=== PATIENT | female | born 1955 | race Caucasian/White ===

== ENCOUNTER → 2016-05-07 | Outpatient (REF) | payer OTHER ==
[~2016-05-07] MED LIST: AMBI5TAB PO; AMBI6.25 PO; ASPI32ECTA PO; CIPR500T89 PO; DYAZ37.5 PO; EFFE37.527 PO; ELIQ5TAB PO; FLAG500T PO; KLOR1TAB73 PO; LEVO75TA4 PO; MAGN400C2 PO; METO-209 PO; METO25TAB PO; PERCOCET PO; SPIR25TA2 PO; SUCR1TA PO; TOPR25TA PO; UROCTAB2 PO; ZOFR20TA PO
== END ==
LOC: M LAB REF 16:57
PROVIDERS: ATTEND Nurse Practitioner Family
DX: L20.9 Atopic dermatitis, unspecified (principal)

== ENCOUNTER → 2016-05-28 | Outpatient (CLI) | payer OTHER ==
[2016-05-28 17:27] LABS: BASO % 0.2 % (0.0-1.0); EOS # 0.3 K/mm3 (0.0-0.50); LARGE UNSTAINED CELL # 0.3 K/mm3 (0.0-0.4); LARGE UNSTAINED CELL % 2.9 % (0.0-4.0); LYMPH # 0.9 K/mm3 (1.5-4.5); LYMPH % 8.4 % (24.0-44.0); MEAN CORPUSCULAR HEMOGLOBIN 30.7 pg (27.0-33.0); MEAN CORPUSCULAR HGB CONC 33.7 g/dl (32.0-36.5); MEAN CORPUSCULAR VOLUME 90.9 fl (80.0-96.0); MONO # 0.7 K/mm3 (0.0-0.8); MONO % 6.3 % (0.0-5.0); NEUTROPHILS # 8.4 K/mm3 (1.8-7.7); NEUTROPHILS % 79.3 % (36.0-66.0); PLATELET COUNT, AUTOMATED 164 k/mm3 (150-450); RED CELL DISTRIBUTION WIDTH 13.8 % (11.5-14.5); WHITE BLOOD COUNT 10.6 K/mm3 (4.0-10.0)
[2016-05-28 18:04] LABS: ERYTHROCYTE SEDIMENTATION RATE 57 mm/hr (0-30)
[2016-05-28 18:05] LABS: ALBUMIN 3.4 GM/DL (3.2-5.2); ALBUMIN/GLOBULIN RATIO 0.89 (1.00-1.93); BILIRUBIN,TOTAL 1.3 MG/DL (0.2-1.0); CALCIUM LEVEL 8.8 MG/DL (8.8-10.2); CREATININE FOR GFR 1.04 MG/DL (0.55-1.02); GLOMERULAR FILTRATION RATE 57.2 (>45); POTASSIUM SERUM 4.1 MEQ/L (3.5-5.1); TOTAL PROTEIN 7.2 GM/DL (6.4-8.2)
== END ==
LOC: M LAB 17:04
PROVIDERS: ATTEND Nurse Practitioner Family
DX: R51 Headache (principal); M31.6 Other giant cell arteritis

== ENCOUNTER → 2016-06-28 | Outpatient (REF) | payer OTHER | LOC: M LAB REF 10:53 | PROVIDERS: ATTEND Surgery | DX: M31.6 Other giant cell arteritis (principal) ==

== ENCOUNTER → 2016-07-05 | Outpatient (REF) | payer OTHER ==
[2016-07-09 00:08] LABS: SJOGREN'S ANTI SS-A 2.5 AI (0.0-0.9); SJOGREN'S ANTI SS-B <0.2 AI (0.0-0.9)
== END ==
LOC: M LAB REF 16:25
PROVIDERS: ATTEND Internal Medicine
DX: L95.9 Vasculitis limited to the skin, unspecified (principal); M05.29 Rheumatoid vasculitis with rheumatoid arthritis of multiple sites

== ENCOUNTER → 2016-07-13 | Outpatient (REF) | payer OTHER | LOC: M LAB REF 10:30 | PROVIDERS: ATTEND Internal Medicine Gastroenterology | DX: A04.7 Enterocolitis due to Clostridium difficile (principal); K59.1 Functional diarrhea; K52.9 Noninfective gastroenteritis and colitis, unspecified ==

== ENCOUNTER → 2016-07-23 | Outpatient (REF) | payer OTHER | LOC: M LAB REF 16:34 | PROVIDERS: ATTEND Internal Medicine | DX: M31.6 Other giant cell arteritis (principal) ==

== ENCOUNTER → 2016-08-17 | Outpatient (REF) | payer OTHER | LOC: M LAB REF 16:59 | PROVIDERS: ATTEND Internal Medicine | DX: M31.6 Other giant cell arteritis (principal) ==

== ENCOUNTER → 2016-09-30 | Outpatient (REF) | payer OTHER ==
[~2016-09-30] MED LIST changes: +ASPI325T24 PO; -ASPI32ECTA PO; +CIPR-249 PO; -CIPR500T89 PO; +FURO80TA2 PO; +LIAL1.2T PO; -METO-209 PO; +METO1TAB33 PO
[2016-10-03 00:06] LABS: Lyme Disease IgG/IgM Antibodie <0.91 ISR (0.00-0.90); Lyme Disease IgM Ab Quantitati <0.80 index (0.00-0.79)
== END ==
LOC: M LAB REF 16:29
PROVIDERS: ATTEND Internal Medicine
DX: R70.0 Elevated erythrocyte sedimentation rate (principal)

== ENCOUNTER → 2016-10-22 | Outpatient (CLI) | payer OTHER ==
--- NOTE | 2016-10-22 16:55 | REP ---
PA and lateral chest: Comparisons 03/05/2011. The lung cerda are clear. Cardiac size is normal. The vinayak, mediastinum, and bony thorax are unremarkable. There is a dual-chamber pacemaker with the pacing tips in satisfactory locations. There are surgical clips in the abdominal right upper quadrant. Impression: Essentially negative PA and lateral chest. There is a pacemaker. This was not present previously. Signed by Cecil Smith MD 10/22/2016 04:47 P
== END ==
LOC: M RAD 16:23
PROVIDERS: ATTEND Nurse Practitioner Family
DX: R06.02 Shortness of breath (principal); Z95.0 Presence of cardiac pacemaker

== ENCOUNTER → 2016-10-22 | Outpatient (REF) | payer OTHER ==
[2016-10-22 22:02] LABS: EOSINOPHILS 1 % (0-5)
== END ==
LOC: M LAB REF 16:20
PROVIDERS: ATTEND Internal Medicine
DX: D72.9 Disorder of white blood cells, unspecified (principal)

== ENCOUNTER 2016-10-27 02:04 | Emergency (ER) | payer OTHER ==
[~2016-10-27] VITALS: Ht 172.7 cm; Wt 103.0 kg
[~2016-10-27 02:04] MED LIST changes: -FURO80TA2 PO; -LIAL1.2T PO
[2016-10-27] MEDS ORDERED: FURO80TA2 PO (02:24)
[2016-10-27] MEDS ORDERED: LIAL1.2T PO (02:24)
[2016-10-27] MEDS ORDERED: NS 1,000 ML IV ONE ×2 (03:00→03:15)
[2016-10-27] MEDS ORDERED: GASTROGRAFIN SOLUTION 30ML (Q9963) PO ONE ×2 (03:35→04:05)
[2016-10-27 03:40] LABS: BASO % 0.3 % (0.0-1.0); EOS # 0.2 K/mm3 (0.0-0.50); EOS % 2.3 % (0.0-3.0); LARGE UNSTAINED CELL # 0.3 K/mm3 (0.0-0.4); LARGE UNSTAINED CELL % 2.4 % (0.0-4.0); LYMPH # 1.3 K/mm3 (1.5-4.5); LYMPH % 9.6 % (24.0-44.0); MEAN CORPUSCULAR HEMOGLOBIN 32.1 pg (27.0-33.0); MEAN CORPUSCULAR HGB CONC 33.4 g/dl (32.0-36.5); MEAN CORPUSCULAR VOLUME 96.3 fl (80.0-96.0); NEUTROPHILS # 8.2 K/mm3 (1.8-7.7); NEUTROPHILS % 76.3 % (36.0-66.0); PLATELET COUNT, AUTOMATED 196 k/mm3 (150-450); RED CELL DISTRIBUTION WIDTH 15.7 % (11.5-14.5); WHITE BLOOD COUNT 10.7 K/mm3 (4.0-10.0)
[2016-10-27 04:02] LABS: ALBUMIN 2.9 GM/DL (3.2-5.2); ALBUMIN/GLOBULIN RATIO 0.67 (1.00-1.93); ALKALINE PHOSPHATASE 82 U/L (45-117); ALT/SGPT 17 U/L (12-78); AMYLASE 18 U/L (25-115); ANION GAP 9 MEQ/L (8-16); AST/SGOT 23 U/L (15-37); BILIRUBIN,DIRECT 0.2 MG/DL (0.0-0.2); BLOOD UREA NITROGEN 11 MG/DL (7-18); CALCIUM LEVEL 9.1 MG/DL (8.8-10.2); CARBON DIOXIDE LEVEL 26 MEQ/L (21-32); CHLORIDE LEVEL 103 MEQ/L (98-107); CREATININE FOR GFR 0.88 MG/DL (0.55-1.02); GLOMERULAR FILTRATION RATE > 60.0 (>45); GLUCOSE, FASTING 93 MG/DL (80-110); POTASSIUM SERUM 3.3 MEQ/L (3.5-5.1); SODIUM LEVEL 138 MEQ/L (136-145); TOTAL PROTEIN 7.2 GM/DL (6.4-8.2)
--- NOTE | 2016-10-27 05:30 | REPUSA ---
CLINICAL HISTORY: Abdominal pain. TECHNIQUE: Multiple axial, sagittal and coronal CT images were obtained through the abdomen and pelvi s without administration of IV contrast material. The patient ingested oral contrast. COMMENTS: Comparison is made to the prior exam on 11/15/2015. The liver is of uniform attenuation without mass or defect. There is no intra or extrahepatic biliary ductal dilatation. The spleen is normal. The gallbladder is surgically absent. The pancreas is of no rmal contour and attenuation characteristics. There is no evidence of adrenal mass. The kidneys are normal in size, shape and configuration. No renal or ureteral calculi are identified. There is no hydroureter or hydronephrosis. There is no evidence for appendicitis. There is sigmoid diverticulosis. Diffuse thickening of the wal l of the sigmoid colon and surrounding fat stranding. No evidence for small or large bowel obstructio n. There is no evidence of abdominal ascites or lymphadenopathy. There is no evidence of intrinsic or extrinsic bladder mass. Mild diffuse thickening of the bladder. There is no pelvic ascites or lymphadenopathy. Images of the lung bases show no evidence of pleural or parenchymal mass. There are no pleural effusi ons. The bony structures are free of lytic or blastic lesions. Multilevel degenerative changes are seen in volving the thoracolumbar spine. Scattered calcifications are seen involving the aorta and major branches compatible with atherosclero sis. IMPRESSION: Acute sigmoid diverticulitis. No perforation or abscess formation. Clinical evaluation and followup are suggested. Mild thickening of the bladder. Thank you for your kind referral of this patient.
[2016-10-27] MEDS ORDERED: CIPR-249 PO (05:40)
[2016-10-27] MEDS ORDERED: FLAG500T PO (05:40)
[2016-10-27] MEDS ORDERED: metroNIDAZOLE 750 MG in APPROPRIATE DILUENT 1 EA IV ONE (05:45)
[2016-10-27] MEDS ORDERED: CIPROFLOXACIN 400 MG in APPROPRIATE DILUENT 1 EA IV ONE (05:45)
[2016-10-27 08:07] VITALS: BP 129/65
== END 2016-10-27 08:09 | disposition home or self-care (01) ==
LOC: M ED 02:04
DX: K57.32 Diverticulitis of large intestine without perforation or abscess without bleeding (principal); I48.91 Unspecified atrial fibrillation; I10 Essential (primary) hypertension; K52.9 Noninfective gastroenteritis and colitis, unspecified; M31.6 Other giant cell arteritis; F32.9 Major depressive disorder, single episode, unspecified; Z90.49 Acquired absence of other specified parts of digestive tract; Z88.5 Allergy status to narcotic agent; Z79.899 Other long term (current) drug therapy
CPT/HCPCS: 74176; 80048; 80076; 82150; 83690; 85025; 96361; 96365; 96367; 99283; J0744; Q9963

== ENCOUNTER → 2016-10-29 | Outpatient (REF) | payer OTHER ==
[~2016-10-29] MED LIST changes: +FURO80TA2 PO; +LIAL1.2T PO
[2016-10-29 20:13] LABS: EOSINOPHILS 2 % (0-5)
== END ==
LOC: M LAB REF 16:39
PROVIDERS: ATTEND Nurse Practitioner Family
DX: D72.9 Disorder of white blood cells, unspecified (principal)

== ENCOUNTER → 2016-11-11 | Outpatient (CLI) | payer OTHER ==
--- NOTE | 2016-11-11 12:28 | REP ---
Left lower extremity deep vein duplex ultrasound: The deep veins demonstrate normal compression, normal Doppler color flow and normal Doppler waveforms with respiration augmentation at multiple levels from the popliteal vein to the common femoral vein. Impression: There is no deep vein thrombus. Signed by Cecil Smith MD 11/11/2016 12:19 P
== END ==
LOC: M RAD 11:44
PROVIDERS: ATTEND Physician Assistant
DX: M79.662 Pain in left lower leg (principal); R60.0 Localized edema

== ENCOUNTER → 2016-12-01 | Outpatient (REF) | payer OTHER | LOC: M LAB REF 15:41 | PROVIDERS: ATTEND Internal Medicine Gastroenterology | DX: K52.9 Noninfective gastroenteritis and colitis, unspecified (principal) ==

== ENCOUNTER → 2016-12-22 | Outpatient (REF) | payer OTHER ==
[2016-12-22 21:54] LABS: EOSINOPHILS 5 % (0-5); SPHEROCYTES 1+
== END ==
LOC: M LAB REF 16:53
PROVIDERS: ATTEND Internal Medicine
DX: D72.9 Disorder of white blood cells, unspecified (principal)

== ENCOUNTER → 2017-03-15 | Outpatient (REF) | payer OTHER ==
[2017-03-15 17:57] LABS: COMPLEMENT C4 36.6 MG/DL (10-40)
== END ==
LOC: M LAB REF 16:57
PROVIDERS: ATTEND Nurse Practitioner Adult Health
DX: M19.90 Unspecified osteoarthritis, unspecified site (principal)

== ENCOUNTER → 2017-04-26 | Outpatient (REF) | payer OTHER ==
[2017-04-26 13:56] LABS: C REACTIVE PROTEIN QUANTITATIV 1.22 MG/DL (0.00-0.30)
== END ==
LOC: M LAB REF 13:23
DX: M19.90 Unspecified osteoarthritis, unspecified site (principal)

== ENCOUNTER → 2017-06-03 | Outpatient (REF) | payer OTHER ==
[2017-06-03 18:52] LABS: C REACTIVE PROTEIN QUANTITATIV 1.33 MG/DL (0.00-0.30)
== END ==
LOC: M LAB REF 16:38
DX: R70.0 Elevated erythrocyte sedimentation rate (principal)

== ENCOUNTER → 2017-07-28 | Outpatient (REF) | payer OTHER ==
[2017-07-28 12:56] LABS: C REACTIVE PROTEIN QUANTITATIV 1.49 MG/DL (0.00-0.30)
== END ==
LOC: M LAB REF 12:04
DX: I48.0 Paroxysmal atrial fibrillation (principal)

== ENCOUNTER → 2018-01-16 | Outpatient (REF) | payer OTHER ==
[2018-01-16 19:08] LABS: BASO % 0.4 % (0.0-1.0); EOS # 0.2 10^3/uL (0.0-0.50); EOS % 2.5 % (0.0-3.0); HEMATOCRIT 45.3 % (36.0-47.0); HEMOGLOBIN 14.9 g/dl (12.0-15.5); IMMATURE GRANULOCYTE % 1.3 % (0-3.0); LYMPH # 1.4 10^3/uL (1.5-4.5); LYMPH % 16.6 % (24.0-44.0); MEAN CORPUSCULAR HEMOGLOBIN 30.9 pg (27.0-33.0); MEAN CORPUSCULAR HGB CONC 32.9 g/dl (32.0-36.5); MONO % 12.2 % (0.0-5.0); NEUTROPHILS # 5.7 10^3/uL (1.8-7.7); PLATELET COUNT, AUTOMATED 200 10^3/uL (150-450); RED BLOOD COUNT 4.82 10^6/uL (4.00-5.40); RED CELL DISTRIBUTION WIDTH 13.2 % (11.5-14.5); WHITE BLOOD COUNT 8.5 10^3/uL (4.0-10.0)
[2018-01-16 19:30] LABS: ALBUMIN 3.5 GM/DL (3.2-5.2); ALBUMIN/GLOBULIN RATIO 0.83 (1.00-1.93); ALKALINE PHOSPHATASE 106 U/L (45-117); ALT/SGPT 21 U/L (12-78); ANION GAP 9 MEQ/L (8-16); AST/SGOT 21 U/L (7-37); BILIRUBIN,TOTAL 0.5 MG/DL (0.2-1.0); BLOOD UREA NITROGEN 21 MG/DL (7-18); C REACTIVE PROTEIN QUANTITATIV 1.23 MG/DL (0.00-0.30); CALCIUM LEVEL 8.8 MG/DL (8.8-10.2); CARBON DIOXIDE LEVEL 23 MEQ/L (21-32); CHLORIDE LEVEL 108 MEQ/L (98-107); CPK CREATINE PHOSPHOKINASE 92 U/L (26-192); CREATININE FOR GFR 1.18 MG/DL (0.55-1.30); GLOMERULAR FILTRATION RATE 49.1 (>45); GLUCOSE, FASTING 90 MG/DL (70-100); POTASSIUM SERUM 4.4 MEQ/L (3.5-5.1); SODIUM LEVEL 140 MEQ/L (136-145); TOTAL PROTEIN 7.7 GM/DL (6.4-8.2)
[2018-01-16 19:49] LABS: ERYTHROCYTE SEDIMENTATION RATE 31 mm/hr (0-30)
[2018-01-19 00:08] LABS: ANA (HEP2) Negative (.); ANTI JO-1 ANTIBODIES <0.2 AI (0.0-0.9); SSA SJOGRENS A 4.4 AI (0.0-0.9); SSB SJOGRENS B <0.2 AI (0.0-0.9)
== END ==
LOC: M SFHCLERA 12:19
DX: R76.8 Other specified abnormal immunological findings in serum (principal)

== ENCOUNTER 2018-08-25 20:04 | Emergency (ER) | payer OTHER ==
[~2018-08-25] VITALS: Ht 172.7 cm; Wt 94.5 kg
[~2018-08-25 20:04] MED LIST changes: +ASPI-255 PO; -ASPI325T24 PO; +EFFE37.5 PO; -EFFE37.527 PO; +METO1TAB63 PO; -METO25TAB PO; +SPIR-10 PO; -SPIR25TA2 PO; -ZOFR20TA PO; +ZOFR4TAB16 PO
[2018-08-25] MEDS ORDERED: CYCL5TAB PO (21:44)
[2018-08-25 21:51] VITALS: BP 115/68
--- NOTE | 2018-08-26 09:41 | REP ---
Clinical: Trauma. Technique: Frontal view of the chest with multiple views of the left hemithorax. Findings: Frontal view of the chest demonstrates no acute cardiopulmonary process. Multiple views of the left hemithorax demonstrates no obvious acute rib fracture or pathology. Impression: Normal left rib series. No acute fracture identified. Electronically Signed by Saúl Patel MD 08/26/2018 09:33 A
--- NOTE | 2018-08-26 19:21 | ECGEPIP ---
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
== END 2018-08-25 21:55 | disposition home or self-care (01) ==
LOC: M ED 20:04
DX: R07.81 Pleurodynia (principal); I10 Essential (primary) hypertension; E03.9 Hypothyroidism, unspecified; F33.9 Major depressive disorder, recurrent, unspecified; F41.9 Anxiety disorder, unspecified; Z95.0 Presence of cardiac pacemaker; Z87.19 Personal history of other diseases of the digestive system; Z88.5 Allergy status to narcotic agent; Z79.899 Other long term (current) drug therapy; Z79.01 Long term (current) use of anticoagulants

== ENCOUNTER → 2018-10-05 | Outpatient (CLI) | payer MEDICARE, OTHER ==
[~2018-10-05] MED LIST changes: +CYCL5TAB PO
[2018-10-05 15:48] LABS: COLLAGEN EPINEPHRINE 96 SECONDS (74-162)
== END ==
LOC: M LAB 14:05
PROVIDERS: ATTEND Ophthalmology
DX: H02.831 Dermatochalasis of right upper eyelid (principal)

== ENCOUNTER → 2018-12-24 | Outpatient (CLI) | payer MEDICARE, OTHER ==
--- NOTE | 2018-12-25 07:42 | REP ---
RIGHT ANKLE, FOUR VIEWS: There is no evidence of an acute fracture, dislocation or intrinsic bone disease. There is mild inferior calcaneal spurring. IMPRESSION: No fracture or dislocation. Electronically Signed by Cecil Alvarez MD 12/26/2018 09:48 A
== END ==
LOC: M LRY 16:18
PROVIDERS: ATTEND Physician Assistant
DX: M77.31 Calcaneal spur, right foot (principal); M25.571 Pain in right ankle and joints of right foot
CPT/HCPCS: 73610; G0463

== ENCOUNTER → 2019-04-09 | Outpatient (REF) | payer MEDICARE, OTHER | LOC: M LAB REF 17:21 | PROVIDERS: ATTEND Internal Medicine | DX: E78.5 Hyperlipidemia, unspecified (principal) ==

== ENCOUNTER → 2019-05-17 | Outpatient (REF) | payer MEDICARE, OTHER ==
[2019-05-17 22:20] LABS: INFLUENZA A AMPLIFICATION POSITIVE (NEGATIVE); INFLUENZA B AMPLIFICATION NEGATIVE (NEGATIVE)
== END ==
LOC: M LAB REF 08:39
PROVIDERS: ATTEND Physician Assistant
DX: J10.1 Influenza due to other identified influenza virus with other respiratory manifestations (principal)

== ENCOUNTER 2019-05-29 22:24 | Inpatient (IN) | payer OTHER, MEDICARE ==
[~2019-05-29] VITALS: Ht 172.7 cm; Wt 91.9 kg
[2019-05-29] MEDS: DOCUSATE SODIUM 100 MG CAP PO SCH (21:00)
[~2019-05-29 22:24] MED LIST changes: +FENOFIBRATE 145 MG TAB (TRICOR) PO SCH; +ROSUVASTATIN 10 MG TAB (CRESTOR) PO SCH; +zolPIDEM TARTRATE 5 MG TAB PO SCH
[2019-05-30] MEDS ORDERED: AZITHROMYCIN INJ 500 MG, VIAL MATE ADAPTER 1 EACH in D5W 250 ML IV ONE (00:30)
[2019-05-30] MEDS ORDERED: cefTRIAXone SOD 1 GM in D5W MINI-BAG PLUS 50 ML IV ONE (00:30)
[2019-05-30 00:41] LABS: BASO % 0.4 % (0.0-1.0); EOS # 0.2 10^3/uL (0.0-0.5); HEMATOCRIT 42.2 % (36.0-47.0); HEMOGLOBIN 13.7 g/dl (12.0-15.5); LYMPH % 24.7 % (24.0-44.0); MEAN CORPUSCULAR HEMOGLOBIN 30.4 pg (27.0-33.0); MEAN CORPUSCULAR HGB CONC 32.5 g/dl (32.0-36.5); MEAN CORPUSCULAR VOLUME 93.8 fl (80.0-96.0); MONO # 1.3 10^3/uL (0.0-0.8); MONO % 16.5 % (0.0-5.0); NEUTROPHILS # 4.4 10^3/uL (1.5-8.5); NEUTROPHILS % 54.7 % (36.0-66.0); PLATELET COUNT, AUTOMATED 168 10^3/uL (150-450); WHITE BLOOD COUNT 8.1 10^3/uL (4.0-10.0)
[2019-05-30 01:03] LABS: CREATININE FOR GFR 1.09 MG/DL (0.55-1.30); GLOMERULAR FILTRATION RATE 53.6 (>45); POTASSIUM SERUM 3.8 MEQ/L (3.5-5.1)
[2019-05-30] MEDS ORDERED: MOM 30ML SUSPENSION UDC PO PRN (01:45)
[2019-05-30] MEDS ORDERED: ACETAMINOPHEN TAB 650MG DOSE (2X325MG) PO PRN (01:45)
[2019-05-30] MEDS ORDERED: MAALOX 30 ML SUSP *UDC PO PRN (01:45)
--- NOTE | 2019-05-30 01:47 | HPEPDOC ---
[facility] Medical History & Physical Date of Admission May 30, 2019 Date of Service: May 30, 2019 Primary Care Physician: Jr Escalante Collins Attending Physician: CORRINE DORANTES MD History and Physical TIME OF SERVICE: 215AM CHIEF COMPLAINT: dyspnea HISTORY OF PRESENT ILLNESS: This is a 63-year-old female who was diagnosed with influenza A 2 weeks ago; she and finished a course of Tamiflu; her cough had resolved but on Tuesday she began to have muscle aches and shortness of breath, so she decided to come to the hospital for evaluation. Per discussion with the ER provider. Her oxygen was 88% on room air but improved to 94% on 4 L. . She was started on ceftriaxone and azithromycin for left sided pneumonia. REVIEW OF SYSTEMS: 12 point review of systems negative except as listed in HPI PAST MEDICAL/ SURGICAL HISTORY: Mixed connective tissue disease. 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 She doesn't smoke ALLERGIES: Please see below. HOME MEDICATIONS: Please see below. PHYSICAL EXAMINATION: VITAL SIGNS: Please see below. GEN: well-nourished / well developed/ NAD INTEGUMENT: not flushed HEENT: NCAT / lips acyanotic /mucus membranes moist and pink / nasal cannula in place CVS: RRR/NMRG LUNGS: lungs are clear to auscultation bilaterally on room air ABDOMEN: Contour (flat) / the abdomen is tympanic on percussion, soft & not tender with palpation MSK/EXTREMITIES: range of motion intact in all 4 extremities / no scoliosis / no kyphosis NEURO: CN 2-12 are grossly intact / speech is not dysarthric PSYCH: alert and oriented to person place and time/ able to understand and follow all commands LABORATORY DATA: See below. IMAGING: There appears to be a left sided retrocardiac obesity MICROBIOLOGY: Please see below. ASSESSMENT: Ms. Chris is a 63-year-old female with a hx of mixed connective tissue disease, temporal arteritis, atrial fibrillation, sick sinus syndrome, gastritis, Chronic HTN, dyslipidemia, and hypothyroidism was admitted for management of hypoxia, possibly due to left-sided pneumonia. PLAN: 1.Dyspnea Possibly 2/2 post viral Pneumonia She completed her course of Tamiflu. Chest x-ray as above CURB 65 score to determine if pt should be admitted = 1 point = low risk = out patient treatment appropriate Plan: bc she is O2 dependent we will admit her to the medical floor overnight / switch to PO levofloxacin tommorow / continuous pulse ox & supplemental O2/ f/u blood cx / f/u final chest xray report / Acetaminophen PRN for fever 2. A fib - Plan: Metoprolol and eliquis 3. Hypothyroidism - Plan: Levoroxine 4. Chronic HTN - Plan: spironolactone, metoprolol 5. Dyslipidemia - Plan: rosuvastatin and fenofibrate 6. Obesity w BMI of 30 complicates care - Plan: f/u A1C DVT PROPHYLAXIS n/a bc she is on eliquis Dispo: possibly home tomorrow if weaned off of O2 LATE ENTRY #Bigemeny / Frequent PVCs Per d/w RN pacemaker not pacing on telemetry & pt is having frequent PVCs and bigeminy. We will do an EKG and consult to interrogate the pacemaker in the AM. Vital Signs Vital Signs Date Time Temp Pulse Resp B/P (MAP) Pulse Ox O2 Delivery O2 Flow Rate FiO2 05/29/19 23:45 80 148/67 (94) 95 05/29/19 22:45 98.1 20 05/29/19 22:25 Room Air Laboratory Data Labs 24H Laboratory Tests 2 05/30/19 00:26: Immature Granulocyte % (Auto) 0.7, Neutrophils (%) (Auto) 54.7, Lymphocytes (%) (Auto) 24.7, Monocytes (%) (Auto) 16.5H, Eosinophils (%) (Auto) 3.0, Basophils (%) (Auto) 0.4, Neutrophils # (Auto) 4.4, Lymphocytes # (Auto) 2.0, Monocytes # (Auto) 1.3H, Eosinophils # (Auto) 0.2, Basophils # (Auto) 0.0, Nucleated Red Blood Cells % (auto) 0.0, Anion Gap 5L, Glomerular Filtration Rate 53.6, Lactic Acid Level 0.9, Calcium Level 9.0 CBC/BMP Laboratory Tests 05/30/19 00:26 Microbiology Microbiology 05/30/19 Blood Culture, Received Pending Home Medications Scheduled Apixaban (Eliquis) 5 Mg Tab, 5 MG PO BID Cyanocobalamin (Vitamin B-12) (Vitamin B-12) 1,000 Mcg Tablet, 2,000 MCG PO DAILY Fenofibrate (Fenofibrate) 160 Mg Tablet, 160 MG PO QHS Levothyroxine Sodium (Synthroid) 88 Mcg Tablet, 88 MCG PO DAILY Metoprolol Succinate (Metoprolol Succinate) 100 Mg Tab, 100 MG PO BID Potassium Citrate (Urocit-K) 1,080 Mg Tab, 1,080 MG PO BID 1080MG = 10MEQ Rosuvastatin Calcium (Crestor) 5 Mg Tablet, 5 MG PO QHS Spironolactone (Spironolactone) 25 Mg Tab, 25 MG PO DAILY Sucralfate (Carafate) 1 Gm Tablet, 1 GM PO ACHS Venlafaxine HCl (Effexor Xr) 37.5 Mg Cap, 112.5 MG PO DAILY Zolpidem Tartrate (Zolpidem Tartrate) 5 Mg Tablet, 5 MG PO QHS Scheduled PRN Acetaminophen (Tylenol Extra Strength) 500 Mg Tablet, 500 MG PO Q4H PRN for PAIN / FEVER Allergies Coded Allergies: codeine (Verified Allergy, Intermediate, hives, 05/29/19) A-FIB/CHADSVASC A-FIB History Current/History of A-Fib/PAF?: No Current PO Anticoag Therapy: No CORRINE DORANTES MD May 30, 2019 01:47
[2019-05-30] MEDS ORDERED: ZOLP5TAB PO (01:54)
[2019-05-30] MEDS ORDERED: CRES5TAB PO (01:54)
[2019-05-30] MEDS ORDERED: FENO160T10 PO (01:54)
[2019-05-30] MEDS ORDERED: CYAN100050 PO (01:54)
[2019-05-30] MEDS ORDERED: SYNT88TA2 PO (01:54)
[2019-05-30] MEDS ORDERED: ACET-897 PO (01:54)
[2019-05-30] MEDS ORDERED: CARA1TAB6 PO (01:54)
[2019-05-30] MEDS ORDERED: PILL CUTTER 1 EACH XX PRN (03:00)
[2019-05-30 03:05] VITALS: BP 141/90
[2019-05-30 03:28] LABS: HEMOGLOBIN A1c 6.2 %
[2019-05-30 03:54] VITALS: O2SAT 97
[2019-05-30 06:00] VITALS: BP 138/86
[2019-05-30] MEDS ORDERED: LEVOTHYROXINE 88MCG TABLET (0.088 MG) PO SCH (06:00)
[2019-05-30] MEDS ORDERED: LevoFLOXacin 750 MG TABLET PO SCH (06:00)
--- NOTE | 2019-05-30 07:46 | ECGEPIP ---
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 Nonspecific ST/T wave abnormalities No significant change from 08/25/18 Electronically Signed on 05-30-2019 7:46:14 EST by Renny Ghotra
--- NOTE | 2019-05-30 07:47 | REP ---
PA and lateral chest: Comparison is 10/22/2016. Lung cerda are clear. Cardiac size is normal. There is a dual-chamber pacemaker, unchanged. The vinayak, mediastinum, skeletal structures are unremarkable. There is a small sliver of air beneath the left hemidiaphragm, likely within the gastric fundus. There are surgical clips in the abdominal right upper quadrant. Impression: No acute cardiopulmonary findings. The small sliver of air beneath the left hemidiaphragm as likely in the gastric fundus. Electronically Signed by Cecil Smith MD 05/30/2019 07:39 A
--- NOTE | 2019-05-30 08:42 | IPN ---
DATE: 05/30/2019 I was asked by Dr. Bean to interrogate the patient's pacemaker because of concern about the dropped beats indicating pacemaker malfunction. Unfortunately, I could not find any evidence of so in her chart or telemetry records. Consequently, I spent considerable amount of time in reviewing her telemetry tracings overnight and I could not find anything to suggest pacemaker malfunction. Because she had recent office evaluation of her device that was shown to be working perfectly normally, I do not see a reason to interrogate her device again. I talked to the transportation refrigeration technician and asked them to call me if they see any evidence of pacemaker malfunction, especially if there are some pauses.
[2019-05-30] MEDS ORDERED: VENLAFAXINE **XR** 37.5 MG CAPSULE PO SCH (09:00)
[2019-05-30] MEDS ORDERED: SPIRONOLACTONE 25 MG TAB PO SCH (09:00)
[2019-05-30] MEDS ORDERED: ENOXAPARIN 40 MG/0.4 ML SYRINGE (J1650) SC SCH (09:00)
[2019-05-30] MEDS ORDERED: POTASSIUM CITRATE 1080 MG (10MEQ) TAB PO SCH (09:00)
[2019-05-30] MEDS ORDERED: APIXABAN 5 MG TAB (ELIQUIS) PO SCH (09:00)
[2019-05-30] MEDS ORDERED: METOPROLOL SUCC (TopROL XL) 100MG *XL* TAB PO SCH (09:00)
[2019-05-30] MEDS: SUCRALFATE 1 GM TAB PO SCH ×2 (09:17→12:00)
[2019-05-30] MEDS: DOCUSATE SODIUM 100 MG CAP PO SCH (09:17)
[2019-05-30 09:30] VITALS: O2SAT 92
[2019-05-30 14:00] VITALS: BP 151/66
[2019-05-30] MEDS ORDERED: DOXY100C PO (15:15)
[2019-05-30] MEDS ORDERED: CEFD1CAP8 PO (15:15)
--- NOTE | 2019-05-30 15:50 | DS.PDOC ---
Discharge Summary General Date of Admission May 30, 2019 at 01:40 Date of Discharge 05/30/19 Attending Physician: CHANTELLE CAMARA MD Discharge Summary PROCEDURES PERFORMED DURING STAY: None. ADMITTING DIAGNOSES: 1. Pneumonia. DISCHARGE DIAGNOSES: 1. Pneumonia. COMPLICATIONS/CHIEF COMPLAINT: Influenza W/Pneumonia. HISTORY OF PRESENT ILLNESS: 63-year-old female with past medical history of mixed connective tissue disease, temporal arteritis, atrial fibrillation on anticoagulation, hypertension, was admitted for likely pneumonia with hypoxemia. Patient was recently diagnosed with influenza, 3 weeks ago, treated with supportive care, reports initial improvement in symptoms with subsequent development of productive cough, fever and chills along with shortness of breath. Patient was hypoxemic in the emergency department and was admitted for presumed bacterial pneumonia superimposed on recent forms infection. Chest x-ray without acute pathology, no focal trace noted, respiratory viral panel was negative, patient was titrated off of supplemental oxygen, no drop in O2 sa turation was noted with ambulation. Patient will be discharged on doxycycline and Cefdinir to complete her antibiotic regimen. HOSPITAL COURSE: As above. DISCHARGE MEDICATIONS: Please see below. ALLERGIES: Please see below. PHYSICAL EXAMINATION: VITAL SIGNS: Please see below. GENERAL: No distress HEENT: Normocephalic, atraumatic, moist mucous membranes NECK: Supple CARDIOVASCULAR EXAMINATION: S1, S2, no murmurs RESPIRATORY EXAMINATION: Scattered rhonchi, no wheezing ABDOMINAL EXAMINATION: Soft, nontender, nondistended, positive bowel sounds EXTREMITIES: Range of motion intact SKIN: No rash NEUROLOGICAL EXAMINATION: Alert and oriented 3, no focal deficits PSYCHIATRIC EXAMINATION: Calm and cooperative LABORATORY DATA: Please see below. IMAGING: Chest x-ray without acute pathology PROGNOSIS: Fair ACTIVITY: As tolerated. DIET: Cardiac DISCHARGE PLAN: Follow with PCP in 1-2 weeks DISPOSITION: Home. DISCHARGE INSTRUCTIONS: 1. As above. DISCHARGE CONDITION: Stable. TIME SPENT ON DISCHARGE: Greater than 26 minutes. Vital Signs/I&Os Vital Signs Date Time Temp Pulse Resp B/P (MAP) Pulse Ox O2 Delivery O2 Flow Rate FiO2 05/30/19 14:00 98.7 76 19 151/66 (94) 100 Nasal Cannula 2.0 I&O- Last 24 Hours up to 6 AM 05/30/19 05:59 Intake Total 905 ml Balance 905 ml Laboratory Data Labs 24H Laboratory Tests 2 05/30/19 00:26: Immature Granulocyte % (Auto) 0.7, Neutrophils (%) (Auto) 54.7, Lymphocytes (%) (Auto) 24.7, Monocytes (%) (Auto) 16.5H, Eosinophils (%) (Auto) 3.0, Basophils (%) (Auto) 0.4, Neutrophils # (Auto) 4.4, Lymphocytes # (Auto) 2.0, Monocytes # (Auto) 1.3H, Eosinophils # (Auto) 0.2, Basophils # (Auto) 0.0, Nucleated Red Blood Cells % (auto) 0.0, Anion Gap 5L, Glomerular Filtration Rate 53.6, Estimated Mean Plasma Glucose 131H, Hemoglobin A1c 6.2, Lactic Acid Level 0.9, Calcium Level 9.0 CBC/BMP Laboratory Tests 05/30/19 00:26 Microbiology Microbiology 05/30/19 Respiratory Virus Panel (PCR) (GABRIELA) - Final, Complete 05/30/19 Blood Culture, Received Pending Discharge Medications Scheduled Apixaban (Eliquis) 5 Mg Tab, 5 MG PO BID, (Reported) Cefdinir (Cefdinir) 300 Mg Capsule, 1 CAP PO BID Cyanocobalamin (Vitamin B-12) (Vitamin B-12) 1,000 Mcg Tablet, 2,000 MCG PO DAILY, (Reported) Doxycycline Hyclate (Doxycycline Hyclate) 100 Mg Capsule, 1 CAP PO BID Fenofibrate (Fenofibrate) 160 Mg Tablet, 160 MG PO QHS, (Reported) Levothyroxine Sodium (Synthroid) 88 Mcg Tablet, 88 MCG PO DAILY, (Reported) Metoprolol Succinate (Metoprolol Succinate) 100 Mg Tab, 100 MG PO BID, (Reported) Potassium Citrate (Urocit-K) 1,080 Mg Tab, 1,080 MG PO BID, (Reported) 1080MG = 10MEQ Rosuvastatin Calcium (Crestor) 5 Mg Tablet, 5 MG PO QHS, (Reported) Spironolactone (Spironolactone) 25 Mg Tab, 25 MG PO DAILY, (Reported) Sucralfate (Carafate) 1 Gm Tablet, 1 GM PO ACHS, (Reported) Venlafaxine HCl (Effexor Xr) 37.5 Mg Cap, 112.5 MG PO DAILY, (Reported) Zolpidem Tartrate (Zolpidem Tartrate) 5 Mg Tablet, 5 MG PO QHS, (Reported) Scheduled PRN Acetaminophen (Tylenol Extra Strength) 500 Mg Tablet, 500 MG PO Q4H PRN for PAIN / FEVER, (Reported) Allergies Coded Allergies: codeine (Verified Allergy, Intermediate, hives, 05/29/19) CHANTELLE CAMARA MD May 30, 2019 15:50
[2019-05-31] MEDS ORDERED: cefTRIAXone SOD 1 GM in D5W MINI-BAG PLUS 50 ML IV SCH (01:00)
[2019-05-31] MEDS ORDERED: AZITHROMYCIN INJ 500 MG, VIAL MATE ADAPTER 1 EACH in D5W 250 ML IV SCH (02:00)
== END 2019-05-30 17:36 | disposition home or self-care (01) | DRG 545 ==
LOC: M ED 22:24 → M ED INP 05-30 01:40 → ENRESERVTM 05-30 02:05 → ENRESERVDT 05-30 02:05 → M MSPAV 05-30 03:05
PROVIDERS: ADMIT Internal Medicine; ATTEND Internal Medicine
DX: M35.1 Other overlap syndromes (principal); J18.9 Pneumonia, unspecified organism; R09.02 Hypoxemia; M31.6 Other giant cell arteritis; I48.91 Unspecified atrial fibrillation; Z95.0 Presence of cardiac pacemaker; I49.5 Sick sinus syndrome; K29.70 Gastritis, unspecified, without bleeding; I10 Essential (primary) hypertension; E78.5 Hyperlipidemia, unspecified; E03.9 Hypothyroidism, unspecified; Z98.42 Cataract extraction status, left eye; Z79.899 Other long term (current) drug therapy; Z88.5 Allergy status to narcotic agent

== ENCOUNTER → 2019-07-25 | Outpatient (CLI) | payer MEDICARE, OTHER ==
[~2019-07-25] MED LIST changes: +ACET-897 PO; +CARA1TAB6 PO; +CEFD1CAP8 PO; +CRES5TAB PO; +CYAN100050 PO; +DOXY100C PO; +FENO160T10 PO; -FENOFIBRATE 145 MG TAB (TRICOR) PO SCH; -ROSUVASTATIN 10 MG TAB (CRESTOR) PO SCH; +SYNT88TA2 PO; +ZOLP5TAB PO; -zolPIDEM TARTRATE 5 MG TAB PO SCH
== END ==
LOC: M LABSMTC 11:54
PROVIDERS: ATTEND Family Medicine
DX: Z11.59 Encounter for screening for other viral diseases (principal); Z20.828 Contact with and (suspected) exposure to other viral communicable diseases

== ENCOUNTER 2019-11-22 17:13 | Emergency (ER) | payer MEDICARE, OTHER ==
[~2019-11-22] VITALS: Ht 172.7 cm; Wt 89.3 kg
[2019-11-22] MEDS ORDERED: AMOX875T (17:27)
[2019-11-22] MEDS ORDERED: POTA10808 (17:27)
[2019-11-22] MEDS ORDERED: MORPHINE 4 MG/ML 1ML VIAL/SYRINGE (J2270) IV ONE (20:15)
[2019-11-22] MEDS ORDERED: dexameTHASONE 20MG/5ML VIAL (J1100 PER 1MG) IV ONE (20:15)
[2019-11-22] MEDS ORDERED: AMPICILLIN SOD/SULBACTAM SOD 3 GM in D5W MINI-BAG PLUS 100 ML IV ONE (20:15)
[2019-11-22 22:02] LABS: BASO % 0.2 % (0.0-1.0); EOS # 0.2 10^3/uL (0.0-0.5); EOS % 1.2 % (0.0-3.0); HEMATOCRIT 44.3 % (36.0-47.0); HEMOGLOBIN 14.7 g/dl (12.0-15.5); LYMPH # 1.3 10^3/uL (1.5-5.0); LYMPH % 10.9 % (24.0-44.0); MEAN CORPUSCULAR HEMOGLOBIN 31.9 pg (27.0-33.0); MEAN CORPUSCULAR HGB CONC 33.2 g/dl (32.0-36.5); MEAN CORPUSCULAR VOLUME 96.1 fl (80.0-96.0); MONO # 1.2 10^3/uL (0.0-0.8); NEUTROPHILS # 9.5 10^3/uL (1.5-8.5); NEUTROPHILS % 77.3 % (36.0-66.0); PLATELET COUNT, AUTOMATED 149 10^3/uL (150-450); RED BLOOD COUNT 4.61 10^6/uL (4.00-5.40); WHITE BLOOD COUNT 12.3 10^3/uL (4.0-10.0)
[2019-11-22 22:07] LABS: ALBUMIN 3.6 GM/DL (3.2-5.2); ALT/SGPT 42 U/L (12-78); BILIRUBIN,DIRECT 0.2 MG/DL (0.0-0.2); BILIRUBIN,TOTAL 0.9 MG/DL (0.2-1.0); BLOOD UREA NITROGEN 18 MG/DL (7-18); C REACTIVE PROTEIN QUANTITATIV 3.96 MG/DL (0.00-0.30); CALCIUM LEVEL 8.9 MG/DL (8.8-10.2); CARBON DIOXIDE LEVEL 25 MEQ/L (21-32); CHLORIDE LEVEL 110 MEQ/L (98-107); CREATININE FOR GFR 0.96 MG/DL (0.55-1.30); GLOMERULAR FILTRATION RATE > 60.0 (>45); GLUCOSE, FASTING 92 MG/DL (70-100); SODIUM LEVEL 138 MEQ/L (136-145); TOTAL PROTEIN 7.7 GM/DL (6.4-8.2)
[2019-11-22 22:54] LABS: ERYTHROCYTE SEDIMENTATION RATE 44 mm/hr (0-30)
[2019-11-22] MEDS ORDERED: AUGM875T28 PO (23:41)
[2019-11-22] MEDS ORDERED: PRED20TA PO (23:41)
[2019-11-22] MEDS ORDERED: TRAM50TA2 PO ×2 (23:41→23:44)
[2019-11-22 23:49] VITALS: BP 130/70
== END 2019-11-23 | disposition home or self-care (01) ==
LOC: M ED 17:13
DX: K12.2 Cellulitis and abscess of mouth (principal); K21.9 Gastro-esophageal reflux disease without esophagitis; Z78.0 Asymptomatic menopausal state; Z79.01 Long term (current) use of anticoagulants; Z79.899 Other long term (current) drug therapy; Z88.6 Allergy status to analgesic agent
CPT/HCPCS: 80048; 80076; 83605; 85025; 85652; 86140; 96365; 96366; 96375; 99284; J1100; J2270

== ENCOUNTER → 2020-09-30 | Outpatient (CLI) | payer MEDICARE, OTHER ==
[~2020-09-30] MED LIST changes: +AMOX875T; +AUGM875T28 PO; +ISOVUE-370 76% 100ML VIAL As Ordered ONE; +POTA10808; +PRED20TA PO; +TRAM50TA2 PO
--- NOTE | 2020-09-30 13:47 | REP ---
INDICATION: HEMATURIA. COMPARISON: None TECHNIQUE: Axial contrast-enhanced and delayed images from the lung bases to the pubic symphysis using 100 cc Isovue 370 intravenous contrast material. Coronal and sagittal reformations obtained. This CT examination was performed using the following dose reduction techniques: Automated exposure control, adjustment of mA and/or kv according to the patient's size, and the use of iterative reconstruction technique. FINDINGS: Kidneys demonstrate age-related cortical atrophy along with 1 cm simple left renal cyst. No obvious nephroureterolithiasis. No hydroureteronephrosis. Liver, spleen, pancreas, bilateral adrenal glands are relatively normal. Prior cholecystectomy noted. The enteric system is without obstruction or acute inflammatory process. Normal terminal ileum and appendix identified in the right lower quadrant. Sigmoid diverticulosis noted without acute diverticulitis. Pelvis demonstrates normal bladder and mildly prominent heterogeneous uterus possibly reflecting myomatous changes. No ascites. No free air. No adenopathy. Abdominal aorta without aneurysm or dissection. Musculoskeletal structures demonstrate age-related changes. IMPRESSION: 1. Kidneys demonstrate symmetric age-related cortical thinning and 1 cm simple left renal cyst. 2. Diverticulosis. 3. Possible myomatous changes to the uterus. <Electronically signed by Saúl Patel > 09/30/20 [id number]
== END ==
LOC: M RAD 12:47
PROVIDERS: ATTEND Internal Medicine Nephrology
DX: R31.9 Hematuria, unspecified (principal); K57.30 Diverticulosis of large intestine without perforation or abscess without bleeding; N28.1 Cyst of kidney, acquired
CPT/HCPCS: 74177; Q9967

== ENCOUNTER → 2020-12-05 | Outpatient (CLI) | payer MEDICARE, OTHER ==
[~2020-12-05] MED LIST changes: -DOXY100C PO; +DOXY100C3 PO; -ISOVUE-370 76% 100ML VIAL As Ordered ONE
[2020-12-05 17:48] LABS: HEMATOCRIT 49.1 % (36.0-47.0); MEAN CORPUSCULAR HEMOGLOBIN 31.4 pg (27.0-33.0); MEAN CORPUSCULAR HGB CONC 32.6 g/dl (32.0-36.5); MEAN CORPUSCULAR VOLUME 96.3 fl (80.0-96.0); PLATELET COUNT, AUTOMATED 181 10^3/uL (150-450); WHITE BLOOD COUNT 7.7 10^3/uL (4.0-10.0)
== END ==
LOC: M PLALAB 15:09
PROVIDERS: ATTEND Obstetrics & Gynecology
DX: N95.0 Postmenopausal bleeding (principal)
CPT/HCPCS: 36415; 58100; 85027; 88305; G0463

== ENCOUNTER → 2020-12-11 | Outpatient (CLI) | payer MEDICARE, OTHER ==
--- NOTE | 2020-12-11 16:36 | REP ---
INDICATION: POST MENOPAUSAL BLEEDING. COMPARISON: Comparison CT study September 30, 2020. TECHNIQUE: Transabdominal and transvaginal scanning were performed. FINDINGS: Uterine dimensions are normal at 8.1 x 3.7 x 4.5 cm. Endometrial echo is 2.4 cm thick and centrally placed. No free fluid is seen in the cul-de-sac. Visualized bladder dunlap are smooth. Abnormal endometrial thickening. No focal myometrial mass. Neither ovary could be seen transabdominally or transvaginally. There is no evidence of adnexal mass, cyst, or free fluid. IMPRESSION: Abnormal endometrial thickening. Endometrial hyperplasia versus neoplasia. Neither ovary is directly visualized sonographically. <Electronically signed by Gomez Fernandes > 12/11/20 [id number]
== END ==
LOC: M WHC 16:06
PROVIDERS: ATTEND Obstetrics & Gynecology
DX: N95.0 Postmenopausal bleeding (principal); R93.89 Abnormal findings on diagnostic imaging of other specified body structures

== ENCOUNTER → 2021-01-05 | Outpatient (CLI) | payer MEDICARE, OTHER ==
[~2021-01-05] MED LIST changes: +ALBU8.5H INH; +AMOX875T PO; +DECA6TAB PO; +DEXA6TAB PO; +MEDR10TA PO; +PROAAER10 INH; +PROV10TA PO
== END ==
LOC: M LABSMTC 11:49
PROVIDERS: ATTEND Anesthesiology
DX: Z01.812 Encounter for preprocedural laboratory examination (principal); Z20.822 Contact with and (suspected) exposure to COVID-19
CPT/HCPCS: G0463; U0003

== ENCOUNTER 2021-01-09 06:03 | Day surgery (SDC) | payer MEDICARE, OTHER ==
[~2021-01-09] VITALS: Ht 172.7 cm; Wt 90.3 kg
[~2021-01-09 06:03] MED LIST changes: -ALBU8.5H INH; -AMOX875T PO; -DECA6TAB PO; -DEXA6TAB PO; +EMLA CREAM 5GM TUBE (LIDOCAINE/PRILOCAINE) TOP PRN; +LIDOCAINE 1% MDV 20ML VIAL SQ PRN; -MEDR10TA PO; -PROAAER10 INH; -PROV10TA PO
[2021-01-09] MEDS ORDERED: LR 1,000 ML IV ONE (06:05)
[2021-01-09 07:02] LABS: HEMATOCRIT 47.5 % (36.0-47.0); MEAN CORPUSCULAR HEMOGLOBIN 32.1 pg (27.0-33.0); MEAN CORPUSCULAR HGB CONC 33.7 g/dl (32.0-36.5); MEAN CORPUSCULAR VOLUME 95.4 fl (80.0-96.0); PLATELET COUNT, AUTOMATED 166 10^3/uL (150-450); RED BLOOD COUNT 4.98 10^6/uL (4.00-5.40); WHITE BLOOD COUNT 6.1 10^3/uL (4.0-10.0)
[2021-01-09] MEDS ORDERED: SILVER NITRATE APPLICATOR As Ordered ONE (07:12)
[2021-01-09] MEDS ORDERED: propofoL 200 MG/20 ML VIAL As Ordered ONE (07:21)
[2021-01-09] MEDS ORDERED: LIDOCAINE 2% 100MG/5ML SDV (FOR ANES.) As Ordered ONE (07:21)
[2021-01-09] MEDS ORDERED: fentaNYL 100 MCG/2 ML INJECTION (J3010) As Ordered ONE ×2 (07:21→07:58)
[2021-01-09] MEDS ORDERED: MIDAZOLAM INJ 2MG/2ML VIAL (J2250 PER 1MG) As Ordered ONE (07:21)
[2021-01-09] MEDS ORDERED: ACETAMINOPHEN 1000MG 100ML IV BTL (OFIRMEV) (J0131 PER 10MG) As Ordered ONE (07:55)
[2021-01-09] MEDS ORDERED: dexameTHASONE 4 MG/ML 1ML VIAL (J1100 PER 1MG) As Ordered ONE (07:55)
[2021-01-09] MEDS ORDERED: ONDANSETRON 4MG/2ML VIAL As Ordered ONE (07:55)
[2021-01-09] MEDS ORDERED: KETOROLAC 60MG 2ML VIAL As Ordered ONE (07:55)
[2021-01-09] MEDS ORDERED: METOCLOPRAMIDE INJ 10MG/2ML VIAL (J2765 PER 1) As Ordered ONE (08:05)
[2021-01-09] MEDS ORDERED: oxyCODONE 5MG TAB PO PRN (08:35)
[2021-01-09] MEDS ORDERED: HYDROMORPHONE HCL 0.5 MG/ 0.5 ML SYRINGE (J1170 PER 1) IV PRN (08:35)
[2021-01-09] MEDS ORDERED: ONDANSETRON 4MG/2ML VIAL IV PRN (08:35)
[2021-01-09] MEDS ORDERED: LR 1,000 ML IV SCH ×2 (08:35→08:45)
--- NOTE | 2021-01-09 08:35 | ROOPDOC ---
[facility] Report Of Operation Report of Operation DATE OF PROCEDURE: 01/09/2021 PREOPERATIVE DIAGNOSES: Postmenopausal bleeding Thickened endometrium POSTOPERATIVE DIAGNOSES: Same PROCEDURE PERFORMED: Hysteroscopy dilatation and curettage. MyoSure morcellation of endometrial tissue. SURGEON: Saba Villarreal DO SAFETY SUPERVISOR: None. ANESTHESIA TYPE: General via LMA. SPECIMENS SENT TO PATHOLOGY: Endometrium (morcellated). Endometrial curettings. ESTIMATED BLOOD LOSS: 15 mL. FLUIDS REPLACED: 800 mL lactated Ringer's. DRAINS: In and out urinary catheter. URINE OUTPUT: 50 mL. COMPLICATIONS: None. FLUID DEFICIT: Normal saline 125 mL. PREOPERATIVE ANTIBIOTICS: None indicated. INTRAOPERATIVE FINDINGS: Irregularly distributed endometrium. No distinct intrauterine/endometrial mass. Hot Saw Helper images were taken INDICATIONS: The patient is a 65-year-old who has been complaining of postmenopausal bleeding. An endometrial biopsy revealed proliferative endometrium but no evidence of hyperplasia or carcinoma. A pelvic ultrasound revealed evidence of a thickened endometrium. The decision was made to proceed to the operating room for a hysteroscopy D&C and MyoSure morcellation for further investigation. PROCEDURE: The patient was counseled and consented on the risks, benefits, indications, and alternatives of the procedure. Informed consent was obtained. She was taken to the operating room with an IV running and placed on the operating room table in the dorsal supine position. General anesthesia was administered and the airway secured without any difficulty. She was then placed in the high lithotomy position. She was prepped and draped in normal sterile fashion. A timeout was performed per protocol. The bladder was drained with a sterile in and out catheter. A sterile speculum was placed with good visualization of the cervix. The cervix was grasped with a single-toothed tenaculum and downward traction was applied. The cervix was then sequentially dilated with Omkar dilators up to a #18. The hysteroscope was placed transcervically into the intrauterine cavity with the findings noted above. The MyoSure device was used to morcellate the endometrial tissue that was visualized. Once this was removed, the cavity was noted to be clear and free of any obstruction or mass. The MyoSure device was removed and the hysteroscope was removed. The curette was placed transcervically into the intrauterine cavity and any residual endometrial tissue was curetted until there was gritty texture noted throughout the cavity. A minimal amount of tissue was obtained. The bleeding from the os after removal of the curette was minimal. The tenaculum was removed. The tenaculum sites were cauterized with silver nitrate. All instruments were removed from the vagina. Sponge, needle, and instrument counts were correct per protocol. The patient tolerated the entire procedure well. She was transferred to the PACU in good and stable condition. SABA VILLARREAL DO Jan 09, 2021 08:35
[2021-01-09 10:07] VITALS: BP 144/78
[2021-01-18] MEDS ORDERED: PROV10TA PO (12:11)
== END 2021-01-09 10:28 | disposition home or self-care (01) ==
LOC: M SDC 06:03
PROVIDERS: ATTEND Obstetrics & Gynecology
DX: N84.0 Polyp of corpus uteri (principal); N95.0 Postmenopausal bleeding; I48.91 Unspecified atrial fibrillation; I10 Essential (primary) hypertension; E78.5 Hyperlipidemia, unspecified; E03.9 Hypothyroidism, unspecified; Z95.0 Presence of cardiac pacemaker; K57.90 Diverticulosis of intestine, part unspecified, without perforation or abscess without bleeding; M79.7 Fibromyalgia; Z79.01 Long term (current) use of anticoagulants; Z79.899 Other long term (current) drug therapy
CPT/HCPCS: 36415; 58558; 85027; 86850; 86900; 86901; 88305; J0131; J1100; J1885; J2250; J2405; J2765; J3010

== ENCOUNTER 2021-01-12 19:10 | Inpatient (IN) | payer MEDICARE, OTHER ==
[~2021-01-12] VITALS: Ht 172.7 cm; Wt 93.0 kg
[~2021-01-12 19:10] MED LIST changes: -EMLA CREAM 5GM TUBE (LIDOCAINE/PRILOCAINE) TOP PRN; -LIDOCAINE 1% MDV 20ML VIAL SQ PRN
[2021-01-12] MEDS ORDERED: ACETAMINOPHEN TAB 650MG DOSE (2X325MG) PO ONE (22:05)
[2021-01-12 22:40] LABS: BASO % 0.1 % (0.0-1.0); EOS % 0.3 % (0.0-3.0); HEMATOCRIT 41.9 % (36.0-47.0); HEMOGLOBIN 13.8 g/dl (12.0-15.5); LYMPH # 0.7 10^3/uL (1.5-5.0); LYMPH % 10.1 % (24.0-44.0); MEAN CORPUSCULAR HEMOGLOBIN 31.6 pg (27.0-33.0); MEAN CORPUSCULAR HGB CONC 32.9 g/dl (32.0-36.5); MEAN CORPUSCULAR VOLUME 95.9 fl (80.0-96.0); MONO # 0.6 10^3/uL (0.0-0.8); MONO % 8.1 % (2.0-8.0); NEUTROPHILS # 5.5 10^3/uL (1.5-8.5); NEUTROPHILS % 80.2 % (36.0-66.0); RED BLOOD COUNT 4.37 10^6/uL (4.00-5.40); WHITE BLOOD COUNT 6.8 10^3/uL (4.0-10.0)
[2021-01-12 23:18] LABS: ALT/SGPT 55 U/L (12-78); BILIRUBIN,DIRECT 0.3 MG/DL (0.0-0.2); BLOOD UREA NITROGEN 16 MG/DL (7-18); CALCIUM LEVEL 8.5 MG/DL (8.8-10.2); CARBON DIOXIDE LEVEL 24 MEQ/L (21-32); CHLORIDE LEVEL 108 MEQ/L (98-107); CK-MB VALUE MASS < 1.0 NG/ML (<3.6); CPK CREATINE PHOSPHOKINASE 90 U/L (26-192); CREATININE FOR GFR 0.72 MG/DL (0.55-1.30); GLOMERULAR FILTRATION RATE > 60.0 (>45); GLUCOSE, FASTING 92 MG/DL (70-100); LIPASE 70 U/L (73-393); MB/CK RELATIVE INDEX 1.11 (< OR =4); NT-PRO BNP 632 PG/ML (<125); POTASSIUM SERUM 3.9 MEQ/L (3.5-5.1); SODIUM LEVEL 139 MEQ/L (136-145); TOTAL PROTEIN 7.1 GM/DL (6.4-8.2); TROPONIN I < 0.02 NG/ML (< 0.10)
[2021-01-12] MEDS ORDERED: ISOVUE-370 76% 100ML VIAL As Ordered ONE (23:20)
[2021-01-12 23:22] LABS: PLATELET COUNT, AUTOMATED 92 10^3/uL (150-450)
--- NOTE | 2021-01-13 01:36 | REPVR ---
PROCEDURE INFORMATION: Exam: CTA Chest With Contrast Exam date and time: 01/12/2021 10:03 PM Age: 65 years old Clinical indication: Shortness of breath; Patient HX: Covid +; Additional info: R/O pe TECHNIQUE: Imaging protocol: Computed tomographic angiography of the chest with contrast. 3D rendering (Not supervised by radiologist): MIP and/or 3D reconstructed images were created by the technologist. Radiation optimization: All CT scans at this facility use at least one of these dose optimization techniques: automated exposure control; mA and/or kV adjustment per patient size (includes targeted exams where dose is matched to clinical indication); or iterative reconstruction. Contrast material: ISO; Contrast volume: 75 ml; Contrast route: INTRAVENOUS (IV); COMPARISON: RI Chest, 2 view PA, Lat 05/30/2019 12:11 AM FINDINGS: Tubes, catheters and devices: Left chest pacemaker. Pulmonary arteries: Normal. No pulmonary emboli. Aorta: Unremarkable. No aortic aneurysm. No aortic dissection. Lungs: Extensive patchy bilateral ground-glass opacities. Interstitial pulmonary edema. Pleural spaces: Trace bilateral pleural effusions with adjacent compressive atelectasis. Heart: Unremarkable. Lymph nodes: Scattered borderline enlarged paratracheal, subcarinal, bilateral hilar, and AP window lymph nodes. Scattered nonspecific subcentimeter retroperitoneal lymph nodes Gallbladder and bile ducts: Status post cholecystectomy. Bones/joints: multilevel degenerative disease of the thoracic spine. Soft tissues: Unremarkable. IMPRESSION: No acute pulmonary embolic disease. Extensive patchy bilateral ground-glass opacities. Interstitial pulmonary edema. Trace bilateral pleural effusions with adjacent compressive atelectasis. Electronically signed by: Nico Umaña On 01/13/2021 01:36:02 AM
[2021-01-13] MEDS ORDERED: guaiFENesin ER 600 MG TAB PO PRN (03:35)
[2021-01-13] MEDS ORDERED: ACETAMINOPHEN TAB 650MG DOSE (2X325MG) PO PRN (03:35)
[2021-01-13] MEDS ORDERED: ALBUTEROL 90 MCG/ACT 8GM HFA INHALER INH PRN (03:35)
[2021-01-13] MEDS ORDERED: COMBIVENT RESPIMAT 100-20MCG INHALER 4GM INH SCH (03:35)
--- NOTE | 2021-01-13 03:35 | HPEPDOC ---
General Date of Admission 01/13/21 Date of Service: Jan 13, 2021 Chief Complaint The patient is a 65-year-old female admitted with a reason for visit of Short Of Breath And Productive Cough. Source: Patient History of Present Illness Malka Chris is a 65 yo F with medical history of sick sinus syndrome, pacemaker, A. fib, GERD, fibromyalgia, and htn who presents with shortness of breath. Patient recently had D&C d/t vaginal bleeding completed outpt on Tuesday- results pending. She reports beyond the vaginal bleeding she had been at baseline until Tuesday. She reports Tuesday she noted some subtle changes of symptoms starting and finally worsening till at worst today. Over the weekend, she reported headache, malaise, fatigue, "been unable to catch my breath", productive cough, chest tightness and palpitations. She also endorses episode of nausea vomiting and diarrhea. 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 fib and did disclose some bloody sputum; she was encouraged to go to the ER. Today she arrives with exertional hypoxemia 87% and began to require 3 L nasal cannula 92% for comfort at rest. Patient without leukocytosis. CT chest completed negative PE but with some interstitial edema. PCR came back Covid positive. 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 She is not vaccinated. Patient will be admitted for further evaluation management of presenting conc erns Home Medications Scheduled Apixaban (Eliquis) 5 Mg Tab, 5 MG PO BID, (Reported) Cyanocobalamin (Vitamin B-12) (Vitamin B-12) 1,000 Mcg Tablet, 2,000 MCG PO DAILY, (Reported) Levothyroxine Sodium (Synthroid) 88 Mcg Tablet, 88 MCG PO DAILY, (Reported) Metoprolol Succinate (Metoprolol Succinate) 100 Mg Tab, 100 MG PO BID, (Reported) Potassium Citrate (Urocit-K) 1,080 Mg Tab, 1,080 MG PO BID, (Reported) 1080MG = 10MEQ Spironolactone (Spironolactone) 25 Mg Tab, 25 MG PO DAILY, (Reported) Venlafaxine HCl (Effexor Xr) 37.5 Mg Cap, 112.5 MG PO DAILY, (Reported) Zolpidem Tartrate (Zolpidem Tartrate) 5 Mg Tablet, 5 MG PO QHS, (Reported) Scheduled PRN Acetaminophen (Tylenol Extra Strength) 500 Mg Tablet, 500 MG PO Q4H PRN for PAIN / FEVER, (Reported) Allergies Coded Allergies: codeine (Verified Allergy, Intermediate, hives, 01/02/21) fentanyl (Verified Adverse Reaction, Intermediate, vomiting, 01/02/21) Past Medical History Medical History sick sinus syndrome, pacemaker, A. fib, MERVIN (not on CPAP), GERD, fibromyalgia, hypertension, previously treated on long-term steroids for temporal arteritis but not confirmed with biopsy Surgical History Pacemaker, cholecystectomy, , D&C Family History Significant Family History: Cancer, Heart disease Motherheart attack, father-cancer Social History * Smoker: Denies Alcohol: Denies Drugs: denies Recent Travel/Sick Contacts: Reports: Recent sick contacts (Patient recently in hospital) Psychosocial History: No pertinent psych hx Patient reports working at a [employer] History Current/History of A-Fib/PAF?: Yes Current PO Anticoag Therapy: Yes Review of Systems Constitutional: Reports: Fever, Malaise, Fatigue; Denies: Chills, Night Sweats Eyes: Denies: Pain, Vision change ENT: Reports: Head Aches; Denies: Ear Pain, Dysphagia Skin: Denies: Rash, Lesions, Breakdown Pulmonary: Reports: Dyspnea, Cough Cardiovascular: Denies: Chest Pain, Palpitations, Orthopnea, Paroxysmal Noc. Dyspnea, Lt Headedness Gastrointestinal: Denies: Nausea, Vomiting, Abdominal Pain, Diarrhea Genitourinary: Denies: Dysuria, Frequency, Incontinence, Retention Hematologic: Denies: Bruising, Bleeding Excessively Musculoskeletal: Denies: Neck Pain, Back Pain, Joint Pain, Muscle Pain, Spasms Neurological: Denies: Weakness, Numbness, Change in speech, Confusion Psych: Reports: Mood Normal; Denies: Depression, Memory Issues Physical Examination General Exam: Positive: Alert, Cooperative, No Acute Distress Eye Exam: Positive: PERRLA, Conjunctiva & lids normal, EOMI; Negative: Sclera icteric ENT Exam: Positive: Atraumatic, Mucous membr. moist/pink, Pharynx Normal Neck Exam: Positive: Supple; Negative: JVD, thyromegaly Chest Exam: Positive: Rales (Bilateral lower lobe) Heart Exam: Positive: Rate Normal, Regular Rhythm, Normal S1, Normal S2; Negative: Murmurs, Rubs Telemetry: Positive: No significant arrhythmia Abdomen Exam: Positive: Normal bowel sounds, Soft; Negative: Tenderness, Hepatospenomegaly Extremity Exam: Positive: Normal pulses; Negative: Clubbing, Cyanosis, Edema Skin Exam: Positive: Nl turgor and temperature; Negative: Breakdown, Lesion Neuro Exam: Positive: Normal Gait, Normal Speech, Cranial Nerves 3-12 NL, Reflexes 2+ Psych Exam: Positive: Mental status NL, Mood NL, Oriented x 3 Vital Signs Vital Signs Date Time Temp Pulse Resp B/P (MAP) Pulse Ox O2 Delivery O2 Flow Rate FiO2 01/13/21 03:15 74 20 140/67 (91) 92 Nasal Cannula 3.0 01/12/21 19:11 101.3 Laboratory Data Labs 24H Laboratory Tests 2 01/12/21 22:26: Immature Granulocyte % (Auto) 1.2, Neutrophils (%) (Auto) 80.2H, Lymphocytes (%) (Auto) 10.1L, Monocytes (%) (Auto) 8.1H, Eosinophils (%) (Auto) 0.3, Basophils (%) (Auto) 0.1, Neutrophils # (Auto) 5.5, Lymphocytes # (Auto) 0.7L, Monocytes # (Auto) 0.6, Eosinophils # (Auto) 0.0, Basophils # (Auto) 0.0, Nucleated Red Blood Cells % (auto) 0.0, Immature Platelet Fraction 12.0H, Anion Gap 7L, Glomerular Filtration Rate > 60.0, Calcium Level 8.5L, Total Bilirubin 1.0, Direct Bilirubin 0.3H, Aspartate Amino Transf (AST/SGOT) 65H, Alanine Aminotransferase (ALT/SGPT) 55, Alkaline Phosphatase 144H, Total Creatine Kinase 90, Creatine Kinase MB < 1.0, Creatine Kinase MB Relative Index 1.11, Troponin I < 0.02, GJ-Rng-B-Type Natriuretic Peptide 632H, Total Protein 7.1, Albumin 3.0L, Albumin/Globulin Ratio 0.7L, Lipase 70L, Thyroid Stimulating Hormone (TSH) 1.540, Free Thyroxine 1.40 CBC/BMP Laboratory Tests 01/12/21 22:26 Microbiology Microbiology 01/12/21 Respiratory Virus Panel (PCR) ([facility]) - Final, Complete SARS-CoV-2 (COVID 19) 01/12/21 Blood Culture, Received Pending 01/12/21 Blood Culture, Received Pending Assessment/Plan 1. Acute respiratory failure 2/2 covid: -Monitor pt, respiratory status -Oxygen to keep SPO2 greater than 92% -Antitussives, mucolytics, tylenol prn -Scheduled and as needed breathing treatments -Decadron 6mg IV Daily x10 days -Remdesivir bolus then daily x5 days -A.m. labs -Patient with elevated procalcitonin consider empiric coverage 2. HTN: Monitor BP in setting of above. Continue metoprolol and Aldactone once reconciled with parameters. 3. P A. fib with pacemaker: Patient with sinus rhythm. Continue home medications. 4. GERD: Protonix daily 5. Fibromyalgia: Continue Venlafaxine once reconciled. 6. Hypothyroidism: Continue Synthroid DVT prophylaxis: SCDs and Eliquis CODE STATUS: Full code Disposition planning: Home once clinically improved Plan / VTE VTE Prophylaxis Ordered?: Yes DAVID PARK NP Jan 13, 2021 03:34
[2021-01-13] MEDS ORDERED: RAMELTEON 8 MG TAB (ROZEREM) PO PRN (03:45)
[2021-01-13] MEDS: COMBIVENT RESPIMAT 100-20MCG INHALER 4GM INH SCH ×3 (08:10→20:45)
[2021-01-13] MEDS: SPIRONOLACTONE 25 MG TAB PO SCH (09:00)
[2021-01-13] MEDS: PANTOPRAZOLE 40MG TAB (PROTONIX) PO SCH (09:00)
[2021-01-13] MEDS: VENLAFAXINE **XR** 37.5 MG CAPSULE PO SCH (09:00)
[2021-01-13] MEDS ORDERED: AMOX875T PO (09:56)
[2021-01-13] MEDS ORDERED: HOME MED LIST COMPLETE! XX SCH (10:00)
[2021-01-13 11:57] LABS: BASO % 0.2 % (0.0-1.0); EOS % 0.2 % (0.0-3.0); HEMATOCRIT 42.8 % (36.0-47.0); HEMOGLOBIN 13.8 g/dl (12.0-15.5); LYMPH # 0.6 10^3/uL (1.5-5.0); LYMPH % 9.8 % (24.0-44.0); MEAN CORPUSCULAR HEMOGLOBIN 31.7 pg (27.0-33.0); MEAN CORPUSCULAR HGB CONC 32.2 g/dl (32.0-36.5); MEAN CORPUSCULAR VOLUME 98.2 fl (80.0-96.0); MONO # 0.4 10^3/uL (0.0-0.8); MONO % 5.8 % (2.0-8.0); NEUTROPHILS # 5.3 10^3/uL (1.5-8.5); NEUTROPHILS % 82.9 % (36.0-66.0); PLATELET COUNT, AUTOMATED 100 10^3/uL (150-450); RED BLOOD COUNT 4.36 10^6/uL (4.00-5.40); WHITE BLOOD COUNT 6.4 10^3/uL (4.0-10.0)
[2021-01-13] MEDS ORDERED: REMDESIVIR 200 MG in NS 250 ML IV ONE (12:00)
[2021-01-13 12:09] LABS: INR 1.09; PROTHROMBIN TIME 14.5 SECONDS (12.7-14.5)
[2021-01-13 12:10] LABS: PARTIAL THROMBOPLASTIN TIME 46.9 SECONDS (25.9-37.0)
[2021-01-13 12:12] LABS: D-DIMER QUANT 1933.38 ng/ml (<500)
--- NOTE | 2021-01-13 12:37 | IPNPDOC ---
Subjective Date Seen The patient was seen on 01/13/21. Subjective Chief Complaint/HPI Patient was seen and examined at bedside this morning. She reports feeling better after she was placed on oxygen supplementation. She denied chest pain, shortness of breath at this junction, abdominal pain, nausea, vomiting, problem with urination. She does endorse having loose stools, approximately 2/day Objective Physical Examination Other physical findings General: Lying in bed, no acute distress Head/Neck/Throat: Trachea midline, mucous membranes moist Eyes: Sclera anicteric, no erythema or discharge appreciated bilaterally Thorax: On 3 L nasal cannula with no evidence of accessory muscle use, lungs clear to auscultation bilaterally, no wheezes/rales/rhonchi Cardiovascular: Normal rate, regular rhythm, normal S1, S2; no S3, S4, rubs/gallops/murmurs Abdomen: Bowel sounds present, soft/nontender/nondistended Genitourinary: No CVA tenderness, no Medina in place Musculoskeletal: Moving all extremities, no edema Skin: Warm, dry Neurologic: AAOx3, speech fluent and goal-directed, no focal deficits, grossly intact Assessment /Plan Assessment #Acute respiratory failure -Secondary to Covid. Continue with remdesivir, dexamethasone. -Symptomatic management with antitussives and nebulizers. -Follow-up on procalcitonin level #Hypertension -Continue with metoprolol and spironolactone with holding parameters #Paroxysmal atrial fibrillation -Pacemaker in place. Presently in sinus rhythm and rate is controlled. Continue with metoprolol and apixaban. #GERD -Protonix daily #Anxiety -Continue venlafaxine #Hypothyroidism -Continue Synthroid #DVT prophylaxis -SCDs and Eliquis Plan/VTE VTE Prophylaxis Ordered?: Yes VS, I&O, 24H, [facility] Vital Signs/I&O Vital Signs Date Time Temp Pulse Resp B/P (MAP) Pulse Ox O2 Delivery O2 Flow Rate FiO2 01/13/21 10:00 87 20 135/67 (89) 96 Nasal Cannula 3.0 01/13/21 05:45 98.2 Laboratory Data 24H LABS Laboratory Tests 2 01/12/21 22:26: Immature Granulocyte % (Auto) 1.2, Neutrophils (%) (Auto) 80.2H, Lymphocytes (%) (Auto) 10.1L, Monocytes (%) (Auto) 8.1H, Eosinophils (%) (Auto) 0.3, Basophils (%) (Auto) 0.1, Neutrophils # (Auto) 5.5, Lymphocytes # (Auto) 0.7L, Monocytes # (Auto) 0.6, Eosinophils # (Auto) 0.0, Basophils # (Auto) 0.0, Nucleated Red Blood Cells % (auto) 0.0, Immature Platelet Fraction 12.0H, Anion Gap 7L, Glomerular Filtration Rate > 60.0, Calcium Level 8.5L, Total Bilirubin 1.0, Direct Bilirubin 0.3H, Aspartate Amino Transf (AST/SGOT) 65H, Alanine Aminotransferase (ALT/SGPT) 55, Alkaline Phosphatase 144H, Total Creatine Kinase 90, Creatine Kinase MB < 1.0, Creatine Kinase MB Relative Index 1.11, Troponin I < 0.02, WY-Wia-E-Type Natriuretic Peptide 632H, Total Protein 7.1, Albumin 3.0L, Albumin/Globulin Ratio 0.7L, Lipase 70L, Thyroid Stimulating Hormone (TSH) 1.540, Free Thyroxine 1.40 01/13/21 11:21: Immature Granulocyte % (Auto) 1.1, Neutrophils (%) (Auto) 82.9H, Lymphocytes (%) (Auto) 9.8L, Monocytes (%) (Auto) 5.8, Eosinophils (%) (Auto) 0.2, Basophils (%) (Auto) 0.2, Neutrophils # (Auto) 5.3, Lymphocytes # (Auto) 0.6L, Monocytes # (Auto) 0.4, Eosinophils # (Auto) 0.0, Basophils # (Auto) 0.0, Nucleated Red Blood Cells % (auto) 0.0, Prothrombin Time 14.5H, Prothromb Time International Ratio 1.09, Activated Partial Thromboplast Time 46.9H, Fibrinogen 538H, D-Dimer, Quantitative 1933.38H CBC/BMP Laboratory Tests 01/12/21 22:26 01/13/21 11:21 Microbiology Microbiology 01/12/21 Respiratory Virus Panel (PCR) ([facility]RIELA) - Final, Complete SARS-CoV-2 (COVID 19) 01/12/21 Blood Culture, Received Pending 01/12/21 Blood Culture, Received Pending KAYE JIMENEZ M.D. Jan 13, 2021 12:37
[2021-01-13 13:00] LABS: BLOOD UREA NITROGEN 17 MG/DL (7-18); CALCIUM LEVEL 8.7 MG/DL (8.8-10.2); CARBON DIOXIDE LEVEL 25 MEQ/L (21-32); CHLORIDE LEVEL 106 MEQ/L (98-107); CREATININE FOR GFR 0.79 MG/DL (0.55-1.30); FERRITIN 360 NG/ML (8-252); GLOMERULAR FILTRATION RATE > 60.0 (>45); GLUCOSE, FASTING 165 MG/DL (70-100); LDH LACTATE DEHYDROGENASE 322 U/L (84-246); MAGNESIUM LEVEL 1.6 MG/DL (1.8-2.4); POTASSIUM SERUM 3.8 MEQ/L (3.5-5.1); SODIUM LEVEL 138 MEQ/L (136-145)
[2021-01-13] MEDS ORDERED: SODIUM CHLORIDE 0.9% INJ 10 ML SYR IV ONE (14:00)
[2021-01-13] MEDS: dexameTHASONE 4 MG/ML 1ML VIAL (J1100 PER 1MG) IV SCH (14:21)
[2021-01-13 14:30] VITALS: O2SAT 95
[2021-01-13 20:00] VITALS: BP 122/59; O2SAT 93
[2021-01-13] MEDS: METOPROLOL SUCC (TopROL XL) 100MG *XL* TAB PO SCH (20:13)
[2021-01-13] MEDS: APIXABAN 5 MG TAB (ELIQUIS) PO SCH (20:15)
--- NOTE | 2021-01-13 21:39 | ECGEPIP ---
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
[2021-01-13] MEDS: MAG SULF 1GM/100ML (MAG RUN) 1 GM in IV 1 EA IV SCH (23:55)
[2021-01-14] VITALS (7 sets, daily range): BP systolic 125–167; BP diastolic 63–79; O2SAT 92–95
[2021-01-14] MEDS: MAG SULF 1GM/100ML (MAG RUN) 1 GM in IV 1 EA IV SCH (01:00)
[2021-01-14] MEDS: COMBIVENT RESPIMAT 100-20MCG INHALER 4GM INH SCH ×4 (02:15→20:49)
[2021-01-14 06:34] LABS: HEMATOCRIT 43.1 % (36.0-47.0); HEMOGLOBIN 14.3 g/dl (12.0-15.5); LYMPH # 0.6 10^3/uL (1.5-5.0); LYMPH % 15.5 % (24.0-44.0); MEAN CORPUSCULAR HEMOGLOBIN 31.8 pg (27.0-33.0); MEAN CORPUSCULAR HGB CONC 33.2 g/dl (32.0-36.5); MEAN CORPUSCULAR VOLUME 95.8 fl (80.0-96.0); MONO # 0.3 10^3/uL (0.0-0.8); MONO % 6.5 % (2.0-8.0); NEUTROPHILS # 3.1 10^3/uL (1.5-8.5); NEUTROPHILS % 76.7 % (36.0-66.0)
[2021-01-14 06:53] LABS: ALBUMIN 2.5 GM/DL (3.2-5.2); ALT/SGPT 41 U/L (12-78); BILIRUBIN,DIRECT 0.2 MG/DL (0.0-0.2); BILIRUBIN,TOTAL 0.6 MG/DL (0.2-1.0); BLOOD UREA NITROGEN 17 MG/DL (7-18); CALCIUM LEVEL 8.1 MG/DL (8.8-10.2); CARBON DIOXIDE LEVEL 26 MEQ/L (21-32); CHLORIDE LEVEL 106 MEQ/L (98-107); CREATININE FOR GFR 0.82 MG/DL (0.55-1.30); GLOMERULAR FILTRATION RATE > 60.0 (>45); GLUCOSE, FASTING 171 MG/DL (70-100); MAGNESIUM LEVEL 2.1 MG/DL (1.8-2.4); PHOSPHORUS LEVEL 2.7 MG/DL (2.5-4.9); POTASSIUM SERUM 4.1 MEQ/L (3.5-5.1); SODIUM LEVEL 137 MEQ/L (136-145); TOTAL PROTEIN 7.1 GM/DL (6.4-8.2)
[2021-01-14 07:43] LABS: PLATELET COUNT, AUTOMATED 85 10^3/uL (150-450)
[2021-01-14] MEDS: dexameTHASONE 4 MG/ML 1ML VIAL (J1100 PER 1MG) IV SCH (08:56)
[2021-01-14] MEDS: VENLAFAXINE **XR** 37.5 MG CAPSULE PO SCH (08:57)
[2021-01-14] MEDS: SPIRONOLACTONE 25 MG TAB PO SCH (08:57)
[2021-01-14] MEDS: PANTOPRAZOLE 40MG TAB (PROTONIX) PO SCH (08:57)
[2021-01-14] MEDS: METOPROLOL SUCC (TopROL XL) 100MG *XL* TAB PO SCH ×2 (08:59→21:19)
[2021-01-14] MEDS: APIXABAN 5 MG TAB (ELIQUIS) PO SCH ×2 (09:00→21:18)
[2021-01-14] MEDS: LEVOTHYROXINE 88MCG TABLET (0.088 MG) PO SCH (09:05)
--- NOTE | 2021-01-14 12:05 | IPNPDOC ---
Subjective Date Seen The patient was seen on 01/14/21. Subjective Chief Complaint/HPI Pt was seen and examined at bedside this morning. She reported improvement in her breathing although she is requiring o2 supplementation. She reports resolution in her diarrhea. Other systems 10 point review of system was negative except for what is noted in the HPI Objective Physical Examination Other physical findings General: Lying in bed, no acute distress Head/Neck/Throat: Trachea midline, mucous membranes moist Eyes: Sclera anicteric, no erythema or discharge appreciated bilaterally Thorax: On 3 L nasal cannula with no evidence of accessory muscle use, lungs eliseo ar to auscultation bilaterally, no wheezes/rales/rhonchi Cardiovascular: Normal rate, regular rhythm, normal S1, S2; no S3, S4, rubs/gallops/murmurs Abdomen: Bowel sounds present, soft/nontender/nondistended Genitourinary: No CVA tenderness, no Med[place] in place Musculoskeletal: Moving all extremities, no edema Skin: Warm, dry Neurologic: AAOx3, speech fluent and goal-directed, no focal deficits, grossly intact Assessment /Plan Assessment #Acute respiratory failure -Secondary to Covid. Continue with remdesivir, dexamethasone. -Symptomatic management with antitussives and nebulizers. -Procalcitonin wnl #Hypertension -Continue with metoprolol and spironolactone with holding parameters #Paroxysmal atrial fibrillation -Pacemaker in place. Presently in sinus rhythm and rate is controlled. Continue with metoprolol and apixaban. #GERD -Protonix daily #Anxiety -Continue venlafaxine #Hypothyroidism -Continue Synthroid #DVT prophylaxis -SCDs and Eliquis Plan/VTE VTE Prophylaxis Ordered?: Yes VS, I&O, 24H, [facility] Vital Signs/I&O Vital Signs Date Time Temp Pulse Resp B/P (MAP) Pulse Ox O2 Delivery O2 Flow Rate FiO2 01/14/21 08:59 70 132/65 01/14/21 08:30 97.6 18 95 Nasal Cannula 3.0 I&O- Last 24 Hours up to 6 AM 01/14/21 05:59 Intake Total 930 ml Output Total 0 ml Balance 930 ml Laboratory Data 24H LABS Laboratory Tests 2 01/14/21 05:42: Immature Granulocyte % (Auto) 1.3, Neutrophils (%) (Auto) 76.7H, Lymphocytes (%) (Auto) 15.5L, Monocytes (%) (Auto) 6.5, Eosinophils (%) (Auto) 0.0, Basophils (%) (Auto) 0.0, Neutrophils # (Auto) 3.1, Lymphocytes # (Auto) 0.6L, Monocytes # (Auto) 0.3, Eosinophils # (Auto) 0.0, Basophils # (Auto) 0.0, Nucleated Red Blood Cells % (auto) 0.0, Immature Platelet Fraction 11.9H, Anion Gap 5L, Glomerular Filtration Rate > 60.0, Calcium Level 8.1L, Phosphorus Level 2.7, Magnesium Level 2.1, Total Bilirubin 0.6, Direct Bilirubin 0.2, Aspartate Amino Transf (AST/SGOT) 51H, Alanine Aminotransferase (ALT/SGPT) 41, Alkaline Phosphatase 126H, Total Protein 7.1, Albumin 2.5L, Albumin/Globulin Ratio 0.5L CBC/BMP Laboratory Tests 01/14/21 05:42 Microbiology Microbiology 01/12/21 Respiratory Virus Panel (PCR) (GABRIELA) - Final, Complete SARS-CoV-2 (COVID 19) 01/12/21 Blood Culture - Preliminary, Resulted No growth after 24 hours . All specim... 01/12/21 Blood Culture - Preliminary, Resulted No growth after 24 hours . All specim... KAEY JIMENEZ M.D. Jan 14, 2021 12:05
[2021-01-14] MEDS: REMDESIVIR 100 MG in NS 250 ML IV SCH (15:17)
[2021-01-14] MEDS: SODIUM CHLORIDE 0.9% INJ 10 ML SYR IV SCH (15:18)
[2021-01-15] MEDS: COMBIVENT RESPIMAT 100-20MCG INHALER 4GM INH SCH ×3 (01:37→13:06)
[2021-01-15] MEDS: LEVOTHYROXINE 88MCG TABLET (0.088 MG) PO SCH (05:47)
[2021-01-15 05:58] VITALS: BP 139/67
[2021-01-15 06:03] LABS: BASO % 0.1 % (0.0-1.0); HEMOGLOBIN 14.3 g/dl (12.0-15.5); LYMPH # 0.9 10^3/uL (1.5-5.0); LYMPH % 11.2 % (24.0-44.0); MEAN CORPUSCULAR HEMOGLOBIN 31.8 pg (27.0-33.0); MEAN CORPUSCULAR HGB CONC 33.3 g/dl (32.0-36.5); MEAN CORPUSCULAR VOLUME 95.6 fl (80.0-96.0); MONO # 0.6 10^3/uL (0.0-0.8); MONO % 7.6 % (2.0-8.0); NEUTROPHILS # 6.2 10^3/uL (1.5-8.5); NEUTROPHILS % 79.8 % (36.0-66.0); PLATELET COUNT, AUTOMATED 108 10^3/uL (150-450); WHITE BLOOD COUNT 7.8 10^3/uL (4.0-10.0)
[2021-01-15 06:13] LABS: INR 1.1; PROTHROMBIN TIME 14.7 SECONDS (12.7-14.5)
[2021-01-15 06:14] LABS: PARTIAL THROMBOPLASTIN TIME 40.8 SECONDS (25.9-37.0)
[2021-01-15 06:31] LABS: ALBUMIN 2.5 GM/DL (3.2-5.2); ALT/SGPT 36 U/L (12-78); BILIRUBIN,DIRECT 0.2 MG/DL (0.0-0.2); BILIRUBIN,TOTAL 0.6 MG/DL (0.2-1.0); BLOOD UREA NITROGEN 19 MG/DL (7-18); CALCIUM LEVEL 8.2 MG/DL (8.8-10.2); CARBON DIOXIDE LEVEL 24 MEQ/L (21-32); CHLORIDE LEVEL 105 MEQ/L (98-107); CPK CREATINE PHOSPHOKINASE 65 U/L (26-192); CREATININE FOR GFR 0.92 MG/DL (0.55-1.30); FERRITIN 510 NG/ML (8-252); GLOMERULAR FILTRATION RATE > 60.0 (>45); GLUCOSE, FASTING 197 MG/DL (70-100); LDH LACTATE DEHYDROGENASE 326 U/L (84-246); MAGNESIUM LEVEL 1.6 MG/DL (1.8-2.4); NT-PRO BNP 296 PG/ML (<125); PHOSPHORUS LEVEL 2.9 MG/DL (2.5-4.9); POTASSIUM SERUM 4.1 MEQ/L (3.5-5.1); SODIUM LEVEL 136 MEQ/L (136-145); TOTAL PROTEIN 7.1 GM/DL (6.4-8.2); TROPONIN I < 0.02 NG/ML (< 0.10)
[2021-01-15 08:00] VITALS: O2SAT 96
[2021-01-15] MEDS: PANTOPRAZOLE 40MG TAB (PROTONIX) PO SCH (11:13)
[2021-01-15] MEDS: SPIRONOLACTONE 25 MG TAB PO SCH (11:14)
[2021-01-15] MEDS: APIXABAN 5 MG TAB (ELIQUIS) PO SCH (11:14)
[2021-01-15] MEDS: VENLAFAXINE **XR** 37.5 MG CAPSULE PO SCH (11:14)
[2021-01-15 11:15] VITALS: BP 138/85
[2021-01-15] MEDS: METOPROLOL SUCC (TopROL XL) 100MG *XL* TAB PO SCH (11:15)
[2021-01-15] MEDS: dexameTHASONE 4 MG/ML 1ML VIAL (J1100 PER 1MG) IV SCH (11:16)
[2021-01-15] MEDS: REMDESIVIR 100 MG in NS 250 ML IV SCH (11:16)
[2021-01-15] MEDS: SODIUM CHLORIDE 0.9% INJ 10 ML SYR IV SCH (11:16)
[2021-01-15] MEDS ORDERED: PROAAER10 INH (11:58)
[2021-01-15] MEDS ORDERED: DECA6TAB PO (11:58)
--- NOTE | 2021-01-15 15:17 | DS.PDOC ---
Discharge Summary General Date of Admission Jan 13, 2021 at 03:34 Date of Discharge 01/15/21 Discharge Summary DISCHARGE DIAGNOSES: 1. Covid 2. Hypoxia COMPLICATIONS/CHIEF COMPLAINT: Acute Respiratory Failure Due To Covid-19. HOSPITAL COURSE: Ms. Chris, is a 65-year-old female who presented to [facility] on 01/13/2021 with complaints of shortness of breath. She was noted to be Covid positive. CTA was negative for pulmonary embolism. She required oxygen supplementation at 3 L, and was placed on dexamethasone as well as remdesivir. Her oxygen requirement stayed stable at 3 L during hospitalization. Thus, she was discharged home with home O2 and was asked to complete dexamethasone course at home. She was instructed if she is to come off the oxygen prior to this she can discontinue taking dexamethasone, otherwise she would take it for her total of 10 days while on oxygen. Patient understood that she did not complete remdesivir, and was in agreement to be discharged home. She had abnormal inflammatory markers as well as transaminitis, for which she was asked to have repeat blood work done with her primary care physician in her next follow-up. At the time of discharge, patient was not in any respiratory distress and was back to her baseline respiratory status with the use of 3 L O2. Of note, she has a past medical history of sick sinus syndrome with pacemaker, atrial fibrillation, hypertension, GERD, and fibromyalgia DISCHARGE MEDICATIONS: Please see below. ALLERGIES: Please see below. PHYSICAL EXAMINATION ON DISCHARGE: VITAL SIGNS: Please see below. General: Lying in bed, no acute distress Head/Neck/Throat: Trachea midline, mucous membranes moist Eyes: Sclera anicteric, PERRLA Thorax: Normal respiratory effort on room air, lungs clear to auscultation bilaterally, no wheezes/rales/rhonchi Cardiovascular: Normal rate, regular rhythm, normal S1, S2; no S3, S4, rubs/gallops/murmurs Abdomen: Bowel sounds present, soft/nontender/nondistended Genitourinary: No CVA tenderness, no Med[place] in place Musculoskeletal: Moving all extremities, no edema Skin: Warm, dry Neurologic: AAOx3, speech fluent and goal-directed, no focal deficits, grossly intact LABORATORY DATA: Please see below. IMAGING: CT-Angio of chest FINDINGS: Tubes, catheters and devices: Left chest pacemaker. Pulmonary arteries: Normal. No pulmonary emboli. Aorta: Unremarkable. No aortic aneurysm. No aortic dissection. Lungs: Extensive patchy bilateral ground-glass opacities. Interstitial pulmonary edema. Pleural spaces: Trace bilateral pleural effusions with adjacent compressive atelectasis. Heart: Unremarkable. Lymph nodes: Scattered borderline enlarged paratracheal, subcarinal, bilateral hilar, and AP window lymph nodes. Scattered nonspecific subcentimeter retroperitoneal lymph nodes Gallbladder and bile ducts: Status post cholecystectomy. Bones/joints: multilevel degenerative disease of the thoracic spine. Soft tissues: Unremarkable. IMPRESSION: No acute pulmonary embolic disease. Extensive patchy bilateral ground-glass opacities. Interstitial pulmonary edema. Trace bilateral pleural effusions with adjacent compressive atelectasis. PROGNOSIS: Good ACTIVITY: As tolerated DIET: Regular DISCHARGE PLAN: DISPOSITION: . DISCHARGE INSTRUCTIONS: 1. Follow with primary care physician and have repeat blood work done within 5 days DISCHARGE CONDITION: Stable TIME SPENT ON DISCHARGE: 30 minutes. Vital Signs/I&Os Vital Signs Date Time Temp Pulse Resp B/P (MAP) Pulse Ox O2 Delivery O2 Flow Rate FiO2 01/15/21 11:15 60 138/85 01/15/21 05:58 97.5 20 94 Nasal Cannula 3.0 I&O- Last 24 Hours up to 6 AM 01/15/21 06:00 Intake Total 120 ml Output Total 0 ml Balance 120 ml Laboratory Data Labs 24H Laboratory Tests 2 01/15/21 05:25: Immature Granulocyte % (Auto) 1.3, Neutrophils (%) (Auto) 79.8H, Lymphocytes (%) (Auto) 11.2L, Monocytes (%) (Auto) 7.6, Eosinophils (%) (Auto) 0.0, Basophils (%) (Auto) 0.1, Neutrophils # (Auto) 6.2, Lymphocytes # (Auto) 0.9L, Monocytes # (Auto) 0.6, Eosinophils # (Auto) 0.0, Basophils # (Auto) 0.0, Nucleated Red Blood Cells % (auto) 0.0, Prothrombin Time 14.7H, Prothromb Time International Ratio 1.10, Activated Partial Thromboplast Time 40.8H, Fibrinogen 507H, Anion Gap 7L, Glomerular Filtration Rate > 60.0, Calcium Level 8.2L, Phosphorus Level 2.9, Magnesium Level 1.6L, Ferritin 510H, Total Bilirubin 0.6, Direct Bilirubin 0.2, Aspartate Amino Transf (AST/SGOT) 42H, Alanine Aminotransferase (ALT/SGPT) 36, Alkaline Phosphatase 120H, Lactate Dehydrogenase 326H, Total Creatine Kinase 65, Troponin I < 0.02, OL-Rtf-A-Type Natriuretic Peptide 296H, Total Protein 7.1, Albumin 2.5L, Albumin/Globulin Ratio 0.5L, Procalcitonin 0.05 CBC/BMP Laboratory Tests 01/15/21 05:25 Microbiology Microbiology 01/12/21 Respiratory Virus Panel (PCR) (G[facility]RIELA) - Final, Complete SARS-CoV-2 (COVID 19) 01/12/21 Blood Culture - Preliminary, Resulted No Growth after 48 hours. All Specime... 01/12/21 Blood Culture - Preliminary, Resulted No Growth after 48 hours. All Specime... Discharge Medications Scheduled Apixaban (Eliquis) 5 Mg Tab, 5 MG PO BID, (Reported) Cyanocobalamin (Vitamin B-12) (Vitamin B-12) 1,000 Mcg Tablet, 1,000 MCG PO DAILY, (Reported) Dexamethasone (Decadron) 6 Mg Tablet, 6 MG PO DAILY Levothyroxine Sodium (Synthroid) 88 Mcg Tablet, 88 MCG PO DAILY, (Reported) Metoprolol Succinate (Metoprolol Succinate) 100 Mg Tab, 100 MG PO BID, (Reported) Spironolactone (Spironolactone) 25 Mg Tab, 25 MG PO DAILY, (Reported) Venlafaxine HCl (Effexor Xr) 37.5 Mg Cap, 112.5 MG PO DAILY, (Reported) Zolpidem Tartrate (Zolpidem Tartrate) 5 Mg Tablet, 5 MG PO QHS, (Reported) Scheduled PRN Acetaminophen (Tylenol Extra Strength) 500 Mg Tablet, 500 MG PO Q4H PRN for PAIN / FEVER, (Reported) Albuterol Sulfate (Proair Hfa) 8.5 Gm Hfa.aer.ad, 2 PUFF INH Q4-6HP PRN for wheezing Allergies Coded Allergies: codeine (Verified Allergy, Intermediate, hives, 01/02/21) fentanyl (Verified Adverse Reaction, Intermediate, vomiting, 01/02/21) KAYE JIMENEZ M.D. Jan 15, 2021 15:17
[2021-01-15 16:00] VITALS: O2SAT 96
[2021-01-18] MEDS ORDERED: PROV10TA PO (12:11)
== END 2021-01-15 16:55 | disposition home or self-care (01) | DRG 177 ==
LOC: M ED 19:10 → M ED INP 01-13 03:34 → ENRESERV 01-13 12:00 → M 4MAIN 01-13 14:15
PROVIDERS: ADMIT Internal Medicine; ATTEND Internal Medicine
PROC: XW033E5 Introduction of Remdesivir Anti-infective into Peripheral Vein, Percutaneous Approach, New Technology Group 5 (ICD-10-PCS; principal; 2021-01-13)
PROC: 3E0333Z Introduction of Anti-inflammatory into Peripheral Vein, Percutaneous Approach (ICD-10-PCS; 2021-01-13)
DX: U07.1 COVID-19 (principal); J96.01 Acute respiratory failure with hypoxia; I48.91 Unspecified atrial fibrillation; Z95.0 Presence of cardiac pacemaker; K21.9 Gastro-esophageal reflux disease without esophagitis; M79.7 Fibromyalgia; I10 Essential (primary) hypertension; Z79.01 Long term (current) use of anticoagulants; Z79.899 Other long term (current) drug therapy; Z88.5 Allergy status to narcotic agent; Z88.8 Allergy status to other drugs, medicaments and biological substances; G47.33 Obstructive sleep apnea (adult) (pediatric); Z90.49 Acquired absence of other specified parts of digestive tract; E03.9 Hypothyroidism, unspecified; F41.9 Anxiety disorder, unspecified; I49.5 Sick sinus syndrome

== ENCOUNTER 2021-01-19 12:00 | Inpatient (IN) | payer OTHER, MEDICARE ==
[~2021-01-19] VITALS: Ht 172.7 cm; Wt 84.1 kg
[~2021-01-19 12:00] MED LIST changes: +AMOX875T PO; +DECA6TAB PO; +PROAAER10 INH; +PROV10TA PO
--- OUTSIDE RECORDS SUMMARY | 2021-01-19 12:08 | CCD ---
Author Author [facility] Syst ems Organization [facility] Syst ems Address Unknown Phone Unavailable Care Team Providers Care Cold Strip Feeder Name Role Phone Villarreal, Alfonso Unavailable PROBLEMS Type Condition ICD9-CM Code [id number] Code Onset Dates Condition S tatus W/U Status Risk SNOMED Code Notes Problem Primary osteoarthritis involving multiple joints M 15.0 Active confirmed 778899188 Problem Postmenopausal bleeding N95.0 Active confirmed 90068487 Problem Polyarthralgia M25.50 Active confirmed 54301 005 Problem Fibromyalgia M79.7 Active confirmed 2185316 05 ALLERGIES Allergen (clinical drug ingredient) Drug/Non Drug Allergy do cumented on EMR Reaction Allergy Type Onset Date Status codeine Codeine Sulfate([facility] Code:[address]-18) Hives Drug Al lergy Active fentanyl Fentanyl(ND Code:[address]-88) Nausea/Vomiting Drug Panchito rgy Active ENCOUNTERS from 1955 to 2021-01-08 Encounter Location Date Provider Diagnosis [facility] [address] [place] [address] [place] [address] Jan, Alfonso Villarreal Postmenopausal bleed ing N95.0 IMMUNIZATIONS No Information SOCIAL HISTORY Tobacco Use: Social History Observation Description Date Details (start date - stop date) Never Smoker Sex Assigned At : Social History Observation Description Sex Assigned At Unknown Language: Question Answer Notes Languages spoken: Romanian Tobacco Use: Question Answer Notes Are you a: never smoker REASON FOR REFERRAL No Information VITAL SIGNS Weight 202 lbs Jan, Height 68 in Jan, BMI 30.71 kg/m2 Jan, Blood pressure systolic 130 mm Hg 04 Oct, 2021 Blood pressure diastolic 72 mm Hg Jan, MEDICATIONS Medication SIG (Take, Route, Frequency, Duration) Notes Start Da te End Date Status Metoprolol Succinate ER 100 MG 1 tablet Oral bid Active Omeprazole 20 MG 1 cap Oral bid Not- Taking Eliquis 5 MG 1 tab Orally twice daily Active Vitamin D3 1000 UNIT 1 capsule Orally twice daily Active Venlafaxine HCl ER 37.5 MG 3 tablets Oral Daily Active Zolpidem Tartrate ER 6.25 MG 1 tablet at bedtime as needed O ral before bedtime Active Fenofibrate 160 MG 1 tab Oral Daily Not-Taking Spironolactone 25 mg 1 tab Oral Once a day Active Levothyroxine Sodium 88 MCG 1 tab Oral Daily Active Potassium Citrate ER 10 MEQ (1080 MG) 1 tab Oral Twice a day Active Econazole Nitrate 1 % apply thin layer to right fo ot Externally Once a day for 30 days Dec, Not-Taking PROCEDURES No Information RESULTS No Results REASON FOR VISIT PRE OP SURG 01/09/21 JANAK'Samir GARCIAHENNIKER MEDICAL (GENERAL) HISTORY Type Description Date Medical History A-Fib Medical History SSS Medical History Gastritis Medical History Cholitis Medical History HTN Medical History High Cholesterol Surgical History Left 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 We specifically reviewed the risks of uterine perforation, postoperative infection, potential for ongoing bleeding despite undergoing this procedure, possible need for blood transfusion, possible unintended injury to surrounding organs, and the small risk of an endometrial cancer diagnosis. PLAN OF TREATMENT Treatment Notes Assessment Notes Clinical Notes Postmenopausal bleeding Patient was coun seled/consented on the Myosure, Operative Hysteroscopy, D&C procedure. We specifically reviewed the risks of uterine perforation, postoperative infection, potential for ongoing bleeding despite undergoing this procedure, possible need for blood transfusion, possible unintended injury to surrounding organs, and the small risk of an endometrial cancer diagnosis. Next Appt Details 01/09/21 Reason: Provider Name:Alfonso Villarreal, 07:30:00 AM, [address] [facility], , [place], [address], Provider Name:Alfonso Villarreal, 08:20:00 AM, [address] [facility], , [place], [address], Insurance Providers Payer Name Payer Address Payer Phone Insured Name Patient Relati onship to Insured Coverage Start Date Coverage End Date MEDICARE Part A and B [address] [facility] [address] ALEJANDRO BARRY self [address] [facility] [address] [id number] [facility] [phone] ALEJANDRO BARRY self
--- OUTSIDE RECORDS SUMMARY | 2021-01-19 12:08 | CCD ---
Author Author [employer] [facility] Syst ems Organization [employer] Sy[employer] em[facility] Address Unknown Phone Unavailable Care Team Providers Care Photostat Operator Helper Name Role Phone Villarreal, Alfonso Unavailable PROBLEMS Type Condition ICD9-CM Code [id number] Code Onset Dates Condition S tatus W/U Status Risk SNOMED Code Notes Problem Primary osteoarthritis involving multiple joints M 15.0 Active confirmed 450820305 Problem Postmenopausal bleeding N95.0 Active confirmed 82132451 Problem Polyarthralgia M25.50 Active confirmed 81062 005 Problem Fibromyalgia M79.7 Active confirmed 7015427 05 ALLERGIES Allergen (clinical drug ingredient) Drug/Non Drug Allergy do cumented on EMR Reaction Allergy Type Onset Date Status codeine Codeine Sulfate([facility] Code:[address]-84) Hives Drug Al lergy Active fentanyl Fentanyl([facility] Code:[address]-93) Nausea/Vomiting Drug Panchito rgy Active ENCOUNTERS from 1955 to 2021-01-02 Encounter Location Date Provider Diagnosis [facility] [address] [place] [address] [place] [address] Jan, Alfonso Villarreal IMMUNIZATIONS No Information SOCIAL HISTORY Tobacco Use: Social History Observation Description Date Details (start date - stop date) Never Smoker Sex Assigned At : Social History Observation Description Sex Assigned At Unknown Language: Question Answer Notes Languages spoken: Canadian Tobacco Use: Question Answer Notes Are you a: never smoker REASON FOR REFERRAL No Information VITAL SIGNS No information MEDICATIONS Medication SIG (Take, Route, Frequency, Duration) Notes Start Da te End Date Status Vitamin D3 1000 UNIT 1 capsule Orally twice daily Active Spironolactone 25 mg 1 tab Oral Once a day Active Levothyroxine Sodium 88 MCG 1 tab Oral Daily Active Eliquis 5 MG 1 tab Orally twice daily Active Potassium Citrate ER 10 MEQ (1080 MG) 1 tab Oral Twice a day Active Omeprazole 20 MG 1 cap Oral bid Not- Taking Metoprolol Succinate ER 100 MG 1 tablet Oral bid Active Zolpidem Tartrate ER 6.25 MG 1 tablet at bedtime as needed O ral before bedtime Active Econazole Nitrate 1 % apply thin layer to right fo ot Externally Once a day for 30 days Dec, Not-Taking Venlafaxine HCl ER 37.5 MG 3 tablets Oral Daily Active Fenofibrate 160 MG 1 tab Oral Daily Not-Taking PROCEDURES No Information RESULTS No Results REASON FOR VISIT 01/09/21 [facility] MED[facility] (GENERAL) HISTORY Type Description Date Medical [...] No Information FUNCTIONAL STATUS No Information ASSESSMENTS No Information PLAN OF TREATMENT Next Appt Details Provider Name:Alfonso Villarreal, 02:10:00 PM, [address] [place], [place] [address], [place], [address], Provider Name:Alfonso Villarreal, 12:45:00 AM, [address] [place], [place] [address], [place], [address], Provider Name:Alfonso Villarreal, 08:20:00 AM, [address] [place] [address], [place], [address], Insurance Providers Payer Name Payer Address Payer Phone Insured Name Patient Relati onship to Insured Coverage Start Date Coverage End Date R IRA [facility] [address] [id number] [facility] [phone] ALEJANDRO BARRY self MEDICARE Part A and B [address] [facility] [address] [phone] ALEJANDRO BARRY self 2018
--- OUTSIDE RECORDS SUMMARY | 2021-01-19 12:08 | CCD | Continuity of Care Document ---
Author Author [facility] Organization Unknown Address [address] [address] Phone Unavailable Care Team Providers Care Heat Plant Specialist Name Role Phone Patrick Escalante JR, MD AUTM Unavailable Erika Morris MD AUTM [phone] Problems Active Problems Provider Date Gastroesophageal reflux disease RADHA Thayer Onset : 09/27/2012 Insomnia with sleep apnea RADHA Thayer Onset: 09/03 Pure hypercholesterolemia Patrick Escalante MD Onset: 09/27 Paroxysmal atrial fibrillation Patrick Escalante MD Onset: 09/22/2018 Social History Type Date Description Comments Sex Unknown ETOH Use Rarely consumes liquor Tobacco Use Start: Unknown Patient has never smoked Allergies, Adverse Reactions, Alerts Active Allergies Reaction Severity Comments Date Codeine NAUSEA 12/09/2010 Seroquel antsie9/11 12/09/2010 Pravastatin muscle discomfort 11/23/2012 Livalo muscle aches per patient 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 Zetia 12/07/2017 Medications Active Medications SIG Qnty Indications Ordering Provide r Date Doxycycline Monohydrate 100mg Tabl ets 1 by mouth twice a day for 10 days 20tabs Patrick Escalante MD 04/15/2020 Crestor 5mg Tablets 1 by mouth every day 30tabs Patrick Escalante MD 04/10/2019 Zolpidem Tartrate 5mg Tablets take one tablet by mouth at bedtime 30tabs Patrick Escalante MD 07/28/2018 Fenofibrate 160mg Tablets 1 by mouth every day 90tabs Patrick Escalante MD 12/07/2017 Furosemide 20mg Tablets 1 by mouth every tuesday, tue, tuesday only prn Patrick Escalante MD 04/26/2017 Levothyroxine Sodium 88mcg Tablets 1 by mouth every day 90tabs Patrick Escalante MD 01/07/2017 Vitamin D3 1000Unit Chewtabs Twice A Day By Mouth Patrick Escalante MD 08/25/2016 Fluocinolone Acetonide 0.025% Crea m apply daily to areas of rash, twice daily 60gm L20.9 Phyl SYMONE Moreno 05/07/2016 Potassium Citrate ER 10Meq (1080 mg) Tablets ER take one tablet by mouth twice a day 60tabs Shauna mansoor Escalante MD 04/09/2015 Spironolactone 25mg Tablets Take One Tablet By Mouth Every Day 30tabs Patrick Escalante MD 04/09/2015 Venlafaxine HCL ER 37.5mg Caps ER 24HR take three capsules by mouth every day 90caps Patrick Escalante MD 11/29/2014 Eliquis 5mg Tablets 1 by mouth twice a day Unknown Immunizations CPT Code Status Date Vaccine Lot # [id number] Given 01/14/2014 Fluvirin Virus Vaccine 10503 Given 09/27/2012 Pneumovax 23 32414 Given 12/27/2008 Influenza Virus Vaccine Vital Signs Date Vital Result Comment 04/15/2020 3:22pm BP Systolic 124 mmHg BP Diastolic 70 mmHg Heart Rate 68 /min Height 68 inches 5'8" Weight 201.00 lb BMI (Body Mass Index) 30.6 kg/m2 10/09/2019 2:16pm BP Systolic 122 mmHg BP Diastolic 78 mmHg Heart Rate 78 /min Height 68 inches 5'8" Weight 196.00 lb BMI (Body Mass Index) 29.8 kg/m2 Results Test Acquired Date Facility Test Result H/L Range Note Complete Blood Count 10/16/2020 [facility] Oxygen Plant Operator: Dr Patrick [place] [address] [phone] WBC 8.8 x10*3/UL 4.1 - 10.9 RBC 5.18 x10*6/UL 4.20 - 6.30 Hemoglobin 16.6 g/dL 12.0 - 18.0 Hematocrit 48.0 % 37.0 - 51.0 MCV 92.5 fL 80.0 - 97.0 MCH 32.0 pg 26.0 - 32.0 MCHC 34.6 g/dL 31.0 - 38.0 RDW 13.0 % 11.6 - 13.7 PLT 133 x10*3/UL Low 140 - 440 1 MPV 10.4 FL 7.8 - 11.0 Lymph % 31.5 % 10.0 - 58.5 Mid % 7.1 % 1.7 - 9.3 Neut % 61.4 % 37.0 - 92.0 Lymph # 2.8 x10*3/UL 0.6 - 4.1 Mid # 0.6 x10*3/UL 0.1 - 0.6 Neut # 5.4 x10*3/UL 2.0 - 7.8 A1c 10/16/2020 [facility] , Oxygen Plant Operator: Dr Patrick Escalante [place], [place] [id number] [phone] Hba1c 6.8 % High <5.7 2 Est Avg Glucose 148 mg/dL High 60 - 110 Comprehensive Chem Profile 10/16/2020 [facility], Oxygen Plant Operator: Dr Patrick Escalante [place], [place] [address] [phone] Glucose 129 mg/dL High 74 - 99 3 BUN 15 mg/dL 7 - 18 Creatinine 0.9 mg/dL 0.6 - 1.3 Sodium 140 mEq/L 136 - 145 Potassium 3.8 mEq/L 3.5 - 5.1 Chloride 104 mEq/L 98 - 107 Carbon Dioxide 26 mEq/L 21 - 32 Calcium 9.3 mg/dL 8.5 - 10.1 Alk. Phosphatase 137 mg/dL High 46 - 116 Total Bilirubin 0.8 mg/dL 0.2 - 1.0 Ast (Sgot) 31 U/L 15 - 37 Alt (SGPT) 26 U/L 12 - 78 Albumin 3.4 g/dL 3.4 - 5.0 Total Protein 7.6 g/dL 6.4 - 8.2 A/G Ratio 0.81 CALC Low 1.00 - 1.90 GFR >= 60 mL/min >60 GFR >= 60 mL/min >60 4 Lipid Profile 10/16/2020 [facility] Oxygen Plant Operator: [place] [address] [phone] Cholesterol 330 mg/dL High 131 - 200 Triglycerides 289 mg/dL High 30 - 150 HDL Cholesterol 46 mg/dL 35 - 60 LDL (Calculated) 226 CALC High 50 - 159 Laboratory test finding 10/16/2020 [facility] Oxygen Plant Operator: [place] [address] [phone] Thyroid Stimulating Hormone 5.96 uIU/mL High 0.3 6 - 3.74 1 NOTE: RESULT VERIFIED. 2 Lab Result Notes: Pre-Diabetes 5.7 - 6.4 % Diabetes = or > 6.5% 3 100-125 mg/dL PRE-DIABET ES/FASTING >126 mg/dL DIABETES/FASTING 4 CHRONIC KIDNEY DISEASE STAGI NG PER NKF STAGE I & II GFR >= 60 NORMAL TO MILDLY DECREASED STAGE III GFR 30-59 MODERATELY DECREASED STAGE IV GFR 15-29 SEVERELY DECREASED STAGE V GFR <15 VERY LITTLE GFR LEFT ESRD GFR <15 ON WARE CARRIER Procedures Date Code Description Status 05/03/2019 [id number] Colonoscopy Completed 11/07/2017 [id number] Colonoscopy Completed 07/22/2016 [id number] Colonoscopy Completed 07/16/2016 [id number] Bone Mineral Density Test [facility]ple [facility] 06/03/2016 [id number] Diabetic Retinal Eye Exam Comple [facility] 01/26/2016 [id number] Diabetic Retinal Eye Exam Comple [facility] 11/21/2014 [id number] Colonoscopy Completed 03/05/2011 [id number] Mammogram Completed Medical Devices Description No Information Available Encounters Description No Information Available Assessments Date Code Description Provider 10/16/2020 I48.0 Paroxysmal atrial fibrillation C darnell Escalante MD 10/16/2020 I48.0 Paroxysmal atrial fibrillation L ab Schedule 10/16/2020 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 Patrick Escalante MD 10/16/2020 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 oagulants Lab Schedule 10/16/2020 E11.9 Type 2 diabetes mellitus without complications Patrick Escalante MD 10/16/2020 E11.9 Type 2 diabetes mellitus without complications Lab Schedule 10/16/2020 E78.00 Pure hypercholesterolemia, unspe cified Patrick Escalante MD 10/16/2020 E78.00 Pure hypercholesterolemia, unspe cified Lab Schedule 10/16/2020 E03.9 Hypothyroidism, unspecified Shauna Escalante MD 10/16/2020 E03.9 Hypothyroidism, unspecified Lab Schedule Plan of Treatment Future Appointment(s):* 01/23/2021 2:00 pm - [facility] [facility] * 01/23/2021 2:30 pm - Patrick Escalante MD at [facility] 04/15/2020 - Patrick Escalante MD* I48.0 Paroxysmal atrial fibrillation * Z79.01 prison (current) use of anticoagulants * E78.00 Pure hypercholesterolemia, unspecified * E11.9 Type 2 diabetes mellitus without complications * E03.9 Hypothyroidism, unspecified * G47.33 Obstructive sleep apnea (adult) (pediatric) * All * New Medication:* Doxycycline Monohydrate 100 mg - 1 by mouth twice a day for 10 days Functional Status Description No Information Available Mental Status Description No Information Available Referrals Description No Information Available
--- OUTSIDE RECORDS SUMMARY | 2021-01-19 12:08 | CCD | Continuity of Care Document ---
Author Author [facility] Organization Unknown Address [address] [address] Phone Unavailable Care Team Providers Care Director Of Hotel Operations Name Role Phone Patrick Escalante JR, MD AUTM Unavailable Erika Morris MD AUTM [phone] Problems Active Problems Provider Date Gastroesophageal reflux [...] # [id number] Given 01/14/2014 Fluvirin Virus Vaccine 11805 Given 09/27/2012 Pneumovax 23 40549 Given 12/27/2008 Influenza Virus Vaccine Vital Signs [...] Range Note Complete Blood Count 10/16/2020 [facility] Of Customer Acquisition s pc Group President: Dr Patrick [place] [address] [phone] WBC 8.8 x10*3/UL 4.1 - 10.9 RBC [...] 5.4 x10*3/UL 2.0 - 7.8 A1c 10/16/2020 [facility] , Group President: Dr Patrick Escalante [place], [place] [address] [phone] Hba1c 6.8 % High <5.7 2 Est Avg Glucose 148 mg/dL High 60 - 110 Comprehensive Chem Profile 10/16/2020 [facility], Group President: Dr Patrick Escalante [place], [place] [address] [phone] Glucose 129 mg/dL High 74 - 99 [...] 60 mL/min >60 4 Lipid Profile 10/16/2020 [facility] Group President: [place] [address] [phone] Cholesterol 330 mg/dL High 131 - 200 Triglycerides 289 mg/dL High 30 - 150 HDL Cholesterol 46 mg/dL 35 - 60 LDL (Calculated) 226 CALC High 50 - 159 Laboratory test finding 10/16/2020 [facility] Group President: [place] [address] [phone] Thyroid Stimulating Hormone 5.96 uIU/mL High 0.3 [...] LITTLE GFR LEFT ESRD GFR <15 ON CIVIL PREPAREDNESS TRAINING OFFICER Procedures Date Code Description Status 05/03/2019 [id number] Colonoscopy Completed 11/07/2017 [id number] Colonoscopy Completed 07/22/2016 [id number] Colonoscopy Completed 07/16/2016 [id number] Bone Mineral Density Test [facility] 06/03/2016 [id number] Diabetic Retinal Eye Exam [facility] 01/26/2016 [id number] Diabetic Retinal Eye Exam [facility] 11/21/2014 [id number] Colonoscopy Completed 03/05/2011 [id number] Mammogram Completed Medical Devices Description No Information Available Encounters Description No Information Available Assessments Date Code Description Provider 10/16/2020 I48.0 Paroxysmal atrial fibrillation C darnell Escalante MD 10/16/2020 I48.0 Paroxysmal atrial fibrillation L ab Schedule 10/16/2020 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 * 01/23/2021 2:30 pm - Patrick Escalante MD at [facility] 04/15/2020 - Patrick Escalante MD* I48.0 Paroxysmal atrial fibrillation * Z79.01 penitentiary (current) use of anticoagulants * E78.00 Pure [...]
--- OUTSIDE RECORDS SUMMARY | 2021-01-19 12:08 | CCD ---
Author Author [facility] [employer] [facility] Syst ems Organization [facility] [employer] Syst ems Address Unknown Phone Unavailable Care Team Providers Care Box Car Bracer Name Role Phone Villarreal, Alfonso Unavailable PROBLEMS Type Condition ICD9-CM Code UDT81-QC Code Onset Dates Condition S tatus W/U Status Risk SNOMED Code Notes Problem Primary osteoarthritis involving multiple joints M 15.0 Active confirmed 084815794 Problem Postmenopausal bleeding N95.0 Active confirmed 70532359 Problem Polyarthralgia M25.50 Active confirmed 46008 005 Problem Fibromyalgia M79.7 Active confirmed 9967176 05 ALLERGIES Allergen (clinical drug ingredient) Drug/Non Drug Allergy do cumented on EMR Reaction Allergy Type Onset Date Status codeine Codeine Sulfate([facility] Code:[address]-83) Hives Drug Al lergy Active fentanyl Fentanyl(ND Code:[address]-75) Nausea/Vomiting Drug Panchito rgy Active ENCOUNTERS from 1955 to 2020-12-10 Encounter Location Date Provider Diagnosis [facility] [address] [place] [address] [place] [address] Dec, Alfonso Villarreal Postmenopausal bleed ing N95.0 IMMUNIZATIONS No Information SOCIAL HISTORY Tobacco Use: Social History Observation Description Date Details (start date - stop date) Never Smoker Sex Assigned At : Social History Observation Description Sex Assigned At Unknown Language: Question Answer Notes Languages spoken: Japanese Tobacco Use: Question Answer Notes Are you a: never smoker REASON FOR REFERRAL No Information VITAL SIGNS Weight 198.8 lbs Dec, Height 68 in Dec, BMI 30.22 kg/m2 Dec, Blood pressure systolic 126 mm Hg Dec, Blood pressure diastolic 78 mm Hg Dec, MEDICATIONS Medication SIG (Take, Route, Frequency, Duration) [...] MG 1 tab Oral Daily Not-Taking PROCEDURES from 1955 to 2020-12-10 Procedure Date Ordered Result Body Site Medication: Silver Nitrate Stick topically 2020-12-05 N/A RESULTS Component Value Reference Range CBC - Complete Blood Count Reviewed date:12/07/2020 23:38:08 Interpretation: Performing Lab:[facility] LABORATORY [address] [facility] [address] , ,[place] [address] WHITE BLOOD COUNT 7.7 4.0-10.0 RED BLOOD COUNT 5.10 4.00-5.40 HEMOGLOBIN 16.0 12.0-15.5 HEMATOCRIT 49.1 36.0-47.0 MEAN CORPUSCULAR VOLUME 96.3 80.0-96.0 MEAN CORPUSCULAR HEMOGLOBIN 31.4 27.0-33.0 MEAN CORPUSCULAR HGB CONC 32.6 32.0-36.5 RED CELL DISTRIBUTION WIDTH 12.8 11.5-14.5 PLATELET COUNT, AUTOMATED 181 150-450 Pathology Request For Service Reviewed date:12/10/2020 13:16:22 Interpretation:benign Performing Lab:[facility] LABORATORY [address] [facility] [address] , ,[facility] GENITOURINARY REASON FOR VISIT PMB- EMBX MEDICAL (GENERAL) HISTORY Type Description Date Medical [...] Notes Treatment Notes Treatm ent Clinical Notes Dec, Postmenopausal bleeding (ICD-10 - N95.0) Patient counseled on possibility of Endometrial CA given her symptoms. EMBx easily done today. Post-embx precautions reviewed. Labs ordered, and pelvic US also ordered to complete initial assessment. PLAN OF TREATMENT Treatment Notes Assessment Notes Clinical Notes Postmenopausal bleeding Patient counsele d on possibility of Endometrial CA given her symptoms. EMBx easily done today. Post-embx precautions reviewed. Labs ordered, and pelvic US also ordered to complete initial assessment. Treatment Notes Test Name Order Date WWBC Pelvis non-OB COMPLETE US 2020-12-05 Next Appt Details TBD Reason: Insurance Providers Payer Name Payer Address Payer Phone Insured Name Patient Relati onship to Insured Coverage Start Date Coverage End Date MEDICARE Part A and B [address] [facility] [address] ALEJANDRO BARRY [address] [facility] [address] [id number] [facility] [id number] ALEJANDRO BARRY
--- OUTSIDE RECORDS SUMMARY | 2021-01-19 12:08 | CCD | Continuity of Care Document ---
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 Potassium Citrate ER 10Meq (1080 mg) [...] # [id number] Given 01/14/2014 Fluvirin Virus Vaccine 43856 Given 09/27/2012 Pneumovax 23 60134 Given 12/27/2008 Influenza Virus Vaccine Vital Signs [...] H/L Range Note Complete Blood Count 10/16/2020 [facility] Fuel Cell Repairer: Dr Patrick Escalante [place], [place] [id number] [phone] WBC 8.8 x10*3/UL 4.1 - 10.9 RBC [...] 5.4 x10*3/UL 2.0 - 7.8 A1c 10/16/2020 [facility] , Fuel Cell Repairer: [place] [address] [phone] Hba1c 6.8 % High <5.7 2 Est Avg Glucose 148 mg/dL High 60 - 110 Comprehensive Chem Profile 10/16/2020 [facility], Fuel Cell Repairer: [place] [address] [phone] Glucose 129 mg/dL High 74 - 99 [...] 60 mL/min >60 4 Lipid Profile 10/16/2020 [facility] Fuel Cell Repairer: [place] [address] [phone] Cholesterol 330 mg/dL High 131 - 200 Triglycerides 289 mg/dL High 30 - 150 HDL Cholesterol 46 mg/dL 35 - 60 LDL (Calculated) 226 CALC High 50 - 159 Laboratory test finding 10/16/2020 [facility] Fuel Cell Repairer: [place] [address] [phone] Thyroid Stimulating Hormone 5.96 uIU/mL High 0.3 [...] LITTLE GFR LEFT ESRD GFR <15 ON [employer]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 Procedures Date Code Description Status 05/03/2019 [id number] Colonoscopy Completed 11/07/2017 [id number] Colonoscopy Completed 07/22/2016 [id number] Colonoscopy Completed 07/16/2016 [id number] Bone Mineral Density Test Comple [facility] 06/03/2016 [id number] Diabetic Retinal Eye Exam Comple [facility] 01/26/2016 [id number] Diabetic Retinal Eye Exam Comple [facility] 11/21/2014 [id number] Colonoscopy Completed 03/05/2011 [id number] Mammogram Completed Medical Devices Description No Information Available Encounters Description No Information Available Assessments Date Code Description Provider 10/16/2020 I48.0 Paroxysmal atrial fibrillation C darnell Escalante MD 10/16/2020 I48.0 Paroxysmal atrial fibrillation L ab Schedule 10/16/2020 Z79.01 [facility]PC (current) use of antic oagulants Patrick Escalante MD 10/16/2020 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 * 01/23/2021 2:30 pm - Patrick Escalante MD at [facility] 04/15/2020 - Patrick Escalante MD* I48.0 Paroxysmal atrial fibrillation * Z79.01 [facility] (current) use of anticoagulants * E78.00 Pure [...]
--- OUTSIDE RECORDS SUMMARY | 2021-01-19 12:09 | CCD ---
Author Author [facility] Address Unknown Phone Unavailable Care Team Providers Care Crew Team Member Name Role Phone Phyllis Escalante MD Unavailable Unavailable Phyllis Escalante MD Unavailable Unavailable Phyllis Escalante MD Unavailable Unavailable Phyllis Escalante MD Unavailable Unavailable Phyllis Escalante MD Unavailable Unavailable OmahaPhyllis MD Unavailable Unavailable BorisPhyllis MD Unavailable Unavailable OmahaPhyllis MD Unavailable Unavailable OmahaPhyllis MD Unavailable Unavailable OmahaPhyllis MD Unavailable Unavailable OmahaPhyllis MD Unavailable Unavailable OmahaPhyllis MD Unavailable Unavailable BorisPhyllis MD Unavailable Unavailable OmahaPhyllis MD Unavailable Unavailable OmahaPhyllis MD Unavailable Unavailable BorisPhyllis MD Unavailable Unavailable BorisPhyllis MD Unavailable Unavailable BorisPhyllis MD Unavailable Unavailable OmahaPhyllis MD Unavailable Unavailable BorisPhyllis MD Unavailable Unavailable OmahaPhyllis MD Unavailable Unavailable OmahaPhyllis MD Unavailable Unavailable OmahaPhyllis MD Unavailable Unavailable OmahaPhyllis MD Unavailable Unavailable BorisPhyllis MD Unavailable Unavailable OmahaPhyllis MD Unavailable Unavailable BorisPhyllis MD Unavailable Unavailable OmahaPhyllis MD Unavailable Unavailable BorisPhyllis MD Unavailable Unavailable BorisPhyllis MD Unavailable Unavailable BorisPhyllis MD Unavailable Unavailable OmahaPhyllis MD Unavailable Unavailable OmahaPhyllis MD Unavailable Unavailable OmahaPhyllis MD Unavailable Unavailable BorisPhyllis MD Unavailable Unavailable OmahaPhyllis MD Unavailable Unavailable OmahaPhyllis MD Unavailable Unavailable OmahaPhyllis MD Unavailable Unavailable OmahaPhyllis MD Unavailable Unavailable OmahaPhyllis garvin MD Unavailable Unavailable OmahaPhyllis garvin MD Unavailable Unavailable BorisPhyllis MD Unavailable Unavailable BorisPhyllis MD Unavailable Unavailable OmahaPhyllis garvin MD Unavailable Unavailable BorisPhyllis MD Unavailable Unavailable OmahaPhyllis garvin MD Unavailable Unavailable OmahaPhyllis garvin MD Unavailable Unavailable BorisPhyllis garvin MD Unavailable Unavailable OmahaPhyllis MD Unavailable Unavailable OmahaPhyllis MD Unavailable Unavailable BorisPhyllis MD Unavailable Unavailable OmahaPhyllis MD Unavailable Unavailable BorisPhyllis MD Unavailable Unavailable OmahaPhyllis MD Unavailable Unavailable BorisPhylils MD Unavailable Unavailable BorisPhyllis MD Unavailable Unavailable OmahaPhyllis MD Unavailable Unavailable BorisPhyllis MD Unavailable Unavailable BorisPhyllis MD Unavailable Unavailable BorisPhyllis MD Unavailable Unavailable [place], F Patrick FONG Unavailable Unavailable Boris, F Patrick FONG Unavailable Unavailable [place], F Patrick FONG Unavailable Unavailable [place], F Patrick MD Unavailable Unavailable [place], F Patrick MD Unavailable Unavailable Boris, F Patrick MD Unavailable Unavailable Boris, F Patrick MD Unavailable Unavailable Boris, F Patrick MD Unavailable Unavailable Boris, F Patrick MD Unavailable Unavailable [place], F Patrick MD Unavailable Unavailable Boris, F Patrick MD Unavailable Unavailable [place], F Patrick MD Unavailable Unavailable Boris, F Patrick MD Unavailable Unavailable Boris, F Patrick MD Unavailable Unavailable Boris, F Patrick MD Unavailable Unavailable [place], F Patrick MD Unavailable Unavailable [place], F Patrick MD Unavailable Unavailable Boris, F Patrick MD Unavailable Unavailable Boris, F Patrick MD Unavailable Unavailable Boris, F Patrick MD Unavailable Unavailable [place], F Patrick MD Unavailable Unavailable Boris, F Patrick MD Unavailable Unavailable [place], F Patrick MD Unavailable Unavailable Boris, F Patrick MD Unavailable Unavailable Boris, F Patrick MD Unavailable Unavailable [place], F Patrick MD Unavailable Unavailable PALLAVI (SHEA), Evans HORN MD Unavailable Unavailab le PALLAVI (SHEA), Evans HORN MD Unavailable Unavailab le PALLAVI (SHEA), Evans HORN MD Unavailable Unavailab le PALLAVI (SHEA), Evans HORN MD Unavailable Unavailab le PALLAVI (SHEA), Evans HORN MD Unavailable Unavailab le PALLAVI (SHEA), Evans HORN MD Unavailable Unavailab le PALLAVI (SHEA), Evans HORN MD Unavailable Unavailab le PALLAVI (SHEA), Evans HORN MD Unavailable Unavailab le PALLAVI (SHEA), Evans HORN MD Unavailable Unavailab le PALLAVI (SHEA), Evans HORN MD Unavailable Unavailab le PALLAVI (SHEA), Evans HORN MD Unavailable Unavailab le PALLAVI (SHEA), Evans HORN MD Unavailable Unavailab le PALLAVI (SHEA), Evans HORN MD Unavailable Unavailab le PALLAVI (SHEA), Evans HORN MD Unavailable Unavailab le PALLAVI (SHEA), Evans HORN MD Unavailable Unavailab le PALLAVI (SHEA), Evans HORN MD Unavailable Unavailab le PALLAVI (SHEA), Evans HORN MD Unavailable Unavailab le PALLAVI (SHEA), Evans HORN MD Unavailable Unavailab le PALLAVI (SHEA), Evans HORN MD Unavailable Unavailab le PALLAVI (SHEA), Evans HORN MD Unavailable Unavailab le PALLAVI (SHEA), Evans HORN MD Unavailable Unavailab le PALLAVI (SHEA), Evans HORN MD Unavailable Unavailab le PALLAVI (SHEA), Evans HORN MD Unavailable Unavailab le PALLAVI (SHEA), Evans HORN MD Unavailable Unavailab le PALLAVI (SHEA), Evans HORN MD Unavailable Unavailab le PALLAVI (SHEA), Evans HORN MD Unavailable Unavailab le PALLAVI (SHEA), Evans HORN MD Unavailable Unavailab le PALLAVI (SHEA), Evans HORN MD Unavailable Unavailab le PALLAVI (SHEA), Evans HORN MD Unavailable Unavailab le PALLAVI (SHEA), Evans HORN MD Unavailable Unavailab le PALLAVI (SHEA), Evans HORN MD Unavailable Unavailab le PALLAVI (SHEA), Evans HORN MD Unavailable Unavailab le PALLAVI (SHEA), Evans HORN MD Unavailable Unavailab le PALLAVI (SHEA), Evans HORN MD Unavailable Unavailab le PALLAVI (SHEA), Evans HORN MD Unavailable Unavailab le PALLAVI (SHEA), Evans HORN MD Unavailable Unavailab le PALLAVI (SHEA), Evans HORN MD Unavailable Unavailab le PALLAVI (SHEA), Evans HORN MD Unavailable Unavailab le PALLAVI (SHEA), Evans HORN MD Unavailable Unavailab le PALLAVI (SHEA), Evans HORN MD Unavailable Unavailab le PALLAVI (SHEA), Evans HORN MD Unavailable Unavailab le PALLAVI (SHEA), Evans HORN MD Unavailable Unavailab le PALLAVI (SHEA), Evans HORN MD Unavailable Unavailab le PALLAVI (SHEA), Evans HORN MD Unavailable Unavailab le PALLAVI (SHEA), Evans HORN MD Unavailable Unavailab le PALLAVI (SHEA), Evans HORN MD Unavailable Unavailab le PALLAVI (SHEA), Evans HORN MD Unavailable Unavailab le PALLAVI (SHEA), Evans HORN MD Unavailable Unavailab le PALLAVI (SHEA), Evans HORN MD Unavailable Unavailab le PALLAVI (SHEA), Evans HORN MD Unavailable Unavailab le PALLAVI (SHEA), Evans HORN MD Unavailable Unavailab le PALLAVI (SHEA), Evans HORN MD Unavailable Unavailab le PALLAVI (SHEA), Evans HORN MD Unavailable Unavailab le PALLAVI (SHEA), Evans HORN MD Unavailable Unavailab le PALLAVI (SHEA), Evans HORN MD Unavailable Unavailab le PALLAVI (SHEA), Evans HORN MD Unavailable Unavailab le PALLAVI (SHEA), Evans HORN MD Unavailable Unavailab le PALLAVI (SHEA), Evans HORN MD Unavailable Unavailab le PALLAVI (SHEA), Evans HORN MD Unavailable Unavailab le PALLAVI (SHEA), Evans HORN MD Unavailable Unavailab le PALLAVI (SHEA), Evans HORN MD Unavailable Unavailab le PALLAVI (SHEA), Evans HORN MD Unavailable Unavailab le PALLAVI (SHEA), Evans HORN MD Unavailable Unavailab le PALLAVI (SHEA), Evans HORN MD Unavailable Unavailab le PALLAVI (SHEA), Evans HORN MD Unavailable Unavailab le PALLAVI (SHEA), Evans HORN MD Unavailable Unavailab le PALLAVI (SHEA), Evans HORN MD Unavailable Unavailab le PALLAVI (SHEA), Evans HORN MD Unavailable Unavailab le PALLAVI (SHEA), Evans HORN MD Unavailable Unavailab le PALLAVI (SHEA), Evans HORN MD Unavailable Unavailab le PALLAVI (SHEA), Evans HORN MD Unavailable Unavailab le PALLAVI (SHEA), Evans HORN MD Unavailable Unavailab le PALLAVI (SHEA), Evans HORN MD Unavailable Unavailab le PALLAVI (SHEA), Evans HORN MD Unavailable Unavailab le PALLAVI (SHEA), Evans HORN MD Unavailable Unavailab le PALLAVI (SHEA), Evans HORN MD Unavailable Unavailab le PALLAVI (SHEA), Evans HORN MD Unavailable Unavailab le PALLAVI (SHEA), Evans HORN MD Unavailable Unavailab le PALLAVI (SHEA), Evans HORN MD Unavailable Unavailab le PALLAVI (SHEA), Evans HORN MD Unavailable Unavailab le PALLAVI (SHEA), Evans HORN MD Unavailable Unavailab le PALLAVI (SHEA), Evans HORN MD Unavailable Unavailab le PALLAVI (SHEA), Evans HORN MD Unavailable Unavailab le PALLAVI (SHEA), Evans HORN MD Unavailable Unavailab le PALLAVI (SHEA), Evans HORN MD Unavailable Unavailab le PALLAVI (SHEA), Evans HORN MD Unavailable Unavailab le PALLAVI (SHEA), Evans HORN MD Unavailable Unavailab Scott Randle PA Unavailable Unavailable Scott KAY PA Unavailable Unavailable JAZMYNE L LYUBOV PA Unavailable Unavailable JAZMYNE L LYUBOV PA Unavailable Unavailable JAZMYNE L LYUBOV PA Unavailable Unavailable JAZMYNE L LYUBOV PA Unavailable Unavailable KAY, L LYUBOV PA Unavailable Unavailable KAY, L LYUBOV PA Unavailable Unavailable KAY, L LYUBOV PA Unavailable Unavailable KAY, L LYUBOV PA Unavailable Unavailable KAY, L LYUBOV PA Unavailable Unavailable KAY, L LYUBOV PA Unavailable Unavailable KAY, L LYUBOV PA Unavailable Unavailable KAY, L LYUBOV PA Unavailable Unavailable KAY, L LYUBOV PA Unavailable Unavailable KAY, L LYUBOV PA Unavailable Unavailable KAY, L LYUBOV PA Unavailable Unavailable KAY, L LYUBOV PA Unavailable Unavailable KAY, L LYUBOV PA Unavailable Unavailable KAY, L LYUBOV PA Unavailable Unavailable KAY, L LYUBOV PA Unavailable Unavailable KAY, L LYUBOV PA Unavailable Unavailable KAY, L LYUBOV PA Unavailable Unavailable KAY, L LYUBOV PA Unavailable Unavailable KAY, L LYUBOV PA Unavailable Unavailable KAY, L LYUBOV PA Unavailable Unavailable KAY, L LYUBOV PA Unavailable Unavailable KAY, L LYUBOV PA Unavailable Unavailable KAY, L LYUBOV PA Unavailable Unavailable KAY, L LYUBOV PA Unavailable Unavailable KAY, L LYUBOV PA Unavailable Unavailable KAY, L LYUBOV PA Unavailable Unavailable KAY, L LYUBOV PA Unavailable Unavailable KAY, L LYUBOV PA Unavailable Unavailable KAY, L LYUBOV PA Unavailable Unavailable KAY, L LYUBOV PA Unavailable Unavailable KAY, L LYUBOV PA Unavailable Unavailable KAY, L LYUBOV PA Unavailable Unavailable KAY, L LYUBOV PA Unavailable Unavailable Phyllis Escalante MD Unavailable Unavailable Phyllis Escalante MD Unavailable Unavailable Phyllis Escalante MD Unavailable Unavailable Phyllis Escalante MD Unavailable Unavailable Phyllis Escalante MD Unavailable Unavailable Phyllis Escalante MD Unavailable Unavailable Phyllis Escalante MD Unavailable Unavailable Phyllis Escalante MD Unavailable Unavailable Phyllis Escalante MD Unavailable Unavailable Phyllis Escalante MD Unavailable Unavailable Phyllis Escalante MD Unavailable Unavailable Phyllis Escalante MD Unavailable Unavailable Phyllis Escalante MD Unavailable Unavailable Phyllis Escalante MD Unavailable Unavailable Phyllis Escalante MD Unavailable Unavailable Phyllis Escalante MD Unavailable Unavailable Phyllis Escalante MD Unavailable Unavailable Phyllis Escalante MD Unavailable Unavailable OmahaPhyllis garvin MD Unavailable Unavailable Phyllis Escalante MD Unavailable Unavailable OmahaPhyllis garvin MD Unavailable Unavailable Phyllis Escalante MD Unavailable Unavailable Phyllis Escalante MD Unavailable Unavailable OmahaPhyllis garvin MD Unavailable Unavailable Phyllis Escalante MD Unavailable Unavailable OmahaPhyllis garvin MD Unavailable Unavailable BorisPhyllis garvin MD Unavailable Unavailable BorisPhyllis MD Unavailable Unavailable BorisPhyllis MD Unavailable Unavailable BorisPhyllis MD Unavailable Unavailable OmahaPhyllis MD Unavailable Unavailable BorisPhyllis MD Unavailable Unavailable OmahaPhyllis MD Unavailable Unavailable BorisPhyllis MD Unavailable Unavailable BorisPhyllis MD Unavailable Unavailable BorisPhyllis MD Unavailable Unavailable OmahaPhyllis MD Unavailable Unavailable OmahaPhyllis MD Unavailable Unavailable OmahaPhyllis MD Unavailable Unavailable OmahaPhyllis MD Unavailable Unavailable BorisPhyllis MD Unavailable Unavailable OmahaPhyllis MD Unavailable Unavailable BorisPhyllis MD Unavailable Unavailable BorisPhyllis MD Unavailable Unavailable OmahaPhyllis MD Unavailable Unavailable OmahaPhyllis MD Unavailable Unavailable OmahaPhyllis MD Unavailable Unavailable BorisPhyllis MD Unavailable Unavailable BorisPhyllis MD Unavailable Unavailable OmahaPhyllis MD Unavailable Unavailable BorisPhyllis MD Unavailable Unavailable OmahaPhyllis MD Unavailable Unavailable BorisPhyllis MD Unavailable Unavailable OmahaPhyllis MD Unavailable Unavailable BorisPhyllis MD Unavailable Unavailable OmahaPhyllis MD Unavailable Unavailable BorisPhyllis MD Unavailable Unavailable OmahaPhyllis MD Unavailable Unavailable BorisPhyllis MD Unavailable Unavailable OmahaPhyllis MD Unavailable Unavailable BorisPhyllis MD Unavailable Unavailable OmahaPhyllis MD Unavailable Unavailable BorisPhyllis garvin MD Unavailable Unavailable OmahaPhyllis MD Unavailable Unavailable OmahaPhyllis MD Unavailable Unavailable OmahaPhyllis MD Unavailable Unavailable BorisPhyllis MD Unavailable Unavailable OmahaPhyllis MD Unavailable Unavailable OmahaPhyllis MD Unavailable Unavailable OmahaPhyllis garvin MD Unavailable Unavailable OmahaPhyllis MD Unavailable Unavailable OmahaPhyllis MD Unavailable Unavailable BorisPhyllis MD Unavailable Unavailable OmahaPhyllis MD Unavailable Unavailable BorisPhyllis MD Unavailable Unavailable OmahaPhyllis MD Unavailable Unavailable BorisPhyllis MD Unavailable Unavailable OmahaPhyllis MD Unavailable Unavailable OmahaPhyllis MD Unavailable Unavailable OmahaPhyllis MD Unavailable Unavailable BorisPhyllis MD Unavailable Unavailable OmahaPhyllis MD Unavailable Unavailable OmahaPhyllis MD Unavailable Unavailable OmahaPhyllis MD Unavailable Unavailable OmahaPhyllis MD Unavailable Unavailable BorisPhyllis MD Unavailable Unavailable NESTOR, Abraham NUR MD Unavailable Unavailable NESTOR, Abraham NUR MD Unavailable Unavailable NESTOR, Abraham NUR MD Unavailable Unavailable NESTOR, Abraham NUR MD Unavailable Unavailable NESTOR, Abraham NUR MD Unavailable Unavailable NESTOR, Abraham NUR MD Unavailable Unavailable NESTOR, Abraham NUR MD Unavailable Unavailable NESTOR, Abraham NUR MD Unavailable Unavailable NESTOR, Abraham NUR MD Unavailable Unavailable NESTOR, Abraham NUR MD Unavailable Unavailable NESTOR, Abraham NUR MD Unavailable Unavailable NESTOR, Abraham NUR MD Unavailable Unavailable NESTOR, Abraham NUR MD Unavailable Unavailable NESTOR, Abraham NUR MD Unavailable Unavailable NESTOR, Abraham NUR MD Unavailable Unavailable NESTOR, Abraham NUR MD Unavailable Unavailable NESTOR, Abraham NUR MD Unavailable Unavailable NESTOR, Abraham NUR MD Unavailable Unavailable NESTOR, Abraham NUR MD Unavailable Unavailable NESTOR, Abraham NUR MD Unavailable Unavailable NESTOR, Abraham NUR MD Unavailable Unavailable NESTOR, Abraham NUR MD Unavailable Unavailable NESTOR, Abraham NUR MD Unavailable Unavailable NESTOR, Abraham NUR MD Unavailable Unavailable NESTOR, Abraham NUR MD Unavailable Unavailable NESTOR, Abraham NUR MD Unavailable Unavailable NESTOR, Abraham NUR MD Unavailable Unavailable NESTOR, Abraham NUR MD Unavailable Unavailable NESTOR, Abraham NUR MD Unavailable Unavailable NESTOR, Abraham NUR MD Unavailable Unavailable NESTOR, Abraham NUR MD Unavailable Unavailable NESTOR, Abraham NUR MD Unavailable Unavailable NESTOR, Abraham NUR MD Unavailable Unavailable NESTOR, Abraham NUR MD Unavailable Unavailable NESTOR, Abraham NUR MD Unavailable Unavailable NESTOR, Abraham NUR MD Unavailable Unavailable NESTOR, Abraham NUR MD Unavailable Unavailable NESTOR, Abraham NUR MD Unavailable Unavailable NESTOR, Abraham NUR MD Unavailable Unavailable NESTOR, Abraham NUR MD Unavailable Unavailable NESTOR, Abraham NUR MD Unavailable Unavailable NESTORAbraham MD Unavailable Unavailable NESTOR, Abraham NUR MD Unavailable Unavailable NESTOR, Abraham NUR MD Unavailable Unavailable NESTOR, Abraham NUR MD Unavailable Unavailable NESTOR, Abraham NUR MD Unavailable Unavailable NESTOR, Abraham NUR MD Unavailable Unavailable NESTOR, Abraham NUR MD Unavailable Unavailable NESTOR, Abraham NUR MD Unavailable Unavailable NESTOR, Abraham NUR MD Unavailable Unavailable NESTOR, Abraham NUR MD Unavailable Unavailable NESTOR, Abraham NUR MD Unavailable Unavailable NESTOR, Abraham NUR MD Unavailable Unavailable NESTOR, Abraham NUR MD Unavailable Unavailable NESTOR, Abraham NUR MD Unavailable Unavailable NESTOR, Abraham NUR MD Unavailable Unavailable NESTOR, Abraham NUR MD Unavailable Unavailable NESTOR, Abraham NUR MD Unavailable Unavailable NESTOR, Abraham NUR MD Unavailable Unavailable NESTOR, Abraham NUR MD Unavailable Unavailable NESTOR, Abraham NUR MD Unavailable Unavailable NESTOR, Abraham NUR MD Unavailable Unavailable NESTOR, Abraham NUR MD Unavailable Unavailable NESTOR, Abraham NUR MD Unavailable Unavailable NESTOR, Abraham NUR MD Unavailable Unavailable NESTOR, Abraham NUR MD Unavailable Unavailable NESTOR, Abraham NUR MD Unavailable Unavailable NESTOR, Abraham NUR MD Unavailable Unavailable NESTOR, Abraham NUR MD Unavailable Unavailable NESTOR, Abraham NUR MD Unavailable Unavailable NESTOR, Abraham NUR MD Unavailable Unavailable NESTOR, Abraham NUR MD Unavailable Unavailable NESTOR, Abraham NUR MD Unavailable Unavailable NESTOR, Abraham NUR MD Unavailable Unavailable NESTOR, Abraham NUR MD Unavailable Unavailable NESTOR, Abraham NUR MD Unavailable Unavailable NESTOR, Abraham NUR MD Unavailable Unavailable NESTOR, Abraham NUR MD Unavailable Unavailable NESTOR, Abraham NUR MD Unavailable Unavailable NESTOR, Abraham NUR MD Unavailable Unavailable NESTOR, Abraham NUR MD Unavailable Unavailable NESTOR, Abraham NUR MD Unavailable Unavailable NESTOR, Abraham NUR MD Unavailable Unavailable NESTOR, Abraham NUR MD Unavailable Unavailable NSETOR, Abraham NUR MD Unavailable Unavailable NESTOR, Abraham NUR MD Unavailable Unavailable NESTOR, Abraham NUR MD Unavailable Unavailable NESTOR, Abraham NUR MD Unavailable Unavailable NESTOR, Abraham NUR MD Unavailable Unavailable NESTOR, Abraham NUR MD Unavailable Unavailable NESTOR, Abraham NUR MD Unavailable Unavailable Ciaran Pleitez, Miguel Thompson MD, FACS Unavailable Unavailable Miguel Griffin MD, FACS Unavailable Unavailable Miguel Griffin MD, FACS Unavailable Unavailable Miguel Griffin MD, FACS Unavailable Unavailable Miguel Griffin MD, FACS Unavailable Unavailable Miguel Griffin MD, FACS Unavailable Unavailable Wagoner Pleitez, Miguel Thompson MD, FACS Unavailable Unavailable Wagoner Pleitez, Miguel Thompson MD, FACS Unavailable Unavailable Wagoner Pleitez, Miguel Thompson MD, FACS Unavailable Unavailable Wagoner Pleitez, Miguel Thompson MD, FACS Unavailable Unavailable Wagoner Pleitez, Miguel Thompson MD, FACS Unavailable Unavailable Wagoner Pleitez, Miguel Thompson MD, FACS Unavailable Unavailable Wagoner Pleitez, Miguel Thompson MD, FACS Unavailable Unavailable Wagoner Pleitez, Miguel Thompson MD, FACS Unavailable Unavailable Wagoner Pleitez, Miguel Thompson MD, FACS Unavailable Unavailable Wagoner Pleitez, Miguel Thompson MD, FACS Unavailable Unavailable Wagoner Pleitez, Miguel Thompson MD, FACS Unavailable Unavailable Wagoner Pleitez, Miguel Thompson MD, FACS Unavailable Unavailable Wagoner Pleitez, Miguel Thompson MD, FACS Unavailable Unavailable Wagoner Pleitez, Miguel Thompson MD, FACS Unavailable Unavailable Wagoner Pleitez, Miguel Thompson MD, FACS Unavailable Unavailable Wagoner Pleitez, Miguel Thompson MD, FACS Unavailable Unavailable Wagoner Pleitez, Miguel Thompson MD, FACS Unavailable Unavailable Wagoner Pleitez, Miguel Thompson MD, FACS Unavailable Unavailable Wagoner Pleitez, Miguel Thompson MD, FACS Unavailable Unavailable Wagoner Pleitez, Miguel Thompson MD, FACS Unavailable Unavailable Wagoner Pleitez, Miguel Thompson MD, FACS Unavailable Unavailable Awgoner Pleitez, Miguel Thompson MD, FACS Unavailable Unavailable Wagoner Pleitez, Miguel Thompson MD, FACS Unavailable Unavailable Wagoner Pleitez, Miguel Thompson MD, FACS Unavailable Unavailable Wagoner Pleitez, Miguel Thompson MD, FACS Unavailable Unavailable Wagoner Pleitez, iMguel Thompson MD, FACS Unavailable Unavailable Wagoner Pleitez, Miguel Thompson MD, FACS Unavailable Unavailable Wagoner Pleitez, Miguel Thompson MD, FACS Unavailable Unavailable Wagoner Pleitez, Miguel Thompson MD, FACS Unavailable Unavailable Wagoner Pleitez, Miguel Thompson MD, FACS Unavailable Unavailable Wagoner Pleitez, Miguel Thompson MD, FACS Unavailable Unavailable Wagoner Pleitez, Miguel Thompson MD, FACS Unavailable Unavailable Wagoner Pleitez, Miguel Thompson MD, FACS Unavailable Unavailable Ludin, Lien Unavailable Unavailable Boris, Phyllis Nguyen MD Unavailable Unavailable [place], Phyllis Nguyen MD Unavailable Unavailable Boris, Phyllis Nguyen MD Unavailable Unavailable Boris, Phyllis Nguyen MD Unavailable Unavailable Boris, Phyllis Nguyen MD Unavailable Unavailable Boris, Phyllis Nguyen MD Unavailable Unavailable [place], Phyllis Nguyen MD Unavailable Unavailable [place], Phyllis Nguyen MD Unavailable Unavailable [place], Phyllis Nguyen MD Unavailable Unavailable Boris, Phyllis Nguyen MD Unavailable Unavailable [place], Phyllis Nguyen MD Unavailable Unavailable Boris, Phyllis Nguyen MD Unavailable Unavailable Boris, Phyllis Nguyen MD Unavailable Unavailable Boris, Phyllis Nguyen MD Unavailable Unavailable [place], Phyllis Nguyen MD Unavailable Unavailable Boris, Phyllis Nguyen MD Unavailable Unavailable Boris, Phyllis Nguyen MD Unavailable Unavailable [place], Phyllis Nguyen MD Unavailable Unavailable OmahaPhyllis MD Unavailable Unavailable BorisPhyllis MD Unavailable Unavailable OmahaPhyllis MD Unavailable Unavailable BorisPhyllis MD Unavailable Unavailable BorisPhyllis MD Unavailable Unavailable BorisPhyllis MD Unavailable Unavailable BorisPhyllis MD Unavailable Unavailable BorisPhyllis MD Unavailable Unavailable OmahaPhyllis MD Unavailable Unavailable OmahaPhyllis MD Unavailable Unavailable BorisPhyllis MD Unavailable Unavailable OmahaPhyllis MD Unavailable Unavailable BorisPhyllis MD Unavailable Unavailable BorisPhyllis MD Unavailable Unavailable OmahaPhyllis MD Unavailable Unavailable OmahaPhyllis MD Unavailable Unavailable OmahaPhyllis MD Unavailable Unavailable OmahaPhyllis MD Unavailable Unavailable OmahaPhyllis MD Unavailable Unavailable OmahaPhyllis MD Unavailable Unavailable OmahaPhyllis MD Unavailable Unavailable BorisPhyllis MD Unavailable Unavailable OmahaPhyllis MD Unavailable Unavailable OmahaPhyllis MD Unavailable Unavailable OmahaPhyllis MD Unavailable Unavailable BorisPhyllis MD Unavailable Unavailable BorisPhyllis MD Unavailable Unavailable BorisPhyllis MD Unavailable Unavailable BorisPhyllis MD Unavailable Unavailable OmahaPhyllis MD Unavailable Unavailable BorisPhyllis MD Unavailable Unavailable OmahaPhyllis MD Unavailable Unavailable BorisPhyllis MD Unavailable Unavailable OmahaPhyllis MD Unavailable Unavailable BorisPhyllis MD Unavailable Unavailable BorisPhyllis garvin MD Unavailable Unavailable BorisPhyllis MD Unavailable Unavailable OmahaPhyllis MD Unavailable Unavailable OmahaPhyllis MD Unavailable Unavailable BorisPhyllis MD Unavailable Unavailable OmahaPhyllis MD Unavailable Unavailable BorisPhyllis MD Unavailable Unavailable BorisPhyllis MD Unavailable Unavailable BorisPhyllis MD Unavailable Unavailable OmahaPhyllis MD Unavailable Unavailable BorisPhyllis MD Unavailable Unavailable BorisPhyllis MD Unavailable Unavailable OmahaPhyllis MD Unavailable Unavailable BorisPhyllis MD Unavailable Unavailable OmahaPhyllis MD Unavailable Unavailable OmahaPhyllis MD Unavailable Unavailable OmahaPhyllis MD Unavailable Unavailable BorisPhyllis MD Unavailable Unavailable BorisPhyllis MD Unavailable Unavailable BorisPhyllis MD Unavailable Unavailable BorisPhyllis MD Unavailable Unavailable Phyllis Escalante MD Unavailable Unavailable Phyllis Escalante MD Unavailable Unavailable Phyllis Escalante MD Unavailable Unavailable Phyllis Escalante MD Unavailable Unavailable Phyllis Escalante MD Unavailable Unavailable Phyllis Escalante MD Unavailable Unavailable Phyllis Escalante MD Unavailable Unavailable Phyllis Escalante MD Unavailable Unavailable Phyllis Escalante MD Unavailable Unavailable Phyllis Escalante MD Unavailable Unavailable Phyllis Escalante MD Unavailable Unavailable Phyllis Escalante MD Unavailable Unavailable Kari Velázquez MD Unavailable Unavailable Sergio Velázquezjtech Unavailable Unavailable SleSergio fortejtech Unavailable Unavailable SlekishakaSergiojtech Unavailable Unavailable Sergio Velázquezjtech Unavailable Unavailable Duane Velázqueztech Unavailable Unavailable Duane Velázqueztech Unavailable Unavailable Sergio Velázquezjtech Unavailable Unavailable Sergio Velázquezjtech Unavailable Unavailable Sergio Velázquezjtech Unavailable Unavailable Duane Velázqueztech Unavailable Unavailable Duane Velázqueztech Unavailable Unavailable Duane Velázqueztech Unavailable Unavailable Duane Velázqueztech Unavailable Unavailable Sergio Velázquezjtech Unavailable Unavailable Sergio Velázquezjtech Unavailable Unavailable Duane Velázqueztech Unavailable Unavailable Duane Velázqueztech Unavailable Unavailable Kari Velázquez MD Unavailable Unavailable Duane Velázqueztech Unavailable Unavailable Sergio Velázquezjtech Unavailable Unavailable Sergio Velázquezjtech Unavailable Unavailable Dunae Velázqueztech Unavailable Unavailable Duane Velázqueztech Unavailable Unavailable Duane Velázqueztech Unavailable Unavailable Sergio Velázquezjtech Unavailable Unavailable Sergio Velázquezjtech Unavailable Unavailable Sergio Velázquezjtech Unavailable Unavailable SleSergio fortejtech Unavailable Unavailable Duane Velázqueztech Unavailable Unavailable Sergio Velázquezjtech Unavailable Unavailable SleDuane fortetech Unavailable Unavailable Sergio Velázquezjtech Unavailable Unavailable SleSergio fortejtech Unavailable Unavailable SleSergio fortejtech Unavailable Unavailable SleSergio fortejtech Unavailable Unavailable Sergio Velázquezjtech Unavailable Unavailable Sergio Velázquezjtech Unavailable Unavailable Slezka, Vojtech MD Unavailable Unavailable Slezka, Vojtech MD Unavailable Unavailable Slezka, Vojtech MD Unavailable Unavailable Slezka, Vojtech MD Unavailable Unavailable Slezka, Vojtech MD Unavailable Unavailable Slezka, Vojtech MD Unavailable Unavailable Slezka, Vojtech MD Unavailable Unavailable Slezka, Vojtech MD Unavailable Unavailable Slezka, Vojtech MD Unavailable Unavailable Slezka, Vojtech MD Unavailable Unavailable Slezka, Vojtech MD Unavailable Unavailable Slezka, Vojtech MD Unavailable Unavailable Slezka, Vojtech MD Unavailable Unavailable Slezka, Vojtech MD Unavailable Unavailable Slezka, Vojtech MD Unavailable Unavailable Slezka, Vojtech MD Unavailable Unavailable Slezka, Vojtech MD Unavailable Unavailable Slezka, Vojtech MD Unavailable Unavailable Slezka, Vojtech MD Unavailable Unavailable Slezka, Vojtech MD Unavailable Unavailable Re-disclosure Warning The records that you are about to access may contain information from federally-assisted alcohol or drug abuse programs. If such information is present, then the following federally mandated warning applies: This information has been disclosed to you from records protected by federal confidentiality rules (42 CFR part 2). The federal rules prohibit you from making any further disclosure of this information unless further disclosure is expressly permitted by the written consent of the person to whom it pertains or as otherwise permitted by 42 CFR part 2. A general authorization for the release of medical or other information is NOT sufficient for this purpose. The Federal rules restrict any use of the information to criminally investigate or prosecute any alcohol or drug abuse patient.The records that you are about to access may contain highly sensitive health information, the redisclosure of which is protected by Article 27-F of the [facility] Public Health law. If you continue you may have access to information: Regarding HIV / AIDS; Provided by facilities licensed or operated by the [facility] Office of Mental Health; or Provided by the [facility] Office for People With Developmental Disabilities. If such information is present, then the following [facility] mandated warning applies: This information has been disclosed to you from confidential records which are protected by state law. State law prohibits you from making any further disclosure of this information without the specific written consent of the person to whom it pertains, or as otherwise permitted by law. Any unauthorized further disclosure in violation of state law may result in a fine or residential sentence or both. A general authorization for the release of medical or other information is NOT sufficient authorization for further disc losure. Family History Family Member Name Family Member Gender Family Member Status Date o f Status Description Data Source(s) Unknown Unknown Problem [facility] ([facility], ) Encounters Encounter Providers Location Date Indications Data Source(s ) Outpatient [email or web address] 01/12/2021 12:08:05 PM EDT [facility] [email or web address] 01/12/2021 12:00:00 AM EDT [facility] [address] [address] 01/05/2021 12:00:00 AM EDT eCW1 ([facility]) Unknown [address], [facility] [address] 01/02/2021 12:00:00 AM EDT eCW1 ([facility]) Outpatient Attender: Kari FREEMANNOE-[email or web address].NOE 12/04 12:00:00 AM EDT - 12/23/2020 04:08:57 PM EDT [facility] [address] [address] 12/05/2020 12:00:00 AM EDT eCW1 ([facility]) Attender: KORY PITTMAN) MDReferrer: Annamarie Escalante MD 11/13/2020 08:21:08 PM EDT [facility] Attender: KORY OLIVO ([facility]) MDAttender: Lien NolandReferrtank: Patrick Escalante MD 09/26/2020 08:21:06 PM EDT [facility] Attender: KORY OLIVO ([facility]) MDAttender: Lien Martierrtank: Patrick Escalante MD 09/23/2020 08:21:06 PM EDT [facility] Attender: KORY PITTMAN) MDReferrer: Annamarie Escalante MD 09/23/2020 08:21:06 PM EDT [facility] Outpatient [email or web address] 08/29/2020 01:10:41 PM EDT [facility] Attender: Kari [email or web address] 06/02 12:00:00 AM EDT - 06/17/2020 04:12:16 PM EDT [facility]<td ID="encounterTypeDescripti onID0">7 Month Follow-Up and Testing</td><td>Jay An MD, FACS</td><td>Jay An MD [facility]</td><td>06/12/2020</td><td>1:59PM</td><td>10/29/2019 11:59PM</td><td><content ID="encounterDiagnosisID0-0">Vitreous Disorders Degeneration</content>, <content ID="encounterDiagnosisID0-1">Borderline Glaucoma Open Angle with Borderline Findings Both Eyes</content>, <content ID="encounterDiagnosisID0-2">Dry Eye Syndrome Both Eyes</content>, <content ID="encounterDiagnosisID0-3">Essential Hypertension</content>, <content ID="encounterDiagnosisID0-4">Macular Puckering Left Eye</content></td> Attender: Jay Pleitez MD, FACS Jay An MD [facility] 06/12/2020 01:59:00 PM EST - 10/29/2019 11:59:00 PM EDT Vitreous Disorders DegenerationMacular P uckering Left EyeEssential HypertensionDry Eye Syndrome Both EyesBorderline Glaucoma Open Angle with Borderline Findings Both Eyes OZ (Jay Pleitez MD [facility]) Vitreous Disorders Degeneration Macular Puckering Left Eye Essential Hypertension Dry Eye Syndrome Both Eyes Borderline Glaucoma Open Angle with Bord stewart Findings Both Eyes Outpatient [email or web address] 05/21/2020 08:35:51 AM EST [facility] Attender: Patrick Escalante Vandewall 0 04/15/2020 02:00:00 PM EST [facility] ([facility] ) Outpatient SJP.NOE-SJP 02/10/2020 07:31:03 PM EST [facility] [email or web address] 02/07/2020 12:00:00 AM EST [facility] Attender: YFN NESTOR MDReferrer: Patrick lucas MD 01/09/2020 10:12:48 AM EDT [facility] Recurring Patient Attender: YFN BAEZ MDReferrer: Patrick rhodes MD 01/07/2020 03:22:37 PM EDT [facility] Out[facility] Attender: LYUBOV KAY PAReferrer: Patrick lucas MD 12/10/2019 07:51:40 AM EDT [facility] Recurring Patient Attender: YFN BAEZ MDReferrer: Patrick rhodes MD 12/07/2019 04:59:21 PM EDT [facility] Rec[facility] Patient Attender: YFN BAEZ MDReferrer: Patrick rhodes MD 12/07/2019 04:59:16 PM EDT [facility] Medications Medication Brand Name Start Date Product Form Dose Route Admi nistrative Instructions Pharmacy Instructions Status Indications Reaction Description Data Source(s) 90 mcg/actuation 01/15/2021 12:00:00 AM EDT HFA aerosol inha ler 8 INHALE 2 PUFFS BY MOUTH EVERY 4 TO 6 HOURS NEEDED FOR WHEEZING INHALE 2 PUFFS BY MOUTH EVERY 4 TO 6 HOURS NEEDED FOR WHEEZING SOLD: 01/15/2021 [facility] 6 mg 01/15/2021 12:00:00 AM EDT tablet 7 TAKE ONE TABLET BY MOUTH DAILY TAKE ONE TABLET BY MOUTH DAILY SOLD: 01/15/2021 [facility] 875 mg 01/06/2021 12:00:00 AM EDT tablet 20 TAKE ONE TABLET BY MOUTH EVERY 12 HOURS FOR 10 DAYS TAKE ONE TABLET BY MOUTH EVERY 12 HOURS FOR 10 DAYS SO LD: 01/06/2021 [facility] 37.5 mg 01/02/2021 12:00:00 AM EDT capsule,extended releas e 24hr 90 TAKE 3 CAPSULES BY MOUTH EVERY DAY TAKE 3 CAPSULES BY MOUTH EVERY DAY SOLD: 01/02/2021 [facility] 5 mg 01/01/2021 12:00:00 AM EDT tablet 30 TAKE ONE TABLET BY MOUTH AT BEDTIME , MAXIMUM DAILY DOSE = 1 TABLET TAKE ONE TABLET BY MOUTH AT BEDTIME , MAXIMUM DAILY DOSE = 1 TABLET SOLD: 01/02/2021 [facility] 100 mg 12/31/2020 12:00:00 AM EDT tablet extended release 24 hr 180 TAKE ONE TABLET BY MOUTH TWICE A DAY TAKE ONE TABLET BY MOUTH TWICE A DAY SOLD: 12/31/2020 [facility] 1 ML evolocumab 140 MG/ML Auto-Injector [Repatha] Evolocumab (Repatha SureClick) 140 MG/ML SOAJ Evolocumab (Repatha SureClick) 140 MG/ML SOAJ 12/24/19 12:00:00 AM EDT 1 {ampule} Subcutaneous active Inject 1 ampule under the skin every 14 (fourteen) days for 6 doses [facility] 5 mg 11/27/2020 12:00:00 AM EDT tablet 30 TAKE ONE TABLET BY MOUTH AT BEDTIME , MAXIMUM DAILY DOSE = 1 TABLET TAKE ONE TABLET BY MOUTH AT BEDTIME , MAXIMUM DAILY DOSE = 1 TABLET SOLD: 11/29/2020 [facility] 10 mEq (1,080 mg) 11/19/2020 12:00:00 AM EDT tablet extended release 60 TAKE ONE TABLET BY MOUTH TWICE A DAY TAKE ONE TABLET BY MOUTH TWICE A DAY SOLD: 11/21/2020 [facility] 5 mg 10/23/2020 12:00:00 AM EDT tablet 30 TAKE ONE TABLET BY MOUTH ONCE DAILY BEFORE BED MAXIMUM DAILY DOSE = 1 TABLET TAKE ONE TABLET BY MOUTH ONCE DAILY BEFORE BED MAXIMUM DAILY DOSE = 1 TABLET SOLD: 10/23/2020 [facility] 5 mg 09/17/2020 12:00:00 AM EDT tablet 30 TAKE ONE TABLET BY MOUTH AT BEDTIME MAXIMUM DAILY DOSE = 1 TABLET TAKE ONE TABLET BY MOUTH AT BEDTIME MAXIMUM DAILY DOSE = 1 TABLET SOLD: 09/17/2020 [facility] 5 mg 08/19/2020 12:00:00 AM EDT tablet 30 TAKE ONE TABLET BY MOUTH EVERY DAY AT BEDTIME, MAXIMUM DAILY DOSE = ONE TABLET TAKE ONE TABLET BY MOUTH EVERY DAY AT BEDTIME, MAXIMUM DAILY DOSE = ONE TABLET SOLD: 08/19/2020 [facility] 88 mcg 08/04/2020 12:00:00 AM EDT tablet 90 TAKE ONE TABLET BY MOUTH EVERY DAY TAKE ONE TABLET BY MOUTH EVERY DAY SOLD: 08/04/2020 [facility] 37.5 mg 08/04/2020 12:00:00 AM EDT capsule,extended releas e 24hr 90 TAKE 3 CAPSULES BY MOUTH EVERY DAY TAKE 3 CAPSULES BY MOUTH EVERY DAY SOLD: 11/19/2020 [facility] 37.5 mg 08/04/2020 12:00:00 AM EDT capsule,extended releas e 24hr 90 TAKE 3 CAPSULES BY MOUTH EVERY DAY TAKE 3 CAPSULES BY MOUTH EVERY DAY SOLD: 09/27/2020 [facility] 37.5 mg 08/04/2020 12:00:00 AM EDT capsule,extended releas e 24hr 90 TAKE 3 CAPSULES BY MOUTH EVERY DAY TAKE 3 CAPSULES BY MOUTH EVERY DAY SOLD: 08/04/2020 [facility] 5 mg 07/17/2020 12:00:00 AM EDT tablet 30 TAKE ONE TABLET BY MOUTH AT BEDTIME MAXIMUM DAILY DOSE = 1 TABLET TAKE ONE TABLET BY MOUTH AT BEDTIME MAXIMUM DAILY DOSE = 1 TABLET SOLD: 07/17/2020 [facility] Metformin hydrochloride 500 MG Oral Tablet METFORMIN HCL 06/18/2020 12:00:00 AM EDT tablet 90 TAKE ONE TABLET BY MOUTH TAKE ONE TABLET BY MOUTH EVERY DAY SOLD: 06/18/2020 [facility] Rosuvastatin calcium 20 MG Oral Tablet ROSUVASTATIN CALCIUM 06/18/2020 12:00:00 AM EDT tablet 90 TAKE ONE TABLET BY MOUTH CARLOS EDUARDO DAY TAKE ONE TABLET BY MOUTH EVERY DAY SOLD: 06/18/2020 [facility] 5 mg 06/17/2020 12:00:00 AM EDT tablet 30 TAKE ONE TABLET BY MOUTH AT BEDTIME MAXIMUM DAILY DOSE = 1 TABLET TAKE ONE TABLET BY MOUTH AT BEDTIME MAXIMUM DAILY DOSE = 1 TABLET SOLD: 06/17/2020 [facility] Rosuvastatin calcium 20 MG Oral Tablet rosuvastatin (C RESTOR) 20 MG tablet rosuvastatin (CRESTOR) 20 MG tablet 06/17/2020 12:00:00 AM EDT 20 mg Oral aborted Take 1 tablet (20 mg total) by m outh daily [facility] Metformin hydrochloride 500 MG Oral Tablet metFORMIN ( GLUCOPHAGE) 500 MG tablet metFORMIN (GLUCOPHAGE) 500 MG tablet 06/17/2020 12:00:00 AM EDT 500 m g Oral active Take 1 tablet (500 mg total) by mouth daily [facility] 5 mg 05/16/2020 12:00:00 AM EST tablet 30 TAKE ONE TABLET BY MOUTH EVERY DAY AT BEDTIME, MAXIMUM DAILY DOSE = ONE TABLET TAKE ONE TABLET BY MOUTH EVERY DAY AT BEDTIME, MAXIMUM DAILY DOSE = ONE TABLET SOLD: 05/16/2020 [facility] 5 mg 05/03/2020 12:00:00 AM EST tablet 180 TAKE ONE TABLET BY MOUTH TWICE A DAY TAKE ONE TABLET BY MOUTH TWICE A DAY SOLD: 05/08/2020 [facility] 5 mg 05/03/2020 12:00:00 AM EST tablet 180 TAKE ONE TABLET BY MOUTH TWICE A DAY TAKE ONE TABLET BY MOUTH TWICE A DAY SOLD: 12/30/2020 [facility] apixaban 5 MG Oral Tablet Apixaban (ELIQUIS) 5 MG TABS tablet Apixaban (ELIQUIS) 5 MG TABS tablet 05/02/2020 12:00:00 AM EST 5 mg Oral active Take 1 tablet (5 mg total) by mouth 2 (two) times a day [facility] Doxycycline Monohydrate 100 MG Oral Tablet Doxycycline Monoh ydrate 04/15/2020 12:00:00 AM EST ORAL active M ODELL ([facility]) 100 mg 04/15/2020 12:00:00 AM EST tablet 20 TAKE ONE TABLET BY MOUTH TWICE A DAY FOR 10 DAYS TAKE ONE TABLET BY MOUTH TWICE A DAY FOR 10 DAYS SOLD: 04/15/2020 [facility] 5 mg 04/12/2020 12:00:00 AM EST tablet 30 TAKE ONE TABLET BY MOUTH EVERY DAY AT BEDTIME, MAXIMUM DAILY DOSE = ONE TABLET TAKE ONE TABLET BY MOUTH EVERY DAY AT BEDTIME, MAXIMUM DAILY DOSE = ONE TABLET SOLD: 04/14/2020 [facility] 37.5 mg 03/17/2020 12:00:00 AM EST capsule,extended releas e 24hr 90 TAKE THREE CAPSULES BY MOUTH EVERY DAY TAKE THREE CAPSULES BY MOUTH EVERY DAY SOLD: 03/17/2020 [facility] 37.5 mg 03/17/2020 12:00:00 AM EST capsule,extended releas e 24hr 90 TAKE THREE CAPSULES BY MOUTH EVERY DAY TAKE THREE CAPSULES BY MOUTH EVERY DAY SOLD: 04/30/2020 [facility] 37.5 mg 03/17/2020 12:00:00 AM EST capsule,extended releas e 24hr 90 TAKE THREE CAPSULES BY MOUTH EVERY DAY TAKE THREE CAPSULES BY MOUTH EVERY DAY SOLD: 06/17/2020 [facility] 5 mg 03/05/2020 12:00:00 AM EST tablet 30 TAKE ONE TABLET BY MOUTH AT BEDTIME MAXIMUM DAILY DOSE = ONE TABLET TAKE ONE TABLET BY MOUTH AT BEDTIME MAXIMUM DAILY DOSE = ONE TABLET SOLD: 03/07/2020 [facility] 5 mg 01/26/2020 12:00:00 AM EDT tablet 30 TAKE ONE TABLET BY MOUTH EVERY DAY AT BEDTIME, MAXIMUM DAILY DOSE = ONE TABLET TAKE ONE TABLET BY MOUTH EVERY DAY AT BEDTIME, MAXIMUM DAILY DOSE = ONE TABLET SOLD: 01/28/2020 [facility] 25 mg 01/16/2020 12:00:00 AM EDT tablet 30 TAKE ONE TABLET BY MOUTH EVERY DAY TAKE ONE TABLET BY MOUTH EVERY DAY SOLD: 08/03/2020 [facility] 25 mg 01/16/2020 12:00:00 AM EDT tablet 30 TAKE ONE TABLET BY MOUTH EVERY DAY TAKE ONE TABLET BY MOUTH EVERY DAY SOLD: 01/28/2020 [facility] 25 mg 01/16/2020 12:00:00 AM EDT tablet 30 TAKE ONE TABLET BY MOUTH EVERY DAY TAKE ONE TABLET BY MOUTH EVERY DAY SOLD: 10/31/2020 [facility] 25 mg 01/16/2020 12:00:00 AM EDT tablet 30 TAKE ONE TABLET BY MOUTH EVERY DAY TAKE ONE TABLET BY MOUTH EVERY DAY SOLD: 05/08/2020 [facility] 25 mg 01/16/2020 12:00:00 AM EDT tablet 30 TAKE ONE TABLET BY MOUTH EVERY DAY TAKE ONE TABLET BY MOUTH EVERY DAY SOLD: 12/30/2020 [facility] 5 mg 12/26/2019 12:00:00 AM EDT tablet 30 TAKE ONE TABLET BY MOUTH EVERY DAY AT BEDTIME, MAXIMUM DAILY DOSE = ONE TABLET TAKE ONE TABLET BY MOUTH EVERY DAY AT BEDTIME, MAXIMUM DAILY DOSE = ONE TABLET SOLD: 12/28/2019 [facility] 500 mg 12/18/2019 12:00:00 AM EDT tablet 20 TAKE ONE TABLET BY MOUTH EVERY 12 HOURS FOR 10 DAYS TAKE ONE TABLET BY MOUTH EVERY 12 HOURS FOR 10 DAYS SO LD: 12/18/2019 [facility] 100 mg 12/10/2019 12:00:00 AM EDT tablet extended release 24 hr 60 TAKE ONE TABLET BY MOUTH TWO TIMES A DAY TAKE ONE TABLET BY MOUTH TWO TIMES A DAY SOLD: 08/03/2020 [facility] 100 mg 12/10/2019 12:00:00 AM EDT tablet extended release 24 hr 60 TAKE ONE TABLET BY MOUTH TWO TIMES A DAY TAKE ONE TABLET BY MOUTH TWO TIMES A DAY SOLD: 04/14/2020 [facility] 100 mg 12/10/2019 12:00:00 AM EDT tablet extended release 24 hr 60 TAKE ONE TABLET BY MOUTH TWO TIMES A DAY TAKE ONE TABLET BY MOUTH TWO TIMES A DAY SOLD: 10/31/2020 [facility] 100 mg 12/10/2019 12:00:00 AM EDT tablet extended release 24 hr 60 TAKE ONE TABLET BY MOUTH TWO TIMES A DAY TAKE ONE TABLET BY MOUTH TWO TIMES A DAY SOLD: 12/10/2019 [facility] 100 mg 12/10/2019 12:00:00 AM EDT tablet extended release 24 hr 60 TAKE ONE TABLET BY MOUTH TWO TIMES A DAY TAKE ONE TABLET BY MOUTH TWO TIMES A DAY SOLD: 06/17/2020 [facility] 100 mg 12/10/2019 12:00:00 AM EDT tablet extended release 24 hr 60 TAKE ONE TABLET BY MOUTH TWO TIMES A DAY TAKE ONE TABLET BY MOUTH TWO TIMES A DAY SOLD: 02/02/2020 [facility] 24 HR metoprolol succinate 100 MG Extend ed Release Oral Tablet metoprolol succinate (TOPROL-XL) 100 MG 24 hr tablet metoprolol succinate (TOPROL-XL) 100 MG 24 hr tablet 11/28/2019 12:00:00 AM EDT 100 mg Oral ac tive Take 1 tablet (100 mg total) by mouth 2 (two) times a day [facility] 875-125 mg 11/23/2019 12:00:00 AM EDT tablet 20 TAKE ONE TABLET BY MOUTH TWO TIMES A DAY TAKE ONE TABLET BY MOUTH TWO TIMES A DAY SOLD: 11/23/2019 [facility] 5 mg 11/22/2019 12:00:00 AM EDT tablet 30 TAKE ONE TABLET BY MOUTH AT BEDTIME , MAXIMUM DAILY DOSE = 1 TABLET TAKE ONE TABLET BY MOUTH AT BEDTIME , MAXIMUM DAILY DOSE = 1 TABLET SOLD: 11/23/2019 [facility] 875 mg 11/21/2019 12:00:00 AM EDT tablet 20 TAKE ONE TABLET BY MOUTH EVERY 12 HOURS FOR 10 DAYS TAKE ONE TABLET BY MOUTH EVERY 12 HOURS FOR 10 DAYS SO LD: 11/21/2019 [facility] 2 % 11/21/2019 12:00:00 AM EDT solution 100 TAKE 5ML BY MOUTH FOUR TIMES A DAY FOR 5 DAYS TAKE 5ML BY MOUTH FOUR TIMES A DAY FOR 5 DAYS SOLD: 11/21/2019 [facility] 5 mg 11/20/2019 12:00:00 AM EDT tablet 30 TAKE ONE TABLET BY MOUTH EVERY DAY TAKE ONE TABLET BY MOUTH EVERY DAY SOLD: 04/14/2020 [facility] 5 mg 11/20/2019 12:00:00 AM EDT tablet 30 TAKE ONE TABLET BY MOUTH EVERY DAY TAKE ONE TABLET BY MOUTH EVERY DAY SOLD: 01/28/2020 [facility] 5 mg 11/20/2019 12:00:00 AM EDT tablet 30 TAKE ONE TABLET BY MOUTH EVERY DAY TAKE ONE TABLET BY MOUTH EVERY DAY SOLD: 11/21/2019 [facility] 37.5 mg 10/24/2019 12:00:00 AM EDT capsule,extended releas e 24hr 90 TAKE THREE CAPSULES BY MOUTH EVERY DAY TAKE THREE CAPSULES BY MOUTH EVERY DAY SOLD: 12/15/2019 [facility] 37.5 mg 10/24/2019 12:00:00 AM EDT capsule,extended releas e 24hr 90 TAKE THREE CAPSULES BY MOUTH EVERY DAY TAKE THREE CAPSULES BY MOUTH EVERY DAY SOLD: 02/02/2020 [facility] 10 mEq (1,080 mg) 10/04/2019 12:00:00 AM EDT tablet extended release 60 TAKE ONE TABLET BY MOUTH TWICE A DAY TAKE ONE TABLET BY MOUTH TWICE A DAY SOLD: 04/30/2020 [facility] 10 mEq (1,080 mg) 10/04/2019 12:00:00 AM EDT tablet extended release 60 TAKE ONE TABLET BY MOUTH TWICE A DAY TAKE ONE TABLET BY MOUTH TWICE A DAY SOLD: 11/21/2019 [facility] 10 mEq (1,080 mg) 10/04/2019 12:00:00 AM EDT tablet extended release 60 TAKE ONE TABLET BY MOUTH TWICE A DAY TAKE ONE TABLET BY MOUTH TWICE A DAY SOLD: 08/03/2020 [facility] 160 mg 05/22/2019 12:00:00 AM EST tablet 90 TAKE ONE TABLET BY MOUTH ONCE DAILY TAKE ONE TABLET BY MOUTH ONCE DAILY SOLD: 11/21/2019 [facility] Fenofibrate 160 MG Oral Tablet fenofibrate (LOFIBRA) 1 60 MG tablet fenofibrate (LOFIBRA) 160 MG tablet 05/21/2019 12:00:00 AM EST 160 mg Oral aborted Take 1 tablet (160 mg total) by mouth daily [facility] Sucralfate 1000 MG Oral Tablet sucralfate (CARAFATE) 1 g tablet sucralfate (CARAFATE) 1 g tablet 05/03/2019 12:00:00 AM EST a borted [facility] Rosuvastatin calcium 5 MG Oral Tablet rosuvastatin (CR ESTOR) 5 MG tablet rosuvastatin (CRESTOR) 5 MG tablet 04/10/2019 12:00:00 AM EST aborted [facility] 5 mg 03/12/2019 12:00:00 AM EST tablet 60 TAKE ONE TABLET BY MOUTH TWICE A DAY TAKE ONE TABLET BY MOUTH TWICE A DAY SOLD: 01/28/2020 [facility] 88 mcg 03/10/2019 12:00:00 AM EST tablet 90 TAKE ONE TABLET BY MOUTH EVERY DAY TAKE ONE TABLET BY MOUTH EVERY DAY SOLD: 01/28/2020 [facility] Insurance Providers Payer name Policy type / Coverage type Policy ID Covered green party ID Covered green party's relationship to melton Policy [place] Plan Information [employer] (pr) Commercial [id number] Self [id number] [employer] U [id number] Self [id number] [employer] [id number] Linda [id number] [facility] (HMO) [id number] Self [id number] [employer] [id number] S [id number] [employer] / UMR F [id number] SELF [id number] [employer] / UMR F [id number] SELF [id number] [employer] [id number] 0 [id number] UMR [id number] [id number] UMR [id number] Linda [id number] UMR U [id number] Self [id number] Umr Care Management [id number] 0 [id number] Umr Care Management [id number] UMR F [id number] SELF [id number] [employer] (New [employer]) Commercial [id number] Self [id number] UMR F [id number] SELF [id number] [place] B [place] [id number] 0 [id number] MEDICARE [id number] Linda [id number] Medicare C [id number] SELF [id number] MEDICARE [id number] xxxxxxxxxxx [id number] [employer] [place] Other 0 [id number] Self 0 [employer] [place] Other 0 [id number] Self 0 [employer] [place] Other 0 [id number] Self 0 [employer] [place] Other 0 [id number] Self 0 [employer] [place] Other 0 [id number] Self 0 [employer] [place] Other 0 [id number] Self 0 [employer] [place] Other 0 [id number] Self 0 [employer] [place] Other 0 [id number] Self 0 [employer] [place] Other 0 [id number] Self 0 [employer] [place] Other 0 [id number] Self 0 [employer] [place] Other 0 [id number] Self 0 [employer] [place] Other 0 [id number] Self 0 [employer] [place] Other 0 [id number] Self 0 [employer] [place] Other 0 [id number] Self 0 ANSI-Not a Secondary Insurance [id number] ANSI-Not a Secondary Insurance [id number] UMR [facility] [id number] SP [id number] [employer] [id number] S [id number] [employer] (Old[employer] Commercial [id number] Self [id number] [employer] Commercial [id number] Self [id number] [employer] / UMR F [id number] SELF [id number] [employer] [id number] SP [id number] Umr [employer] Ppo Commercial [id number] Self [id number] Umr [employer] P[employer] Commercial [id number] Self [id number] Umr [employer] P[employer] Commercial [id number] Self [id number] [employer] PPO O [id number] O [id number] [employer] Ppo Commercial [id number] Self [id number] [employer] P[employer] Commercial [id number] Self [id number] MEDICARE [id number] SP [id number] [employer] Commercial [id number] Self [id number] [employer] Ppo Commercial [id number] Self [id number] [employer] [id number] Self [id number] [employer] [id number] Self [id number] [employer] [id number] Self [id number] [employer] [id number] Self [id number] [employer] [id number] Self [id number] [employer] [id number] Self [employer] [id number] Self [employer] [id number] Self [id number] UMR [facility] [id number] SP [id number] [employer] [place] Other 0 [id number] Self 0 Medicare Part B [facility] Other 0 [id number] Self 0 [employer] [place] Other 0 [id number] Self 0 Medicare Part B [facility] Other 0 [id number] Self 0 MEDICARE C [id number] S [id number] UMR O [id number] S [id number] UMR -O/P [id number] 18 [id number] MEDICARE PART A -O/P [id number] 18 [id number] [facility] [employer] [facility] [id number] S [id number] [place]ICARE [place] [id number] S [id number] UMR [id number] S [id number] MEDICARE [id number] SP [id number] A [employer] (Old) Medigap Part B 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 struck her under her chin, forcing her head into extension. Since then she has had headache and increasing pain. She denies any arm pain or numbness. Results/DataXRays were ordered, obtained and interpreted today in the office. Indication: pain/dysfunction. Site: cervical spine Views: 2 Views, AP/Lateral Standing Findings:. No fractures, dislocations, or other significant abnormalities. Degenerative changes C4-7. AssessmentAcute neck pain. Degenerative disc disease C4-7. Plan X-Ray I Cervical Spine - 2 views (XRays were ordered, obtained and interpreted today inthe office. Indication: pain/dysfunction.); Status:Complete; Done: [id number] Perform:SOS14 (General); Due:[id number]; Last Updated By:Montez Whittaker; 12/07/2019 5:12:33 PM;Ordered; For:Neck pain; Ordered By:Lyubov Kay; Physical Therapy (SOS) - Spinal Physical Therapy Evaluation and Treatment Status:Complete Done: [id number] Ordered;For: Neck pain; Ordered By: Lyubov Kay Performed: Due: [id number]; Last Updated By: Juana Bowden; 12/07/2019 5:22:34 PMDuration: : Four WeeksPT Frequency : Two or three times a weekSOS ROM and Strength : Range of motion and strengthening exercises.Heat Ultra and Modalities : Heat Ultrasound and modalities as indicatedEvaluate and Treat: : Please evaluate and treat as indicated. She cannot use anti-inflammatories due to a blood thinner. With that in mind I have offered her physical therapy to see if this will help with mobility. She will follow-up with the spine team and ernesto Aguilar because they have seen her in the past. This document was dictated and electronically signed using [employer] software. A reasonable attempt at proof reading has been made to minimize errors. Please candelaria l with any questions. Signatures Electronically signed by : Lyubov Kay PA-C; Dec 07 2019 5:51PM EST (Author) Electronically signed by : John Joshi M.D.; Dec 10 2019 7:51AM EST Name Value Range Interpretation Code Description Data Mikayla rce(s) Supporting Document(s) ID Date Data Source [id number] 11/22/2019 09:22:00 PM EDT [facility] ([facility]) Name Value Range Interpretation Code Description Data Mikayla rce(s) Supporting Document(s) Alt/SGPT 42 U/L 12-78 [facility] ([facility]) Ast/Sgot 48 U/L 7-37 [facility] ([facility]) Alkaline Phosphatase 127 U/L 45-117 [facility] ([facility]) Bilirubin,Direct 0.2 mg/dL 0.0-0.2 [facility] ([facility]) Bilirubin,Total 0.9 mg/dL 0.2-1.0 [facility] ([facility]) Albumin 3.6 GM/DL 3.2-5.2 [facility] ([facility]) Albumin/Globulin Ratio 0.9 1.2-2.2 [facility] ([facility]) Total Protein 7.7 GM/DL 6.4-8.2 [facility] ([facility]) ID Date Data Source [id number] 11/22/2019 09:22:00 PM EDT [facility] ([facility]) Name Value Range Interpretation Code Description Data Mikayla rce(s) Supporting Document(s) Erythrocyte sedimentation rate by Westergren method 44 mm/hr 0-30 [facility] ([facility]) ID Date Data Source [id number] 11/22/2019 09:22:00 PM EDT [facility] ([facility]) Name Value Range Interpretation Code Description Data Mikayla rce(s) Supporting Document(s) Red Blood Count 4.61 10 4.00-5.40 [facility] ([facility]) White Blood Count 12.3 10 4.0-10.0 [facility] ([facility]) Mean Corpuscular Volume 96.1 fl 80.0-96.0 [facility] ([facility]) Hematocrit 44.3 % 36.0-47.0 [facility] Hemoglobin 14.7 g/dL 12.0-15.5 [facility] ([facility]) Mean Corpuscular Hemoglobin 31.9 pg 27.0-33.0 AR DENT ([facility]) Red Cell Distribution Width 12.8 % 11.5-14.5 AR DENT ([facility]) Mean Corpuscular HGB Conc 33.2 g/dL 32.0-36.5 MEDE NT ([facility]) Neutrophils % 77.3 % 36.0-66.0 [facility] ([facility]) Lymph % 10.9 % 24.0-44.0 [facility] Platelet Count, Automated 149 10 150-450 [facility] NT ([facility]) Eos % 1.2 % 0.0-3.0 [facility]) Baso % 0.2 % 0.0-1.0 [facility] Yates % 10.0 % 0.0-5.0 [facility] Nucleated Red Blood Cell % 0.0 % 0-0 MED ENT ([facility]) Lymph # 1.3 10 1.5-5.0 [facility]) Immature Granulocyte % 0.4 % 0-3.0 [facility] ([facility]) Neutrophils # 9.5 10 1.5-8.5 [facility] ([facility]) Yates # 1.2 10 0.0-0.8 [facility] Eos # 0.2 10 0.0-0.5 [facility] Baso # 0.0 10 0.0-0.2 [facility]) ID Date Data Source [id number] 11/22/2019 09:22:00 PM EDT [facility] ([facility]) Name Value Range Interpretation Code Description Data Mikayla rce(s) Supporting Document(s) Lactate [Mass/volume] in Serum or Plasma 1.4 mmol/L 0.4-2.0 [facility] ([facility]) Y/N query for Sepsis Lactate Rule: Y ID Date Data Source [id number] 11/22/2019 09:22:00 PM EDT [facility] ([facility]) Name Value Range Interpretation Code Description Data Mikayla rce(s) Supporting Document(s) C reactive protein [Mass/volume] in Serum or Plasma by High sensitivity method 3.96 mg/dL 0.00-0.30 [facility] ([facility] ) ID Date Data Source [id number] 11/22/2019 09:22:00 PM EDT [facility] ([facility]) Name Value Range Interpretation Code Description Data Mikayla rce(s) Supporting Document(s) Glucose, Fasting 92 mg/dL 70-100 [facility] ([facility]) Blood Urea Nitrogen 18 mg/dL 7-18 [facility] ([facility]) Glomerular Filtration Rate Laboratory test result [facility]) <content>Units are mL/min/1.73 m2</content>
<content></content>
<content>Chronic Kidney Disease Staging per NKF:</content>
<content></content>
<content>Stage I & II GFR >=60 Normal to Mildly Decreased</content>
<content>Stage III GFR 30- 59 Moderately Decreased</content>
<content>Stage IV GFR 15-29 Severely Decreased</content>
<content>Stage V GFR <15 Very Little GFR Left</content>
<content>ESRD GFR <15 on [employer]</content>
<content></content> Creatinine For GFR 0.96 mg/dL 0.55-1.30 [facility] ([facility]) Sodium Level 138 meq/L 136-145 [facility] ([facility]) Potassium Serum 4.0 meq/L 3.5-5.1 [facility] ([facility]) Carbon Dioxide Level 25 meq/L 21-32 [facility]) Calcium Level 8.9 mg/dL 8.8-10.2 [facility]) Anion Gap 3 meq/L 8-16 [facility] Chloride Level 110 meq/L 98-107 [facility]) Procedure Social History Code Duration Value Status Description Data Source(s ) Smoking 01/05/2021 12:00:00 AM EDT Never Smoker completed Never S moker eCW1 ([facility]) Alcohol intake 12/23/2020 12:00:00 AM EDT Current non-d osbaldo of alcohol (finding) completed Current non-drinker of alcohol (finding) [facility] Smoking 12/05/2020 12:00:00 AM EDT Never Smoker completed Never S moker eCW1 ([facility]) Smoking 12/05/2020 12:00:00 AM EDT Never Smoker completed Never S moker eCW1 ([facility]) Alcohol intake 06/17/2020 12:00:00 AM EDT No completed [facility] Smoking 06/17/2020 12:00:00 AM EDT Never smoker completed Never s moker [facility] Smoking 06/12/2020 03:23:02 PM EST Never smoked tobacco (findi ng) completed Never smoked tobacco (finding) OZ (Jay Pleitez MD [facility]) Vital Signs ID Date Data Source UNK Name Value Range Interpretation Code Description Data Source(s) Body weight 202 [lb_av] 202 [lb_av] [facility] Body height 68 [in_i] 68 [in_i] eCW1 ([facility]) Body mass index (BMI) [Ratio] 30.71 kg/m2 30.71 kg/m2 [facility] ([facility]) Systolic blood pressure 130 mm[Hg] 130 mm[Hg] e CW1 ([facility]) Diastolic blood pressure 72 mm[Hg] 72 mm[Hg] W1 ([facility]) Systolic blood pressure 136 mm[Hg] 136 mm[Hg] [facility] Diastolic blood pressure 82 mm[Hg] 82 mm[Hg] [facility] Heart rate 83 /min 83 /min [facility] Respiratory rate 18 /min 18 /min [facility] Body height 172.7 cm 172.7 cm [facility] Body weight 92.08 kg 92.08 kg [facility] Body mass index (BMI) [Ratio] 30.87 kg/m2 30.87 kg/m2 [facility] Oxygen saturation in Arterial blood by Pulse oximetry 96 % 96 % [facility] Body weight 198.8 [lb_av] 198.8 [lb_av] W1 ([facility]) Body height 68 [in_i] 68 [in_i] eCW1 ([facility]) Body mass index (BMI) [Ratio] 30.22 kg/m2 30.22 kg/m2 W1 ([facility]) Systolic blood pressure 126 mm[Hg] 126 mm[Hg] e CW1 ([facility]) Diastolic blood pressure 78 mm[Hg] 78 mm[Hg] W1 ([facility]) Systolic blood pressure 138 mm[Hg] 138 mm[Hg] [facility] Diastolic blood pressure 100 mm[Hg] 100 mm[Hg] [facility] Heart rate 80 /min 80 /min [facility] Body height 172.7 cm 172.7 cm [facility] Body weight 91.173 kg 91.173 kg [facility] Body mass index (BMI) [Ratio] 30.56 kg/m2 30.56 kg/m2 [facility] Oxygen saturation in Arterial blood by Pulse oximetry 96 % 96 % [facility] Diastolic blood pressure 70 mm[Hg] 70 mm[Hg] [facility] ([facility]) Heart rate 68 /min 68 /min [facility]) Body height 68 [in_i] 68 [in_i] [facility] 5'8" Body weight 201.00 [lb_av] 201.00 [lb_av] MEDEN T ([facility]) Body mass index (BMI) [Ratio] 30.6 kg/m2 30.6 k g/m2 [facility] ([facility]) Systolic blood pressure 124 mm[Hg] 124 mm[Hg] M EDENT ([facility]) Patient Treatment Plan of Care Planned Activity Planned Date Details Description Data Source (s) 1 ML evolocumab 140 MG/ML Auto-Injector [Repatha] 12/23/2020 12: 00:00 AM EDT [facility] Rosuvastatin calcium 20 MG Oral Tablet 06/17/2020 12:00:00 AM EDT [facility] Metformin hydrochloride 500 MG Oral Tablet 06/17/2020 12:00:00 AM E DT [facility] apixaban 5 MG Oral Tablet 05/02/2020 12:00:00 AM EST [facility] 24 HR metoprolol succinate 100 MG Extended Release Ora l Tablet 11/28/2019 12:00:00 AM EDT [facility] Fenofibrate 160 MG Oral Tablet 05/21/2019 12:00:00 AM EST [facility] Sucralfate 1000 MG Oral Tablet 05/03/2019 12:00:00 AM EST [facility] Rosuvastatin calcium 5 MG Oral Tablet 04/10/2019 12:00:00 AM EST [facility]
[2021-01-19] MEDS ORDERED: MEDR10TA PO (13:02)
[2021-01-19 13:08] LABS: BASO # 0.1 10^3/uL (0.0-0.2); BASO % 0.5 % (0.0-1.0); EOS # 0.1 10^3/uL (0.0-0.5); EOS % 0.3 % (0.0-3.0); HEMATOCRIT 51.1 % (36.0-47.0); HEMOGLOBIN 17.3 g/dl (12.0-15.5); LYMPH # 0.4 10^3/uL (1.5-5.0); MEAN CORPUSCULAR HEMOGLOBIN 31.1 pg (27.0-33.0); MEAN CORPUSCULAR HGB CONC 33.9 g/dl (32.0-36.5); MEAN CORPUSCULAR VOLUME 91.7 fl (80.0-96.0); MONO # 1.1 10^3/uL (0.0-0.8); MONO % 6.1 % (2.0-8.0); NEUTROPHILS # 15.8 10^3/uL (1.5-8.5); NEUTROPHILS % 86.5 % (36.0-66.0); PLATELET COUNT, AUTOMATED 166 10^3/uL (150-450); RED BLOOD COUNT 5.57 10^6/uL (4.00-5.40); WHITE BLOOD COUNT 18.3 10^3/uL (4.0-10.0)
[2021-01-19 13:11] LABS: VENOUS BASE EXCESS -0.7 (-2.0-2.0); VENOUS HCO3 20.8 MEQ/L (23.0-27.0); VENOUS PARTIAL PRESSURE CO2 27.8 mmHg (38.0-50.0); VENOUS PARTIAL PRESSURE O2 89.3 mmHg (30.0-50.0); VENOUS PH 7.491 UNITS (7.330-7.430); VENOUS STANDARD HCO3 23.9 MEQ/L; VENOUS TOTAL CO2 21.6 MEQ/L (24.0-28.0)
[2021-01-19] MEDS ORDERED: dexameTHASONE 4 MG/ML 1ML VIAL (J1100 PER 1MG) IV ONE (13:15)
[2021-01-19 13:24] LABS: INR 1.05; PROTHROMBIN TIME 14.2 SECONDS (12.7-14.5)
[2021-01-19 13:25] LABS: PARTIAL THROMBOPLASTIN TIME 34.5 SECONDS (25.9-37.0)
[2021-01-19 13:27] LABS: D-DIMER QUANT 1404.56 ng/ml (<500)
[2021-01-19 13:40] LABS: ALBUMIN 2.6 GM/DL (3.2-5.2); ALT/SGPT 82 U/L (12-78); BILIRUBIN,TOTAL 2.1 MG/DL (0.2-1.0); BLOOD UREA NITROGEN 25 MG/DL (7-18); CALCIUM LEVEL 8.4 MG/DL (8.8-10.2); CARBON DIOXIDE LEVEL 23 MEQ/L (21-32); CHLORIDE LEVEL 103 MEQ/L (98-107); CK-MB VALUE MASS < 1.0 NG/ML (<3.6); CPK CREATINE PHOSPHOKINASE 37 U/L (26-192); CREATININE FOR GFR 0.89 MG/DL (0.55-1.30); FERRITIN 498 NG/ML (8-252); GLOMERULAR FILTRATION RATE > 60.0 (>45); GLUCOSE, FASTING 140 MG/DL (70-100); LDH LACTATE DEHYDROGENASE 465 U/L (84-246); MAGNESIUM LEVEL 1.8 MG/DL (1.8-2.4); POTASSIUM SERUM 3.7 MEQ/L (3.5-5.1); SODIUM LEVEL 137 MEQ/L (136-145); TOTAL PROTEIN 6.8 GM/DL (6.4-8.2); TROPONIN I < 0.02 NG/ML (< 0.10)
[2021-01-19] MEDS: COMBIVENT RESPIMAT 100-20MCG INHALER 4GM INH SCH ×3 (13:55→15:34)
--- NOTE | 2021-01-19 13:55 | REP ---
INDICATION: Coronavirus workup. COMPARISON: Multiple the latest 05/30/2019 a two view exam TECHNIQUE: Portable FINDINGS: The technique utilized in obtaining the radiograph has magnified the cardiac silhouette and accentuated the interstitial markings. Cardiomediastinal silhouette is unchanged. The heart is not enlarged. Patchy interstitial and possible early airspace opacities have developed in the mid and lower lung zones. The pleural angles remain sharp. There is no change in the osseous structures. There is no change in the dual chamber bipolar pacemaker device. IMPRESSION: Abnormal lung field opacities as described above suspicious for developing pneumonia. <Electronically signed by Bo Kelly > 01/19/21 [id number]
--- OUTSIDE RECORDS SUMMARY | 2021-01-19 14:23 | CCD ---
Author Author [facility] Address Unknown Phone Unavailable Care Team Providers [employer] Employee Name Role Phone Phyllis Escalante MD Unavailable Unavailable Phyllis Escalante MD Unavailable Unavailable Phyllis Escalante MD Unavailable Unavailable Phyllis Escalante MD Unavailable Unavailable Phyllis Escalante MD Unavailable Unavailable Camp NelsonPhyllis MD Unavailable Unavailable BorisPhyllis MD Unavailable Unavailable Camp NelsonPhyllis MD Unavailable Unavailable Camp NelsonPhyllis MD Unavailable Unavailable Camp NelsonPhyllis MD Unavailable Unavailable Camp NelsonPhyllis MD Unavailable Unavailable Camp NelsonPhyllis MD Unavailable Unavailable BorisPhyllis MD Unavailable Unavailable Camp NelsonPhyllis MD Unavailable Unavailable Camp NelsonPhyllis MD Unavailable Unavailable BorisPhyllis MD Unavailable Unavailable BorisPhyllis MD Unavailable Unavailable BorisPhyllis MD Unavailable Unavailable Camp NelsonPhyllis MD Unavailable Unavailable BorisPhyllis MD Unavailable Unavailable Camp NelsonPhyllis MD Unavailable Unavailable Camp NelsonPhyllis MD Unavailable Unavailable Camp NelsonPhyllis MD Unavailable Unavailable Camp NelsonPhyllis MD Unavailable Unavailable BorisPhyllis MD Unavailable Unavailable Camp NelsonPhyllis MD Unavailable Unavailable BorisPhyllis MD Unavailable Unavailable Camp NelsonPhyllis MD Unavailable Unavailable BorisPhyllis MD Unavailable Unavailable BorisPhyllis MD Unavailable Unavailable BorisPhyllis MD Unavailable Unavailable Camp NelsonPhyllis MD Unavailable Unavailable Camp NelsonPhyllis MD Unavailable Unavailable Camp NelsonPhyllis MD Unavailable Unavailable BorisPhyllis MD Unavailable Unavailable Camp NelsonPhyllis MD Unavailable Unavailable Camp NelsonPhyllis MD Unavailable Unavailable Camp NelsonPhyllis MD Unavailable Unavailable Camp NelsonPhyllis MD Unavailable Unavailable Camp NelsonPhyllis garvin MD Unavailable Unavailable Camp NelsonPhyllis garvin MD Unavailable Unavailable BorisPhyllis MD Unavailable Unavailable BorisPhyllis MD Unavailable Unavailable Camp NelsonPhyllis garvin MD Unavailable Unavailable BorisPhyllis MD Unavailable Unavailable Camp NelsonPhyllis garvin MD Unavailable Unavailable Camp NelsonPhyllis garvin MD Unavailable Unavailable BorisPhyllis garvin MD Unavailable Unavailable Camp NelsonPhyllis MD Unavailable Unavailable Camp NelsonPhyllis MD Unavailable Unavailable BorisPhyllis MD Unavailable Unavailable Camp NelsonPhyllis MD Unavailable Unavailable BorisPhyllis MD Unavailable Unavailable Camp NelsonPhyllis MD Unavailable Unavailable BorisPhyllis MD Unavailable Unavailable BorisPhyllis MD Unavailable Unavailable Camp NelsonPhyllis MD Unavailable Unavailable BorisPhyllis MD Unavailable Unavailable BorisPhyllis MD Unavailable Unavailable BorisPhyllis MD Unavailable Unavailable Camp Nelson, F Patrick FONG Unavailable Unavailable Boris, F Patrick FONG Unavailable Unavailable [place], F Patrick FONG Unavailable Unavailable [place], F Patrick MD Unavailable Unavailable [place], F Patrick MD Unavailable Unavailable Boris, F Patrick MD Unavailable Unavailable Boris, F Patrick MD Unavailable Unavailable Boris, F Patrick MD Unavailable Unavailable Boris, F Patrick MD Unavailable Unavailable [place], F Patrick MD Unavailable Unavailable Boris, F Patrick MD Unavailable Unavailable [place], F Patrick MD Unavailable Unavailable Boris, F Patrick MD Unavailable Unavailable Boris, F Patrick MD Unavailable Unavailable Boris, F Patrick MD Unavailable Unavailable [place], F Patrick MD Unavailable Unavailable [place], F Patrick MD Unavailable Unavailable Boris, F Patrick MD Unavailable Unavailable Boris, F Patrick MD Unavailable Unavailable Boris, F Patrick MD Unavailable Unavailable [place], F Patrick MD Unavailable Unavailable Boris, F Patrick MD Unavailable Unavailable [place], F Patrick MD Unavailable Unavailable Boris, F Patrick MD Unavailable Unavailable Boris, F Patrick MD Unavailable Unavailable [place], F Patrick MD Unavailable Unavailable PALLAVI (SHEA), [...] (SHEA), Evans HORN MD Unavailable Unavailab le PALLAIV (SHEA), Evans HORN MD Unavailable Unavailab le [...] Unavailable Unavailable Phyllis Escalante MD Unavailable Unavailable Camp NelsonPhyllis garvin MD Unavailable Unavailable Phyllis Escalante MD Unavailable Unavailable Camp NelsonPhyllis garvin MD Unavailable Unavailable Phyllis Escalante MD Unavailable Unavailable Phyllis Escalante MD Unavailable Unavailable Camp NelsonPhyllis garvin MD Unavailable Unavailable Phyllis Escalante MD Unavailable Unavailable Camp NelsonPhyllis garvin MD Unavailable Unavailable BorisPhyllis garvin MD Unavailable Unavailable BorisPhyllis MD Unavailable Unavailable BorisPhyllis MD Unavailable Unavailable BorisPhyllis MD Unavailable Unavailable Camp NelsonPhyllis MD Unavailable Unavailable BorisPhyllis MD Unavailable Unavailable Camp NelsonPhyllis MD Unavailable Unavailable BorisPhyllis MD Unavailable Unavailable BorisPhyllis MD Unavailable Unavailable BorisPhyllis MD Unavailable Unavailable Camp NelsonPhyllis MD Unavailable Unavailable Camp NelsonPhyllis MD Unavailable Unavailable Camp NelsonPhyllis MD Unavailable Unavailable Camp NelsonPhyllis MD Unavailable Unavailable BorisPhyllis MD Unavailable Unavailable Camp NelsonPhyllis MD Unavailable Unavailable BorisPhyllis MD Unavailable Unavailable BorisPhyllis MD Unavailable Unavailable Camp NelsonPhyllis MD Unavailable Unavailable Camp NelsonPhyllis MD Unavailable Unavailable Camp NelsonPhyllis MD Unavailable Unavailable BorisPhyllis MD Unavailable Unavailable BorisPhyllis MD Unavailable Unavailable Camp NelsonPhyllis MD Unavailable Unavailable BorisPhyllis MD Unavailable Unavailable Camp NelsonPhyllis MD Unavailable Unavailable BorisPhyllis MD Unavailable Unavailable Camp NelsonPhyllis MD Unavailable Unavailable BorisPhyllis MD Unavailable Unavailable Camp NelsonPhyllis MD Unavailable Unavailable BorisPhyllis MD Unavailable Unavailable Camp NelsonPhyllis MD Unavailable Unavailable BorisPhyllis MD Unavailable Unavailable Camp NelsonPhyllis MD Unavailable Unavailable BorisPhyllis MD Unavailable Unavailable Camp NelsonPhyllis MD Unavailable Unavailable BorisPhyllis garvin MD Unavailable Unavailable Camp NelsonPhyllis MD Unavailable Unavailable Camp NelsonPhyllis MD Unavailable Unavailable Camp NelsonPhyllis MD Unavailable Unavailable BorisPhyllis MD Unavailable Unavailable Camp NelsonPhyllis MD Unavailable Unavailable Camp NelsonPhyllis MD Unavailable Unavailable Camp NelsonPhyllis garvin MD Unavailable Unavailable Camp NelsonPhyllis MD Unavailable Unavailable Camp NelsonPhyllis MD Unavailable Unavailable BorisPhyllis MD Unavailable Unavailable Camp NelsonPhyllis MD Unavailable Unavailable BorisPhyllis MD Unavailable Unavailable Camp NelsonPhyllis MD Unavailable Unavailable BorisPhyllis MD Unavailable Unavailable Camp NelsonPhyllis MD Unavailable Unavailable Camp NelsonPhyllis MD Unavailable Unavailable Camp NelsonPhyllis MD Unavailable Unavailable BorisPhyllis MD Unavailable Unavailable Camp NelsonPhyllis MD Unavailable Unavailable Camp NelsonPhyllis MD Unavailable Unavailable Camp NelsonPhyllis MD Unavailable Unavailable Camp NelsonPhyllis MD Unavailable Unavailable BorisPhyllis MD Unavailable Unavailable [...] NESTOR, Abraham NUR MD Unavailable Unavailable NESTOR, Abrahma NUR MD Unavailable Unavailable NESTOR, Abraham NUR [...] Abraham NUR MD Unavailable Unavailable NESTOR, Abraham UNR MD Unavailable Unavailable NESTOR, Abraham NUR MD [...] Unavailable NESTOR, Abraham NUR MD Unavailable Unavailable NESOTR, Abraham NUR MD Unavailable Unavailable NESTOR, Abrahma NUR MD Unavailable Unavailable NESTOR, Abraham NUR [...] Unavailable Boris, Phyllis Nguyen MD Unavailable Unavailable Camp Nelson, Phyllis Nguyen MD Unavailable Unavailable Boris, Phyllis Nguyen MD Unavailable Unavailable Boris, Phyllis Nguyen MD Unavailable Unavailable Boris, Phyllis Nguyen MD Unavailable Unavailable Boris, Phyllis Nguyen MD Unavailable Unavailable Camp [place], Phyllis Nguyen MD Unavailable Unavailable [place], Phyllis Nguyen MD Unavailable Unavailable [place], Phyllis Nguyen MD Unavailable Unavailable Boris, Phyllis Nguyen MD Unavailable Unavailable [place], Phyllis Nguyen MD Unavailable Unavailable Boris, Phyllis Nguyen MD Unavailable Unavailable Boris, Phyllis Nguyen MD Unavailable Unavailable Boris, Phyllis Nguyen MD Unavailable Unavailable Camp Nelson, Phyllis Nguyen MD Unavailable Unavailable Boris, Phyllis Nguyen MD Unavailable Unavailable Boris, Phyllis Nguyen MD Unavailable Unavailable [place], Phyllis Nguyen MD Unavailable Unavailable Camp NelsonPhyllis MD Unavailable Unavailable BorisPhyllis MD Unavailable Unavailable Camp NelsonPhyllis MD Unavailable Unavailable BorisPhyllis MD Unavailable Unavailable BorisPhyllis MD Unavailable Unavailable BorisPhyllis MD Unavailable Unavailable BorisPhyllis MD Unavailable Unavailable BorisPhyllis MD Unavailable Unavailable Camp NelsonPhyllis MD Unavailable Unavailable Camp NelsonPhyllis MD Unavailable Unavailable BorisPhyllis MD Unavailable Unavailable Camp NelsonPhyllis MD Unavailable Unavailable BorisPhyllis MD Unavailable Unavailable BorisPhyllis MD Unavailable Unavailable Camp NelsonPhyllis MD Unavailable Unavailable Camp NelsonPhyllis MD Unavailable Unavailable Camp NelsonPhyllis MD Unavailable Unavailable Camp NelsonPhyllis MD Unavailable Unavailable Camp NelsonPhyllis MD Unavailable Unavailable Camp NelsonPhyllis MD Unavailable Unavailable Camp NelsonPhyllis MD Unavailable Unavailable BorisPhyllis MD Unavailable Unavailable Camp NelsonPhyllis MD Unavailable Unavailable Camp NelsonPhyllis MD Unavailable Unavailable Camp NelsonPhyllis MD Unavailable Unavailable BorisPhyllis MD Unavailable Unavailable BorisPhyllis MD Unavailable Unavailable BorisPhyllis MD Unavailable Unavailable BorisPhyllis MD Unavailable Unavailable Camp NelsonPhyllis MD Unavailable Unavailable BorisPhyllis MD Unavailable Unavailable Camp NelsonPhyllis MD Unavailable Unavailable BorisPhyllis MD Unavailable Unavailable Camp NelsonPhyllis MD Unavailable Unavailable BorisPhyllis MD Unavailable Unavailable BorisPhyllis garvin MD Unavailable Unavailable BorisPhyllis MD Unavailable Unavailable Camp NelsonPhyllis MD Unavailable Unavailable Camp NelsonPhyllis MD Unavailable Unavailable BorisPhyllis MD Unavailable Unavailable Camp NelsonPhyllis MD Unavailable Unavailable BorisPhyllis MD Unavailable Unavailable BorisPhyllis MD Unavailable Unavailable BorisPhyllis MD Unavailable Unavailable Camp NelsonPhyllis MD Unavailable Unavailable BorisPhyllis MD Unavailable Unavailable BorisPhyllis MD Unavailable Unavailable Camp NelsonPhyllis MD Unavailable Unavailable BorisPhyllis MD Unavailable Unavailable Camp NelsonPhyllis MD Unavailable Unavailable Camp NelsonPhyllis MD Unavailable Unavailable Camp NelsonPhyllis MD Unavailable Unavailable BoirsPhyllis MD Unavailable Unavailable BorisPhyllis MD Unavailable Unavailable [...] is protected by Article 27-F of the [employer] Public Health law. If you continue you may have access to information: Regarding HIV / AIDS; Provided by facilities licensed or operated by the [employer] Office of Mental Health; or Provided by the [facility] [employer] [facility] Office for People With Developmental Disabilities. If such information is present, then the following [employer] mandated warning applies: This information has been [...] law may result in a fine or long-term sentence or both. A general authorization for the release of medical or other information is NOT sufficient authorization for further disc losure. Family History Family Member Name Family Member Gender Family Member Status Date o f Status Description Data Source(s) Unknown Unknown Problem [facility] ([facility], ) Encounters Encounter Providers Location Date Indications Data Source(s ) Outpatient [email or web address] 01/12/2021 12:08:05 PM EDT [facility] Outpatient [email or web address] 01/12/2021 12:00:00 AM EDT [facility] [place] [address] [address] 01/05/2021 12:00:00 AM EDT eCW1 ([facility]) Unknown [address], [facility] [address] 01/02/2021 12:00:00 AM EDT eCW1 ([facility]) Outpatient Attender: Kari FREEMANNOE-SJP.NOE 12/04 12:00:00 AM EDT - 12/23/2020 04:08:57 PM EDT [facility] [address] [address] 12/05/2020 12:00:00 AM EDT eCW1 ([facility]) Attender: KORY PITTMAN) MDReferrer: Annamarie Escalante MD 11/13/2020 08:21:08 PM EDT [facility] Attender: KORY OLIVO ([email or web address] SON) MDAttender: Lien NolandReferrtank: Patrick Escalante MD 09/26/2020 08:21:06 PM EDT [facility] Attender: KORY OLIVO ([facility] [[email or web address] SON) MDAttender: Lien Martierrtank: Patrick Escalante MD 09/23/2020 08:21:06 PM EDT [facility] Attender: KORY PITTMAN) MDReferrer: Annamarie Escalante MD 09/23/2020 08:21:06 PM EDT [facility] Outpatient [email or web address] 08/29/2020 01:10:41 PM EDT [facility] Outpatient Attender: Kari PEACE.NOE-[email or web address] 06/02 12:00:00 AM EDT - 06/17/2020 04:12:16 PM EDT [facility] Outpatient<td ID="encounterTypeDescripti onID0">7 Month Follow-Up and Testing</td><td>Jay An MD, FACS</td><td>Jay An MD [facility]</td><td>06/12/2020</td><td>1:59PM</td><td>10/29/2019 11:59PM</td><td><content ID="encounterDiagnosisID0-0">Vitreous Disorders Degeneration</content>, <content ID="encounterDiagnosisID0-1">Borderline Glaucoma Open Angle with Borderline Findings Both Eyes</content>, <content ID="encounterDiagnosisID0-2">Dry Eye Syndrome Both Eyes</content>, <content ID="encounterDiagnosisID0-3">Essential Hypertension</content>, <content ID="encounterDiagnosisID0-4">Macular Puckering Left Eye</content></td> Attender: Jay Pleitez MD, FACS Jay An MD [facility] 06/12/2020 01:59:00 PM EST - 10/29/2019 11:59:00 PM EDT Vitreous Disorders DegenerationMacular P uckering Left EyeEssential HypertensionDry Eye Syndrome Both EyesBorderline Glaucoma Open Angle with Borderline Findings Both Eyes OZ (Jay Pleitez MD [facility]) Vitreous Disorders Degeneration Macular Puckering Left Eye Essential Hypertension Dry Eye Syndrome Both Eyes Borderline Glaucoma Open Angle with Bord stewart Findings Both Eyes Outpatient [email or web address] 05/21/2020 08:35:51 AM EST [facility] Outpatient Attender: Patrick Escalante Vandewall 0 04/15/2020 02:00:00 PM EST [facility] ([facility] ) Outpatient SJP.NOE-SJP 02/10/2020 07:31:03 PM EST [facility] Outpatient [email or web address] 02/07/2020 12:00:00 AM EST [facility] Outpatient Attender: YFN NESTOR MDReferrer: Patrick lucas MD 01/09/2020 10:12:48 AM EDT [facility] Recurring Patient Attender: YFN BAEZ MDReferrer: Patrick rhodes MD 01/07/2020 03:22:37 PM EDT [facility] Outpatient Attender: LYUBOV KAY PAReferrer: Patrick lucas MD 12/10/2019 07:51:40 AM EDT [facility] Recurring Patient Attender: YFN BAEZ MDReferrer: Patrick rhodes MD 12/07/2019 04:59:21 PM EDT [facility] Recurring Patient Attender: YFN BAEZ MDReferrer: Patrick rhodes MD 12/07/2019 04:59:16 PM EDT [facility] Medications Medication Brand Name [...] every 14 (fourteen) days for 6 doses [facility] 5 mg 11/27/2020 12:00:00 AM EDT [...] (20 mg total) by m outh daily [facility] Metformin hydrochloride 500 MG Oral Tablet metFORMIN ( GLUCOPHAGE) 500 MG tablet metFORMIN (GLUCOPHAGE) 500 MG tablet 06/17/2020 12:00:00 AM EDT 500 m g Oral active Take 1 tablet (500 mg total) by mouth daily [facility] 5 mg 05/16/2020 12:00:00 AM EST [...] by mouth 2 (two) times a day [facility] Doxycycline Monohydrate 100 MG Oral Tablet Doxycycline Monoh ydrate 04/15/2020 12:00:00 AM EST ORAL active M ODELL ([facility]) 100 mg 04/15/2020 12:00:00 AM EST [...] by mouth 2 (two) times a day [facility] 875-125 mg 11/23/2019 12:00:00 AM EDT [...] BY MOUTH EVERY DAY SOLD: 04/14/2020 [facility] 5 mg 11/20/2019 12:00:00 [...] tablet (160 mg total) by mouth daily [facility] Sucralfate 1000 MG Oral Tablet sucralfate (CARAFATE) 1 g tablet sucralfate (CARAFATE) 1 g tablet 05/03/2019 12:00:00 AM EST a borted [facility] Rosuvastatin calcium 5 MG Oral Tablet rosuvastatin (CR ESTOR) 5 MG tablet rosuvastatin (CRESTOR) 5 MG tablet 04/10/2019 12:00:00 AM EST aborted [facility] 5 mg 03/12/2019 12:00:00 AM EST [...] type / Coverage type Policy ID Covered republican ID Covered republican's relationship to melton Policy Melton Plan Information [employer] (pr) Commercial [id number] Self [id number] [employer] U [id number] Self [id number] [employer] [id number] Linda [id number] [facility] (HMO) [id number] Self [id number] [employer] [id number] S [id number] [employer] / UMR F [id number] SELF [id number] [employer] / UMR F [id number] SELF [id number] [employer] [id number] 0 [id number] UMR [id number] [id number] UMR [id number] Linda [id number] UMR U [id number] Self [id number] Umr Care Management [id number] 0 [id number] Umr Care Management [id number] 0 [id number] UMR F [id number] SELF [id number] Umr (New [employer]) Commercial [id number] Self [id number] UMR F [id number] SELF [id number] Medicare Part B [place] [employer] [id number] 0 [id number] MEDICARE [id number] Linda [id number] [id number] Medicare C [id number] SELF [id number] MEDICARE [id number] xxxxxxxxxxx [id number] [employer] [place] Other 0 [id number] Self 0 [employer] [place] Other 0 [id number] Self 0 [employer] [place] Other 0 [id number] Self 0 [employer] [place] Other 0 [id number] Self 0 [employer] [place] Other 0 [id number] Self 0 [employer] [place] Other 0 [id number] Self 0 [employer] [place] Other 0 [id number] Self 0 [employer] [place] Other 0 [id number] Self 0 [employer] [place] Other 0 [id number] Self 0 [employer] [place] Other 0 [id number] Self 0 [employer] [place] Other 0 [id number] Self 0 [employer] [place] Other 0 [id number] Self 0 [employer] [place] Other 0 [id number] Self 0 [employer] [place] Other 0 [id number] Self 0 ANSI-Not a Secondary Insurance [id number] ANSI-Not a Secondary Insurance [id number] UMR [facility] [id number] SP [id number] [employer] [id number] S [id number] [employer]Um[employer] (Old) Commercial [id number] Self [id number] [employer] (Old) Commercial [id number] Self [id number] [employer] / UMR F [id number] SELF [id number] [employer] [id number] SP [id number] Umr [employer] Ppo Commercial [id number] Self [id number] Umr [employer] Ppo Commercial [id number] Self [id number] Umr [employer] Ppo Commercial [id number] Self [id number] [employer] PPO O [id number] O [id number] [employer] Ppo Commercial [id number] Self [id number] [employer] Ppo Commercial [id number] Self [id number] MEDICARE [id number] SP [id number] [employer] Ppo Commercial [id number] Self [id number] [employer] Ppo Commercial [id number] Self [id number] [employer] Ppo Commercial [id number] Self [id number] [employer] Ppo Commercial [id number] Self [id number] [employer] Ppo Commercial [id number] Self [id number] [employer] Ppo Commercial [id number] Self [id number] [employer] Ppo Commercial [id number] Self [id number] [employer] (pr) Commercial [id number] Self [employer] Commercial [id number] Self [employer] Ppo Commercial [id number] Self [id number] UMR [facility] [id number] SP [id number] [employer] [place] Other 0 [id number] Self 0 Medicare Part B [facility] Other 0 [id number] Self 0 [employer] [place] Other 0 [id number] Self 0 Medicare Part B [facility] Other 0 [id number] Self 0 MEDICARE C [id number] S [id number] UMR O [id number] S [id number] UMR -O/P [id number] 18 [id number] MEDICARE PART A -O/P [id number] 18 [id number] [employer] [id number] S [id number] MEDICARE - [place] [id number] S [id number] UMR [id number] S [id number] MEDICARE [id number] SP [id number] A [employer]/Um[employer] (Old) Medigap Part B [id number] Self [id number] UMR [facility] [id number] SP [id number] UMR [facility] [id number] SP [id number] ANSI-Not a Secondary Insurance [id number] [employer] [place] Other 0 [id number] Self 0 [employer] [place] Other 0 [id number] Self 0 [employer] [place] Other 0 [id number] Self 0 Problems, Conditions, and Diagnoses Code Display Name Description Problem Type Effective Dates Data Source(s) Z01.810 Encounter for preprocedural cardiovascul ar examination Encounter for preprocedural cardiovascul Diagnosis 12/23/2020 03:28:22 PM EDT [facility] E11.59 Type 2 diabetes mellitus with other circ ulatory complications Type 2 diabetes mellitus with other circ Diagnosis 12/23/2020 03:28:22 PM EDT [facility] I10 Essential (primary) hypertension Essential (primary) h ypertension Diagnosis 12/23/2020 03:28:22 PM EDT [facility] Z95.0 Presence of cardiac pacemaker Presence of cardiac pace maker Diagnosis 12/23/2020 03:28:22 PM EDT [facility] E78.2 Mixed hyperlipidemia Mixed hyperlipidemia Diagnosis 12/23/2020 03:28:22 PM EDT [facility] I48.0 Paroxysmal atrial fibrillation Paroxysmal atrial fibri llation Diagnosis 12/23/2020 03:28:22 PM EDT [facility] G47.33 Obstructive sleep apnea (adult) (pediatr ic) Obstructive sleep apnea (adult) (pediatr Diagnosis 06/17/2020 03:27:28 PM EDT [facility] Z01.810 Encounter for pre-operative cardiovascul ar clearance Encounter for pre- operative cardiovascular clearance [id number] 12/23/2020 12:00:00 AM ED T [facility] N95.0 [id number] Postmenopausal bleeding Problem 12/05/2020 1 2:00:00 AM EDT eCW1 ([facility]) E11.59 Type 2 diabetes mellitus wit h circulatory disorder, without long-term current use of insulin Type [address] y disorder, without long-term current use of insulin [id number] 06/17/2020 12:00:00 AM EDT [facility] Surgeries/Procedures Procedure Description Date Indications Data Source(s) ECG ROUTINE ECG W/LEAST 12 LDS W/I&R <td>POCT AMB EKG</td><td>Routine</td><td>12/23/2020 3:44 PM EDT</td><td> Paroxysmal atrial fibrillation Hypertension, essential</td><td> </td> 12/23/2020 03:44:00 PM EDT Hypertension, essentialParoxysmal atrial fibrillation [facility] Hypertension, essential Paroxysmal atrial fibrillation BLOOD COUNT COMPLETE AUTO&AUTO DIFRNTL WBC COUNT <td>C BC AND DIFFERENTIAL</td><td>Routine</td><td>12/05/2020</td><td></td><td> </td> 12/05/2020 12:00:00 AM EDT [facility] Medication: Silver Nitrate Stick topically 12/05/2020 12:00:00 AM EDT eCW1 ([facility]) BLOOD COUNT COMPLETE AUTO&AUTO DIFRNTL WBC COUNT <td>C BC AND DIFFERENTIAL</td><td>Routine</td><td>10/16/2020</td><td></td><td> </td> 10/16/2020 12:00:00 AM EDT [facility] THYROID STIMULATING HORMONE TSH <td>TSH</td><td>Routine</td><td>10/16/2020</td><td></td><td> </td> 10/16/2020 12:00:00 AM EDT [facility] HEMOGLOBIN GLYCOSYLATED A1C <td>HEMOGLOBIN A1C</td><td>Routine</td><td>10/16/2020</td><td></td><td> </td> 10/16/2020 12:00:00 AM EDT [facility] HEPATIC FUNCTION PANEL <td>HEPATIC FUNCTION PANEL</td><td>Routine</td><td>10/16/2020</td><td></td><td> </td> 10/16/2020 12:00:00 AM EDT [facility] LIPID PANEL <td>LIPID PANEL</td><td>Rout ine</td><td>10/16/2020</td><td></td><td> </td> 10/16/2020 12:00:00 AM EDT [facility] BASIC METABOLIC PANEL CALCIUM TOTAL <td>BASIC METABOLI C PANEL</td><td>Routine</td><td>10/16/2020</td><td></td><td> </td> 10/16/2020 12:00:00 AM EDT [facility] COMPUTERIZED OPHTHALMIC IMAGING OPTIC NERVE Scodi, opt ic nerve with interpretation and report ([place]) 06/12/2020 12:00:00 AM ZHANE SINGH (Jay Pleitez MD [facility]) Comprehensive eye exam established patient (25) Compre hensive eye exam established patient (25) 06/12/2020 12:00:00 AM ZHANE CLINTON (Jay Pleitez MD [facility]) Results ID Date Data Source [id number] 01/12/2021 10:26:00 PM EDT [facility] Name Value Range Interpretation Code Description Data Mikayla rce(s) Supporting Document(s) Respiratory pathogens identified [Type] in Nasopharynx by Probe and target amplification method SARS-CoV-2 (COVID 19) [facility] [place] This lab was ordered by [facility] a nd reported by [facility]. ID Date Data Source Pathology Request For Service 12/05/2020 12:00:00 AM EDT eCW 1 ([facility]) Name Value Range Interpretation Code Description Data Mikayla rce(s) Supporting Document(s) GENITOURINARY eCW1 ([facility]) ID Date Data Source CBC - Complete Blood Count 12/05/2020 12:00:00 AM EDT eCW1 ( [facility]) Name Value Range Interpretation Code Description Data Mikayla rce(s) Supporting Document(s) 5.10 4.00-5.40 RED BLOOD COUNT eCW1 ([facility]) 7.7 4.0-10.0 WHITE BLOOD COUNT eCW1 ([facility]) 16.0 12.0-15.5 HEMOGLOBIN eCW1 ([facility]) 49.1 36.0-47.0 HEMATOCRIT eCW1 ([facility]) 96.3 80.0-96.0 MEAN CORPUSCULAR VOLUME e CW1 ([facility]) 31.4 27.0-33.0 MEAN CORPUSCULAR HEMOGLOB IN eCW1 ([facility]) 32.6 32.0-36.5 MEAN CORPUSCULAR HGB CONC eCW1 ([facility]) 12.8 11.5-14.5 RED CELL DISTRIBUTION WID TH eCW1 ([facility]) 181 150-450 PLATELET COUNT, AUTOMATED eCW1 ([facility]) ID Date Data Source [id number] 10/16/2020 08:08:00 AM EDT [facility]) Name Value Range Interpretation Code Description Data Mikayla rce(s) Supporting Document(s) Glucose mean value [Mass/volume] in Blood Estimated fr om glycated hemoglobin 148 mg/dL 60-110 [facility] ([facility] ) Hemoglobin A1c/Hemoglobin.total in Blood 6.8 % [facility] ([facility]) Lab Result Notes: Pre-Diabetes 5.7 - 6.4 % Diabetes = or > 6.5% ID Date Data Source [id number] 10/16/2020 08:08:00 AM EDT [facility] ([facility]) Name Value Range Interpretation Code Description Data Mikayla rce(s) Supporting Document(s) Leukocytes [#/volume] in Blood by Automated count 8.8 x10*3/UL 4.1-10 .9 [facility] ([facility]) Erythrocytes [#/volume] in Blood by Automated count 5.18 x10*6/UL 4.2 0-6.30 [facility] Hemoglobin [Mass/volume] in Blood 16.6 g/dL 12.0-18.0 [facility] ([facility] Hematocrit [Volume Fraction] of Blood by Automated count 48.0 % 3 7.0-51.0 [facility] ([facility]) MCV 92.5 fL 80.0-97.0 [facility]) MCHC 34.6 g/dL 31.0-38.0 [facility] ([facility]) MCH 32.0 pg 26.0-32.0 [facility] ([facility]) Platelets [#/volume] in Blood by Automated count 133 x10*3/UL 140-440 [facility] ([facility] NOTE: RESULT VERIFIED. Erythrocyte distribution width [Ratio] by Automated count 13.0 % 11.6-13.7 [facility] ([facility]) MPV 10.4 FL 7.8-11.0 [facility] ([facility]) Lymph % 31.5 % 10.0-58.5 [facility] ([facility]) Neut % 61.4 % 37.0-92.0 [facility] ([facility]) Mid % 7.1 % 1.7-9.3 [facility] ([facility]) Lymph # 2.8 x10*3/UL 0.6-4.1 [facility] ([facility]) Neut # 5.4 x10*3/UL 2.0-7.8 [facility] ([facility]) Mid # 0.6 x10*3/UL 0.1-0.6 [facility] ([facility]) ID Date Data Source [id number] 10/16/2020 08:08:00 AM EDT [facility] ([facility]) Name Value Range Interpretation Code Description Data Mikayla rce(s) Supporting Document(s) Hemoglobin A1c/Hemoglobin.total in Blood Laboratory test result [facility] ([facility]) ID Date Data Source [id number] 10/16/2020 08:08:00 AM EDT [facility]) Name Value Range Interpretation Code Description Data Mikayla rce(s) Supporting Document(s) Thyrotropin [Units/volume] in Serum or Plasma by Detec tion limit <= 0.05 mIU/L 5.96 uIU/mL 0.36-3.74 [facility] ([facility] ) ID Date Data Source [id number] 10/16/2020 08:08:00 AM EDT [facility]) Name Value Range Interpretation Code Description Data Mikayla rce(s) Supporting Document(s) Cholesterol [Mass/volume] in Serum or Plasma 330 mg/dL 131-200 [facility] ([facility]) Triglyceride [Mass/volume] in Serum or Plasma 289 mg/dL 30-150 [facility] ([facility]) Cholesterol in LDL [Mass/volume] in Serum or Plasma by calcu lation 226 CALC 50-159 [facility] ([facility]) Cholesterol in HDL [Mass/volume] in Serum or Plasma 46 mg/dL 35-60 [facility] ([facility]) ID Date Data Source [id number] 10/16/2020 08:08:00 AM EDT [facility]) Name Value Range Interpretation Code Description Data Mikayla rce(s) Supporting Document(s) Glucose [Mass/volume] in Serum or Plasma 129 mg/dL 74-99 [facility] ([facility]) 100-125 mg/dL PRE-DIABETES/FASTING >126 mg/dL DIABETES/FASTING Urea nitrogen [Mass/volume] in Serum or Plasma 15 mg/dL 7-18 [facility] ([facility]) Creatinine 0.9 mg/dL 0.6-1.3 [facility] Sodium [Moles/volume] in Serum or Plasma 140 meq/L 136-145 [facility] ([facility]) Chloride [Moles/volume] in Serum or Plasma 104 meq/L 98-107 [facility] ([facility]) Potassium [Moles/volume] in Serum or Plasma 3.8 meq/L 3.5-5.1 [facility] ([facility]) Calcium [Mass/volume] in Serum or Plasma 9.3 mg/dL 8.5-10.1 [facility] ([facility]) Carbon dioxide, total [Moles/volume] in Serum or Plasma 26 meq/L 21 -32 [facility] ([facility]) Total Bilirubin 0.8 mg/dL 0.2-1.0 [facility] ([facility]) Alkaline phosphatase isoenzyme [Units/volume] in Serum or Pl asma 137 mg/dL 46-116 [facility] ([facility]) Aspartate aminotransferase [Enzymatic activity/volume] in Serum or Plasma 31 U/L 15-37 [facility] ([facility] ) Alanine aminotransferase [Enzymatic activity/volume] in Seru m or Plasma 26 U/L 12-78 [facility] ([facility]) Proteinase 3 Ab [Units/volume] in Serum 7.6 g/dL 6.4-8.2 [facility] ([facility]) Albumin [Mass/volume] in Serum or Plasma 3.4 g/dL 3.4-5.0 [facility] ([facility]) A/G Ratio 0.81 CALC 1.00-1.90 [facility]) Glomerular filtration rate/1.73 sq M pre dicted among non-blacks [Volume Rate/Area] in Serum or Plasma by Creatinine-based formula (MDRD) Laboratory test result [facility] Glomerular filtration rate/1.73 sq M pre dicted among blacks [Volume Rate/Area] in Serum or Plasma by Creatinine-based formula (MDRD) Laboratory test result [facility] ([facility] <content>CHRONIC KIDNEY DISEASE STAGING PER NKF</content>
<content></content>
<content>STAGE I & II GFR >= 60 NORMAL TO MILDLY DECREASED</content>
<content>STAGE III GFR 30-59 MODERATELY DECREASED</content>
<content>STAGE IV GFR 15-29 SEVERELY DECREASED</content>
<content>STAGE V GFR <15 VERY LITTLE GFR LEFT</content>
<content>ESRD GFR <15 ON LIVESTOCK RANCH HAND</content>
<content></content> ID Date Data Source [id number] 09/23/2020 01:30:00 PM EDT [facility] Name Value Range Interpretation Code Description Data Mikayla rce(s) Supporting Document(s) Follow Up [facility] ZUXMQv5eYfFDNyTaKZAuTsyPZUqaDIbjSYWyF4L9NRrmCq8TNUqixbJtUTGzMx3+LYAcDX3jbu7hNYTm gMy [file] gRz8d/eGhn34YgcS40sqTZVBIUqupTJZSk/SECURITY SYSTEM INSTALLER+daJocQ7OnvSwceOY9TUaC8kMX8h7arW7Pu4IDMng7R [file] ZxqdmWC4V3DMdL/J Luis+kz6ihoWIczOSGBq55z7O+aq [file] ana rosa/jWeBTj+DWZ6MKf6mRdAViynhjPsT8M/Kv6sYlHLI2weB+nuW4uxgfy58xbjbaFa0KwlFSYQRlcU0 [file] Xpila5zRqeLcCb4mFoWxqqFj8+sqKQBKCfmNzJ73GvH9DpsLPRfg8//Manager Property/W+L3orPGUGKk+Z0nY8RGul [file] hvac maintenance technician++yv6BzhwPwKKFr9QQpsQCofTJC2zPq04gHYVId3q5NNqG3WFKfpRKaZ1dVpHYFSSz6cwHYewvMLB [file] zarate/FVUZmSL0/P5R/TuQbuGEtSfbV3zITn20TwdMDGrpV2Z9rLi1kHcjLlUKoahfwNc0TwPdAYslX6s25 eIpX69krI0DIZrG+KzE/hXh3XnQs4OptNtDdEM8VlK M79FuAPWFLKhSfpd5dmGqskhqjSJbBcbVruZf/Xt0PrUvuav/SWQNoigp9gYErysy0LKX71MfCibnJqf nGXXKU/10g9xdxtUblY7funifVrH6mw6I2mJYMQYL+zkXnaaUJ5KiB1KBc1lw/J5f4SwfxrbU6i9hBP4 GMzydrPGOhIRUUfUJ1HwZ12eCgvY0LozIcATWfCrWU wY2DK3R2i5BvfNmx/AWXACmC/KeeZgSDOWYz50YiNEfPaX8n9vWilZJicwONYH1We5p1vMZ8Pnb8AYZo 5QolhVqQW8SgAMWTsKnd0xNNqDXX3BrXKpB+vJM8je/zuo3sZm7OC91d935czjq+MqgjgqNLkin1ZCul VZGv41zwzFP9S57/K/YoXR4Z+O6fgX7XGf/gbVxlew +yf5LqC6sOyT5LA9v+xlNoaCME2zh/7rSpidj+tD5n7EioDgkqdwgsqzVRCczytuKljHfxWXmaIXfWkR EYWrU9DX1YLzhZJCWnPa+Ik4Slxi0midxvK5Dr1Gh7ZFlhOM54Rfvtpnai+jdaGGmc92G/m8uuKgiZTS rsZvceeSzp3I+GQgfaYD+rGeCE7p1zgjTHnR8sGhp0 BYgey/Av0Uy6VoJQO4DwZp8e5L+FQXlZ3bH7igeaoH19m4C0uWKGeoStqpvVpi8tfuf994Zr/2Jc3ZEU z6Bl/7cGPaIyPOcykSGKRnOCYHKQ/6GtW1leDm+kPmR+85tttEk+wcAqqj9Z87q8f4rstEt8ycMKO+Manager Property [file] jose r/uAb8LsnXn4wq1KjJo3+ajEmXN4MqxWLIPbaSkQx28YbdurEwyLp1oSYR1iZm9e9wOGaKw7kIXmZJ [file] TaTzmXS0DR/9sg8bK8shxl9aNeWQBgU5w1jw7olZQjpHHbsjS+A/Tz34dUgEN+battery tester/Tssh4ZWJClp9Qb [file] fkvI0iHUTzCOCCQ76JeOfUvXnC8/block greaser/UFAj5osIhccXYjLpExm49lFxvMcQL35YS2YFQvwkcIruSXgo [file] dx61ZdmrsO6FNo2r7ML9bfXuhwfF1Rt/sSeXATw+SHRIMP PEELER [file] N1H4FlmGMFc9hUWb33G9mmPydfHPzQUJwgUnVbaIVv7jTucm8b8i33Sot2uJiB2TIttsnMtbuFh7+[place] [file] department head [file] onGc1/l91j/9cRJhlsDQupw20LLl+Vj2q0c8/instructional design specialist/WvWET0rRBgCIri6jF2W1z5kLO9XblGxoLeSzMBI+ [file] dx2y1l9G+sheet metal worker maintenance+ELYFVi01Sxqp0hfbidptcHdOuRV95M/HrpsZeLWHZ73UE1u+5jFEvgRJESmByUt55cC ZgdHLbHLriTdBJzUST7uOxQc34AH37MBksSxqCwlS/ KI1KSYCDDMiQKNizjTOBkUvkTJ1J4Qe96hzrZoFhcivndBEA5sIMLMb+NQ6bv/RMllGTGCZHk++RhH1s uNcURommU60bE/x0rGly9gE4FAFKli6yix+l1Om5vACedjwFlPgfomt5w/kXjWQnUEyUi3sO2eB6JUJQ zlrlmoRrVC32B+v6cyKWRL7206KGBnmayR64uduiZZ P7OChh5B9dYYn2OB2UMzBkVemegxSaWLQBN0QhWK56y/tYw85K6/SHEwWrZkuT69bsbWKWsyQdmxllB0 xgD8sa2XI0tHXDg60ROLsB6MFP3e6kdpdVOjd2/[place]+vF1h18iPO0pirCjHdZae3tEWhyPH/er4ESheb6 [file] WxG7WsLCIrACAcg4TeX4hjvdv8fXK7KH8XOLZuERYAMMY2TKYHNNuRDqMSHORFKDBHVURYYfoQYKO2IZ ToArA2StM6KKLtBYHsQRK6UzAMTCRxBmEQWZMWOVN0IwvCRkA+WZ3Da381DJSjNZUHN6syTp2hXuInOX IyP5h0HHElOr2BkIBnKL2VFaAoZ7zjWgOnONEhLY3+ m8MzSCFyZVo50uLeATGENHAWjbws8wTMriWExS1a1s+DUC1yYPi8ipzydMDW43ORPNw9IFubD9A53rAc bnwVGFFSbfZK5yCX4giON8MTTw0KCE0pq3EtZOOlXOncwhGsVeoKYKgqhKXfiQkfQWYJBcAmTxT0PPaB LdKpSO2G ID Date Data Source [id number] 04/15/2020 03:36:00 PM EST [facility] ([facility]) Name Value Range Interpretation Code Description Data Mikayla rce(s) Supporting Document(s) Thyrotropin [Units/volume] in Serum or Plasma by Detec tion limit <= 0.05 mIU/L 3.88 uIU/mL 0.36-3.74 [facility] ([facility] ) ID Date Data Source [id number] 04/15/2020 03:36:00 PM EST [facility] ([facility]) Name Value Range Interpretation Code Description Data Mikayla rce(s) Supporting Document(s) Cholesterol [Mass/volume] in Serum or Plasma 241 mg/dL 131-200 [facility] ([facility]) Triglyceride [Mass/volume] in Serum or Plasma 239 mg/dL 30-150 [facility] ([facility]) Cholesterol in LDL [Mass/volume] in Serum or Plasma by calcu lation 137 CALC 50-159 [facility] ([facility]) Cholesterol in HDL [Mass/volume] in Serum or Plasma 56 mg/dL 35-60 [facility] ([facility]) ID Date Data Source [id number] 04/15/2020 03:36:00 PM EST [facility] ([facility]) Name Value Range Interpretation Code Description Data Mikayla rce(s) Supporting Document(s) Glucose [Mass/volume] in Serum or Plasma 112 mg/dL 74-99 [facility] ([facility]) 100-125 mg/dL PRE-DIABETES/FASTING >126 mg/dL DIABETES/FASTING Sodium [Moles/volume] in Serum or Plasma 139 meq/L 136-145 [facility] ([facility]) Urea nitrogen [Mass/volume] in Serum or Plasma 14 mg/dL 7-18 [facility] ([facility]) Creatinine 0.8 mg/dL 0.6-1.3 [facility] Carbon dioxide, total [Moles/volume] in Serum or Plasma 26 meq/L 21 -32 [facility] ([facility]) Potassium [Moles/volume] in Serum or Plasma 3.9 meq/L 3.5-5.1 [facility] ([facility]) Chloride [Moles/volume] in Serum or Plasma 106 meq/L 98-107 [facility] ([facility]) Calcium [Mass/volume] in Serum or Plasma 9.2 mg/dL 8.5-10.1 [facility] ([facility]) Alkaline phosphatase isoenzyme [Units/volume] in Serum or Pl asma 108 mg/dL 46-116 [facility] Total Bilirubin 0.4 mg/dL 0.2-1.0 [facility] ([facility]) Aspartate aminotransferase [Enzymatic activity/volume] in Serum or Plasma 22 U/L 15-37 [facility] ([facility] ) Albumin [Mass/volume] in Serum or Plasma 3.6 g/dL 3.4-5.0 [facility] ([facility]) Alanine aminotransferase [Enzymatic activity/volume] in Seru m or Plasma 18 U/L 12-78 [facility] ([facility]) Proteinase 3 Ab [Units/volume] in Serum 8.3 g/dL 6.4-8.2 [facility] ([facility]) A/G Ratio 0.77 CALC 1.00-1.90 [facility] Glomerular filtration rate/1.73 sq M pre dicted among non-blacks [Volume Rate/Area] in Serum or Plasma by Creatinine-based formula (MDRD) Laboratory test result [facility] Glomerular filtration rate/1.73 sq M pre dicted among blacks [Volume Rate/Area] in Serum or Plasma by Creatinine-based formula (MDRD) Laboratory test result [facility] ([facility] <content>CHRONIC KIDNEY DISEASE STAGING PER NKF</content>
<content></content>
<content>STAGE I & II GFR >= 60 NORMAL TO MILDLY DECREASED</content>
<content>STAGE III GFR 30-59 MODERATELY DECREASED</content>
<content>STAGE IV GFR 15-29 SEVERELY DECREASED</content>
<content>STAGE V GFR <15 VERY LITTLE GFR LEFT</content>
<content>ESRD GFR <15 ON LIVESTOCK RANCH HAND</content>
<content></content> ID Date Data Source [id number] 04/15/2020 03:36:00 PM EST [facility] ([facility]) Name Value Range Interpretation Code Description Data Mikayla rce(s) Supporting Document(s) Hemoglobin A1c/Hemoglobin.total in Blood 6.4 % [facility] Lab Result Notes: Pre-Diabetes 5.7 - 6.4 % Diabetes = or > 6.5% Glucose mean value [Mass/volume] in Blood Estimated fr om glycated hemoglobin 137 mg/dL 60-110 [facility] ([facility] ID Date Data Source [id number] 04/15/2020 03:36:00 PM EST [facility] Name Value Range Interpretation Code Description Data Mikayla rce(s) Supporting Document(s) Hemoglobin [Mass/volume] in Blood 15.2 g/dL 12.0-18.0 [facility] Erythrocytes [#/volume] in Blood by Automated count 4.72 x10*6/UL 4.2 0-6.30 [facility] ([facility]) Leukocytes [#/volume] in Blood by Automated count 7.5 x10*3/UL 4.1-10 .9 [facility] ([facility]) Hematocrit [Volume Fraction] of Blood by Automated count 44.0 % 3 7.0-51.0 [facility] ([facility]) MCV 93.1 fL 80.0-97.0 [facility]) MCH 32.1 pg 26.0-32.0 [facility]) MCHC 34.5 g/dL 31.0-38.0 [facility] Platelets [#/volume] in Blood by Automated count 162 x10*3/UL 140-440 [facility] ([facility]) Erythrocyte distribution width [Ratio] by Automated count 13.6 % 11.6-13.7 [facility] ([facility]) Mid % 7.4 % 1.7-9.3 [facility]) Lymph % 24.9 % 10.0-58.5 [facility] MPV 10.0 FL 7.8-11.0 [facility] Neut % 67.7 % 37.0-92.0 [facility] Lymph # 1.8 x10*3/UL 0.6-4.1 [facility] ([facility]) Mid # 0.7 x10*3/UL 0.1-0.6 [facility] ([facility]) Neut # 5.0 x10*3/UL 2.0-7.8 [facility] ([facility]) ID Date Data Source [id number] 02/23/2020 12:00:00 AM EST [facility] Name Value Range Interpretation Code Description Data Mikayla rce(s) Supporting Document(s) SARS-CoV2 Rapid Antigen [facility] This lab was [facility] and reported by [facility]. ID Date Data Source [id number] 02/10/2020 07:30:43 PM EST [facility] Name Value Range Interpretation Code Description Data Mikayla rce(s) Supporting Document(s) &PDF [facility] INGIAi6dUlUOYaAz77/TZPkdUFGfp1HqJDngXWz4WCkgSTThH0SuvIqbGH1UPqECXBrGGDZWV9iRZG3e oRX [file] NELL+TRkgFNjihPs7gRLqYQOiTx3DSERlLRBrGQVtSRUvMSUrHVVeXWNfNXJnQXFxFQBcQNJsWAHhOKEj ICAgICAgICAgICAgICAgICAgICAgICAgICAgICAgICAgICAgICAgICAgICAgICAgICAgICAgICAgICAg BY5NWTEdYZMfMLUgPXGkXXShPEIcZXBzCLSgTJGbDS AgICAgICAgICAgICAgICAgICAgICAgICAgICAgICAgICAgICAgICAgICAgICAgICAgICAgICAgICAgIC QeIZQpEOGrYKRlIG9OQQRqWCIpYIPmSVEnBHQdKMGrXDEqDDMtPXVpWYXhHMEiHXMcBDCaLHJiPBPlKV AgICAgICAgICAgICAgICAgICAgICAgICAgICAgICAg EBFlKXUtTURlCSLgOKAiXGCnXFXaTJ3YEILwMBPgEWRmZFVlOUUxVLZfUNBuYGJdJTWgHIHbOONsQSJi ICAgICAgICAgICAgICAgICAgICAgICAgICAgICAgICAgICAgICAgICAgICAgICAgICAgICAgICAgICAg FTClCH7PMAMrQTXcFOMpXUZcIMQjADYcQKHaQITvLM AgICAgICAgICAgICAgICAgICAgICAgICAgICAgICAgICAgICAgICAgICAgICAgICAgICAgICAgICAgIC IxODZyVFKjPBMgJQJoCO4WIYEmQRUrHJJfBTBbEWHfJRTpZXXxXLTeXLVpKBUvLWSdOVPbKHUnQDAfYX AgICAgICAgICAgICAgICAgICAgICAgICAgICAgICAg AXCzVFMzOKWqSDKcSSGqZGUrBIIeBMYjTV9VGCXsWHNtDDKaBCOmEIOmJHAyRUQaMJUaJXZlSUHjGYOq ICAgICAgICAgICAgICAgICAgICAgICAgICAgICAgICAgICAgICAgICAgICAgICAgICAgICAgICAgICAg OZFmPITlAV4NBFEjJIVzKQKpMSDxFTXcNVSfGIHjVW AgICAgICAgICAgICAgICAgICAgICAgICAgICAgICAgICAgICAgICAgICAgICAgICAgICAgICAgICAgIC YiKOPlHKXnVEHaCPUbJUCdVN1CFOGeJVXsZBRsAWOeXEKzHAKcCKAqVLUgNHBnQAAdESZlFPGsHRBuGX AgICAgICAgICAgICAgICAgICAgICAgICAgICAgICAg SHZaRLEaCWHoXCZbBXVdYDPbZCUwAABeYOBxCQ8UIPIpJEEbMWXbAJSyJQHxNHCeMDSmXEMcXCAbKKCq ICAgICAgICAgICAgICAgICAgICAgICAgICAgICAgICAgICAgICAgICAgICAgICAgICAgICAgICAgICAg KCNzYBZwQMQjBV6GWL27pMLvr3G1XNRgQW6yxeu/Pg 0HRYxevqQwcTVaKT8QZqPvHV3xkl5TQsFySY0jih1XRPzQFjJmW5F2pYCgPJRnHPXOVxJoV54rVIsjQc 68CXevHIIqNuLfUUg9Zd0TTiNgV8yrTJAaYuH6DYQkKeIvBKotXA9Oc7RzfEHaHLg+Mm1XMJ3yp4ZtIH gmVxAoDF1rds7PRReVEvMzF7P1mYVhS0J8WDdsEf4Y LPVgLZKgZETiCPXBBYrwVI6NRS8fdxL4WM5LeGFlBPIkPVAolDRfUDh9O01wdQGzCCdhGA9JPQL+Ralph+ Cl8YIUWrYKTrKLHbMnJwYLORJhCiK10dfFPcQSGaGBT8IDNdLc5RACDxZ9BnrsAsrIjdhrFoVHHiGFQR YX4QBNpbraSaaAAtzZybRS27rXtiYE9PMk5ORtXbTE 7msn7RzJIuKv3NYSKdJh8VZRGnCKKhFNNfPYV9VROqJwVsMSesHDExQBKaPAK7VBVpONCvJQ7OHuLaTF NxWKT6PQBoJLTjYUNmuw2YUNVgMVWiUcCuYmJgPCPkZQOaHFumLBJpHCNuFNxsFZHcOQFtVA1YDxEoHK FaOVY0UBKgSAHeJKFaft9PULMyWUDoIeN4IwQgANMv SMXmSXozADOaDRF8ZZI5TDDpVPJsOT3SUyZqYLArAABeKAFxBCWsOGRqfb7OQEGbPBOaUZLvRoZsXEGw FZUmQZhyICUeJXB7TvrzDKQtGRYoRR2HQwLqYWFyZWK4DUJaXDLbXZZyts4HWXCgNVPiCLu1TIXdVXFn CIKqGPbgYGBsKFSuBTSnKIDiXSKwBY9JNbYzQXVvYM R9KyhlRYWhERShtg6BUPZqOYSuKTm8UoBuCLWjDZWjIMzrTAPjIQJ7BxVvCGWeJMRiFA5TUgHbHDwqCI XYOdr4IChyS5e1FMKrVj5XM4Sdm5HdTZUmODCTQWjzPL6etyMyFDKiNi3KD4hZGsl2KQG8WNw9JsU7Is IwUWGdRtW2QbA7GKh8Q9L7JCR1MX3aHLG3WTc0OHU9 EFEwBaVkYkHeCJJ1ZLW6SEHhHGBhViR1ZgViBF3UVg2ZSyY7SKC8zWVuMb7RFLC5BEvGDaEiQF6VAZz= ID Date Data Source [id number] 01/09/2020 10:12:48 AM EDT [facility] Malka RichterB: 4Provider: Cayden [...] while riding a jet ski at her [facility], but her ribs are better now. The [...] rce(s) Supporting Document(s) ID Date Data Source [id number] 12/10/2019 07:51:40 AM EDT [facility] M[facility]a Denis: 4Provider: Jenny [...] today inthe office. Indication: pain/dysfunction.); Status:Complete; Done: [id number] Perform:SOS14 (General); Due:[id number]; Last Updated By:Montez Whittaker; 12/07/2019 5:12:33 PM;Ordered; For:Neck pain; Ordered By:Lyubov Kay; Physical Therapy (SOS) - Spinal Physical Therapy Evaluation and Treatment Status:Complete Done: [id number] Ordered;For: Neck pain; Ordered By: Lyubov Kay Performed: Due: [id number]; Last Updated By: Juana Bowden; 12/07/2019 5:22:34 [...] document was dictated and electronically signed using Table[employer] software. A reasonable attempt at proof reading has been made to minimize errors. Please candelaria l with any questions. Signatures Electronically signed by : Lyubov Kay PA-C; Dec 07 2019 5:51PM EST (Author) Electronically signed by : John Joshi M.D.; Dec 10 2019 7:51AM EST Name Value Range Interpretation Code Description Data Mikayla rce(s) Supporting Document(s) ID Date Data Source [id number] 11/22/2019 09:22:00 PM EDT [facility] ([facility]) Name Value Range Interpretation Code Description Data Mikayla rce(s) Supporting Document(s) Alt/SGPT 42 U/L 12-78 [facility] ([facility]) Ast/Sgot 48 U/L 7-37 [facility] ([facility]) Alkaline Phosphatase 127 U/L 45-117 [facility] ([facility]) Bilirubin,Direct 0.2 mg/dL 0.0-0.2 [facility] ([facility]) Bilirubin,Total 0.9 mg/dL 0.2-1.0 [facility] ([facility]) Albumin 3.6 GM/DL 3.2-5.2 [facility] ([facility]) Albumin/Globulin Ratio 0.9 1.2-2.2 [facility] ([facility]) Total Protein 7.7 GM/DL 6.4-8.2 [facility] ([facility]) ID Date Data Source [id number] 11/22/2019 09:22:00 PM EDT [facility] ([facility]) Name Value Range Interpretation Code Description Data Mikayla rce(s) Supporting Document(s) Erythrocyte sedimentation rate by Westergren method 44 mm/hr 0-30 [facility] ([facility]) ID Date Data Source [id number] 11/22/2019 09:22:00 PM EDT [facility] ([facility]) Name Value Range Interpretation Code Description Data Mikayla rce(s) Supporting Document(s) Red Blood Count 4.61 10 4.00-5.40 [facility] ([facility]) White Blood Count 12.3 10 4.0-10.0 [facility] ([facility]) Mean Corpuscular Volume 96.1 fl 80.0-96.0 [facility] ([facility]) Hematocrit 44.3 % 36.0-47.0 [facility] Hemoglobin 14.7 g/dL 12.0-15.5 [facility] ([facility]) Mean Corpuscular Hemoglobin 31.9 pg 27.0-33.0 PR DENT ([facility]) Red Cell Distribution Width 12.8 % 11.5-14.5 PR DENT ([facility]) Mean Corpuscular HGB Conc 33.2 g/dL 32.0-36.5 MEDE NT ([facility]) Neutrophils % 77.3 % 36.0-66.0 MEDENT ([facility]) Lymph % 10.9 % 24.0-44.0 [facility] Platelet Count, Automated 149 10 150-450 MEDE NT ([facility]) Eos % 1.2 % 0.0-3.0 [facility] Baso % 0.2 % 0.0-1.0 [facility] [place] % 10.0 % 0.0-5.0 [facility] Nucleated Red Blood Cell % 0.0 % 0-0 MED ENT ([facility]) Lymph # 1.3 10 1.5-5.0 [facility]) Immature Granulocyte % 0.4 % 0-3.0 MEDENT ([facility]) Neutrophils # 9.5 10 1.5-8.5 MEDENT ([facility]) [place] # 1.2 10 0.0-0.8 [facility] Eos # 0.2 10 0.0-0.5 [facility] Baso # 0.0 10 0.0-0.2 [facility]) ID Date Data Source [id number] 11/22/2019 09:22:00 PM EDT MED[facility] ([facility]) Name Value Range Interpretation Code Description Data Mikayla rce(s) Supporting Document(s) Lactate [Mass/volume] in Serum or Plasma 1.4 mmol/L 0.4-2.0 MEDENT ([facility]) Y/N query for Sepsis Lactate Rule: Y ID Date Data Source [id number] 11/22/2019 09:22:00 PM EDT MEDENT ([facility]) Name Value Range Interpretation Code Description Data Mikayla rce(s) Supporting Document(s) C reactive protein [Mass/volume] in Serum or Plasma by High sensitivity method 3.96 mg/dL 0.00-0.30 MEDENT ([facility] ) ID Date Data Source [id number] 11/22/2019 09:22:00 PM EDT MEDENT ([facility]) Name Value Range Interpretation Code Description Data Mikayla rce(s) Supporting Document(s) Glucose, Fasting 92 mg/dL 70-100 MEDENT ([facility]) Blood Urea Nitrogen 18 mg/dL 7-18 MEDENT ([facility]) Glomerular Filtration Rate Laboratory test result [facility] ([facility]) <content>Units are mL/min/1.73 m2</content>
<content></content>
<content>Chronic Kidney Disease Staging per NKF:</content>
<content></content>
<content>Stage I & II GFR >=60 Normal to Mildly Decreased</content>
<content>Stage III GFR 30- 59 Moderately Decreased</content>
<content>Stage IV GFR 15-29 Severely Decreased</content>
<content>Stage V GFR <15 Very Little GFR Left</content>
<content>ESRD GFR <15 on LIVESTOCK RANCH HAND</content>
<content></content> Creatinine For GFR 0.96 mg/dL 0.55-1.30 MEDENT ([facility]) Sodium Level 138 meq/L 136-145 MEDENT ([facility]) Potassium Serum 4.0 meq/L 3.5-5.1 MED[facility] ([facility]) Carbon Dioxide Level 25 meq/L 21-32 [facility] ([facility]) Calcium Level 8.9 mg/dL 8.8-10.2 [facility] ([facility]) Anion Gap 3 meq/L 8-16 [facility]) Chloride Level 110 meq/L 98-107 [facility] ([facility]) Procedure Social History Code Duration Value Status Description Data Source(s ) Smoking 01/05/2021 12:00:00 AM EDT Never Smoker completed Never S moker eCW1 ([facility]) Alcohol intake 12/23/2020 12:00:00 AM EDT Current non-d osbaldo of alcohol (finding) completed Current non-drinker of alcohol (finding) [facility] Smoking 12/05/2020 12:00:00 AM EDT Never Smoker completed Never S moker eCW1 ([facility]) Smoking 12/05/2020 12:00:00 AM EDT Never Smoker completed Never S moker eCW1 ([facility]) Alcohol intake 06/17/2020 12:00:00 AM EDT No completed [facility] Smoking 06/17/2020 12:00:00 AM EDT Never smoker completed Never s moker [facility] Smoking 06/12/2020 03:23:02 PM EST Never smoked tobacco (findi ng) completed Never smoked tobacco (finding) OZ (Jay Pleitez MD [facility]) Vital Signs ID Date Data Source UNK Name Value Range Interpretation Code Description Data Source(s) Body weight 202 [lb_av] 202 [lb_av] eCW1 ([facility]) Body height 68 [in_i] 68 [in_i] [facility] Body mass index (BMI) [Ratio] 30.71 kg/m2 30.71 kg/m2 [facility] ([facility]) Systolic blood pressure 130 mm[Hg] 130 mm[Hg] e CW1 ([facility]) Diastolic blood pressure 72 mm[Hg] 72 mm[Hg] W1 ([facility]) Systolic blood pressure 136 mm[Hg] 136 mm[Hg] [facility] Diastolic blood pressure 82 mm[Hg] 82 mm[Hg] [facility] Heart rate 83 /min 83 /min [facility] Respiratory rate 18 /min 18 /min [facility] Body height 172.7 cm 172.7 cm [facility] Body weight 92.08 kg 92.08 kg [facility] Body mass index (BMI) [Ratio] 30.87 kg/m2 30.87 kg/m2 [facility] Oxygen saturation in Arterial blood by Pulse oximetry 96 % 96 % [facility] Body weight 198.8 [lb_av] 198.8 [lb_av] W1 ([facility]) Body height 68 [in_i] 68 [in_i] eCW1 [facility] Body mass index (BMI) [Ratio] 30.22 kg/m2 30.22 kg/m2 W1 ([facility]) Systolic blood pressure 126 mm[Hg] 126 mm[Hg] e CW1 ([facility]) Diastolic blood pressure 78 mm[Hg] 78 mm[Hg] W1 ([facility]) Systolic blood pressure 138 mm[Hg] 138 mm[Hg] [facility] Diastolic blood pressure 100 mm[Hg] 100 mm[Hg] [facility] Heart rate 80 /min 80 /min [facility] Body height 172.7 cm 172.7 cm [facility] Body weight 91.173 kg 91.173 kg [facility] Body mass index (BMI) [Ratio] 30.56 kg/m2 30.56 kg/m2 [facility] Oxygen saturation in Arterial blood by Pulse oximetry 96 % 96 % [facility] Diastolic blood pressure 70 mm[Hg] 70 mm[Hg] MEDENT ([facility]) Heart rate 68 /min 68 /min [facility] ([facility]) Body height 68 [in_i] 68 [in_i] [facility] 5'8" Body weight 201.00 [lb_av] 201.00 [lb_av] MEDEN T ([facility]) Body mass index (BMI) [Ratio] 30.6 kg/m2 30.6 k g/m2 [facility] ([facility]) Systolic blood pressure 124 mm[Hg] 124 mm[Hg] M EDENT ([facility]) Patient Treatment Plan of Care Planned Activity Planned Date Details Description Data Source (s) 1 ML evolocumab 140 MG/ML Auto-Injector [Repatha] 12/23/2020 12: 00:00 AM EDT [facility] Rosuvastatin calcium 20 MG Oral Tablet 06/17/2020 12:00:00 AM EDT [facility] Metformin hydrochloride 500 MG Oral Tablet 06/17/2020 12:00:00 AM E DT [facility] apixaban 5 MG Oral Tablet 05/02/2020 12:00:00 AM EST [facility] 24 HR metoprolol succinate 100 MG Extended Release Ora l Tablet 11/28/2019 12:00:00 AM EDT [facility] Fenofibrate 160 MG Oral Tablet 05/21/2019 12:00:00 AM EST [facility] Sucralfate 1000 MG Oral Tablet 05/03/2019 12:00:00 AM EST [facility] Rosuvastatin calcium 5 MG Oral Tablet 04/10/2019 12:00:00 AM EST [facility]
[2021-01-19] MEDS ORDERED: ISOVUE-370 76% 100ML VIAL As Ordered ONE (15:27)
[2021-01-19] MEDS ORDERED: cefTRIAXone SOD 2 GM in D5W MINI-BAG PLUS 50 ML IV ONE (15:30)
--- NOTE | 2021-01-19 16:36 | REP ---
INDICATION: increasing hypoxia, covid, r/o pe. COMPARISON: 01/13/2021. TECHNIQUE: CT angiogram chest performed following the intravenous administration of 100 cc of Isovue 370. Sagittal and coronal reconstruction images are performed. FINDINGS: Lungs: Diffuse interstitial and alveolar infiltrates are mildly improved compared to the prior study. Mediastinum: Mild stable subcarinal adenopathy 1.3 cm in short axis.. Pulmonary arteries: No evidence of pulmonary embolism. [place]: No adenopathy. Axilla: No adenopathy. Pleura: No effusion. Heart: Not enlarged. Thoracic aorta: No aneurysm or dissection. Upper abdominal structures: Unremarkable. Visualized osseous structures: There are degenerative changes of the spine without compression deformity. IMPRESSION: No CT evidence of pulmonary embolism. Diffuse interstitial and alveolar infiltrates are mildly improved compared to the prior study. There is mild stable subcarinal adenopathy 1.3 cm in short axis. <Electronically signed by Cecil Alvarez > 01/19/21 [id number]
--- OUTSIDE RECORDS SUMMARY | 2021-01-19 17:01 | CCD ---
Author Author [facility] Address Unknown Phone Unavailable Care Team Providers Care Public Health Training Assistant Name Role Phone Phyllis Escalante MD Unavailable Unavailable Phyllis Escalante MD Unavailable Unavailable Phyllis Escalante MD Unavailable Unavailable Phyllis Escalante MD Unavailable Unavailable Phyllis Escalante MD Unavailable Unavailable WallagrassPhyllis MD Unavailable Unavailable BorisPhyllis MD Unavailable Unavailable WallagrassPhyllis MD Unavailable Unavailable WallagrassPhyllis MD Unavailable Unavailable WallagrassPhyllis MD Unavailable Unavailable WallagrassPhyllis MD Unavailable Unavailable WallagrassPhyllis MD Unavailable Unavailable BorisPhyllis MD Unavailable Unavailable WallagrassPhyllis MD Unavailable Unavailable WallagrassPhyllis MD Unavailable Unavailable BorisPhyllis MD Unavailable Unavailable BorisPhyllis MD Unavailable Unavailable BorisPhyllis MD Unavailable Unavailable WallagrassPhyllis MD Unavailable Unavailable BorisPhyllis MD Unavailable Unavailable WallagrassPhyllis MD Unavailable Unavailable WallagrassPhyllis MD Unavailable Unavailable WallagrassPhyllis MD Unavailable Unavailable WallagrassPhyllis MD Unavailable Unavailable BorisPhyllis MD Unavailable Unavailable WallagrassPhyllis MD Unavailable Unavailable BorisPhyllis MD Unavailable Unavailable WallagrassPhyllis MD Unavailable Unavailable BorisPhyllis MD Unavailable Unavailable BorisPhyllis MD Unavailable Unavailable BorisPhyllis MD Unavailable Unavailable WallagrassPhyllis MD Unavailable Unavailable WallagrassPhyllis MD Unavailable Unavailable WallagrassPhyllis MD Unavailable Unavailable BorisPhyllis MD Unavailable Unavailable WallagrassPhyllis MD Unavailable Unavailable WallagrassPhyllis MD Unavailable Unavailable WallagrassPhyllis MD Unavailable Unavailable WallagrassPhyllis MD Unavailable Unavailable WallagrassPhyllis garvin MD Unavailable Unavailable WallagrassPhyllis garvin MD Unavailable Unavailable BorisPyhllis MD Unavailable Unavailable BorisPhyllis MD Unavailable Unavailable WallagrassPhyllis garvin MD Unavailable Unavailable BorisPhyllis MD Unavailable Unavailable WallagrassPhyllis garvin MD Unavailable Unavailable WallagrassPhyllis garvin MD Unavailable Unavailable BorisPhyllis garvin MD Unavailable Unavailable WallagrassPhyllis MD Unavailable Unavailable WallagrassPhyllis MD Unavailable Unavailable BorisPhyllis MD Unavailable Unavailable WallagrassPhyllis MD Unavailable Unavailable BorisPhyllis MD Unavailable Unavailable WallagrassPhyllis MD Unavailable Unavailable BorisPhyllis MD Unavailable Unavailable BorisPhyllis MD Unavailable Unavailable WallagrassPhyllis MD Unavailable Unavailable BorisPhyllis MD Unavailable Unavailable BroisPhyllis MD Unavailable Unavailable BorisPhyllis MD Unavailable Unavailable Wallagrass, F Patrick FONG Unavailable Unavailable Boris, F Patrick FONG Unavailable Unavailable Wallagrass, F Patrick FONG Unavailable Unavailable Wallagrass, F Patrick MD Unavailable Unavailable Wallagrass, F Patrick MD Unavailable Unavailable Boris, F Patrick MD Unavailable Unavailable Boris, F Patrick MD Unavailable Unavailable Boris, F Patrick MD Unavailable Unavailable Boris, F Patrick MD Unavailable Unavailable Wallagrass, F Patrick MD Unavailable Unavailable Boris, F Patrick MD Unavailable Unavailable Wallagrass, F Patrick MD Unavailable Unavailable Boris, F Patrick MD Unavailable Unavailable Boris, F Patrick MD Unavailable Unavailable Boris, F Patrick MD Unavailable Unavailable Wallagrass, F Patrick MD Unavailable Unavailable Wallagrass, F Patrick MD Unavailable Unavailable Boris, F Patrick MD Unavailable Unavailable Boris, F Patrick MD Unavailable Unavailable Boris, F Patrick MD Unavailable Unavailable Wallagrass, F Patrick MD Unavailable Unavailable Boris, F Patrick MD Unavailable Unavailable Wallagrass, F Patrick MD Unavailable Unavailable Boris, F Patrick MD Unavailable Unavailable Boris, F Patrick MD Unavailable Unavailable Wallagrass, F Patrick MD Unavailable Unavailable PALLAVI (SHEA), [...] HORN MD Unavailable Unavailab le PALLAVI (SHEA), Eavns HORN MD Unavailable Unavailab le PALLAVI (SHEA), [...] Unavailable KAY, L LYUBOV PA Unavailable Unavailable KYA, L LYUBOV PA Unavailable Unavailable KAY, L [...] Unavailable Unavailable Phyllis Escalante MD Unavailable Unavailable WallagrassPhyllis garvin MD Unavailable Unavailable Phyllis Escalante MD Unavailable Unavailable WallagrassPhyllis garvin MD Unavailable Unavailable Phyllis Escalante MD Unavailable Unavailable Phyllis Escalante MD Unavailable Unavailable WallagrassPhyllis garvin MD Unavailable Unavailable Phyllis Escalante MD Unavailable Unavailable WallagrassPhyllis garvin MD Unavailable Unavailable BorisPhyllis garvin MD Unavailable Unavailable BorisPhyllis MD Unavailable Unavailable BorisPhyllis MD Unavailable Unavailable BorisPhyllis MD Unavailable Unavailable WallagrassPhyllis MD Unavailable Unavailable BorisPhyllis MD Unavailable Unavailable WallagrassPhyllis MD Unavailable Unavailable BorisPhyllis MD Unavailable Unavailable BorisPhyllis MD Unavailable Unavailable BorisPhyllis MD Unavailable Unavailable WallagrassPhyllis MD Unavailable Unavailable WallagrassPhyllis MD Unavailable Unavailable WallagrassPhyllis MD Unavailable Unavailable WallagrassPhyllis MD Unavailable Unavailable BorisPhyllis MD Unavailable Unavailable WallagrassPhyllis MD Unavailable Unavailable BorisPhyllis MD Unavailable Unavailable BorisPhyllis MD Unavailable Unavailable WallagrassPhyllis MD Unavailable Unavailable WallagrassPhyllis MD Unavailable Unavailable WallagrassPhyllis MD Unavailable Unavailable BorisPhyllsi MD Unavailable Unavailable BorisPhyllis MD Unavailable Unavailable WallagrassPhyllis MD Unavailable Unavailable BorisPhyllis MD Unavailable Unavailable WallagrassPhyllis MD Unavailable Unavailable BorisPhyllis MD Unavailable Unavailable WallagrassPhyllis MD Unavailable Unavailable BorisPhyllis MD Unavailable Unavailable WallagrassPhyllis MD Unavailable Unavailable BorisPhyllis MD Unavailable Unavailable WallagrassPhyllis MD Unavailable Unavailable BorisPhyllis MD Unavailable Unavailable WallagrassPhyllis MD Unavailable Unavailable BorisPhyllis MD Unavailable Unavailable WallagrassPhyllis MD Unavailable Unavailable BorisPhyllis garvin MD Unavailable Unavailable WallagrassPhyllis MD Unavailable Unavailable WallagrassPhyllis MD Unavailable Unavailable WallagrassPhyllis MD Unavailable Unavailable BorisPhyllis MD Unavailable Unavailable WallagrassPhyllis MD Unavailable Unavailable WallagrassPhyllis MD Unavailable Unavailable WallagrassPhyllis garvin MD Unavailable Unavailable WallagrassPhyllis MD Unavailable Unavailable WallagrassPhyllis MD Unavailable Unavailable BorisPhyllis MD Unavailable Unavailable WallagrassPhyllis MD Unavailable Unavailable BorisPhyllis MD Unavailable Unavailable WallagrassPhyllis MD Unavailable Unavailable BorisPhyllis MD Unavailable Unavailable WallagrassPhyllis MD Unavailable Unavailable WallagrassPhyllis MD Unavailable Unavailable WallagrassPhyllis MD Unavailable Unavailable BorisPhyllis MD Unavailable Unavailable WallagrassPhyllis MD Unavailable Unavailable WallagrassPhyllis MD Unavailable Unavailable WallagrassPhyllis MD Unavailable Unavailable WallagrassPhyllis MD Unavailable Unavailable BorisPhyllis MD Unavailable Unavailable [...] Miguel Thompson MD, FACS Unavailable Unavailable Wagoner Plietez, Miguel Thompson MD, FACS Unavailable Unavailable Wagoner [...] Unavailable Boris, Phyllis Nguyen MD Unavailable Unavailable Wallagrass, Phyllis Nguyen MD Unavailable Unavailable Boris, Phyllis Nguyen MD Unavailable Unavailable Boris, Phyllis Nguyen MD Unavailable Unavailable Boris, Phyllis Nguyen MD Unavailable Unavailable Boris, Phyllis Nguyen MD Unavailable Unavailable Wallagrass, Phyllis Nguyen MD Unavailable Unavailable Wallagrass, Phyllis Nguyen MD Unavailable Unavailable Wallagrass, Phyllis Ngyuen MD Unavailable Unavailable Boris, Phyllis Nguyen MD Unavailable Unavailable Wallagrass, Phyllis Nguyen MD Unavailable Unavailable Boris, Phyllis Nguyen MD Unavailable Unavailable Boris, Phyllis Nguyen MD Unavailable Unavailable Boris, Phyllis Nguyen MD Unavailable Unavailable Wallagrass, Phyllis Nguyen MD Unavailable Unavailable Boris, Phyllis Nguyen MD Unavailable Unavailable Boris, Phyllis Nguyen MD Unavailable Unavailable Wallagrass, Phyllis Nguyen MD Unavailable Unavailable WallagrassPhyllis MD Unavailable Unavailable BorisPhyllis MD Unavailable Unavailable WallagrassPhyllis MD Unavailable Unavailable BorisPhyllis MD Unavailable Unavailable BorisPhyllis MD Unavailable Unavailable BorisPhyllis MD Unavailable Unavailable BorisPhyllis MD Unavailable Unavailable BorisPhyllis MD Unavailable Unavailable WallagrassPhyllis MD Unavailable Unavailable WallagrassPhyllis MD Unavailable Unavailable BorisPhyllis MD Unavailable Unavailable WallagrassPhyllis MD Unavailable Unavailable BorisPhyllis MD Unavailable Unavailable BorisPhyllis MD Unavailable Unavailable WallagrassPhyllis MD Unavailable Unavailable WallagrassPhyllis MD Unavailable Unavailable WallagrassPhyllis MD Unavailable Unavailable WallagrassPhyllis MD Unavailable Unavailable WallagrassPhyllis MD Unavailable Unavailable WallagrassPhyllis MD Unavailable Unavailable WallagrassPhyllis MD Unavailable Unavailable BorisPhyllis MD Unavailable Unavailable WallagrassPhyllis MD Unavailable Unavailable WallagrassPhyllis MD Unavailable Unavailable WallagrassPhyllis MD Unavailable Unavailable BorisPhyllis MD Unavailable Unavailable BroisPhyllis MD Unavailable Unavailable BorisPhyllis MD Unavailable Unavailable BorisPhyllis MD Unavailable Unavailable WallagrassPhyllis MD Unavailable Unavailable BorisPhyllis MD Unavailable Unavailable WallagrassPhyllis MD Unavailable Unavailable BorisPhyllis MD Unavailable Unavailable WallagrassPhyllis MD Unavailable Unavailable BorisPhyllis MD Unavailable Unavailable BorisPhyllis garvin MD Unavailable Unavailable BorisPhyllis MD Unavailable Unavailable WallagrassPhyllis MD Unavailable Unavailable WallagrassPhyllis MD Unavailable Unavailable BorisPhyllis MD Unavailable Unavailable WallagrassPhyllis MD Unavailable Unavailable BorisPhyllis MD Unavailable Unavailable BorisPhyllis MD Unavailable Unavailable BorisPhyllis MD Unavailable Unavailable WallagrassPhyllis MD Unavailable Unavailable BorisPhyllis MD Unavailable Unavailable BorisPhyllis MD Unavailable Unavailable WallagrassPhyllis MD Unavailable Unavailable BorisPhyllis MD Unavailable Unavailable WallagrassPhyllis MD Unavailable Unavailable WallagrassPhyllis MD Unavailable Unavailable WallagrassPhyllis MD Unavailable Unavailable BorisPhyllis MD Unavailable Unavailable [...] Unavailable Unavailable Sergio Velázquezjtech Unavailable Unavailable Sergio Vleázquezjtech Unavailable Unavailable Sergio Velázquezjtech Unavailable Unavailable Duane [...] is protected by Article 27-F of the [facility] Public Health law. If you continue you may have access to information: Regarding HIV / AIDS; Provided by facilities licensed or operated by the [facility] Office of Mental Health; or Provided by the [facility] Office for People With Developmental Disabilities. If such information is present, then the following [facility] mandated warning applies: This information has been [...] law may result in a fine or skilled nursing sentence or both. A general authorization for the release of medical or other information is NOT sufficient authorization for further disc losure. Family History Family Member Name Family Member Gender Family Member Status Date o f Status Description Data Source(s) Unknown Unknown Problem [facility] ) Encounters Encounter Providers Location Date Indications Data Source(s ) Outpatient [email or web address] 01/12/2021 12:08:05 PM EDT [facility] Outpatient [email or web address] 01/12/2021 12:00:00 AM EDT [facility] [place]patient [address] [address] 01/05/2021 12:00:00 AM EDT eCW1 ([facility]) Unknown [address], [facility] [address] 01/02/2021 12:00:00 AM EDT eCW1 ([facility]) Outpatient Attender: Kari FREEMANNOE-[email or web address].NOE 12/04 12:00:00 AM EDT - 12/23/2020 04:08:57 PM EDT [facility] [address] [address] 12/05/2020 12:00:00 AM EDT eCW1 ([facility]) Attender: KORY PITTMAN) MDReferrer: Annamarie Escalante MD 11/13/2020 08:21:08 PM EDT [facility] Attender: KORY OLIVO ([facility]) MDAttender: Lien NolandReferrtank: Patrick Escalante MD 09/26/2020 08:21:06 PM EDT [facility] Attender: KORY OLIVO ([facility]) MDAttender: Lien Martierrtank: Patrick Escalante MD 09/23/2020 08:21:06 PM EDT [facility] Attender: KORY PITTMAN) MDReferrer: Annamarie Escalante MD 09/23/2020 08:21:06 PM EDT [facility] Outpatient [email or web address] 08/29/2020 01:10:41 PM EDT [facility] Outpatient Attender: Kari [email or web address] 06/02 12:00:00 AM EDT - 06/17/2020 04:12:16 PM EDT [facility] Outpatient<td ID="encounterTypeDescripti onID0">7 Month Follow-Up and Testing</td><td>Jay An MD, FACS</td><td>Jay An MD [facility]</td><td>06/12/2020</td><td>1:59PM</td><td>10/29/2019 11:59PM</td><td><content ID="encounterDiagnosisID0-0">Vitreous Disorders Degeneration</content>, <content ID="encounterDiagnosisID0-1">Borderline Glaucoma Open Angle with Borderline Findings Both Eyes</content>, <content ID="encounterDiagnosisID0-2">Dry Eye Syndrome Both Eyes</content>, <content ID="encounterDiagnosisID0-3">Essential Hypertension</content>, <content ID="encounterDiagnosisID0-4">Macular Puckering Left Eye</content></td> Attender: Jay Pleitez MD, FACS Jay An MD [facility] 06/12/2020 01:59:00 PM EST - 10/29/2019 11:59:00 PM EDT Vitreous Disorders DegenerationMacular P uckering Left EyeEssential HypertensionDry Eye Syndrome Both EyesBorderline Glaucoma Open Angle with Borderline Findings Both Eyes OZ (Jay Pleitez MD [facility]) Vitreous Disorders Degeneration Macular Puckering Left Eye Essential Hypertension Dry Eye Syndrome Both Eyes Borderline Glaucoma Open Angle with Bord stewart Findings Both Eyes Outpatient [email or web address] 05/21/2020 08:35:51 AM EST [facility] Outpatient Attender: Patrick Escalante Vandewall 0 04/15/2020 02:00:00 PM EST [facility] ([facility] ) Outpatient SJP.NOE-SJP 02/10/2020 07:31:03 PM EST [facility] Outpatient [email or web address] 02/07/2020 12:00:00 AM EST [facility] Outpatient Attender: YFN NESTOR MDReferrer: Patrick lucas MD 01/09/2020 10:12:48 AM EDT [facility] Recurring Patient Attender: YFN BAEZ MDReferrer: Patrick rhodes MD 01/07/2020 03:22:37 PM EDT [facility] Outpatient Attender: LYUBOV KAY PAReferrer: Patrick lucas MD 12/10/2019 07:51:40 AM EDT [facility] Recurring Patient Attender: YFN BAEZ MDReferrer: Patrick rhodes MD 12/07/2019 04:59:21 PM EDT [facility] Recurring Patient Attender: YFN BAEZ MDReferrer: Patrick rhodes MD 12/07/2019 04:59:16 PM EDT [facility] Medications Medication Brand Name [...] every 14 (fourteen) days for 6 doses [facility] 5 mg 11/27/2020 12:00:00 AM EDT tablet [...] (20 mg total) by m outh daily [facility] Metformin hydrochloride 500 MG Oral Tablet metFORMIN ( GLUCOPHAGE) 500 MG tablet metFORMIN (GLUCOPHAGE) 500 MG tablet 06/17/2020 12:00:00 AM EDT 500 m g Oral active Take 1 tablet (500 mg total) by mouth daily [facility] 5 mg 05/16/2020 12:00:00 AM EST tablet [...] by mouth 2 (two) times a day [facility] Doxycycline Monohydrate 100 MG Oral Tablet Doxycycline Monoh ydrate 04/15/2020 12:00:00 AM EST ORAL active M ODELL ([facility]) 100 mg 04/15/2020 12:00:00 AM EST [...] by mouth 2 (two) times a day [facility] 875-125 mg 11/23/2019 12:00:00 AM EDT tablet [...] tablet (160 mg total) by mouth daily [facility] Sucralfate 1000 MG Oral Tablet sucralfate (CARAFATE) 1 g tablet sucralfate (CARAFATE) 1 g tablet 05/03/2019 12:00:00 AM EST a borted [facility] Rosuvastatin calcium 5 MG Oral Tablet rosuvastatin (CR ESTOR) 5 MG tablet rosuvastatin (CRESTOR) 5 MG tablet 04/10/2019 12:00:00 AM EST aborted [facility] 5 mg 03/12/2019 12:00:00 AM EST [...] type / Coverage type Policy ID Covered democrat ID Covered democrat's relationship to melton Policy Mel[place] Plan Information [employer] (pr) Commercial [id number] Self [id number] [employer]OM[employer] U [id number] Self [id number] POM[employer] [id number] Linda [id number] [facility] (HMO) [id number] Self [id number] [employer] [id number] S [id number] [employer] / UMR F [id number] SELF [id number] [employer] / UMR F [id number] SELF [id number] [employer] [id number] 0 [id number] UMR [id number] xxxxxxxxx [id number] UMR [id number] Linda [id number] UMR U [id number] Self [id number] Umr Care Management [id number] 0 [id number] Umr Care Management [id number] 0 [id number] UMR F [id number] SELF [id number] Umr (New [employer]) Commercial [id number] Self [id number] UMR F [id number] SELF [id number] Medicare Part B [employer] [id number] 0 [id number] MEDICARE [id number] Linda [id number] [id number] Medicare C [id number] SELF [id number] [id number] MEDICARE [id number] xxxxxxxxxxx [id number] [employer] [place] Other 0 [id number] Self 0 [employer] [place] Other 0 [id number] Self 0 [employer] [place] Other 0 [id number] Self 0 [employer] [place] Other 0 [id number] Self 0 [employer] [place] Other 0 [id number] Self 0 [employer] [place] Other 0 [id number] Self 0 [employer] [place] Other 0 [id number] Self 0 [employer] [place] Other 0 [id number] Self 0 [employer] [place] Other 0 [id number] Self 0 [employer] [place] Other 0 [id number] Self 0 [employer] [place] Other 0 [id number] Self 0 [employer] [place] Other 0 [id number] Self 0 [employer] [place] Other 0 [id number] Self 0 [employer] [place] Other 0 [id number] Self 0 ANSI-Not a Secondary Insurance [id number] ANSI-Not a Secondary Insurance [id number] UMR [facility] [id number] SP [id number] [employer] [id number] S [id number] [employer]/Umr (Old) Commercial [id number] Self [id number] [employer] (Old) Commercial [id number] Self [id number] [employer] / UMR F [id number] SELF [id number] [employer] [id number] SP [id number] Umr [employer] Ppo Commercial [id number] Self [id number] Umr [employer] Ppo Commercial [id number] Self [id number] Umr [employer] Ppo Commercial [id number] Self [id number] [employer] PPO O [id number] O [id number] [employer] Ppo Commercial [id number] Self [id number] [employer] Ppo Commercial [id number] Self [id number] MEDICARE [id number] SP [id number] [employer] Ppo Commercial [id number] Self [id number] [employer] Ppo Commercial [id number] Self [id number] [employer] Ppo Commercial [id number] Self [id number] [employer] Ppo Commercial [id number] Self [id number] [employer] Ppo Commercial [id number] Self [id number] [employer] Ppo Commercial [id number] Self [id number] [employer] Ppo Commercial [id number] Self [id number] [employer] (pr) Commercial [id number] Self [employer] Commercial [id number] Self [employer] Ppo Commercial [id number] Self [id number] UMR [facility] [id number] SP [id number] [employer] [place] Other 0 [id number] Self 0 Medicare Part B [facility] Other 0 [id number] Self 0 [employer] [place] Other 0 [id number] Self 0 Medicare Part B [facility] Other 0 [id number] Self 0 MEDICARE C [id number] S [id number] UMR O [id number] S [id number] UMR -O/P [id number] 18 [id number] MEDICARE PART A -O/P [id number] 18 [id number] [employer] [id number] S [id number] MEDICARE - [place] [id number] S [id number] UMR [id number] S [id number] MEDICARE [id number] SP [id number] A [employer]/Umr (Old) Medigap Part B [id number] Self [id number] UMR [facility] [id number] SP [id number] UMR [facility] [id number] SP [id number] ANSI-Not a Secondary Insurance [id number] [employer] [place] Other 0 [id number] Self 0 [employer] [place] Other 0 [id number] Self 0 [employer] [place] Other 0 [id number] Self 0 Problems, Conditions, and Diagnoses Code Display Name Description Problem Type Effective Dates Data Source(s) Z01.810 Encounter for preprocedural cardiovascul ar examination Encounter for preprocedural cardiovascul Diagnosis 12/23/2020 03:28:[address] 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 Type 2 diabetes mellitus with other circ Diagnosis 12/23/2020 03:28:22 PM EDT [facility] I10 Essential (primary) hypertension Essential (primary) h ypertension Diagnosis 12/23/2020 03:28:22 PM EDT [facility] Z95.0 Presence of cardiac pacemaker Presence of cardiac pace maker Diagnosis 12/23/2020 03:28:22 PM EDT [facility] E78.2 Mixed hyperlipidemia Mixed hyperlipidemia Diagnosis 12/23/2020 03:28:22 PM EDT [facility] I48.0 Paroxysmal atrial fibrillation Paroxysmal atrial fibri llation Diagnosis 12/23/2020 03:28:22 PM EDT [facility] G47.33 Obstructive sleep apnea (adult) (pediatr ic) Obstructive sleep apnea (adult) (pediatr Diagnosis 06/17/2020 03:27:28 PM EDT [facility] Z01.810 Encounter for pre-operative cardiovascul ar clearance Encounter for pre- operative cardiovascular clearance [id number] 12/23/2020 12:00:00 AM ED T [facility] N95.0 [id number] Postmenopausal bleeding Problem 12/05/2020 1 2:00:00 AM EDT eCW1 ([facility]) E11.59 Type 2 diabetes mellitus wit h circulatory disorder, without long-term current use of insulin Type 2 diabetes mellitus with wood molder y disorder, without long-term current use of insulin [id number] 06/17/2020 12:00:00 AM EDT [facility] Surgeries/Procedures Procedure Description Date Indications Data Source(s) ECG ROUTINE ECG W/LEAST 12 LDS W/I&R <td>POCT AMB EKG</td><td>Routine</td><td>12/23/2020 3:44 PM EDT</td><td> Paroxysmal atrial fibrillation Hypertension, essential</td><td> </td> 12/23/2020 03:44:00 PM EDT Hypertension, essentialParoxysmal atrial fibrillation [facility] Hypertension, essential Paroxysmal atrial fibrillation BLOOD COUNT COMPLETE AUTO&AUTO DIFRNTL WBC COUNT <td>C BC AND DIFFERENTIAL</td><td>Routine</td><td>12/05/2020</td><td></td><td> </td> 12/05/2020 12:00:00 AM EDT [facility] Medication: Silver Nitrate Stick topically 12/05/2020 12:00:00 AM EDT eCW1 ([facility]) BLOOD COUNT COMPLETE AUTO&AUTO DIFRNTL WBC COUNT <td>C BC AND DIFFERENTIAL</td><td>Routine</td><td>10/16/2020</td><td></td><td> </td> 10/16/2020 12:00:00 AM EDT [facility] THYROID STIMULATING HORMONE TSH <td>TSH</td><td>Routine</td><td>10/16/2020</td><td></td><td> </td> 10/16/2020 12:00:00 AM EDT [facility] [facility] HEMOGLOBIN GLYCOSYLATED A1C <td>HEMOGLOBIN A1C</td><td>Routine</td><td>10/16/2020</td><td></td><td> </td> 10/16/2020 12:00:00 AM EDT [facility] HEPATIC FUNCTION PANEL <td>HEPATIC FUNCTION PANEL</td><td>Routine</td><td>10/16/2020</td><td></td><td> </td> 10/16/2020 12:00:00 AM EDT [facility] LIPID PANEL <td>LIPID PANEL</td><td>Rout ine</td><td>10/16/2020</td><td></td><td> </td> 10/16/2020 12:00:00 AM EDT [facility] BASIC METABOLIC PANEL CALCIUM TOTAL <td>BASIC METABOLI C PANEL</td><td>Routine</td><td>10/16/2020</td><td></td><td> </td> 10/16/2020 12:00:00 AM EDT [facility] COMPUTERIZED OPHTHALMIC IMAGING OPTIC NERVE Scodi, opt ic nerve with interpretation and report ([place]) 06/12/2020 12:00:00 AM ZHANE SINGH (Jay Pleitez MD [facility]) Comprehensive eye exam established patient (25) Compre hensive eye exam established patient (25) 06/12/2020 12:00:00 AM ZHANE CLINTON (Jay Pleitez MD [facility]) Results ID Date Data Source [id number] 01/12/2021 10:26:00 PM EDT [facility] Name Value Range Interpretation Code Description Data Mikayla rce(s) Supporting Document(s) Respiratory pathogens identified [Type] in Nasopharynx by Probe and target amplification method SARS-CoV-2 (COVID 19) [facility] [place] This lab was ordered by [facility] a nd reported by [facility]. ID Date Data Source Pathology Request For Service 12/05/2020 12:00:00 AM EDT eCW 1 ([facility]) Name Value Range Interpretation Code Description Data Mikayla rce(s) Supporting Document(s) GENITOURINARY eCW1 ([facility]) ID Date Data Source CBC - Complete Blood Count 12/05/2020 12:00:00 AM EDT eCW1 ( [facility]) Name Value Range Interpretation Code Description Data Mikayla rce(s) Supporting Document(s) 5.10 4.00-5.40 RED BLOOD COUNT eCW1 ([facility]) 7.7 4.0-10.0 WHITE BLOOD COUNT eCW1 ([facility]) 16.0 12.0-15.5 HEMOGLOBIN eCW1 ([facility]) 49.1 36.0-47.0 HEMATOCRIT eCW1 ([facility]) 96.3 80.0-96.0 MEAN CORPUSCULAR VOLUME e CW1 ([facility]) 31.4 27.0-33.0 MEAN CORPUSCULAR HEMOGLOB IN eCW1 ([facility]) 32.6 32.0-36.5 MEAN CORPUSCULAR HGB CONC eCW1 ([facility]) 12.8 11.5-14.5 RED CELL DISTRIBUTION WID TH eCW1 ([facility]) 181 150-450 PLATELET COUNT, AUTOMATED eCW1 ([facility]) ID Date Data Source [id number] 10/16/2020 08:08:00 AM [facility]T [facility] Name Value Range Interpretation Code Description Data Mikayla rce(s) Supporting Document(s) Glucose mean value [Mass/volume] in Blood Estimated fr om glycated hemoglobin 148 mg/dL 60-110 [facility] ) Hemoglobin A1c/Hemoglobin.total in Blood 6.8 % [facility] ([facility]) Lab Result Notes: Pre-Diabetes 5.7 - 6.4 % Diabetes = or > 6.5% ID Date Data Source [id number] 10/16/2020 08:08:00 AM EDT [facility]) Name Value Range Interpretation Code Description Data Mikayla rce(s) Supporting Document(s) Leukocytes [#/volume] in Blood by Automated count 8.8 x10*3/UL 4.1-10 .9 [facility] ([facility]) Erythrocytes [#/volume] in Blood by Automated count 5.18 x10*6/UL 4.2 0-6.30 [facility] Hemoglobin [Mass/volume] in Blood 16.6 g/dL 12.0-18.0 [facility] ([facility] Hematocrit [Volume Fraction] of Blood by Automated count 48.0 % 3 7.0-51.0 [facility] ([facility]) MCV 92.5 fL 80.0-97.0 [facility]) MCHC 34.6 g/dL 31.0-38.0 [facility] ([facility]) MCH 32.0 pg 26.0-32.0 [facility] ([facility]) Platelets [#/volume] in Blood by Automated count 133 x10*3/UL 140-440 [facility] ([facility] NOTE: RESULT VERIFIED. Erythrocyte distribution width [Ratio] by Automated count 13.0 % 11.6-13.7 [facility] ([facility]) MPV 10.4 FL 7.8-11.0 [facility] ([facility]) Lymph % 31.5 % 10.0-58.5 [facility] ([facility]) Neut % 61.4 % 37.0-92.0 [facility] ([facility]) Mid % 7.1 % 1.7-9.3 [facility] ([facility]) Lymph # 2.8 x10*3/UL 0.6-4.1 [facility] ([facility]) Neut # 5.4 x10*3/UL 2.0-7.8 [facility] ([facility]) Mid # 0.6 x10*3/UL 0.1-0.6 [facility] ([facility]) ID Date Data Source [id number] 10/16/2020 08:08:00 AM EDT [facility] ([facility]) Name Value Range Interpretation Code Description Data Mikayla rce(s) Supporting Document(s) Hemoglobin A1c/Hemoglobin.total in Blood Laboratory test result [facility] ([facility]) ID Date Data Source [id number] 10/16/2020 08:08:00 AM EDT [facility] ([facility]) Name Value Range Interpretation Code Description Data Mikayla rce(s) Supporting Document(s) Thyrotropin [Units/volume] in Serum or Plasma by Detec tion limit <= 0.05 mIU/L 5.96 uIU/mL 0.36-3.74 [facility] ([facility] ) ID Date Data Source [id number] 10/16/2020 08:08:00 AM EDT [facility] ([facility]) Name Value Range Interpretation Code Description Data Mikayla rce(s) Supporting Document(s) Cholesterol [Mass/volume] in Serum or Plasma 330 mg/dL 131-200 [facility] ([facility]) Triglyceride [Mass/volume] in Serum or Plasma 289 mg/dL 30-150 [facility] ([facility]) Cholesterol in LDL [Mass/volume] in Serum or Plasma by calcu lation 226 CALC 50-159 [facility] ([facility]) Cholesterol in HDL [Mass/volume] in Serum or Plasma 46 mg/dL 35-60 [facility] ([facility]) ID Date Data Source [id number] 10/16/2020 08:08:00 AM EDT [facility] ([facility]) Name Value Range Interpretation Code Description Data Mikayla rce(s) Supporting Document(s) Glucose [Mass/volume] in Serum or Plasma 129 mg/dL 74-99 [facility] ([facility]) 100-125 mg/dL PRE-DIABETES/FASTING >126 mg/dL DIABETES/FASTING Urea nitrogen [Mass/volume] in Serum or Plasma 15 mg/dL 7-18 [facility] ([facility]) Creatinine 0.9 mg/dL 0.6-1.3 [facility]) Sodium [Moles/volume] in Serum or Plasma 140 meq/L 136-145 [facility] ([facility]) Chloride [Moles/volume] in Serum or Plasma 104 meq/L 98-107 [facility] ([facility]) Potassium [Moles/volume] in Serum or Plasma 3.8 meq/L 3.5-5.1 [facility] ([facility]) Calcium [Mass/volume] in Serum or Plasma 9.3 mg/dL 8.5-10.1 [facility] ([facility]) Carbon dioxide, total [Moles/volume] in Serum or Plasma 26 meq/L 21 -32 [facility] ([facility]) Total Bilirubin 0.8 mg/dL 0.2-1.0 [facility] ([facility]) Alkaline phosphatase isoenzyme [Units/volume] in Serum or Pl asma 137 mg/dL 46-116 [facility] ([facility]) Aspartate aminotransferase [Enzymatic activity/volume] in Serum or Plasma 31 U/L 15-37 [facility] ([facility] ) Alanine aminotransferase [Enzymatic activity/volume] in Seru m or Plasma 26 U/L 12-78 [facility] ([facility]) Proteinase 3 Ab [Units/volume] in Serum 7.6 g/dL 6.4-8.2 [facility] ([facility]) Albumin [Mass/volume] in Serum or Plasma 3.4 g/dL 3.4-5.0 [facility] ([facility]) A/G Ratio 0.81 CALC 1.00-1.90 [facility]) Glomerular filtration rate/1.73 sq M pre dicted among non-blacks [Volume Rate/Area] in Serum or Plasma by Creatinine-based formula (MDRD) Laboratory test result [facility] ([facility] Glomerular filtration rate/1.73 sq M pre dicted among blacks [Volume Rate/Area] in Serum or Plasma by Creatinine-based formula (MDRD) Laboratory test result [facility] ([facility]) <content>CHRONIC KIDNEY DISEASE STAGING PER NKF</content>
<content></content>
<content>STAGE I & II GFR >= 60 NORMAL TO MILDLY DECREASED</content>
<content>STAGE III GFR 30-59 MODERATELY DECREASED</content>
<content>STAGE IV GFR 15-29 SEVERELY DECREASED</content>
<content>STAGE V GFR <15 VERY LITTLE GFR LEFT</content>
<content>ESRD GFR <15 ON OFFSET PRINTER</content>
<content></content> ID Date Data Source [id number] 09/23/2020 01:30:00 PM EDT [facility] Name Value Range Interpretation Code Description Data Mikayla rce(s) Supporting Document(s) Follow Up [facility] WXIZZr0oInLHTiFmUFMiKlkQVNndDAcnKSVuL5H4CXlnGn0YCAklrqAeYUPrSb3+OYTlZY3syw4rUTUu gMy [file] gRz8d/vIqb65KrvB70umCBMGLAqbeMDYSz/STRUCTURAL STEEL IRONWORKER+izAztQ7DizKkuzXR2SFsT1iVF7o5kgW9Xj0UICft3Z [file] LcvikWG0Q2QCmT/J Luis+zr7brcIQyrEDOPc81z4M+aq [file] ana rosa/jWeBTj+MWP4YEp0yKxPRfgxukTaI1J/Qv5tXuDZO9mxP+miB7nobvw32xyqjzPt5SgqTALGLwoW3 [file] Dufqi7tHwmElWv9iTwXejySn1+pfNPYOAneGiE74XmE5CaxJCWqh8//Glucose And Syrup Weigher/W+C0jgSFWVMn+N0zL5XWvi [file] SNlH6zWdLE4HifmVgIBKsqxhVWaw0KqQCk+senior living/iL/ [file] server support technician++il4KzgmOwFIFk7GWddAGhgPVE3oIa53pVERDc7t9STfE0OVLfeRMzF9mCaVTYUSw7hjUXcvlAOQ [file] zarate/FVUZmSL0/P5R/MfVlhBUcWjdD9xGFk26ZiwFJRkyC2Q7rDf4aUulLeUXgycsfTq7YxThRKcaX7u46 cCqB13taE7UIXaQ+KzE/zMu6IqIs4ZfeZkNaDE1TiJ U49YmSVDZAMpFlka7ciKimrylmEXtQilJyzZg/Xo4ApPtxcm/NRHKnjyl9cQYpvew3WSR14FbLtuwWvm nGXXKU/00y0jfkqUzzH1qcqmwOdO1fk6N8zPZDFIS+gmZkexPI7XvC1YEj2ap/Q1w4EpposbQ4b4zIR1 TReuotZOLdEOELrHA0LfA36sXafY3UtkErDQRrJiIJ cQ7DI3O1b2AarAea/AWXACmC/ZwcTjVACOYt33VdOXnNwU3s4fMlqVXansMVMI2Il5j3jMK0Chb2MHAg 6VqllRcTT6QwQRGLeGhl8iOVkHSY8ImTFsR+vJM8je/kjc9bGr7AN78i625dufy+ZmidurIPiid1UAls EUYy65cfuDH5G65/K/YoXR4Z+P9trR1ZGw/gbVxlew +cf4ElA1iPyO1EK7x+biPnkDGZ6ld/7rSpidj+kT5v9GelQpntxfqoliQTIplerpXykBkiPYehTLcYsZ NGQwS9CL6PVpgSDZJjHo+Vs4Qxxg1wcgfcP0Qy5Ek4NImpJK59Xgzubmha+eenVJsp00L/z6nqJdmUIF eoLfpqzJwm0E+GQgfaYD+gHnFE4b0gblQNhG8nSkz6 BYgey/In6Qp4ZmOSY9XlJo0s9A+MHYsT1pL1ffuycO51y4A0fOLJwlWrjebWwr6mpmz116By/5Ru2CKQ z6Bl/7cGPaIyPOcykSGKRnOCYHKQ/3TnX1ggCx+kPmR+85tttEk+ckEdcv9Y35d4r6fevXs0hdRHA+Glucose And Syrup Weigher [file] jose r/aOf8SfiRs9uh2SdPo0+saGuKU1FbkGJNQldVkOp65YkztlFneJl5mOJO4jJw6a3cFZvKy5mWCsVU [file] HhHqnQM6HX/4gr5pV9lgwh7qQsPYQxN5z3qp7baMUhrZKvbtU+A/Up86tDlGT+linux security administrator/Kqgy7QMLXov3Rz [file] xfpP4lYUAsVLVZN18YwKwVbIdG0/food mobile driver/TLEn1jbRuzdFRzThOuo27cZyiLpZW34TY7RZXutlqShqNAur [file] ds08NjtqpK0CKw4m3NV2wwEwkyyV4Jh/sSeXATw+REFERENCE LIBRARY ASSISTANT [file] gxXR0v2hMM+dV72slQs3GqCBXOXqvS8YL/E7SOGc0V/t+xC/OgtsJQROMInw0r3CgMshy54Pfs0/+wood carver hand [file] cj3s3u3F+industrial cleaner+DOZMQj87Ylmf3bzujzzgjKkIiWB47A/NzohHaQEZL21DS7g+2nPDrqKUWLkMwBl72tY DsoINzASkzHcNKoTFT9dXrIr58AY05GKvpUyuNfhZ/ XZ2HNPZZVRfXWWokoQMOuIhhLW3W6Ul87fkwIjZvxwdzzJWE2yJZUNq+NQ6bv/RMllGTGCZHk++RhH1s mRtFNtazD18pK/d9tHry4cJ4EQGKpq4vgw+i2Hu8zUXomwuRwUuwlkr6m/kKnUItWIlLh8gR9mO1KUGN iymobgMxPT02Y+e8edUFON8834MQKnqvvF22bspnGD T4LEtx6L8fZDk8FF5VMvTdWtufpjGzRRRRV6KfVL65x/aVh51C0/FAFdUgTwiY28qtcWGLdnVpgohaG6 peK4le2AV0fBVNt72JWSpK3BPA5b6puksYUoz1/Velazco+jX9h41qOK0bshPkMmVeb4mKSegDH/ga9FVkiw5 [file] ZzQ4ZmIVOdFWBbj4SrT8ngxex2uVV6KE1QBGOdFXHEISE0EYQIAHzWEmBIJOYWYPQTGZYGWuiCEUP5KE EhXwJ3LwK8EMEkBKCkTZZ1IsFFQFGjVpLCSBFEUQC0CswEYpH+JE8Dy207YUMyWYHWA0aaUl5kNeOfUA MtE7d6BOStMm4YoXCfIP0KPvXjO5rpXpYtPSOzFH4+ c6PoUJZsWAp15pZsYFLFBXCEevew0rIItnYXvF2y6n+XHV1gJWn4ifiaiKQN52VTACw3RGpsW3B98hJs jnnTKRROwbJE6sIH2afHI8UUYi8EXC7vs6XfPUJnBDsxhrJhVeeXKYoayLInkKxzMDQQXeRvQhH4PIsI VpWuUP3S ID Date Data Source [id number] 04/15/2020 03:36:00 PM EST [facility] ([facility]) Name Value Range Interpretation Code Description Data Mikayla rce(s) Supporting Document(s) Thyrotropin [Units/volume] in Serum or Plasma by Detec tion limit <= 0.05 mIU/L 3.88 uIU/mL 0.36-3.74 [facility] ([facility] ) ID Date Data Source [id number] 04/15/2020 03:36:00 PM EST [facility] ([facility]) Name Value Range Interpretation Code Description Data Mikayla rce(s) Supporting Document(s) Cholesterol [Mass/volume] in Serum or Plasma 241 mg/dL 131-200 [facility] ([facility]) Triglyceride [Mass/volume] in Serum or Plasma 239 mg/dL 30-150 [facility] ([facility]) Cholesterol in LDL [Mass/volume] in Serum or Plasma by calcu lation 137 CALC 50-159 [facility] ([facility]) Cholesterol in HDL [Mass/volume] in Serum or Plasma 56 mg/dL 35-60 [facility] ([facility]) ID Date Data Source [id number] 04/15/2020 03:36:00 PM EST [facility] ([facility]) Name Value Range Interpretation Code Description Data Mikayla rce(s) Supporting Document(s) Glucose [Mass/volume] in Serum or Plasma 112 mg/dL 74-99 [facility] ([facility]) 100-125 mg/dL PRE-DIABETES/FASTING >126 mg/dL DIABETES/FASTING Sodium [Moles/volume] in Serum or Plasma 139 meq/L 136-145 [facility] ([facility]) Urea nitrogen [Mass/volume] in Serum or Plasma 14 mg/dL 7-18 [facility] ([facility]) Creatinine 0.8 mg/dL 0.6-1.3 [facility] Carbon dioxide, total [Moles/volume] in Serum or Plasma 26 meq/L 21 -32 [facility] ([facility]) Potassium [Moles/volume] in Serum or Plasma 3.9 meq/L 3.5-5.1 [facility] ([facility]) Chloride [Moles/volume] in Serum or Plasma 106 meq/L 98-107 [facility] ([facility]) Calcium [Mass/volume] in Serum or Plasma 9.2 mg/dL 8.5-10.1 [facility] ([facility]) Alkaline phosphatase isoenzyme [Units/volume] in Serum or Pl asma 108 mg/dL 46-116 [facility] ([facility]) Total Bilirubin 0.4 mg/dL 0.2-1.0 [facility] ([facility]) Aspartate aminotransferase [Enzymatic activity/volume] in Serum or Plasma 22 U/L 15-37 [facility] ([facility] ) Albumin [Mass/volume] in Serum or Plasma 3.6 g/dL 3.4-5.0 [facility] ([facility]) Alanine aminotransferase [Enzymatic activity/volume] in Seru m or Plasma 18 U/L 12-78 [facility] ([facility]) Proteinase 3 Ab [Units/volume] in Serum 8.3 g/dL 6.4-8.2 [facility] ([facility]) A/G Ratio 0.77 CALC 1.00-1.90 [facility] ([facility]) Glomerular filtration rate/1.73 sq M pre dicted among non-blacks [Volume Rate/Area] in Serum or Plasma by Creatinine-based formula (MDRD) Laboratory test result [facility] ([facility] Glomerular filtration rate/1.73 sq M pre dicted among blacks [Volume Rate/Area] in Serum or Plasma by Creatinine-based formula (MDRD) Laboratory test result [facility] ([facility]) <content>CHRONIC KIDNEY DISEASE STAGING PER NKF</content>
<content></content>
<content>STAGE I & II GFR >= 60 NORMAL TO MILDLY DECREASED</content>
<content>STAGE III GFR 30-59 MODERATELY DECREASED</content>
<content>STAGE IV GFR 15-29 SEVERELY DECREASED</content>
<content>STAGE V GFR <15 VERY LITTLE GFR LEFT</content>
<content>ESRD GFR <15 ON OFFSET PRINTER</content>
<content></content> ID Date Data Source [id number] 04/15/2020 03:36:00 PM EST [facility] ([facility]) Name Value Range Interpretation Code Description Data Mikayla rce(s) Supporting Document(s) Hemoglobin A1c/Hemoglobin.total in Blood 6.4 % [facility] ([facility]) Lab Result Notes: Pre-Diabetes 5.7 - 6.4 % Diabetes = or > 6.5% Glucose mean value [Mass/volume] in Blood Estimated fr om glycated hemoglobin 137 mg/dL 60-110 [facility] ([facility] ID Date Data Source [id number] 04/15/2020 03:36:00 PM EST [facility] Name Value Range Interpretation Code Description Data Mikayla rce(s) Supporting Document(s) Hemoglobin [Mass/volume] in Blood 15.2 g/dL 12.0-18.0 [facility] ([facility]) Erythrocytes [#/volume] in Blood by Automated count 4.72 x10*6/UL 4.2 0-6.30 [facility] ([facility]) Leukocytes [#/volume] in Blood by Automated count 7.5 x10*3/UL 4.1-10 .9 [facility] ([facility]) Hematocrit [Volume Fraction] of Blood by Automated count 44.0 % 3 7.0-51.0 [facility] ([facility]) MCV 93.1 fL 80.0-97.0 [facility]) MCH 32.1 pg 26.0-32.0 [facility]) MCHC 34.5 g/dL 31.0-38.0 [facility] Platelets [#/volume] in Blood by Automated count 162 x10*3/UL 140-440 [facility] ([facility]) Erythrocyte distribution width [Ratio] by Automated count 13.6 % 11.6-13.7 [facility] ([facility]) Mid % 7.4 % 1.7-9.3 [facility]) Lymph % 24.9 % 10.0-58.5 [facility] MPV 10.0 FL 7.8-11.0 [facility] Neut % 67.7 % 37.0-92.0 [facility] Lymph # 1.8 x10*3/UL 0.6-4.1 [facility] ([facility]) Mid # 0.7 x10*3/UL 0.1-0.6 [facility] ([facility]) Neut # 5.0 x10*3/UL 2.0-7.8 [facility] ([facility]) ID Date Data Source [id number] 02/23/2020 12:00:00 AM EST [facility] Name Value Range Interpretation Code Description Data Mikayla rce(s) Supporting Document(s) SARS-CoV2 Rapid Antigen [facility] This lab was ordered by [facility] and reported by [facility]. ID Date Data Source [id number] 02/10/2020 07:30:43 PM EST [facility] Name Value Range Interpretation Code Description Data Mikayla rce(s) Supporting Document(s) &PDF [facility] WTTAHw4qUgATZsMr46/RRRwbHFWil7SuPDjgIDq5PLaoMHZxQ3UatZdxNV1GNmFULWaKMBWSF3oVIU5m oRX [file] NELL+XOktLGslkAq1hCHeOVYyFi4UNPVeHUXlSEHtXYNjDCMyLBTiQMUnDIYwOWEtUTLzMCLqTLHuOKGa ICAgICAgICAgICAgICAgICAgICAgICAgICAgICAgICAgICAgICAgICAgICAgICAgICAgICAgICAgICAg GA0RLCIaFBPrHIRyOIEkTBAwBZRyPTHfGUIdVVSzLK AgICAgICAgICAgICAgICAgICAgICAgICAgICAgICAgICAgICAgICAgICAgICAgICAgICAgICAgICAgIC QyFUOvCGTeJTJuTR8LRDJvOSDyHHAnEXXdRLTtARLrIYPtXUNlBTNfUHXcBEXiBCPdCFDrOSWyQEIaHF AgICAgICAgICAgICAgICAgICAgICAgICAgICAgICAg ZDZeFSAiGQUoUMBqKMCmLMWaIMHdCV5HOLYqLOCgOBYzDRFkNIZfGKUsTNNxDBBdCUAxFBQnERAiXXTj ICAgICAgICAgICAgICAgICAgICAgICAgICAgICAgICAgICAgICAgICAgICAgICAgICAgICAgICAgICAg JCOqJE1JVJBwBWPiQXHjVKDyAGHoPYWlQXUhMJSdTT AgICAgICAgICAgICAgICAgICAgICAgICAgICAgICAgICAgICAgICAgICAgICAgICAgICAgICAgICAgIC GzSLXyEHDpBWWmIJXzPP7GPNTgXZLqFKUtNCEeDPChUPZqNALvBAEoSUBjVTAjYCMzGACySMBkJTNmEY AgICAgICAgICAgICAgICAgICAgICAgICAgICAgICAg ISZrIFChJWZjVZRkRWEyUGZfDYNdWDAtHH8ISLFwHCDfDKYpLOZtMDBgBQVqGYAdAVXeXMNsNCOgUKWg ICAgICAgICAgICAgICAgICAgICAgICAgICAgICAgICAgICAgICAgICAgICAgICAgICAgICAgICAgICAg DNCaZDTrMO7HWHLiGNIrNQZrUHGfOKLeJYPuWCJkIU AgICAgICAgICAgICAgICAgICAgICAgICAgICAgICAgICAgICAgICAgICAgICAgICAgICAgICAgICAgIC DxXEFrIZJrVWPaHWNwTORuJG8ZMYWoHGFgRLVfOZWgXQEwWVFrNCSkIHPeCHIdBDJdHMTeFDMfRAJiXT AgICAgICAgICAgICAgICAgICAgICAgICAgICAgICAg PMVbAIHlELQcYGIvCOQeYCYhEKRaPDQqPWMdFA8RLCLzWRGbNXHcWVDqZZIaNIQiXHUjRJGtSSKsQWAf ICAgICAgICAgICAgICAgICAgICAgICAgICAgICAgICAgICAgICAgICAgICAgICAgICAgICAgICAgICAg UJPxSLLkSFMcCA8SBV61tGDrn0I9OMXbSO6ktch/Pg 6CDRklnaEwoUAgOE6DKsGzXO9fbo0EUxHlNO7vgs3OTAaBIlVaQ9N7uRPrDJJyWBYWJmZiB33oTJehZn 17GBcxXKRlZnOlHQr1Lh2CVsAxX9xpBXIbMcW6YLKsThSfJVmuXG2Jr6JuzIJkKJb+Lm2ZTQ1mp3JgTD wxYoCpOP2wip1AIKoFZfHjR7Q1rKNzV4Z6XSaiNb9N SLKlJMBePTXrMHELWQvaGG1IUC2adqH5RK2TdFLeAOAiBTBooXLaLAh8D32hmBKwBEujJU1NGCJ+Ralph+ Ul0MRKTlDOIvOXTxEjBlIOPKVdVbC87jnERnRRCpRMK3IGAbFe5IMFMkW3BxxxVmkBcnjoWtPRTuMEYI GC5LVJzultZvtXNsoWyqMM88lKoxHI6YMs1XTnZnFD 8zhf8SlOGrEu1IJYQhLv7OSFUrIEAsDOMgUKK1WUCdZoMoKYklTNFoCYPjEQF8RFFsSEWjWG5AYwWgIK QoLIW8MFGsMWSoFSCkam8UOYAmVLErIbTjWbXlIFFyRLRpYWlcLDWpSFKxRPwrYQTbWLHkHV2ZPwFqNR QkCJW0YEUhWBOrRLYmtw5TOODcBHMmFuM4PiWtBEDn KGFtFZcjIAZlKGZ6YME7JPUwUCAvHK8YQlBmSPTcJUYsNXYdOTRzULZwyd9EKBGdPGRgNASiZjYiJEFj SGHfEDwpKXDcVSF1RvafNDNrFPWlQH2CHzRrTBHuIPS9TAGbJAOiRHIjfe0IQQNtJIUqYFy9MOUzNMFb XRMnJYjnQSUjJSCzNJZfNVPvZKDaVZ2HVgQqTLXzYW G8TencKITgXMMskq6CTTNaCAPlGXx4QhWpNQGcDHVtJZztNQYhUPC7QsPxKVYtCXYwSV7OCnPaALhrQV SHBfm5JYtfY7i4YAXbPi9HC6Vhk0SbWDMoEQNKLHkhWD9fttFwXBOrVy4JT1dQIwo7IVH7DNd5YbJ9Ws EgEIPyOiO0UjH6NLv7B3I6VYE1LL0gHJF8JHw9RAA3 SQHaHpZiNwXzAQG7XZL6SBUgQPSaUoZ5VaQcZR7YJs4QShJ0UHO4lZWqMt5ZGVL8OAzJMqIiHE0ZTHq= ID Date Data Source [id number] 01/09/2020 10:12:48 AM EDT [facility] Malka RichterB: 4Provider: Cayden [...] [place] [facility] [place] are better now. The [...] rce(s) Supporting Document(s) ID Date Data Source [id number] 12/10/2019 07:51:40 AM EDT [facility] Malka Denis: 4Provider: Jenny [...] today inthe office. Indication: pain/dysfunction.); Status:Complete; Done: [id number] Perform:SOS14 (General); Due:[id number]; Last Updated By:Montez Whittaker; 12/07/2019 5:12:33 PM;Ordered; For:Neck pain; Ordered By:Lyubov Kay; Physical Therapy (SOS) - Spinal Physical Therapy Evaluation and Treatment Status:Complete Done: [id number] Ordered;For: Neck pain; Ordered By: Lyubov Kay Performed: Due: [id number]; Last Updated By: Juana Bowden; 12/07/2019 5:22:34 [...] document was dictated and electronically signed using [employer] software. A reasonable attempt at proof reading has been made to minimize errors. Please candelaria l with any questions. Signatures Electronically signed by : Lyubov Kay PA-C; Dec 07 2019 5:51PM EST (Author) Electronically signed by : John Joshi M.D.; Dec 10 2019 7:51AM EST Name Value Range Interpretation Code Description Data Mikayla rce(s) Supporting Document(s) ID Date Data Source [id number] 11/22/2019 09:22:00 PM EDT [facility] ([facility]) Name Value Range Interpretation Code Description Data Mikayla rce(s) Supporting Document(s) Alt/SGPT 42 U/L 12-78 [facility] ([facility]) Ast/Sgot 48 U/L 7-37 [facility] ([facility]) Alkaline Phosphatase 127 U/L 45-117 [facility] ([facility]) Bilirubin,Direct 0.2 mg/dL 0.0-0.2 [facility] ([facility]) Bilirubin,Total 0.9 mg/dL 0.2-1.0 [facility] ([facility]) Albumin 3.6 GM/DL 3.2-5.2 [facility] ([facility]) Albumin/Globulin Ratio 0.9 1.2-2.2 [facility] ([facility]) Total Protein 7.7 GM/DL 6.4-8.2 [facility] ([facility]) ID Date Data Source [id number] 11/22/2019 09:22:00 PM EDT [facility] ([facility]) Name Value Range Interpretation Code Description Data Mikayla rce(s) Supporting Document(s) Erythrocyte sedimentation rate by Westergren method 44 mm/hr 0-30 [facility] ([facility]) ID Date Data Source [id number] 11/22/2019 09:22:00 PM EDT [facility] ([facility]) Name Value Range Interpretation Code Description Data Mikayla rce(s) Supporting Document(s) Red Blood Count 4.61 10 4.00-5.40 [facility] ([facility]) White Blood Count 12.3 10 4.0-10.0 [facility] ([facility]) Mean Corpuscular Volume 96.1 fl 80.0-96.0 [facility] ([facility]) Hematocrit 44.3 % 36.0-47.0 [facility] Hemoglobin 14.7 g/dL 12.0-15.5 [facility] ([facility]) Mean Corpuscular Hemoglobin 31.9 pg 27.0-33.0 [place] [facility] ([facility]) Red Cell Distribution Width 12.8 % 11.5-14.5 [place] [facility] ([facility]) Mean Corpuscular HGB Conc 33.2 g/dL 32.0-36.5 [facility] NT ([facility]) Neutrophils % 77.3 % 36.0-66.0 MEDENT ([facility]) Lymph % 10.9 % 24.0-44.0 [facility] Platelet Count, Automated 149 10 150-450 MEDE NT ([facility]) Eos % 1.2 % 0.0-3.0 [facility]) Baso % 0.2 % 0.0-1.0 [facility] Sac % 10.0 % 0.0-5.0 [facility] Nucleated Red Blood Cell % 0.0 % 0-0 MED ENT ([facility]) Lymph # 1.3 10 1.5-5.0 [facility]) Immature Granulocyte % 0.4 % 0-3.0 MEDENT ([facility]) Neutrophils # 9.5 10 1.5-8.5 MEDENT ([facility]) Sac # 1.2 10 0.0-0.8 [facility]) Eos # 0.2 10 0.0-0.5 [facility] Baso # 0.0 10 0.0-0.2 MEDENT ([place] [facility]) ID Date Data Source [id number] 11/22/2019 09:22:00 PM EDT MEDENT ([facility]) Name Value Range Interpretation Code Description Data Mikayla rce(s) Supporting Document(s) Lactate [Mass/volume] in Serum or Plasma 1.4 mmol/L 0.4-2.0 MEDENT ([facility]) Y/N query for Sepsis Lactate Rule: Y ID Date Data Source [id number] 11/22/2019 09:22:00 PM EDT MEDENT ([facility]) Name Value Range Interpretation Code Description Data Mikayla rce(s) Supporting Document(s) C reactive protein [Mass/volume] in Serum or Plasma by High sensitivity method 3.96 mg/dL 0.00-0.30 MEDENT ([facility] ) ID Date Data Source [id number] 11/22/2019 09:22:00 PM EDT MEDENT ([facility]) Name Value Range Interpretation Code Description Data Mikayla rce(s) Supporting Document(s) Glucose, Fasting 92 mg/dL 70-100 MEDENT ([facility]) Blood Urea Nitrogen 18 mg/dL 7-18 MEDENT ([facility]) Glomerular Filtration Rate [facility] <content>Units are mL/min/1.73 m2</content>
<content></content>
<content>Chronic Kidney Disease Staging per NKF:</content>
<content></content>
<content>Stage I & II GFR >=60 Normal to Mildly Decreased</content>
<content>Stage III GFR 30- 59 Moderately Decreased</content>
<content>Stage IV GFR 15-29 Severely Decreased</content>
<content>Stage V GFR <15 Very Little GFR Left</content>
<content>ESRD GFR <15 on OFFSET PRINTER</content>
<content></content> Creatinine For GFR 0.96 mg/dL 0.55-1.30 MEDENT ([facility]) Sodium Level 138 meq/L 136-145 MEDENT ([facility]) Potassium Serum 4.0 meq/L 3.5-5.1 [facility] ([facility]) Carbon Dioxide Level 25 meq/L 21-32 [facility] ([facility]) Calcium Level 8.9 mg/dL 8.8-10.2 [facility]) Anion Gap 3 meq/L 8-16 [facility] ([facility]) Chloride Level 110 meq/L 98-107 [facility] ([facility]) Procedure Social History Code Duration Value Status Description Data Source(s ) Smoking 01/05/2021 12:00:00 AM EDT Never Smoker completed Never S moker eCW1 ([facility]) Alcohol intake 12/23/2020 12:00:00 AM EDT Current non-d osbaldo of alcohol (finding) completed Current non-drinker of alcohol (finding) [facility] Smoking 12/05/2020 12:00:00 AM EDT Never Smoker completed Never S moker eCW1 ([facility]) Smoking 12/05/2020 12:00:00 AM EDT Never Smoker completed Never S moker eCW1 ([facility]) Alcohol intake 06/17/2020 12:00:00 AM EDT No completed [facility] Smoking 06/17/2020 12:00:00 AM EDT Never smoker completed Never s moker [facility] Smoking 06/12/2020 03:23:02 PM EST Never smoked tobacco (findi ng) completed Never smoked tobacco (finding) OZ (Jay Pleitez MD [facility]) Vital Signs ID Date Data Source UNK Name Value Range Interpretation Code Description Data Source(s) Body weight 202 [lb_av] 202 [lb_av] eCW1 ([facility]) Body height 68 [in_i] 68 [in_i] eCW1 ([facility]) Body mass index (BMI) [Ratio] 30.71 kg/m2 30.71 kg/m2 [facility] ([facility]) Systolic blood pressure 130 mm[Hg] 130 mm[Hg] e CW1 ([facility]) Diastolic blood pressure 72 mm[Hg] 72 mm[Hg] W1 ([facility]) Systolic blood pressure 136 mm[Hg] 136 mm[Hg] [facility] Diastolic blood pressure 82 mm[Hg] 82 mm[Hg] [facility] Heart rate 83 /min 83 /min [facility] Respiratory rate 18 /min 18 /min [facility] Body height 172.7 cm 172.7 cm [facility] Body weight 92.08 kg 92.08 kg [facility] Body mass index (BMI) [Ratio] 30.87 kg/m2 30.87 kg/m2 [facility] Oxygen saturation in Arterial blood by Pulse oximetry 96 % 96 % [facility] Body weight 198.8 [lb_av] 198.8 [lb_av] W1 ([facility]) Body height 68 [in_i] 68 [in_i] eCW1 ([facility]) Body mass index (BMI) [Ratio] 30.22 kg/m2 30.22 kg/m2 W1 ([facility]) Systolic blood pressure 126 mm[Hg] 126 mm[Hg] e CW1 ([facility]) Diastolic blood pressure 78 mm[Hg] 78 mm[Hg] W1 ([facility]) Systolic blood pressure 138 mm[Hg] 138 mm[Hg] [facility] Diastolic blood pressure 100 mm[Hg] 100 mm[Hg] [facility] Heart rate 80 /min 80 /min [facility] Body height 172.7 cm 172.7 cm [facility] Body weight 91.173 kg 91.173 kg [facility] Body mass index (BMI) [Ratio] 30.56 kg/m2 30.56 kg/m2 [facility] Oxygen saturation in Arterial blood by Pulse oximetry 96 % 96 % [facility] Diastolic blood pressure 70 mm[Hg] 70 mm[Hg] MEDENT ([facility]) Heart rate 68 /min 68 /min [facility]) Body height 68 [in_i] 68 [in_i] [facility] 5'8" Body weight 201.00 [lb_av] 201.00 [lb_av] MEDEN T ([facility]) Body mass index (BMI) [Ratio] 30.6 kg/m2 30.6 k g/m2 [facility] ([facility]) Systolic blood pressure 124 mm[Hg] 124 mm[Hg] M EDENT ([facility]) Patient Treatment Plan of Care Planned Activity Planned Date Details Description Data Source (s) 1 ML evolocumab 140 MG/ML Auto-Injector [Repatha] 12/23/2020 12: 00:00 AM EDT [facility] Rosuvastatin calcium 20 MG Oral Tablet 06/17/2020 12:00:00 AM EDT [facility] Metformin hydrochloride 500 MG Oral Tablet 06/17/2020 12:00:00 AM E DT [facility] apixaban 5 MG Oral Tablet 05/02/2020 12:00:00 AM EST [facility] 24 HR metoprolol succinate 100 MG Extended Release Ora l Tablet 11/28/2019 12:00:00 AM EDT [facility] Fenofibrate 160 MG Oral Tablet 05/21/2019 12:00:00 AM EST [facility] Sucralfate 1000 MG Oral Tablet 05/03/2019 12:00:00 AM EST [facility] Rosuvastatin calcium 5 MG Oral Tablet 04/10/2019 12:00:00 AM EST [facility]
--- NOTE | 2021-01-19 17:11 | HPEPDOC ---
[facility] Medical History & Physical Date of Admission Jan 19, 2021 Date of Service: Jan 19, 2021 Primary Care Physician: Jr Escalante Collins Attending Physician: TL COATES DO History and Physical CHIEF COMPLAINT: Shortness of breath HISTORY OF PRESENT ILLNESS: Malka Chris is a 65-year-old female who presented to the emergency room today due to worsening shortness of breath at home. She was admitted recently to [facility] on January 12 for COVID-19 pneumonia. She was discharged on supplemental oxygen at 3 L/min via nasal cannula, she is typically not requiring supplemental oxygen at home. She was also discharged with oral Decadron which the patient elected not to take stating that she felt too nervous to take it. She noticed over the past few days worsening of her shortness of breath. She is also had a persistent cough which is productive of a yellow sputum with red streaking. She denies any chest pain, fevers, chills, nausea, vomiting, diarrhea, abdominal pain. She also notes that she has been off her Eliquis for a few days due to vaginal bleeding. Earlier this month she had a D&C due to abnormal uterine bleeding. In the emergency department, the patient was found to be hypoxic requiring supplemental oxygen at 6 L/min via nasal cannula. She was also noted to have a leukocytosis and tachycardia. CT angiography of the lungs was negative for pulmonary embolus but does show interstitial infiltrates with mild improvement compared to her prior admission. Due to the hypoxic respiratory failure, hospitalist team was called for a dmission. PAST MEDICAL HISTORY: Atrial fibrillation with subsequent sick sinus syndrome, now status post pacemaker placement MERVIN not on CPAP GERD Hypertension Abnormal uterine bleeding Hypothyroidism Fibromyalgia PAST SURGICAL HISTORY: 2 C-sections Pacemaker placement Cholecystectomy D&C in January 2021 SOCIAL HISTORY: Patient is a never smoker. Denies any regular alcohol use. Denies any illicit substance use. 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 REVIEW OF SYSTEMS: CONSTITUTIONAL: Denies fevers, chills, night sweats, unexpected change in weight. HEENT: Denies change in vision, change in hearing. CARDIOVASCULAR: Denies chest pain, palpitations, shortness of breath, light headedness. RESPIRATORY: Per HPI. GASTROINTESTINAL: Denies nausea, vomiting, abdominal pain, diarrhea, constipation, blood in stool. GENITOURINARY: Denies dysuria, urinary frequency, urinary urgency. SKIN: Denies rash, lesions. MUSCULOSKELETAL: Denies new joint pain or muscle aches. NEUROLOGICAL: Denies numbness, weakness. PSYCHIATRIC: Denies change in mood. HOME MEDICATIONS: Please see below. PHYSICAL EXAMINATION: VITAL SIGNS: See below GENERAL: Alert, comfortable, in no acute distress HEENT: Normocephalic, atraumatic, moist mucous membranes NECK: Supple, trachea midline, no lymphadenopathy CARDIOVASCULAR: Regular rate and rhythm, normal S1 and S2. No murmurs appreciated RESPIRATORY: Lung sounds are somewhat diminished throughout bilateral lung cerda. No adventitious lung sounds appreciated ABDOMEN: Soft, nontender, nondistended, bowel sounds present. EXTREMITIES: Trace bilateral edema. Pulses 2+/4 in bilateral upper and lower extremities SKIN: [place], warm, dry NEUROLOGIC: No focal deficits appreciated PSYCHIATRIC: Mood and affect appropriate LABORATORY DATA: See below. IMAGING: (Impressions per radiologist report) Chest x-ray Abnormal lung field opacities as described above suspicious for developing pneumonia. CTA chest No CT evidence of pulmonary embolism. Diffuse interstitial and alveolar infiltrates are mildly improved compared to the prior study. There is mild stable subcarinal adenopathy 1.3 cm in short axis. MICROBIOLOGY: Please see below. ASSESSMENT: 65-year-old female with past medical history of atrial fibrillation with subsequent sick sinus syndrome, now status post pacemaker placement, MERVIN not on CPAP, GERD, hypertension, hypothyroidism, abnormal uterine bleeding, who was recently admitted to the hospital January 12 for COVID-19 pneumonia who presented to the emergency room today due to worsening shortness of breath likely due to progression of COVID-19 pneumonia, admitted for acute hypoxic respiratory failure PLAN: #Acute hypoxic respiratory failure secondary to COVID-19 pneumonia Patient will be restarted on Decadron twice daily 6 mg We will also restart on 5-day course of remdesivir Awake proning and incentive spirometer as tolerated Albuterol inhaler as needed for worsening shortness of breath Monitor oxygen saturation, supplemental oxygen as needed If oxygenation is worsening may require treatment with baricitinib in addition to above # Possible superimposed bacterial pneumonia Procalcitonin elevated at 0.30 We will order sputum culture, blood cultures x2 are pending from the ED Started on antibiotics with ceftriaxone and doxycycline for 7-day course # Sepsis 2/2 COVID-19 pneumonia vs superimposed bacterial PNA Meets 3/4 SIRS criteria with leukocytosis, tachycardia, and hypoxia on admission Elevated lactic acid at 2.4, will recheck at 4 hours. Avoid fluid resuscitation at this time Procalcitonin elevated Blood cultures x2 pending. Sputum culture ordered Treatment as above #Atrial fibrillation with subsequent sick sinus syndrome, status post pacemaker Continue home metoprolol and Eliquis #MERVIN not on CPAP follow up outpatient for sleep study and CPAP titration #GERD Patient is not on medication at home currently, will start a once daily PPI while she is on steroids #Hypertension Continue home spironolactone and metoprolol #Abnormal uterine bleeding Continue Provera #Hypothyroidism Continue home levothyroxine #Fibromyalgia Continue home venlafaxine DVT prophylaxis: Continue home Eliquis full anticoagulation CODE STATUS: Full code Disposition: Pending clinical improvement Vital Signs Vital Signs Date Time Temp Pulse Resp B/P (MAP) Pulse Ox O2 Delivery O2 Flow Rate FiO2 01/19/21 16:00 110 20 152/79 (103) 92 Nasal Cannula 6.0 01/19/21 12:43 97.2 Laboratory Data Labs 24H Laboratory Tests 2 01/19/21 12:49: Immature Granulocyte % (Auto) 4.6H, Neutrophils (%) (Auto) 86.5H, Lymphocytes (%) (Auto) 2.0L, Monocytes (%) (Auto) 6.1, Eosinophils (%) (Auto) 0.3, Basophils (%) (Auto) 0.5, Neutrophils # (Auto) 15.8H, Lymphocytes # (Auto) 0.4L, Monocytes # (Auto) 1.1H, Eosinophils # (Auto) 0.1, Basophils # (Auto) 0.1, Nucleated Red Blood Cells % (auto) 0.0, Prothrombin Time 14.2H, Prothromb Time International Ratio 1.05, Activated Partial Thromboplast Time 34.5, D-Dimer, Quantitative 1404.56H, Blood Gas Bicarbonate Standard 23.9, Venous Blood pH 7.491H, Venous Blood Partial Pressure CO2 27.8L, Venous Blood Partial Pressure O2 89.3H, Venous Blood Total Carbon Dioxide 21.6L, Venous Blood HCO3 20.8L, Venous Blood Oxygen Saturation 97.0H, Venous Blood Base Excess -0.7, Anion Gap 11, Glomerular Filtration Rate > 60.0, Lactic Acid Level 2.8*H, Calcium Level 8.4L, Magnesium Level 1.8, Ferritin 498H, Total Bilirubin 2.1H, Aspartate Amino Transf (AST/SGOT) 61H, Alanine Aminotransferase (ALT/SGPT) 82H, Alkaline Phosphatase 131H, Lactate Dehydrogenase 465H, Total Creatine Kinase 37, Creatine Kinase MB < 1.0, Creatine Kinase MB Relative Index 2.70, Troponin I < 0.02, C-Reactive Protein, Quantitative 14.80H, Total Protein 6.8, Albumin 2.6L, Albumin/Globulin Ratio 0.6L, Procalcitonin 0.30 CBC/BMP Laboratory Tests 01/19/21 12:49 Microbiology Microbiology 01/19/21 Blood Culture, Received Pending 01/19/21 Blood Culture, Received Pending Home Medications Scheduled Apixaban (Eliquis) 5 Mg Tab, 5 MG PO BID Cyanocobalamin (Vitamin B-12) (Vitamin B-12) 1,000 Mcg Tablet, 1,000 MCG PO DAILY Dexamethasone (Dexamethasone) 6 Mg Tablet, 6 MG PO DAILY Levothyroxine Sodium (Synthroid) 88 Mcg Tablet, 88 MCG PO DAILY Medroxyprogesterone Acetate (Medroxyprogesterone Acetate) 10 Mg Tablet, 10 MG PO DAILY Metoprolol Succinate (Metoprolol Succinate) 100 Mg Tab, 100 MG PO BID Spironolactone (Spironolactone) 25 Mg Tab, 25 MG PO DAILY Venlafaxine HCl (Effexor Xr) 37.5 Mg Cap, 112.5 MG PO DAILY Zolpidem Tartrate (Zolpidem Tartrate) 5 Mg Tablet, 5 MG PO QHS Scheduled PRN Acetaminophen (Tylenol Extra Strength) 500 Mg Tablet, 500 MG PO Q4H PRN for PAIN / FEVER Albuterol Sulfate (Albuterol Sulfate Hfa) 8.5 Gm Hfa.aer.ad, 2 PUFF INH QID PRN for SOB/WHEEZING Allergies Coded Allergies: codeine (Verified Allergy, Intermediate, hives, 01/02/21) fentanyl (Verified Adverse Reaction, Intermediate, vomiting, 01/02/21) A-FIB/CHADSVASC A-FIB History Current/History of A-Fib/PAF?: Yes Current PO Anticoag Therapy: Yes GME ATTESTATION GME ATTESTATION My faculty preceptor for this patient encounter was physically present during the encounter and was fully available. All aspects of the patient interview, examination, medical decision making process, and medical care plan development were reviewed and approved by the faculty preceptor. The faculty preceptor is aware and concurs with the plan as stated in the body of this note and will attest to such by his/her cosignature. ATTENDING NOTE I, Tl Coates DO, have independently examined this patient and performed my own physical exam, as well as reviewed the documentation and edited where necess melissa. I have discussed in detail with the resident the findings and plan of treatment as documented by the resident and edited their note. I agree with their findings and treatment plan and have edited their documentation. I will continue to follow the patient during this hospital stay. ELSA BERNAL D.O. Jan 19, 2021 17:11 TL COATES DO Jan 19, 2021 18:20
[2021-01-19] MEDS ORDERED: DEXA6TAB PO (17:39)
[2021-01-19] MEDS ORDERED: ALBU8.5H INH (17:39)
[2021-01-19] MEDS ORDERED: HOME MED LIST COMPLETE! XX SCH (17:40)
[2021-01-19 18:54] VITALS: BP 152/67
[2021-01-19 19:45] VITALS: O2SAT 94
[2021-01-19] MEDS ORDERED: REMDESIVIR 200 MG in NS 250 ML IV ONE (20:00)
[2021-01-19] MEDS ORDERED: SODIUM CHLORIDE 0.9% INJ 10 ML SYR IV ONE (22:00)
[2021-01-19] MEDS: zolPIDEM TARTRATE 5 MG TAB PO SCH (22:11)
[2021-01-19] MEDS: ALBUTEROL 90 MCG/ACT 8GM HFA INHALER INH PRN (22:11)
[2021-01-19] MEDS: DOXYCYCLINE HYCLATE 100 MG in D5W MINI-BAG PLUS 100 ML IV SCH (22:12)
[2021-01-19] MEDS: APIXABAN 5 MG TAB (ELIQUIS) PO SCH (22:12)
[2021-01-19] MEDS: METOPROLOL SUCC (TopROL XL) 100MG *XL* TAB PO SCH (22:21)
[2021-01-19 22:23] VITALS: BP 145/99
[2021-01-20] VITALS (12 sets, daily range): BP systolic 113–133; BP diastolic 55–75; O2SAT 87–94
--- NOTE | 2021-01-20 01:08 | ECGEPIP ---
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
[2021-01-20] MEDS: ACETAMINOPHEN 500 MG TAB PO PRN ×2 (02:05→20:51)
[2021-01-20 06:23] LABS: BASO # 0.1 10^3/uL (0.0-0.2); BASO % 0.5 % (0.0-1.0); HEMATOCRIT 48.1 % (36.0-47.0); HEMOGLOBIN 16.1 g/dl (12.0-15.5); LYMPH # 0.3 10^3/uL (1.5-5.0); LYMPH % 3.1 % (24.0-44.0); MEAN CORPUSCULAR HGB CONC 33.5 g/dl (32.0-36.5); MEAN CORPUSCULAR VOLUME 92.7 fl (80.0-96.0); MONO # 0.8 10^3/uL (0.0-0.8); NEUTROPHILS # 9.3 10^3/uL (1.5-8.5); NEUTROPHILS % 86.2 % (36.0-66.0); PLATELET COUNT, AUTOMATED 133 10^3/uL (150-450); RED BLOOD COUNT 5.19 10^6/uL (4.00-5.40); WHITE BLOOD COUNT 10.8 10^3/uL (4.0-10.0)
[2021-01-20] MEDS: LEVOTHYROXINE 88MCG TABLET (0.088 MG) PO SCH (06:35)
[2021-01-20 06:41] LABS: BLOOD UREA NITROGEN 23 MG/DL (7-18); CALCIUM LEVEL 8.9 MG/DL (8.8-10.2); CARBON DIOXIDE LEVEL 25 MEQ/L (21-32); CHLORIDE LEVEL 106 MEQ/L (98-107); CREATININE FOR GFR 0.83 MG/DL (0.55-1.30); GLOMERULAR FILTRATION RATE > 60.0 (>45); GLUCOSE, FASTING 141 MG/DL (70-100); POTASSIUM SERUM 3.9 MEQ/L (3.5-5.1); SODIUM LEVEL 138 MEQ/L (136-145)
[2021-01-20] MEDS ORDERED: dexameTHASONE 4 MG/ML 1ML VIAL (J1100 PER 1MG) IV SCH (09:00)
[2021-01-20] MEDS: medroxyPROGESTERone 5MG TABLET PO SCH ×2 (09:00→09:24)
[2021-01-20] MEDS: VENLAFAXINE **XR** 37.5 MG CAPSULE PO SCH (09:23)
[2021-01-20] MEDS: METOPROLOL SUCC (TopROL XL) 100MG *XL* TAB PO SCH ×2 (09:24→20:33)
[2021-01-20] MEDS: DOXYCYCLINE HYCLATE 100 MG in D5W MINI-BAG PLUS 100 ML IV SCH ×2 (09:24→20:34)
[2021-01-20] MEDS: APIXABAN 5 MG TAB (ELIQUIS) PO SCH ×2 (09:24→20:29)
[2021-01-20] MEDS: SPIRONOLACTONE 25 MG TAB PO SCH (09:28)
--- NOTE | 2021-01-20 10:23 | IPNPDOC ---
Text Note Date of Service The patient was seen on 01/20/21. NOTE SUBJECTIVE: Patient was seen and examined this morning at bedside. She appears quite anxious and states she is feeling very nervous about her disease. She states her shortness of breath did feel worse overnight. She has required increasing amounts of oxygen supplementation and is now on high flow nasal cannula. OBJECTIVE: VITAL SIGNS: See below GENERAL: Alert, comfortable, in no acute distress HEENT: Normocephalic, atraumatic, moist mucous membranes NECK: Supple, trachea midline, no lymphadenopathy CARDIOVASCULAR: Regular rate and rhythm, normal S1 and S2. No murmurs appreciated RESPIRATORY: Lung sounds are somewhat diminished throughout bilateral lung cerda. No adventitious lung sounds appreciated ABDOMEN: Soft, nontender, nondistended, bowel sounds present. EXTREMITIES: Trace bilateral edema. Pulses 2+/4 in bilateral upper and lower extremities NEUROLOGIC: No focal deficits appreciated PSYCHIATRIC: Mood and affect appropriate ASSESSMENT/PLAN: 65-year-old female with past medical history of atrial fibrillation with subsequent sick sinus syndrome, now status post pacemaker placement, MERVIN not on CPAP, GERD, hypertension, hypothyroidism, abnormal uterine bleeding, who was recently admitted to the hospital January 12 for COVID-19 pneumonia who prese nted to the emergency room today due to worsening shortness of breath likely due to progression of COVID-19 pneumonia, admitted for acute hypoxic respiratory failure #Acute hypoxic respiratory failure secondary to COVID-19 pneumonia Due to worsening hypoxia overnight requiring high flow nasal cannula, will start 14-day course of baricitinib 4 mg p.o. daily Continue on Decadron 10 mg twice daily Continue on 5-day course of remdesivir Awake proning and incentive spirometer as tolerated Albuterol inhaler as needed for worsening shortness of breath Monitor oxygen saturation, supplemental oxygen as needed # Possible superimposed bacterial pneumonia Procalcitonin elevated at 0.30 We will order sputum culture, blood cultures x2 are pending from the ED Continue antibiotics with ceftriaxone and doxycycline day #2 of 7 # Sepsis 2/2 COVID-19 pneumonia vs superimposed bacterial PNA Meets 3/4 SIRS criteria with leukocytosis, tachycardia, and hypoxia on admission Elevated lactic acid at 2.4, improved at 4-hour recheck. Blood cultures x2 pending. Sputum culture ordered Treatment as above #Atrial fibrillation with subsequent sick sinus syndrome, status post pacemaker Continue home metoprolol and Eliquis #MERVIN not on CPAP follow up outpatient for sleep study and CPAP titration #GERD Patient is not on medication at home currently, will start a once daily PPI while she is on steroids #Hypertension Continue home spironolactone and metoprolol #Abnormal uterine bleeding Continue Provera #Hypothyroidism Continue home levothyroxine #Anxiety Continue home venlafaxine DVT prophylaxis: Continue home Eliquis full anticoagulation CODE STATUS: Full code Disposition: Pending clinical improvement VS,Fishbone, I+O VS, Fishbone, I+O Laboratory Tests 01/19/21 12:49 01/20/21 05:32 Vital Signs Date Time Temp Pulse Resp B/P (MAP) Pulse Ox O2 Delivery O2 Flow Rate FiO2 01/20/21 09:24 71 133/75 01/20/21 06:05 93 High Flow Cannula 14.0 01/20/21 06:00 97.7 18 I&O- Last 24 Hours up to 6 AM 01/20/21 06:00 Intake Total 170 ml Balance 170 ml GME ATTESTATION GME ATTESTATION My faculty preceptor for this patient encounter was physically present during the encounter and was fully available. All aspects of the patient interview, examination, medical decision making process, and medical care plan development were reviewed and approved by the faculty preceptor. The faculty preceptor is aware and concurs with the plan as stated in the body of this note and will attest to such by his/her cosignature. ATTENDING NOTE I, Lonny Aguilera, have independently examined this patient and performed my own physical exam, as well as reviewed the documentation and edited where necessary with the resident. For medical students we have performed the physical exam together and discussed medical decision making and I have verified the history. I have discussed in detail with the resident / student the findings and plan of treatment as documented by the resident / student and edited their note. I agree with their findings and treatment plan and have edited their documentation. I will continue to follow the patient during this hospital stay. ELSA BERNAL D.O. Jan 20, 2021 10:23 LONNY AGUILERA MD Jan 20, 2021 14:36
[2021-01-20] MEDS: hydrOXYzine 25 MG TAB PO PRN (13:27)
[2021-01-20] MEDS: BARICITINIB 2MG TABLET (OLUMIANT) FOR EUA PO SCH (13:27)
[2021-01-20] MEDS: cefTRIAXone SOD 1 GM in D5W MINI-BAG PLUS 50 ML IV SCH (17:19)
[2021-01-20] MEDS: REMDESIVIR 100 MG in NS 250 ML IV SCH (18:41)
[2021-01-20] MEDS: zolPIDEM TARTRATE 5 MG TAB PO SCH (20:28)
[2021-01-20] MEDS: dexameTHASONE 4 MG/ML 1ML VIAL (J1100 PER 1MG) IV SCH (20:28)
[2021-01-20] MEDS: guaiFENesin ER 600 MG TAB PO SCH (20:28)
[2021-01-20] MEDS: SODIUM CHLORIDE 0.9% INJ 10 ML SYR IV SCH (20:35)
[2021-01-21] VITALS (7 sets, daily range): BP systolic 117–130; BP diastolic 54–73; O2SAT 90–95
[2021-01-21 05:52] LABS: BASO % 0.3 % (0.0-1.0); HEMATOCRIT 44.3 % (36.0-47.0); HEMOGLOBIN 14.9 g/dl (12.0-15.5); LYMPH # 0.5 10^3/uL (1.5-5.0); LYMPH % 6.8 % (24.0-44.0); MEAN CORPUSCULAR HEMOGLOBIN 31.3 pg (27.0-33.0); MEAN CORPUSCULAR HGB CONC 33.6 g/dl (32.0-36.5); MEAN CORPUSCULAR VOLUME 93.1 fl (80.0-96.0); MONO # 0.4 10^3/uL (0.0-0.8); MONO % 6.4 % (2.0-8.0); NEUTROPHILS # 5.8 10^3/uL (1.5-8.5); NEUTROPHILS % 83.5 % (36.0-66.0); PLATELET COUNT, AUTOMATED 126 10^3/uL (150-450); RED BLOOD COUNT 4.76 10^6/uL (4.00-5.40); WHITE BLOOD COUNT 6.9 10^3/uL (4.0-10.0)
[2021-01-21 06:04] LABS: ABG BASE EXCESS -2.2 (-2.0-2.0); ABG HCO3 20.9 MEQ/L (22.0-26.0); ABG O2 SATURATION 96.2 % (95.0-99.0); ABG PARTIAL PRESSURE CO2 31.7 mmHg (35.0-45.0); ABG PARTIAL PRESSURE O2 85.4 mmHg (75.0-100.0); ABG STANDARD HCO3 22.6 MEQ/L (22.0-26.0); ABG TOTAL CO2 21.9 MEQ/L (23.0-31.0); ABG pH (ARTERIAL) 7.437 UNITS (7.350-7.450)
[2021-01-21 06:19] LABS: ALT/SGPT 49 U/L (12-78); BILIRUBIN,DIRECT 0.2 MG/DL (0.0-0.2); BILIRUBIN,TOTAL 0.6 MG/DL (0.2-1.0); BLOOD UREA NITROGEN 31 MG/DL (7-18); CALCIUM LEVEL 8.4 MG/DL (8.8-10.2); CARBON DIOXIDE LEVEL 27 MEQ/L (21-32); CHLORIDE LEVEL 106 MEQ/L (98-107); CREATININE FOR GFR 0.93 MG/DL (0.55-1.30); GLOMERULAR FILTRATION RATE > 60.0 (>45); GLUCOSE, FASTING 166 MG/DL (70-100); MAGNESIUM LEVEL 2.1 MG/DL (1.8-2.4); POTASSIUM SERUM 4.2 MEQ/L (3.5-5.1); SODIUM LEVEL 138 MEQ/L (136-145); TOTAL PROTEIN 6.7 GM/DL (6.4-8.2)
[2021-01-21] MEDS: LEVOTHYROXINE 88MCG TABLET (0.088 MG) PO SCH (06:31)
[2021-01-21] MEDS ORDERED: dexameTHASONE 4 MG/ML 1ML VIAL (J1100 PER 1MG) IV SCH (09:00)
[2021-01-21] MEDS: VENLAFAXINE **XR** 37.5 MG CAPSULE PO SCH (09:11)
[2021-01-21] MEDS: dexameTHASONE 4 MG/ML 1ML VIAL (J1100 PER 1MG) IV SCH ×2 (09:11→21:46)
[2021-01-21] MEDS: medroxyPROGESTERone 5MG TABLET PO SCH (09:11)
[2021-01-21] MEDS: guaiFENesin ER 600 MG TAB PO SCH ×2 (09:12→21:47)
[2021-01-21] MEDS: BARICITINIB 2MG TABLET (OLUMIANT) FOR EUA PO SCH (09:12)
[2021-01-21] MEDS: METOPROLOL SUCC (TopROL XL) 100MG *XL* TAB PO SCH ×2 (09:12→21:50)
[2021-01-21] MEDS: DOXYCYCLINE HYCLATE 100 MG in D5W MINI-BAG PLUS 100 ML IV SCH ×2 (09:12→21:46)
[2021-01-21] MEDS: APIXABAN 5 MG TAB (ELIQUIS) PO SCH ×2 (09:12→21:50)
[2021-01-21] MEDS: SPIRONOLACTONE 25 MG TAB PO SCH (09:13)
[2021-01-21] MEDS: ACETAMINOPHEN 500 MG TAB PO PRN ×2 (09:47→21:47)
--- NOTE | 2021-01-21 10:41 | IPNPDOC ---
Text Note Date of Service The patient was seen on 01/21/21. NOTE SUBJECTIVE: Patient was seen and examined this morning at bedside. She appears much more calm than yesterday. She states that she continues to feel short of breath especially with movement. She also reports some chills. She does not feel any worse than yesterday, but does not feel much improved either. OBJECTIVE: VITAL SIGNS: See below GENERAL: Alert, comfortable, in no acute distress HEENT: Normocephalic, atraumatic, moist mucous membranes NECK: Supple, trachea midline, no lymphadenopathy CARDIOVASCULAR: Regular rate and rhythm, normal S1 and S2. No murmurs apprec iated RESPIRATORY: Lung sounds are somewhat diminished throughout bilateral lung cerda. No adventitious lung sounds appreciated ABDOMEN: Soft, nontender, nondistended, bowel sounds present. EXTREMITIES: Trace bilateral edema. Pulses 2+/4 in bilateral upper and lower extremities NEUROLOGIC: No focal deficits appreciated PSYCHIATRIC: Mood and affect appropriate ASSESSMENT/PLAN: 65-year-old female with past medical history of atrial fibrillation with subsequent sick sinus syndrome, now status post pacemaker placement, MERVIN not on CPAP, GERD, hypertension, hypothyroidism, abnormal uterine bleeding, who was recently admitted to the hospital January 12 for COVID-19 pneumonia who presented to the emergency room today due to worsening shortness of breath likely due to progression of COVID-19 pneumonia, admitted for acute hypoxic respiratory failure #Acute hypoxic respiratory failure secondary to COVID-19 pneumonia Continue on 14-day course of baricitinib 4 mg p.o. daily Continue on Decadron 10 mg twice daily Continue on 5-day course of remdesivir Awake proning and incentive spirometer as tolerated Albuterol inhaler as needed for shortness of breath/wheezing Monitor oxygen saturation, supplemental oxygen as needed. Currently she is on Vapotherm at 40 L/min FiO2 100%. If worsening, may need transfer to ICU for CPAP # Possible superimposed bacterial pneumonia Procalcitonin elevated at 0.30 We will order sputum culture, blood cultures x2 are pending from the ED Continue antibiotics with ceftriaxone and doxycycline day #3 of 7 # Sepsis 2/2 COVID-19 pneumonia vs superimposed bacterial PNA Meets 3/4 SIRS criteria with leukocytosis, tachycardia, and hypoxia on admis titus Elevated lactic acid at 2.4, improved at 4-hour recheck. Blood cultures x2 pending. Sputum culture ordered Treatment as above #Atrial fibrillation with subsequent sick sinus syndrome, status post pacemaker Continue home metoprolol and Eliquis #MERVIN not on CPAP follow up outpatient for sleep study and CPAP titration #GERD Patient is not on medication at home currently, will continue once daily PPI while she is on steroids #Hypertension Continue home spironolactone and metoprolol #Abnormal uterine bleeding Continue Provera #Hypothyroidism Continue home levothyroxine #Anxiety Continue home venlafaxine DVT prophylaxis: Continue home Eliquis full anticoagulation CODE STATUS: Full code Disposition: Pending clinical improvement VS,Fishbone, I+O VS, Fishbone, I+O Laboratory Tests 01/21/21 05:17 Vital Signs Date Time Temp Pulse Resp B/P (MAP) Pulse Ox O2 Delivery O2 Flow Rate FiO2 01/21/21 05:39 92 HVNI-Vapotherm 40.0 100 01/21/21 05:25 97.5 63 18 117/54 (75) I&O- Last 24 Hours up to 6 AM 01/21/21 06:00 Intake Total 1510 ml Balance 1510 ml GME ATTESTATION GME ATTESTATION My faculty preceptor for this patient encounter was physically present during the encounter and was fully available. All aspects of the patient interview, examination, medical decision making process, and medical care plan development were reviewed and approved by the faculty preceptor. The faculty preceptor is aware and concurs with the plan as stated in the body of this note and will attest to such by his/her cosignature. ATTENDING NOTE I, Lonny Aguilera, have independently examined this patient and performed my own physical exam, as well as reviewed the documentation and edited where necessary with the resident. For medical students we have performed the physical exam together and discussed medical decision making and I have verified the history. I have discussed in detail with the resident / student the findings and plan of treatment as documented by the resident / student and edited their note. I agree with their findings and treatment plan and have edited their documentation. I will continue to follow the patient during this hospital stay. ELSA BERNAL D.O. Jan 21, 2021 10:41 LONNY AGUILERA MD Jan 21, 2021 12:14
[2021-01-21] MEDS: REMDESIVIR 100 MG in NS 250 ML IV SCH (17:29)
[2021-01-21] MEDS: cefTRIAXone SOD 1 GM in D5W MINI-BAG PLUS 50 ML IV SCH (17:29)
[2021-01-21] MEDS: SODIUM CHLORIDE 0.9% INJ 10 ML SYR IV SCH (17:30)
[2021-01-21] MEDS: zolPIDEM TARTRATE 5 MG TAB PO SCH (21:50)
[2021-01-22] VITALS (8 sets, daily range): BP systolic 126–142; BP diastolic 60–70; O2SAT 90–94
[2021-01-22] MEDS: LEVOTHYROXINE 88MCG TABLET (0.088 MG) PO SCH (06:36)
[2021-01-22 07:45] LABS: BASO % 0.1 % (0.0-1.0); HEMATOCRIT 44.7 % (36.0-47.0); HEMOGLOBIN 14.8 g/dl (12.0-15.5); LYMPH # 0.4 10^3/uL (1.5-5.0); MEAN CORPUSCULAR HGB CONC 33.1 g/dl (32.0-36.5); MEAN CORPUSCULAR VOLUME 93.7 fl (80.0-96.0); MONO # 0.7 10^3/uL (0.0-0.8); MONO % 6.6 % (2.0-8.0); NEUTROPHILS # 9.5 10^3/uL (1.5-8.5); NEUTROPHILS % 87.9 % (36.0-66.0); PLATELET COUNT, AUTOMATED 110 10^3/uL (150-450); RED BLOOD COUNT 4.77 10^6/uL (4.00-5.40); WHITE BLOOD COUNT 10.8 10^3/uL (4.0-10.0)
[2021-01-22 08:05] LABS: BLOOD UREA NITROGEN 32 MG/DL (7-18); CALCIUM LEVEL 8.1 MG/DL (8.8-10.2); CARBON DIOXIDE LEVEL 24 MEQ/L (21-32); CHLORIDE LEVEL 107 MEQ/L (98-107); CREATININE FOR GFR 0.91 MG/DL (0.55-1.30); GLOMERULAR FILTRATION RATE > 60.0 (>45); GLUCOSE, FASTING 166 MG/DL (70-100); POTASSIUM SERUM 4.2 MEQ/L (3.5-5.1); SODIUM LEVEL 140 MEQ/L (136-145)
[2021-01-22] MEDS: DOXYCYCLINE HYCLATE 100 MG in D5W MINI-BAG PLUS 100 ML IV SCH ×2 (09:00→20:36)
[2021-01-22] MEDS: APIXABAN 5 MG TAB (ELIQUIS) PO SCH ×2 (09:01→20:36)
[2021-01-22] MEDS: dexameTHASONE 4 MG/ML 1ML VIAL (J1100 PER 1MG) IV SCH ×2 (09:01→20:36)
[2021-01-22] MEDS: SPIRONOLACTONE 25 MG TAB PO SCH (09:01)
[2021-01-22] MEDS: VENLAFAXINE **XR** 37.5 MG CAPSULE PO SCH (09:01)
[2021-01-22] MEDS: medroxyPROGESTERone 5MG TABLET PO SCH (09:02)
[2021-01-22] MEDS: BARICITINIB 2MG TABLET (OLUMIANT) FOR EUA PO SCH (09:02)
[2021-01-22] MEDS: guaiFENesin ER 600 MG TAB PO SCH ×2 (09:02→20:36)
[2021-01-22] MEDS: METOPROLOL SUCC (TopROL XL) 100MG *XL* TAB PO SCH ×3 (09:06→21:00)
--- NOTE | 2021-01-22 09:41 | IPNPDOC ---
Text Note Date of Service The patient was seen on 01/22/21. NOTE SUBJECTIVE: Patient was seen and examined this morning at bedside. She states that she was able to get up to a chair yesterday for a couple of hours and plans to the same today. She is eating breakfast and states that she does have some decreased taste but is able to tolerate food without vomiting. She denies any diarrhea or abdominal pain. She states overall she is feeling better than when she came in. OBJECTIVE: VITAL SIGNS: See below GENERAL: Alert, comfortable, in no acute distress HEENT: Normocephalic, atraumatic, moist mucous membranes NECK: Supple, trachea midline, no lymphadenopathy CARDIOVASCULAR: Regular rate and rhythm, normal S1 and S2. No murmurs appreci ated RESPIRATORY: Lung sounds are somewhat diminished throughout bilateral lung cerda. No adventitious lung sounds appreciated ABDOMEN: Soft, nontender, nondistended, bowel sounds present. EXTREMITIES: Trace bilateral edema. Pulses 2+/4 in bilateral upper and lower extremities NEUROLOGIC: No focal deficits appreciated PSYCHIATRIC: Mood and affect appropriate ASSESSMENT/PLAN: 65-year-old female with past medical history of atrial fibrillation with subsequent sick sinus syndrome, now status post pacemaker placement, MERVIN not on CPAP, GERD, hypertension, hypothyroidism, abnormal uterine bleeding, who was recently admitted to the hospital January 12- for COVID-19 pneumonia who presented to the emergency room today due to worsening shortness of breath likely due to progression of COVID-19 pneumonia, admitted for acute hypoxic respiratory failure #Acute hypoxic respiratory failure secondary to COVID-19 pneumonia Continue on 14-day course of baricitinib 4 mg p.o. daily Continue on Decadron 10 mg twice daily Continue on 5-day course of remdesivir Awake proning and incentive spirometer as tolerated Albuterol inhaler as needed for shortness of breath/wheezing Monitor oxygen saturation, supplemental oxygen as needed. Currently she is on Vapotherm at 40 L/min FiO2 100%. If worsening, may need transfer to ICU for CPAP # Possible superimposed bacterial pneumonia Procalcitonin elevated at 0.30 Sputum culture pending, blood cultures x2 are negative at 48 hours Continue antibiotics with ceftriaxone and doxycycline day #4 of 7 # Sepsis 2/2 COVID-19 pneumonia vs superimposed bacterial PNA Meets 3/4 SIRS criteria with leukocytosis, tachycardia, and hypoxia on admission Elevated lactic acid at 2.4, improved at 4-hour recheck. Blood cultures x2. Sputum culture ordered Treatment as above #Atrial fibrillation with subsequent sick sinus syndrome, status post pacemaker Continue home metoprolol and Eliquis #MERVIN not on CPAP follow up outpatient for sleep study and CPAP titration #GERD Patient is not on medication at home currently, will continue once daily PPI while she is on steroids #Hypertension Continue home spironolactone and metoprolol #Abnormal uterine bleeding Continue Provera #Hypothyroidism Continue home levothyroxine #Anxiety Continue home venlafaxine DVT prophylaxis: Continue home Eliquis full anticoagulation CODE STATUS: Full code Disposition: Pending clinical improvement VS,Fishbone, I+O VS, Fishbone, I+O Laboratory Tests 01/22/21 07:32 Vital Signs Date Time Temp Pulse Resp B/P (MAP) Pulse Ox O2 Delivery O2 Flow Rate FiO2 01/22/21 09:06 69 125/60 01/22/21 06:38 98.2 20 92 HVNI-Vapotherm 40.0 100 I&O- Last 24 Hours up to 6 AM 01/22/21 06:00 Intake Total 1540 ml Balance 1540 ml GME ATTESTATION GME ATTESTATION My faculty preceptor for this patient encounter was physically present during the encounter and was fully available. All aspects of the patient interview, examination, medical decision making process, and medical care plan development were reviewed and approved by the faculty preceptor. The faculty preceptor is aware and concurs with the plan as stated in the body of this note and will attest to such by his/her cosignature. ATTENDING NOTE I, Lonny Aguilera, have independently examined this patient and performed my own physical exam, as well as reviewed the documentation and edited where necessary with the resident. For medical students we have performed the physical exam together and discussed medical decision making and I have verified the history. I have discussed in detail with the resident / student the findings and plan of treatment as documented by the resident / student and edited their note. I agree with their findings and treatment plan and have edited their documentation. I will continue to follow the patient during this hospital stay. ELSA BERNAL D.O. Jan 22, 2021 09:41 LONNY AGUILERA MD Jan 22, 2021 14:44
[2021-01-22] MEDS ORDERED: cefTRIAXone SOD 1 GM in D5W MINI-BAG PLUS 50 ML IV SCH (13:10)
[2021-01-22] MEDS: REMDESIVIR 100 MG in NS 250 ML IV SCH (17:51)
[2021-01-22] MEDS: SODIUM CHLORIDE 0.9% INJ 10 ML SYR IV SCH (17:51)
[2021-01-22] MEDS: cefTRIAXone SOD 1 GM in D5W MINI-BAG PLUS 50 ML IV SCH (19:09)
[2021-01-22] MEDS: zolPIDEM TARTRATE 5 MG TAB PO SCH (20:36)
[2021-01-22 23:57] LABS: ABG BASE EXCESS -1.7 (-2.0-2.0); ABG HCO3 21.3 MEQ/L (22.0-26.0); ABG O2 SATURATION 99.1 % (95.0-99.0); ABG PARTIAL PRESSURE CO2 31.8 mmHg (35.0-45.0); ABG PARTIAL PRESSURE O2 155.6 mmHg (75.0-100.0); ABG STANDARD HCO3 23.1 MEQ/L (22.0-26.0); ABG TOTAL CO2 22.2 MEQ/L (23.0-31.0); ABG pH (ARTERIAL) 7.443 UNITS (7.350-7.450)
[2021-01-23] VITALS (9 sets, daily range): BP systolic 112–150; BP diastolic 59–80; O2SAT 85–94
[2021-01-23] MEDS: ALBUTEROL 90 MCG/ACT 8GM HFA INHALER INH PRN (01:16)
[2021-01-23] MEDS ORDERED: ALBUTEROL SULFATE 2.5 MG/0.5 ML INH NEB SOLN NEB PRN (02:00)
[2021-01-23] MEDS: COMBIVENT RESPIMAT 100-20MCG INHALER 4GM INH SCH ×4 (02:00→20:34)
--- NOTE | 2021-01-23 02:07 | IPNPDOC ---
Text Note Date of Service The patient was seen on 01/23/21. NOTE RatePatient seen after dyspnea on exertion desat episode SPO2 86 to 87%. RN reports that patient has been running 88 to 91%. Stat ABG ordered and Combivent inhaler. Patient seen at bedside on max Vapotherm with overlying nonrebreather and satting 95% status post Combivent inhaler. She appears comfortable and not distressed. She does not appear hypervolemic. She is not tachycardic. RRR. She does have notable fine rales bilaterally to auscultation. She reports that she was able to cough up mucus prior to room entry. She denies feeling more short of breath. She is alert oriented x3 and otherwise appears comfortable laying on her right side. Discussed how getting up to bedside commode has been dropping her saturation and patient encourage to bedpan or pure wic use tonight while we monitor her response and adjust medications; she has agreed. Given patient with desat episodes with exertion so frequently and she has maxed on oxygenation will adjust to PCU status at this point. Added Combivent as mentioned. She remarks regarding some nasal congestion and will add Flonase. Since she has a negative pressure room opted for nebulizer albuterol per new policy adjustments. May change Combivent to DuoNeb's pending patient response. Goal for SPO2 greater than 88% as long as patient not distressed and mentating well. ABG recheck in a.m. to see how she is compensating. Should patient have any acute changes or ABG shows worsening oxygenation would opt for ICU transfer. [place]. VS,Fishbone, I+O VS, Fishbone, I+O Laboratory Tests 01/22/21 07:32 Vital Signs Date Time Temp Pulse Resp B/P (MAP) Pulse Ox O2 Delivery O2 Flow Rate FiO2 01/23/21 00:00 92 HVNI-Vapotherm 40.0 100 01/22/21 22:28 20 01/22/21 22:00 97.4 60 126/60 (82) I&O- Last 24 Hours up to 6 AM 01/23/21 06:00 Intake Total 1910 ml Balance 1910 ml DAVID PARK NP Jan 23, 2021 02:07
[2021-01-23] MEDS: LEVOTHYROXINE 88MCG TABLET (0.088 MG) PO SCH (06:00)
[2021-01-23 07:32] LABS: BASO % 0.1 % (0.0-1.0); HEMATOCRIT 46.6 % (36.0-47.0); HEMOGLOBIN 15.5 g/dl (12.0-15.5); LYMPH # 0.4 10^3/uL (1.5-5.0); LYMPH % 2.9 % (24.0-44.0); MEAN CORPUSCULAR HEMOGLOBIN 31.2 pg (27.0-33.0); MEAN CORPUSCULAR HGB CONC 33.3 g/dl (32.0-36.5); MEAN CORPUSCULAR VOLUME 93.8 fl (80.0-96.0); MONO % 6.6 % (2.0-8.0); NEUTROPHILS # 13.6 10^3/uL (1.5-8.5); PLATELET COUNT, AUTOMATED 110 10^3/uL (150-450); RED BLOOD COUNT 4.97 10^6/uL (4.00-5.40); WHITE BLOOD COUNT 15.2 10^3/uL (4.0-10.0)
[2021-01-23 07:52] LABS: ALBUMIN 2.1 GM/DL (3.2-5.2); ALT/SGPT 43 U/L (12-78); BILIRUBIN,DIRECT 0.3 MG/DL (0.0-0.2); BILIRUBIN,TOTAL 0.8 MG/DL (0.2-1.0); BLOOD UREA NITROGEN 30 MG/DL (7-18); CALCIUM LEVEL 8.4 MG/DL (8.8-10.2); CARBON DIOXIDE LEVEL 23 MEQ/L (21-32); CHLORIDE LEVEL 109 MEQ/L (98-107); CREATININE FOR GFR 0.82 MG/DL (0.55-1.30); GLOMERULAR FILTRATION RATE > 60.0 (>45); GLUCOSE, FASTING 168 MG/DL (70-100); MAGNESIUM LEVEL 1.9 MG/DL (1.8-2.4); POTASSIUM SERUM 4.5 MEQ/L (3.5-5.1); SODIUM LEVEL 139 MEQ/L (136-145); TOTAL PROTEIN 5.9 GM/DL (6.4-8.2)
--- NOTE | 2021-01-23 09:41 | IPNPDOC ---
Text Note Date of Service The patient was seen on 01/23/21. NOTE SUBJECTIVE: Patient was seen and examined this morning at bedside. She states she had some trouble last night due to her oxygen level dropping. Currently she states she is feeling about the same as yesterday. No new concerns. OBJECTIVE: VITAL SIGNS: See below GENERAL: Alert, comfortable, in no acute distress HEENT: Normocephalic, atraumatic, moist mucous membranes NECK: Supple, trachea midline, no lymphadenopathy CARDIOVASCULAR: Regular rate and rhythm, normal S1 and S2. No murmurs appreciated RESPIRATORY: Lung sounds are somewhat diminished throughout bilateral lung cerda. No adventitious lung sounds appreciated ABDOMEN: Soft, nontender, nondistended, bowel sounds present. EXTREMITIES: Trace bilateral edema. Pulses 2+/4 in bilateral upper and lower extremities NEUROLOGIC: No focal deficits appreciated PSYCHIATRIC: Mood and affect appropriate ASSESSMENT/PLAN: 65-year-old female with past medical history of atrial fibrillation with subsequent sick sinus syndrome, now status post pacemaker placement, MERVIN not on CPAP, GERD, hypertension, hypothyroidism, abnormal uterine bleeding, who was recently admitted to the hospital January 12 for COVID-19 pneumonia who presented to the emergency room today due to worsening shortness of breath likely due to progression of COVID-19 pneumonia, admitted for acute hypoxic respiratory failure #Acute hypoxic respiratory failure secondary to COVID-19 pneumonia Continue on 14-day course of baricitinib 4 mg p.o. daily Continue on Decadron 10 mg twice daily Continue on 5-day course of remdesivir Awake proning and incentive spirometer as tolerated Albuterol inhaler as needed for shortness of breath/wheezing Monitor oxygen saturation, supplemental oxygen as needed. Currently she is on Vapotherm at 40 L/min FiO2 100%. If worsening, may need transfer to ICU for CPAP # Possible superimposed bacterial pneumonia Procalcitonin elevated at 0.30 Sputum culture pending, blood cultures x2 are negative at 48 hours Continue antibiotics with ceftriaxone and doxycycline day #5 of 7 # Sepsis 2/2 COVID-19 pneumonia vs superimposed bacterial PNA Meets 3/4 SIRS criteria with leukocytosis, tachycardia, and hypoxia on admission Elevated lactic acid at 2.4, improved at 4-hour recheck. Blood cultures x2. Sputum culture ordered Treatment as above #Atrial fibrillation with subsequent sick sinus syndrome, status post pacemaker Continue home metoprolol and Eliquis #MERVIN not on CPAP follow up outpatient for sleep study and CPAP titration #GERD Patient is not on medication at home currently, will continue once daily PPI while she is on steroids #Hypertension Continue home spironolactone and metoprolol #Abnormal uterine bleeding Continue Provera #Hypothyroidism Continue home levothyroxine #Anxiety Continue home venlafaxine DVT prophylaxis: Continue home Eliquis full anticoagulation CODE STATUS: Full code Disposition: Pending clinical improvement VS,Fishbone, I+O VS, Fishbone, I+O Laboratory Tests 01/23/21 06:47 Vital Signs Date Time Temp Pulse Resp B/P (MAP) Pulse Ox O2 Delivery O2 Flow Rate FiO2 01/23/21 08:23 91 HVNI-Vapotherm 40.0 100 01/23/21 08:00 98.5 69 17 126/62 (83) I&O- Last 24 Hours up to 6 AM 01/23/21 06:00 Intake Total 2030 ml Output Total 250 ml Balance 1780 ml GME ATTESTATION GME ATTESTATION My faculty preceptor for this patient encounter was physically present during the encounter and was fully available. All aspects of the patient interview, examination, medical decision making process, and medical care plan development were reviewed and approved by the faculty preceptor. The faculty preceptor is aware and concurs with the plan as stated in the body of this note and will attest to such by his/her cosignature. ATTENDING NOTE I, Lonny Aguilera, have independently examined this patient and performed my own physical exam, as well as reviewed the documentation and edited where necessary with the resident. For medical students we have performed the physical exam together and discussed medical decision making and I have verified the history. I have discussed in detail with the resident / student the findings and plan of treatment as documented by the resident / student and edited their note. I agree with their findings and treatment plan and have edited their documentation. I will continue to follow the patient during this hospital stay. ELSA BERNAL D.O. Jan 23, 2021 09:41 LONNY AGUILERA MD Jan 23, 2021 14:37
[2021-01-23] MEDS: FLUTICASONE PROP 0.05% NASAL SPRAY 16 GM (FLONASE) NARES SCH ×2 (09:47→21:10)
[2021-01-23] MEDS: DOXYCYCLINE HYCLATE 100 MG in D5W MINI-BAG PLUS 100 ML IV SCH ×2 (09:47→21:17)
[2021-01-23] MEDS: dexameTHASONE 4 MG/ML 1ML VIAL (J1100 PER 1MG) IV SCH ×2 (09:48→20:30)
[2021-01-23] MEDS: BARICITINIB 2MG TABLET (OLUMIANT) FOR EUA PO SCH (09:49)
[2021-01-23] MEDS: guaiFENesin ER 600 MG TAB PO SCH ×2 (09:49→20:31)
[2021-01-23] MEDS: medroxyPROGESTERone 5MG TABLET PO SCH (09:50)
[2021-01-23] MEDS: VENLAFAXINE **XR** 37.5 MG CAPSULE PO SCH (09:50)
[2021-01-23] MEDS: METOPROLOL SUCC (TopROL XL) 100MG *XL* TAB PO SCH ×2 (09:50→20:31)
[2021-01-23] MEDS: APIXABAN 5 MG TAB (ELIQUIS) PO SCH ×2 (09:50→20:30)
[2021-01-23] MEDS: SPIRONOLACTONE 25 MG TAB PO SCH (09:50)
--- NOTE | 2021-01-23 11:23 | REP ---
INDICATION: interval check. COMPARISON: 01/19/2021. TECHNIQUE: Single portable AP view of the chest was performed. FINDINGS: There are increased infiltrates involving both lower lungs when compared to prior study. The heart and mediastinum are unchanged. Left pacemaker is unchanged. IMPRESSION: Increased bilateral infiltrates. <Electronically signed by Cecil Alvarez > 01/23/21 1126
[2021-01-23 15:23] LABS: C REACTIVE PROTEIN QUANTITATIV 1.31 MG/DL (0.00-0.30); FERRITIN 1318 NG/ML (8-252)
[2021-01-23] MEDS: REMDESIVIR 100 MG in NS 250 ML IV SCH (18:37)
[2021-01-23] MEDS: ACETAMINOPHEN 500 MG TAB PO PRN (18:38)
[2021-01-23] MEDS: cefTRIAXone SOD 1 GM in D5W MINI-BAG PLUS 50 ML IV SCH (20:29)
[2021-01-23] MEDS: SODIUM CHLORIDE 0.9% INJ 10 ML SYR IV SCH (20:30)
[2021-01-23] MEDS: zolPIDEM TARTRATE 5 MG TAB PO SCH (20:31)
[2021-01-24] VITALS (15 sets, daily range): BP systolic 139–166; BP diastolic 65–83; O2SAT 90–95
[2021-01-24] MEDS: COMBIVENT RESPIMAT 100-20MCG INHALER 4GM INH SCH ×4 (01:56→20:27)
[2021-01-24] MEDS: LEVOTHYROXINE 88MCG TABLET (0.088 MG) PO SCH (06:49)
[2021-01-24 07:57] LABS: BASO % 0.2 % (0.0-1.0); HEMATOCRIT 48.7 % (36.0-47.0); LYMPH # 0.4 10^3/uL (1.5-5.0); LYMPH % 1.9 % (24.0-44.0); MEAN CORPUSCULAR HEMOGLOBIN 30.8 pg (27.0-33.0); MEAN CORPUSCULAR HGB CONC 32.9 g/dl (32.0-36.5); MEAN CORPUSCULAR VOLUME 93.8 fl (80.0-96.0); MONO % 5.1 % (2.0-8.0); NEUTROPHILS % 91.7 % (36.0-66.0); RED BLOOD COUNT 5.19 10^6/uL (4.00-5.40); WHITE BLOOD COUNT 18.6 10^3/uL (4.0-10.0)
[2021-01-24 08:15] LABS: BLOOD UREA NITROGEN 29 MG/DL (7-18); CALCIUM LEVEL 8.3 MG/DL (8.8-10.2); CARBON DIOXIDE LEVEL 24 MEQ/L (21-32); CHLORIDE LEVEL 105 MEQ/L (98-107); CREATININE FOR GFR 0.78 MG/DL (0.55-1.30); GLOMERULAR FILTRATION RATE > 60.0 (>45); GLUCOSE, FASTING 207 MG/DL (70-100); POTASSIUM SERUM 4.6 MEQ/L (3.5-5.1); SODIUM LEVEL 138 MEQ/L (136-145)
[2021-01-24 08:22] LABS: C REACTIVE PROTEIN QUANTITATIV 2.44 MG/DL (0.00-0.30)
[2021-01-24 08:41] LABS: PLATELET COUNT, AUTOMATED 93 10^3/uL (150-450)
--- NOTE | 2021-01-24 10:15 | IPNPDOC ---
Text Note Date of Service The patient was seen on 01/24/21. NOTE SUBJECTIVE: Patient was seen and examined this morning at bedside. She states she continues to feel like she has difficulty breathing overnight. She states she did not sleep well last night because of this. Her appetite remains fair and she denies pain today. OBJECTIVE: VITAL SIGNS: See below GENERAL: Alert, comfortable, in no acute distress HEENT: Normocephalic, atraumatic, moist mucous membranes NECK: Supple, trachea midline, no lymphadenopathy CARDIOVASCULAR: Regular rate and rhythm, normal S1 and S2. No murmurs appreciated RESPIRATORY: Lung sounds are somewhat diminished throughout bilateral lung cerda. No adventitious lung sounds appreciated ABDOMEN: Soft, nontender, nondistended, bowel sounds present. EXTREMITIES: Trace bilateral edema. Pulses 2+/4 in bilateral upper and lower extremities NEUROLOGIC: No focal deficits appreciated PSYCHIATRIC: Mood and affect appropriate ASSESSMENT/PLAN: 65-year-old female with past medical history of atrial fibrillation with subsequent sick sinus syndrome, now status post pacemaker placement, MERVIN not on CPAP, GERD, hypertension, hypothyroidism, abnormal uterine bleeding, who was recently admitted to the hospital January 12 for COVID-19 pneumonia who presented to the emergency room due to worsening shortness of breath, admitted for acute hypoxic respiratory failure due to progression of COVID-19 pneumonia #Acute hypoxic respiratory failure secondary to COVID-19 pneumonia Continue on 14-day course of baricitinib 4 mg p.o. daily Continue on Decadron 10 mg twice daily Continue on 5-day course of remdesivir Awake proning and incentive spirometer as tolerated Albuterol inhaler as needed for shortness of breath/wheezing Monitor oxygen saturation, supplemental oxygen as needed. She continues to require Vapotherm at 40 L/min FiO2 100% with difficulty maintaining saturations overnight. Transfer to ICU today for CPAP to be used while sleeping or if hypoxia worsens. # Possible superimposed bacterial pneumonia Procalcitonin elevated at 0.30 Sputum culture ordered but patient has been unable to produce sputum Blood cultures x2 are negative at 78 hours Continue antibiotics with ceftriaxone and doxycycline day #6 of 7 # Sepsis 2/2 COVID-19 pneumonia vs superimposed bacterial PNA Met 3/4 SIRS criteria on admission with leukocytosis, tachycardia, and hypoxia on admission Elevated lactic acid at 2.4, improved at 4-hour recheck. Blood cultures x2. Sputum culture ordered Treatment as above #Atrial fibrillation with subsequent sick sinus syndrome, status post pacemaker Continue home metoprolol and Eliquis #MERVIN not on CPAP follow up outpatient for sleep study and CPAP titration #GERD Patient is not on medication at home currently, will continue once daily PPI while she is on steroids #Hypertension Continue home spironolactone and metoprolol #Abnormal uterine bleeding Continue Provera #Hypothyroidism Continue home levothyroxine #Anxiety Continue home venlafaxine DVT prophylaxis: Continue home Eliquis full anticoagulation CODE STATUS: Full code Disposition: Pending clinical improvement VS,Fishbone, I+O VS, Fishbone, I+O Laboratory Tests 01/24/21 07:23 Vital Signs Date Time Temp Pulse Resp B/P (MAP) Pulse Ox O2 Delivery O2 Flow Rate FiO2 01/24/21 08:23 90 HVNI-Vapotherm 40.0 100 01/24/21 08:07 97.6 64 24 144/76 (98) I&O- Last 24 Hours up to 6 AM 01/24/21 06:00 Intake Total 1100 ml Balance 1100 ml GME ATTESTATION GME ATTESTATION My faculty preceptor for this patient encounter was physically present during t he encounter and was fully available. All aspects of the patient interview, examination, medical decision making process, and medical care plan development were reviewed and approved by the faculty preceptor. The faculty preceptor is aware and concurs with the plan as stated in the body of this note and will attest to such by his/her cosignature. ATTENDING NOTE I, Lonny Aguilera, have independently examined this patient and performed my own physical exam, as well as reviewed the documentation and edited where necessary with the resident. For medical students we have performed the physical exam together and discussed medical decision making and I have verified the history. I have discussed in detail with the resident / student the findings and plan of treatment as documented by the resident / student and edited their note. I agree with their findings and treatment plan and have edited their documentation. I will continue to follow the patient during this hospital stay. ELSA BERNAL D.O. Jan 24, 2021 10:15 LONNY AGUILERA MD Jan 24, 2021 12:53
--- NOTE | 2021-01-24 10:17 | REP ---
INDICATION: Hypoxia. COMPARISON: Multiple the latest yesterday also portable TECHNIQUE: Portable FINDINGS: The technique utilized in obtaining the radiograph has magnified the cardiac silhouette and accentuated the interstitial markings. Diffuse bilateral interstitial and airspace opacities are noted status quo. The cardiomediastinal silhouette and pacemaker device are unchanged. The osseous structures are unchanged. IMPRESSION: No significant change <Electronically signed by Bo Kelly > 01/24/21 [id number]
[2021-01-24] MEDS: BARICITINIB 2MG TABLET (OLUMIANT) FOR EUA PO SCH (10:34)
[2021-01-24] MEDS: medroxyPROGESTERone 5MG TABLET PO SCH (10:34)
[2021-01-24] MEDS: guaiFENesin ER 600 MG TAB PO SCH ×2 (10:34→20:12)
[2021-01-24] MEDS: APIXABAN 5 MG TAB (ELIQUIS) PO SCH ×2 (10:34→20:14)
[2021-01-24] MEDS: VENLAFAXINE **XR** 37.5 MG CAPSULE PO SCH (10:35)
[2021-01-24] MEDS: dexameTHASONE 4 MG/ML 1ML VIAL (J1100 PER 1MG) IV SCH ×2 (10:35→20:14)
[2021-01-24] MEDS: DOXYCYCLINE HYCLATE 100 MG in D5W MINI-BAG PLUS 100 ML IV SCH ×2 (10:36→20:11)
[2021-01-24] MEDS: FLUTICASONE PROP 0.05% NASAL SPRAY 16 GM (FLONASE) NARES SCH ×2 (10:36→20:15)
[2021-01-24] MEDS: METOPROLOL SUCC (TopROL XL) 100MG *XL* TAB PO SCH ×2 (10:37→20:14)
[2021-01-24] MEDS ORDERED: NS 1,000 ML IV SCH (16:00)
[2021-01-24] MEDS: cefTRIAXone SOD 1 GM in D5W MINI-BAG PLUS 50 ML IV SCH (18:03)
[2021-01-24] MEDS: zolPIDEM TARTRATE 5 MG TAB PO SCH (20:13)
[2021-01-24] MEDS ORDERED: LORazepam 2 MG/ML VIAL IV STA (21:10)
[2021-01-25] VITALS (26 sets, daily range): BP systolic 137–175; BP diastolic 62–87; O2SAT 80–95
[2021-01-25] MEDS: COMBIVENT RESPIMAT 100-20MCG INHALER 4GM INH SCH ×2 (02:00→09:32)
[2021-01-25] MEDS: LEVOTHYROXINE 88MCG TABLET (0.088 MG) PO SCH (05:18)
[2021-01-25 05:23] LABS: BASO # 0.1 10^3/uL (0.0-0.2); BASO % 0.4 % (0.0-1.0); EOS % 0.1 % (0.0-3.0); HEMATOCRIT 47.8 % (36.0-47.0); HEMOGLOBIN 15.9 g/dl (12.0-15.5); LYMPH # 0.6 10^3/uL (1.5-5.0); LYMPH % 3.2 % (24.0-44.0); MEAN CORPUSCULAR HEMOGLOBIN 31.3 pg (27.0-33.0); MEAN CORPUSCULAR HGB CONC 33.3 g/dl (32.0-36.5); MEAN CORPUSCULAR VOLUME 94.1 fl (80.0-96.0); MONO # 0.8 10^3/uL (0.0-0.8); MONO % 4.2 % (2.0-8.0); NEUTROPHILS # 17.8 10^3/uL (1.5-8.5); NEUTROPHILS % 90.6 % (36.0-66.0); RED BLOOD COUNT 5.08 10^6/uL (4.00-5.40); WHITE BLOOD COUNT 19.6 10^3/uL (4.0-10.0)
[2021-01-25 05:26] LABS: PLATELET COUNT, AUTOMATED 89 10^3/uL (150-450)
[2021-01-25 05:45] LABS: ALBUMIN 1.9 GM/DL (3.2-5.2); ALT/SGPT 45 U/L (12-78); BILIRUBIN,DIRECT 0.3 MG/DL (0.0-0.2); BILIRUBIN,TOTAL 0.9 MG/DL (0.2-1.0); BLOOD UREA NITROGEN 29 MG/DL (7-18); CALCIUM LEVEL 7.9 MG/DL (8.8-10.2); CARBON DIOXIDE LEVEL 24 MEQ/L (21-32); CHLORIDE LEVEL 106 MEQ/L (98-107); CREATININE FOR GFR 0.83 MG/DL (0.55-1.30); GLOMERULAR FILTRATION RATE > 60.0 (>45); GLUCOSE, FASTING 197 MG/DL (70-100); POTASSIUM SERUM 4.9 MEQ/L (3.5-5.1); SODIUM LEVEL 139 MEQ/L (136-145); TOTAL PROTEIN 5.6 GM/DL (6.4-8.2)
[2021-01-25] MEDS: NS 1,000 ML IV SCH ×2 (06:17→10:08)
[2021-01-25 08:24] LABS: C REACTIVE PROTEIN QUANTITATIV 1.75 MG/DL (0.00-0.30)
[2021-01-25] MEDS: PIPERACILLIN/TAZOBACTAM SOD 3.375 GM in D5W MINI-BAG PLUS 50 ML IV SCH ×3 (08:40→19:58)
--- NOTE | 2021-01-25 08:59 | REP ---
INDICATION: Hypoxia. COMPARISON: Portable chest, 01/24/2021. TECHNIQUE: Semi upright AP portable chest image was obtained. FINDINGS: There is mid and lower lung zone predominant mixed interstitial and alveolar lung disease, consistent with pneumonitis. There may be some element of superimposed congestive heart failure as there is cardiomegaly and pulmonary venous hypertension. There are no pleural effusions. There is a dual lead pacemaker present. IMPRESSION: 1. Mixed interstitial and alveolar airspace disease, COVID related pneumonia not excluded. 2. Cardiomegaly and pulmonary venous hypertension suggesting some element of superimposed congestive heart failure. 3. Pacemaker. 4. No significant change. <Electronically signed by Pantera Mazariegos > 01/25/21 1245
[2021-01-25] MEDS ORDERED: NS 500 ML IV ONE (09:25)
[2021-01-25] MEDS ORDERED: VANCOMYCIN HCL 1,000 MG, VIAL MATE ADAPTER 1 EACH in NS 250 ML IV ONE ×2 (10:00→11:00)
[2021-01-25] MEDS: guaiFENesin ER 600 MG TAB PO SCH ×2 (10:02→20:59)
[2021-01-25] MEDS: BARICITINIB 2MG TABLET (OLUMIANT) FOR EUA PO SCH (10:03)
[2021-01-25] MEDS: medroxyPROGESTERone 5MG TABLET PO SCH (10:03)
[2021-01-25] MEDS: METOPROLOL SUCC (TopROL XL) 100MG *XL* TAB PO SCH ×3 (10:04→21:01)
[2021-01-25] MEDS: ENOXAPARIN 100MG/1ML SYRINGE (J1650 PER 10MG) SC SCH ×2 (10:05→21:03)
[2021-01-25] MEDS: dexameTHASONE 4 MG/ML 1ML VIAL (J1100 PER 1MG) IV SCH ×2 (10:06→21:00)
[2021-01-25] MEDS: VENLAFAXINE **XR** 37.5 MG CAPSULE PO SCH (10:07)
[2021-01-25] MEDS: FLUTICASONE PROP 0.05% NASAL SPRAY 16 GM (FLONASE) NARES SCH ×2 (10:07→21:00)
--- NOTE | 2021-01-25 11:26 | IPNPDOC ---
Text Note Date of Service The patient was seen on 01/25/21. NOTE Subjective: Patient is a 65-year-old female with a PMHx of Recent COVID19 PNA (Dx 01/12), A. fib (on Eliquis), SSS s/p PM, HTN, MERVIN (not on CPAP), Hypothyroidism, Abnormal uterine bleeding, GERD who presented to the ER on 01/19 with worsening shortness of breath. Patient was found to be more hypoxic than recent discharge and was admitted again to the hospital service for further evaluation and treatment. Patient has had a recent hospitalization from 01/13 to 01/15 for COVID19 pneumonia; she was discharged with 3 L of supplemental oxygen and prednisone taper; after she was treated with Remdesivir and Dexamethasone. Patient was transferred to the ICU on 01/24 for further evaluation and treatment of her worsening hypoxia. Given that she was maxed out on Vapotherm therapy. She was transitioned to CPAP. Patient was seen and examined at the bedside. Currently patient seen in the ICU with a CPAP mask in place. Patient reports some shortness of breath. Reports a cough, which is not really expectorating. Denies any N/V, abdominal pain, C/D or urinary discomfort. Objective: Vitals (See below) General: Patient is sitting up in a chair with a CPAP mask in place, oriented to person, place and time HEENT: NC, AT CVS: +S1S2 Lungs: Her bases do reveal faint crackles and mild rhonchi. When she coughs. No wheezing appreciated Abdomen: Soft, nondistended, nontender Extremities: No evidence of edema Imaging: CXR 01/19: Abnormal lung field opacities as described above suspicious for developing pneumonia. CTA Chest 01/19: No CT evidence of pulmonary embolism. Diffuse interstitial and alveolar infiltrates are mildly improved compared to the prior study. There is mild stable subcarinal adenopathy 1.3 cm in short axis. CXR 01/23: Increased bilateral infiltrates. CXR 01/24: No significant change CXR 01/25: 1. Mixed interstitial and alveolar airspace disease, COVID related pneumonia not excluded. 2. Cardiomegaly and pulmonary venous hypertension suggesting some element of superimposed congestive heart failure. 3. Pacemaker. 4. No significant change. Assessment and plan: Acute hypoxic respiratory failure - likely 2/2 COVID19 pneumonia, possibly 2/2 super-imposed bacterial PNA - Clinically patient does not report any significant improvement - Patient is currently on CPAP therapy at 100% FiO2 - Inflammatory markers have been worsening - Imaging noted above - c/w Remdesivir (Day #6), Baricitinib (Day #6), Dexamethasone (Day #6) - c/w Mucinex / Acapella / Incentive spirometry / Prone positioning - Will consult pulmonology for further assistance; appreciate their input Sepsis 2/2 COVID-19 pneumonia; possibly superimposed bacterial PNA - Clinically patient has not reported any significant improvement - Worsening leukocytosis / Lactic acidosis - Imaging noted above - Will check Blood cultures / UA - Will increase antibiotic coverage to broad-spectrum with vancomycin and Zosyn (Day #1); Will DC ceftriaxone and doxycycline (Day #7) - Will start IV fluid hydration Atrial fibrillation with subsequent sick sinus syndrome - s/p Pacemaker - c/w rate control with metoprolol - c/w Full anticoagulation (s/p Eliquis; c/w Lovenox therapeutic) MERVIN not on CPAP - She was advised that she has obstructive sleep apnea - Patient has never had a sleep study and does not CPAP device at home HTN - BP well controlled - s/p Spironolactone - c/w Metoprolol Abnormal uterine bleeding - Transvaginal US on - c/w Medroxyprogesterone Hypothyroidism - c/w levothyroxine Anxiety - c/w Venlafaxine - c/w Hydroxyzine PRN Insomnia - c/w Zolpidem GERD - Will start Protonix IV DVT prophylaxis - Will DC Eliquis - Will start full anticoagulation with Lovenox therapeutic Code Status: - Full Code Disposition: - Pending clinical improvement Lucille NOGUERA I+O [place] I+O Laboratory Tests 01/25/21 04:54 Vital Signs Date Time Temp Pulse Resp B/P (MAP) Pulse Ox O2 Delivery O2 Flow Rate FiO2 01/25/21 10:04 62 155/86 01/25/21 05:43 89 NIPPV (BIPAP/CPAP) 100 01/25/21 05:38 40.0 01/25/21 04:00 97.2 28 I&O- Last 24 Hours up to 6 AM 01/25/21 06:00 Intake Total 1995 ml Output Total 475 ml Balance 1520 ml CHAR AGUILERA MD Jan 25, 2021 11:26
--- NOTE | 2021-01-25 13:05 | CCN ---
CRITICAL CARE NOTE DATE: 01/25/2021 START TIME: 1115 STOP TIME: 1152 SUBJECTIVE: I was asked by Dr. Bartholomew to attend Malka Chris. The patient has been examined, chart reviewed. I spoke at length with the nurse at the bedside. In essence, she has known issues with COVID pneumonia, was originally in the hospital from January 13 to January 15 and able to be discharged. She returned on the with complaint of increasing shortness of breath. She has been on remdesivir, Decadron as well as baricitinib. She has had increasing oxygen requirements and worsening inflammatory markers over the last several days. She was on both max Vapotherm as well as a nonrebreather and has now been placed on CPAP. Currently on CPAP of 8, an FiO2 of 100%, her oxygen saturation is 98%. She has tidal volumes between 7 and 800 mL. She is currently quite comfortable. During my interview and exam, I was able to drop her FiO2 to 75%. Oxygen saturation still remains about 96% and there are titrate orders written for that. I have reviewed her medication list. She is has described above on remdesivir as well as baricitinib and her Decadron is at high dose at 10 mg twice daily. Due to question of secondary bacterial pneumonia, she is also on vancomycin and Zosyn. She had a mildly elevated lactate today at 3.2 and is receiving IV hydration for that. Her D-dimer on the was 1404 and is now greater than 4000. White blood cell count 19.6 but she has had high dose Decadron, hemoglobin 15.9, platelet count of 89,000. She is fully anticoagulated as well on dose adjusted Lovenox 90 mg subcu q.12 hours. Chest x-ray done today personally reviewed and compared to priors, does show some diffuse interstitial findings but actually, I believe, improved over the last several days. OBJECTIVE: General: On exam, currently she has a blood pressure of 155/80. Heart rate is 64 and regular, respiratory rate about 18 and unlabored. She is afebrile. HEENT: Otherwise normocephalic, atraumatic. Pupils do react. Sclerae clear. CPAP mask in place. Trachea is in the midline. Chest: Fairly clear anteriorly. Cardiac: Regular with no murmur or gallop. Peripheral pulses are palpable, no edema. Abdomen: Soft with active bowel sounds. No convincing organomegaly or masses. Extremities: Show no cyanosis or clubbing. Neurologic: She is awake, alert and appropriate. Psychiatric: Normal mood and affect. Laboratories and x-rays as outlined above. The most pressing problems requiring my immediate presence at the bedside: 1. Hypoxemic respiratory failure, likely multifactorial. 2. COVID pneumonia, question ARDS. 3. Cannot rule out a degree of interstitial edema although she does have an elevated lactate. 4. Cannot rule out underlying bacterial process. 5. A fib, previous sick sinus syndrome, now with pacemaker. 6. MERVIN not on home CPAP. 7. Hypertension. 8. Fibromyalgia. 9. Hypothyroidism. 10. History of abnormal uterine bleeding. At this point, she has responded nicely to CPAP. We will make adjustments as needed and hopefully can wean down her FiO2. I had a long discussion with her in that regard. I have no doubt she will be compliant. I am in agreement with her high dose steroids for now. Certainly the empiric antimicrobials are not at all unwarranted. She is fully anticoagulated. At this point, we will proceed as outlined above. My hopes is that we can avoid endotracheal intubation as she has responded to noninvasive support. I left the bedside at 1152 hours. 37 minutes of critical care time were at the bedside not including procedures. Her prognosis remains guarded.
[2021-01-25] MEDS: PANTOPRAZOLE 40MG VIAL (C9113 PER 1) IV SCH (13:31)
[2021-01-25] MEDS: ALBUTEROL 90 MCG/ACT 8GM HFA INHALER INH SCH ×2 (13:33→21:15)
[2021-01-25] MEDS ORDERED: NS 1,000 ML IV ONE (15:00)
[2021-01-25] MEDS: NYSTATIN 500,000 U/5 ML SUSP UDC SS SCH ×2 (16:24→20:58)
[2021-01-25] MEDS: SODIUM CHLORIDE 0.9% INJ 10 ML SYR IV SCH (17:22)
[2021-01-25] MEDS: REMDESIVIR 100 MG in NS 250 ML IV SCH (17:22)
[2021-01-25] MEDS ORDERED: RAMELTEON 8 MG TAB (ROZEREM) PO ONE (21:00)
[2021-01-25] MEDS: VANCOMYCIN HCL 1,000 MG, VIAL MATE ADAPTER 1 EACH in NS 250 ML IV SCH (21:55)
[2021-01-25] MEDS: zolPIDEM TARTRATE 5 MG TAB PO SCH (21:56)
[2021-01-26] VITALS (18 sets, daily range): BP systolic 104–173; BP diastolic 60–86; O2SAT 90–97
[2021-01-26] MEDS: ALBUTEROL 90 MCG/ACT 8GM HFA INHALER INH SCH ×4 (02:24→19:53)
[2021-01-26] MEDS: PIPERACILLIN/TAZOBACTAM SOD 3.375 GM in D5W MINI-BAG PLUS 50 ML IV SCH ×4 (02:24→19:52)
[2021-01-26 05:05] LABS: BASO # 0.1 10^3/uL (0.0-0.2); BASO % 0.3 % (0.0-1.0); HEMATOCRIT 46.5 % (36.0-47.0); HEMOGLOBIN 15.4 g/dl (12.0-15.5); LYMPH # 0.6 10^3/uL (1.5-5.0); LYMPH % 2.8 % (24.0-44.0); MEAN CORPUSCULAR HEMOGLOBIN 31.1 pg (27.0-33.0); MEAN CORPUSCULAR HGB CONC 33.1 g/dl (32.0-36.5); MEAN CORPUSCULAR VOLUME 93.9 fl (80.0-96.0); MONO # 0.9 10^3/uL (0.0-0.8); MONO % 4.3 % (2.0-8.0); NEUTROPHILS # 19.7 10^3/uL (1.5-8.5); RED BLOOD COUNT 4.95 10^6/uL (4.00-5.40); WHITE BLOOD COUNT 21.6 10^3/uL (4.0-10.0)
[2021-01-26 05:09] LABS: PLATELET COUNT, AUTOMATED 92 10^3/uL (150-450)
[2021-01-26 05:28] LABS: ALBUMIN 1.9 GM/DL (3.2-5.2); ALT/SGPT 49 U/L (12-78); BILIRUBIN,DIRECT 0.3 MG/DL (0.0-0.2); BILIRUBIN,TOTAL 1.1 MG/DL (0.2-1.0); BLOOD UREA NITROGEN 26 MG/DL (7-18); CARBON DIOXIDE LEVEL 21 MEQ/L (21-32); CHLORIDE LEVEL 107 MEQ/L (98-107); CREATININE FOR GFR 0.88 MG/DL (0.55-1.30); GLOMERULAR FILTRATION RATE > 60.0 (>45); GLUCOSE, FASTING 200 MG/DL (70-100); POTASSIUM SERUM 4.8 MEQ/L (3.5-5.1); SODIUM LEVEL 138 MEQ/L (136-145); TOTAL PROTEIN 5.4 GM/DL (6.4-8.2)
[2021-01-26] MEDS: LEVOTHYROXINE 88MCG TABLET (0.088 MG) PO SCH (06:17)
[2021-01-26 07:10] LABS: FERRITIN 1398 NG/ML (8-252)
--- NOTE | 2021-01-26 08:34 | REP ---
INDICATION: Hypoxia. COMPARISON: 01/25/2021. TECHNIQUE: Single portable AP view of the chest was performed. FINDINGS: Bilateral infiltrates are stable. The heart is mildly enlarged. The mediastinal silhouette is unchanged. Left pacemaker is again noted. IMPRESSION: Stable exam. <Electronically signed by Cecil Alvarez > 01/26/21 [id number]
[2021-01-26] MEDS: NS 1,000 ML IV SCH ×2 (09:17→14:35)
[2021-01-26] MEDS: NYSTATIN 500,000 U/5 ML SUSP UDC SS SCH ×3 (09:17→21:09)
[2021-01-26] MEDS: ENOXAPARIN 100MG/1ML SYRINGE (J1650 PER 10MG) SC SCH ×2 (09:18→21:11)
[2021-01-26] MEDS: dexameTHASONE 4 MG/ML 1ML VIAL (J1100 PER 1MG) IV SCH ×2 (09:18→21:11)
[2021-01-26] MEDS: FLUTICASONE PROP 0.05% NASAL SPRAY 16 GM (FLONASE) NARES SCH ×2 (09:19→21:08)
[2021-01-26] MEDS: BARICITINIB 2MG TABLET (OLUMIANT) FOR EUA PO SCH (09:19)
[2021-01-26] MEDS: medroxyPROGESTERone 5MG TABLET PO SCH (09:21)
[2021-01-26] MEDS: VENLAFAXINE **XR** 37.5 MG CAPSULE PO SCH (09:21)
[2021-01-26] MEDS: guaiFENesin ER 600 MG TAB PO SCH ×2 (09:21→21:10)
[2021-01-26] MEDS: METOPROLOL SUCC (TopROL XL) 100MG *XL* TAB PO SCH ×2 (09:22→21:10)
[2021-01-26] MEDS: VANCOMYCIN HCL 1,000 MG, VIAL MATE ADAPTER 1 EACH in NS 250 ML IV SCH ×2 (10:21→21:08)
[2021-01-26] MEDS: PANTOPRAZOLE 40MG VIAL (C9113 PER 1) IV SCH (10:21)
--- NOTE | 2021-01-26 12:49 | IPN ---
PROGRESS NOTE DATE: 01/26/2021 SUBJECTIVE: I again attended Malka Chris here in the Intensive Care Unit. Patient has been examined and chart reviewed. I spoke at length with the nurse at the bedside. She is currently comfortable on CPAP lying in bed. On 75% FIO2 she is 94% saturated. She does tolerate non-rebreather with Vapotherm backup for meals. T-max overnight 98.5, blood pressure 100 to the 150s, heart rate generally in the 60s, respiratory rate in the mid 20s, currently accessory muscle use. Ins and outs midnight to midnight: 4015 ml in with 1750 ml out. White blood cell count 21.6, hemoglobin 15.4, platelet count 92,000, 91% segs, no bands. Sodium of 138, potassium 4.9, chloride 107, CO2 21, BUN 26, creatinine 0.88. She persists with a low level lactate of 3.6. Ferritin remains high at 1398. CRP of 0.9. Albumin 1.9. Chest x-ray done this morning shows diffuse persistent interstitial markings. Certainly, edema versus COVID pneumonia remains the differential. OBJECTIVE: On exam, she is awake, alert and appropriate. Pupils reactive, sclera clear. Trachea is midline. She is currently lying supine with CPAP mask in place. Chest is clear anteriorly. There does appear to be some dependent crackles noted in the lateral cerda. Cardiac exam is generally regular. Peripheral pulses are palpable, trace edema. Abdomen is soft, nontender. Active bowel sounds. No convincing organomegaly or masses. Extremities: Without cyanosis or clubbing. Neurologically, she is awake, alert and appropriate. Psych: Normal mood and affect. IMPRESSION: 1. Hypoxemic respiratory failure, likely multifactorial. 2. COVID pneumonia with question or ARDS. 3. Edema versus infiltrate. 4. Elevated lactate, etiology unclear. 5. Atrial fibrillation, sick sinus syndrome, now with pacemaker, not on home CPAP. 6. Hypertension. 7. Fibromyalgia. 8. Hypothyroidism. RECOMMENDATIONS: At this point she is tolerating CPAP and large amounts of supplemental oxygen when off. I am agreement with her current medication list. She remains on high dose Decadron as well as Baricitinib. I believe her empiric antimicrobials are quite appropriate as well. She is on dose adjusted Lovenox. I did speak at length with her regarding her status. At this point, we will proceed as outlined above. I would continue her current antimicrobials. I believe she has been adequately volume resuscitated as she is not hypotensive, she is certainly not acidotic and it is difficult to know what is precipitating her continued low level elevated lactate. We will continue to follow her closely. Further recommendations will be made in the progress record as new information becomes available.
--- NOTE | 2021-01-26 17:01 | IPNPDOC ---
Text Note Date of Service The patient was seen on 01/26/21. NOTE SUBJECTIVE: Patient was seen and examined this morning at bedside. She reports she is feeling well at the same today. She does get out of breath when moving around. She continues with dry cough. Denies any nausea, vomiting, abdominal pain. OBJECTIVE: VITAL SIGNS: See below GENERAL: Alert, comfortable, in no acute distress HEENT: Normocephalic, atraumatic, moist mucous membranes NECK: Supple, trachea midline, no lymphadenopathy CARDIOVASCULAR: Regular rate and rhythm, normal S1 and S2. No murmurs appreciated RESPIRATORY: Lung sounds are somewhat diminished throughout bilateral lung cerda. No adventitious lung sounds appreciated ABDOMEN: Soft, nontender, nondistended, bowel sounds present. EXTREMITIES: Trace bilateral edema. Pulses 2+/4 in bilateral upper and lower extremities NEUROLOGIC: No focal deficits appreciated PSYCHIATRIC: Mood and affect appropriate ASSESSMENT/PLAN: 65-year-old female with past medical history of atrial fibrillation with subsequent sick sinus syndrome, now status post pacemaker placement, MERVIN not on CPAP, GERD, hypertension, hypothyroidism, abnormal uterine bleeding, who was recently admitted to the hospital January 12 for COVID-19 pneumonia who presented to the emergency room due to worsening shortness of breath, admitted for acute hypoxic respiratory failure due to progression of COVID-19 pneumonia #Acute hypoxic respiratory failure secondary to COVID-19 pneumonia Continue on 14-day course of baricitinib 4 mg p.o. daily Continue on Decadron 10 mg twice daily Continue on 5-day course of remdesivir Awake proning and incentive spirometer as tolerated Albuterol inhaler as needed for shortness of breath/wheezing Monitor oxygen saturation, supplemental oxygen as needed. She continues to require Vapotherm at 40 L/min FiO2 100% and has CPAP ordered for worsening hypoxia and for use overnight. Pulmonology consulted, appreciate recommendations # Possible superimposed bacterial pneumonia Procalcitonin elevated at 0.30 on admission, trended down Sputum culture ordered but patient has been unable to produce sputum Blood cultures x2 from admission and are negative. Repeat blood cultures pending. Patient initially treated with 6 days of ceftriaxone and doxycycline. Patient continues on IV antibiotics with vancomycin and Zosyn day #2 (total antibiotic treatment day #8) # Sepsis 2/2 COVID-19 pneumonia vs superimposed bacterial PNA Met 3/4 SIRS criteria on admission with leukocytosis, tachycardia, and hypoxia on admission Has had worsening of leukocytosis and lactic acidosis, leading to broadening antibiotic coverage and repeat blood cultures Blood cultures x2 on admission negative after 5 days. Sputum culture negative. Repeat blood cultures x2 from 01/25/2021 negative at 24 hours. Antibiotic treatment as above #Atrial fibrillation with subsequent sick sinus syndrome, status post pacemaker Continue home metoprolol and Eliquis #MERVIN not on CPAP follow up outpatient for sleep study and CPAP titration #GERD Patient is not on medication at home currently, will continue once daily PPI while she is on steroids #Hypertension Continue home spironolactone and metoprolol #Abnormal uterine bleeding Continue Provera #Hypothyroidism Continue home levothyroxine #Anxiety Continue home venlafaxine DVT prophylaxis: Continue home Eliquis full anticoagulation CODE STATUS: Full code Disposition: Pending clinical improvement VS,Lucille, I+O VS, Lucille, I+O Laboratory Tests 01/26/21 04:51 Vital Signs Date Time Temp Pulse Resp B/P (MAP) Pulse Ox O2 Delivery O2 Flow Rate FiO2 01/26/21 14:00 75 18 96 NIPPV (BIPAP/CPAP) 75 01/26/21 13:40 40.0 01/26/21 12:00 97.6 157/72 (100) I&O- Last 24 Hours up to 6 AM 01/26/21 06:00 Intake Total 4855 ml Output Total 2550 ml Balance 2305 ml GME ATTESTATION GME ATTESTATION My faculty preceptor for this patient encounter was physically present during the encounter and was fully available. All aspects of the patient interview, examination, medical decision making process, and medical care plan development were reviewed and approved by the faculty preceptor. The faculty preceptor is aware and concurs with the plan as stated in the body of this note and will attest to such by his/her cosignature. ATTENDING NOTE I, Lonny Aguilera, have independently examined this patient and performed my own physical exam, as well as reviewed the documentation and edited where necessary with the resident. For medical students we have performed the physical exam together and discussed medical decision making and I have verified the history. I have discussed in detail with the resident / student the findings and plan of treatment as documented by the resident / student and edited their note. I agree with their findings and treatment plan and have edited their documentation. I will continue to follow the patient during this hospital stay. ELSA BERNAL D.O. Jan 26, 2021 17:01 LONNY AGUILERA MD Jan 26, 2021 18:00
[2021-01-26] MEDS: REMDESIVIR 100 MG in NS 250 ML IV SCH (18:16)
[2021-01-26] MEDS: SODIUM CHLORIDE 0.9% INJ 10 ML SYR IV SCH (18:16)
[2021-01-26] MEDS: zolPIDEM TARTRATE 5 MG TAB PO SCH (21:10)
[2021-01-27] VITALS (17 sets, daily range): BP systolic 114–158; BP diastolic 56–77; O2SAT 91–96
[2021-01-27] MEDS: PIPERACILLIN/TAZOBACTAM SOD 3.375 GM in D5W MINI-BAG PLUS 50 ML IV SCH ×4 (01:19→19:57)
[2021-01-27] MEDS: ALBUTEROL 90 MCG/ACT 8GM HFA INHALER INH SCH ×4 (01:25→19:59)
[2021-01-27] MEDS: NS 1,000 ML IV SCH ×3 (04:30→20:39)
[2021-01-27] MEDS: LEVOTHYROXINE 88MCG TABLET (0.088 MG) PO SCH (06:20)
[2021-01-27] MEDS: BARICITINIB 2MG TABLET (OLUMIANT) FOR EUA PO SCH (09:44)
[2021-01-27] MEDS: guaiFENesin ER 600 MG TAB PO SCH ×2 (09:45→19:57)
[2021-01-27] MEDS: medroxyPROGESTERone 5MG TABLET PO SCH (09:47)
[2021-01-27] MEDS: NYSTATIN 500,000 U/5 ML SUSP UDC SS SCH ×3 (09:47→19:59)
[2021-01-27] MEDS: dexameTHASONE 4 MG/ML 1ML VIAL (J1100 PER 1MG) IV SCH ×2 (09:48→19:57)
[2021-01-27] MEDS: VANCOMYCIN HCL 1,000 MG, VIAL MATE ADAPTER 1 EACH in NS 250 ML IV SCH ×2 (09:48→15:32)
[2021-01-27] MEDS: FLUTICASONE PROP 0.05% NASAL SPRAY 16 GM (FLONASE) NARES SCH ×2 (09:48→19:59)
[2021-01-27] MEDS: METOPROLOL SUCC (TopROL XL) 100MG *XL* TAB PO SCH ×2 (09:50→20:04)
[2021-01-27] MEDS: ENOXAPARIN 100MG/1ML SYRINGE (J1650 PER 10MG) SC SCH ×2 (09:50→20:05)
[2021-01-27] MEDS: VENLAFAXINE **XR** 37.5 MG CAPSULE PO SCH (09:51)
[2021-01-27] MEDS ORDERED: LIDOCAINE 1% MDV 20ML VIAL As Ordered ONE ×2 (10:13→12:33)
--- NOTE | 2021-01-27 10:47 | IPNPDOC ---
Text Note Date of Service The patient was seen on 01/27/21. NOTE SUBJECTIVE: Patient was seen and examined this morning at bedside. She is resting in bed comfortably on the CPAP device in the prone position. She states she is feeling better today than she has been on previous days. She denies any fevers or chills overnight. She states her breathing feels a little bit easier this morning. Reports persistent dry cough without sputum. OBJECTIVE: VITAL SIGNS: See below GENERAL: Alert, comfortable, in no acute distress HEENT: Normocephalic, atraumatic, moist mucous membranes NECK: Supple, trachea midline, no lymphadenopathy CARDIOVASCULAR: Regular rate and rhythm, normal S1 and S2. No murmurs apprec iated RESPIRATORY: Lung sounds are somewhat diminished throughout bilateral lung cerda. No adventitious lung sounds appreciated ABDOMEN: Soft, nontender, nondistended, bowel sounds present. EXTREMITIES: Trace bilateral edema. Pulses 2+/4 in bilateral upper and lower extremities NEUROLOGIC: No focal deficits appreciated PSYCHIATRIC: Mood and affect appropriate ASSESSMENT/PLAN: 65-year-old female with past medical history of atrial fibrillation with subsequent sick sinus syndrome, now status post pacemaker placement, MERVIN not on CPAP, GERD, hypertension, hypothyroidism, abnormal uterine bleeding, who was recently admitted to the hospital January 12- for COVID-19 pneumonia who presented to the emergency room due to worsening shortness of breath, admitted for acute hypoxic respiratory failure due to progression of COVID-19 pneumonia #Acute hypoxic respiratory failure secondary to COVID-19 pneumonia Continue on 14-day course of baricitinib 4 mg p.o. daily Continue on Decadron 10 mg twice daily Continue on 10-day course of remdesivir Awake proning and incentive spirometer as tolerated Albuterol inhaler as needed for shortness of breath/wheezing Monitor oxygen saturation, supplemental oxygen as needed. She continues to require Vapotherm at 40 L/min FiO2 100% and on CPAP intermittently for worsening hypoxia and for use overnight. Pulmonology consulted, appreciate recommendations # Possible superimposed bacterial pneumonia Procalcitonin elevated at 0.30 on admission, trended down Sputum culture ordered but patient has been unable to produce sputum Blood cultures x2 from admission and are negative. Repeat blood cultures negative at 24 hours Patient initially treated with 6 days of ceftriaxone and doxycycline. Patient continues on IV antibiotics with vancomycin and Zosyn day #3 (total antibiotic treatment day #9) # Sepsis 2/2 COVID-19 pneumonia vs superimposed bacterial PNA Met 3/4 SIRS criteria on admission with leukocytosis, tachycardia, and hypoxia on admission Has had worsening of leukocytosis and lactic acidosis, leading to broadening antibiotic coverage and repeat blood cultures Blood cultures x2 on admission negative after 5 days. Sputum culture negative. Repeat blood cultures x2 from 01/25/2021 negative at 24 hours. Antibiotic treatment as above #Atrial fibrillation with subsequent sick sinus syndrome, status post pacemaker Continue home metoprolol and Eliquis #MERVIN not on CPAP follow up outpatient for sleep study and CPAP titration #GERD Patient is not on medication at home currently, will continue once daily PPI while she is on steroids #Hypertension Continue home spironolactone and metoprolol #Abnormal uterine bleeding Continue Provera #Hypothyroidism Continue home levothyroxine #Anxiety Continue home venlafaxine DVT prophylaxis: Continue home Eliquis full anticoagulation CODE STATUS: Full code Disposition: Pending clinical improvement Attending Attestation: I saw and evaluated the patient. I agree with the finding and the plan of care as documented in the residents note. VS,Fishbone, I+O VS, [place], I+O Vital Signs Date Time Temp Pulse Resp B/P (MAP) Pulse Ox O2 Delivery O2 Flow Rate FiO2 01/27/21 09:50 68 129/63 01/27/21 08:10 75 01/27/21 04:30 91 01/27/21 04:01 98.6 22 NIPPV (BIPAP/CPAP) 01/26/21 20:00 40.0 I&O- Last 24 Hours up to 6 AM 01/27/21 06:00 Intake Total 3195 ml Output Total 1550 ml Balance 1645 ml ELSA BERNAL D.O. Jan 27, 2021 10:47 TITA QUEZADA MD Jan 28, 2021 07:39
--- NOTE | 2021-01-27 11:07 | IPN ---
PROGRESS NOTE DATE: 01/27/2021 SUBJECTIVE: I again attended aMlka Chris here in the Intensive Care Unit. Patient has been examined and chart reviewed. I spoke at length with the nurse at the bedside. She has been able to be off and on noninvasive support. She is currently on Vapotherm sitting in the chair, saturation 90 to 91%. T-max overnight 98.6, blood pressure is 120s to 140s, heart rate generally in the 60s, respiratory rate 20 to 24 without obvious accessory muscle use. Ins and outs midnight to midnight: 3950 ml in with 1750 ml out. No new laboratory results today. OBJECTIVE: On exam, she is awake, alert and appropriate, and quite comfortable at the moment. Pupils reactive, sclera clear. Trachea is midline. Lungs show diminished but symmetric expansion, there are some basilar crackles. Her pacemaker generator is palpable in the left pectoralis region. No focal adventitious breath sounds are identified. Cardiac exam is generally regular. Peripheral pulses are palpable, no edema. Abdomen is obese, soft, with active bowel sounds. No convincing organomegaly or masses. Extremities: Without cyanosis or clubbing. Neurologically, she is awake, alert and appropriate. Psych: Normal mood and affect. MEDICATIONS: Her medication list has been reviewed. She remains on Zosyn and Vancomycin. She is finishing her course of steroids and remains on Baricitinib. She is also on Remdesivir. IMPRESSION: 1. Hypoxemic respiratory failure, likely multifactorial. 2. COVID pneumonia with possible ARDS. 3. Edema versus infiltrate. 4. Cannot rule out bacterial infection. 5. Elevated lactate. 6. Atrial fibrillation, now pacemaker dependent. 7. MERVIN, currently not on home CPAP. 8. Hypertension. 9. Fibromyalgia. 10.Hypothyroidism. At this point she is tolerating CPAP and doing well. Has been able to be off to Vapotherm or other face mask. She is tolerating a diet. I do not see a repeat lactate today. She does stay between 3.2 and 3.6 for the last several days without an absolute clear etiology. I am in agreement with her current regimen. Will proceed as outlined above. Further recommendations will be made in the progress records as new information becomes available. Should she decline, she does wish endotracheal intubation and full mechanical ventilatory support.
[2021-01-27] MEDS: PANTOPRAZOLE 40MG VIAL (C9113 PER 1) IV SCH (13:59)
[2021-01-27 14:12] LABS: BASO # 0.1 10^3/uL (0.0-0.2); BASO % 0.2 % (0.0-1.0); EOS % 0.1 % (0.0-3.0); HEMATOCRIT 45.6 % (36.0-47.0); HEMOGLOBIN 15.2 g/dl (12.0-15.5); LYMPH # 0.5 10^3/uL (1.5-5.0); LYMPH % 2.1 % (24.0-44.0); MEAN CORPUSCULAR HEMOGLOBIN 31.1 pg (27.0-33.0); MEAN CORPUSCULAR HGB CONC 33.3 g/dl (32.0-36.5); MEAN CORPUSCULAR VOLUME 93.4 fl (80.0-96.0); MONO # 1.3 10^3/uL (0.0-0.8); MONO % 5.3 % (2.0-8.0); NEUTROPHILS % 90.6 % (36.0-66.0); RED BLOOD COUNT 4.88 10^6/uL (4.00-5.40); WHITE BLOOD COUNT 25.3 10^3/uL (4.0-10.0)
[2021-01-27 14:14] LABS: PLATELET COUNT, AUTOMATED 83 10^3/uL (150-450)
[2021-01-27 14:42] LABS: ALBUMIN 1.9 GM/DL (3.2-5.2); ALT/SGPT 55 U/L (12-78); BILIRUBIN,DIRECT 0.3 MG/DL (0.0-0.2); BILIRUBIN,TOTAL 1.2 MG/DL (0.2-1.0); BLOOD UREA NITROGEN 22 MG/DL (7-18); C REACTIVE PROTEIN QUANTITATIV 2.11 MG/DL (0.00-0.30); CALCIUM LEVEL 8.4 MG/DL (8.8-10.2); CARBON DIOXIDE LEVEL 23 MEQ/L (21-32); CHLORIDE LEVEL 106 MEQ/L (98-107); CREATININE FOR GFR 0.69 MG/DL (0.55-1.30); FERRITIN 1486 NG/ML (8-252); GLOMERULAR FILTRATION RATE > 60.0 (>45); GLUCOSE, FASTING 174 MG/DL (70-100); MAGNESIUM LEVEL 2.1 MG/DL (1.8-2.4); POTASSIUM SERUM 4.3 MEQ/L (3.5-5.1); SODIUM LEVEL 137 MEQ/L (136-145); TOTAL PROTEIN 5.5 GM/DL (6.4-8.2); VANCOMYCIN LEVEL TROUGH 8.4 UG/ML (10.0-20.0)
--- NOTE | 2021-01-27 17:32 | REP ---
PROCEDURE NAME: PICC LINE INSERTION W/SITERITE CLINICAL INFORMATION: hard access. COMPARISON: None. PROCEDURE DESCRIPTION: The procedure was performed by ANNEL Purcell, under the direct supervision of Dr. Alvarez. The risks and benefits of the procedure were explained to the patient and an informed consent was obtained both verbally and written. Directly prior to the start of the procedure a formal time-out was completed at the patient's bedside. The left brachial vein was localized using ultrasound guidance. The skin was prepped and draped in sterile fashion. Eleven mL of 1% lidocaine 10 mg/mL was used as a local anesthetic. Using ultrasound guidance the left brachial vein was cannulated, and a 0.018 guidewire was inserted and advanced to the level of SVC using fluoroscopic guidance. The needle was removed and a 6 Filipino dilator and peel-away sheath was inserted over the guidewire. A 6 Filipino double lumen catheter was cut to a length of 40 cm. The dilator was removed and the catheter was inserted over the guidewire with the tip ending at the level of the SVC. Tip placement was confirmed with a chest radiograph. The peel-away sheath was removed and the catheter was flushed with heparinized saline as per hospital protocol. The catheter was affixed to the skin and a sterile dressing was applied. The patient tolerated the procedure well and there were no immediate complications. CONCLUSION: PICC line insertion into the left brachial vein. The tip is in the superior vena cava. <Electronically signed by Nancy Perdomo > 01/27/21 1621 <Electronically signed by Cecil Alvarez > 01/27/21 0474
[2021-01-27] MEDS: REMDESIVIR 100 MG in NS 250 ML IV SCH (18:33)
[2021-01-27] MEDS: zolPIDEM TARTRATE 5 MG TAB PO SCH (19:58)
[2021-01-27] MEDS: SODIUM CHLORIDE 0.9% INJ 10 ML SYR IV SCH (20:04)
[2021-01-28] VITALS (9 sets, daily range): BP systolic 111–143; BP diastolic 55–77; O2SAT 92–97
[2021-01-28] MEDS: NS 1,000 ML IV SCH ×3 (00:14→20:32)
[2021-01-28] MEDS: PIPERACILLIN/TAZOBACTAM SOD 3.375 GM in D5W MINI-BAG PLUS 50 ML IV SCH ×4 (01:34→20:32)
[2021-01-28] MEDS: ALBUTEROL 90 MCG/ACT 8GM HFA INHALER INH SCH ×4 (02:00→19:29)
[2021-01-28] MEDS: VANCOMYCIN HCL 1,000 MG, VIAL MATE ADAPTER 1 EACH in NS 250 ML IV SCH ×2 (03:06→15:19)
[2021-01-28 04:22] LABS: BASO % 0.2 % (0.0-1.0); HEMATOCRIT 42.3 % (36.0-47.0); HEMOGLOBIN 14.1 g/dl (12.0-15.5); LYMPH # 0.4 10^3/uL (1.5-5.0); MEAN CORPUSCULAR HEMOGLOBIN 31.4 pg (27.0-33.0); MEAN CORPUSCULAR HGB CONC 33.3 g/dl (32.0-36.5); MEAN CORPUSCULAR VOLUME 94.2 fl (80.0-96.0); MONO # 0.9 10^3/uL (0.0-0.8); MONO % 4.8 % (2.0-8.0); NEUTROPHILS # 16.8 10^3/uL (1.5-8.5); NEUTROPHILS % 91.8 % (36.0-66.0); RED BLOOD COUNT 4.49 10^6/uL (4.00-5.40); WHITE BLOOD COUNT 18.3 10^3/uL (4.0-10.0)
[2021-01-28 04:30] LABS: PLATELET COUNT, AUTOMATED 74 10^3/uL (150-450)
[2021-01-28 04:49] LABS: ALBUMIN 1.6 GM/DL (3.2-5.2); ALT/SGPT 44 U/L (12-78); BILIRUBIN,DIRECT 0.3 MG/DL (0.0-0.2); BLOOD UREA NITROGEN 23 MG/DL (7-18); C REACTIVE PROTEIN QUANTITATIV 4.03 MG/DL (0.00-0.30); CALCIUM LEVEL 7.7 MG/DL (8.8-10.2); CARBON DIOXIDE LEVEL 24 MEQ/L (21-32); CHLORIDE LEVEL 107 MEQ/L (98-107); CREATININE FOR GFR 0.77 MG/DL (0.55-1.30); FERRITIN 1126 NG/ML (8-252); GLOMERULAR FILTRATION RATE > 60.0 (>45); GLUCOSE, FASTING 272 MG/DL (70-100); POTASSIUM SERUM 4.4 MEQ/L (3.5-5.1); SODIUM LEVEL 136 MEQ/L (136-145); TOTAL PROTEIN 5.1 GM/DL (6.4-8.2)
[2021-01-28] MEDS: LEVOTHYROXINE 88MCG TABLET (0.088 MG) PO SCH (05:52)
[2021-01-28] MEDS: BARICITINIB 2MG TABLET (OLUMIANT) FOR EUA PO SCH (09:34)
[2021-01-28] MEDS: medroxyPROGESTERone 5MG TABLET PO SCH (09:35)
[2021-01-28] MEDS: ENOXAPARIN 100MG/1ML SYRINGE (J1650 PER 10MG) SC SCH ×2 (09:36→20:31)
[2021-01-28] MEDS: VENLAFAXINE **XR** 37.5 MG CAPSULE PO SCH (09:36)
[2021-01-28] MEDS: guaiFENesin ER 600 MG TAB PO SCH ×2 (09:37→20:31)
[2021-01-28] MEDS: METOPROLOL SUCC (TopROL XL) 100MG *XL* TAB PO SCH ×2 (09:37→20:45)
[2021-01-28] MEDS: NYSTATIN 500,000 U/5 ML SUSP UDC SS SCH ×3 (09:38→20:31)
[2021-01-28] MEDS: dexameTHASONE 4 MG/ML 1ML VIAL (J1100 PER 1MG) IV SCH ×2 (09:38→20:31)
[2021-01-28] MEDS: FLUTICASONE PROP 0.05% NASAL SPRAY 16 GM (FLONASE) NARES SCH ×2 (09:38→20:32)
--- NOTE | 2021-01-28 12:08 | IPN ---
PROGRESS NOTE DATE: 01/28/2021 SUBJECTIVE: I again attended Malka Chris here in the Intensive Care Unit. Patient has been examined and chart reviewed. I spoke at length with the nurse at the bedside. Patient stayed in the prone position all night and was comfortable. She has been on and off of CPAP. She is currently sitting in the bedside chair with Vapotherm in place at 100% and 40 liters, and saturations are 96% even during conversation. T-max overnight 97.1, blood pressure is 140 systolic, heart rate generally in the 60s, respiratory rate is 22 to 26 without accessory use. Intake and output midnight to midnight: 2970 ml in with 1700 ml out. White blood cell count 18.3, hemoglobin 14.1, platelet count is diminished at 74,000, 91.8% segs, no bands. Sodium is 136, potassium is 4.4, chloride is 107, CO2 24, BUN 23, creatinine 0.77. Ferritin this morning down to 1126. D-dimer down considerably from yesterday at 2354. MEDICATIONS: Her medication list has been reviewed. She remains on Vancomycin as well as Zosyn. She remains also on Decadron, Baricitinib and Remdesivir. She is fully anticoagulated appropriately with dose adjusted Lovenox. Blood cultures from the are all negative. Sputum from the was really poor quality. OBJECTIVE: On exam, she is seated in the bedside chair, awake, alert and appropriate. She moves all extremities. Vital signs as outlined above. HEENT is otherwise normocephalic, atraumatic. Pupils reactive, sclera clear. Trachea is midline. Chest is diminished but reasonable symmetric expansion, there are some minimal crackles at the bases that clear with inspiration. No other focal adventitious breath sounds are identified. Cardiac exam is regular with no gallop. Peripheral pulses are palpable, no edema. Abdomen is obese, soft, with active bowel sounds. No convincing organomegaly or masses. Extremities: Without cyanosis or clubbing. Neurologically, she is awake, alert and appropriate. Psych: Normal mood and affect. Pulse oximetry is as outlined above. No new imaging today. IMPRESSION: 1. Hypoxemic respiratory failure likely multifactorial. 2. COVID pneumonia and probable ARDS. 3. Edema versus infiltrate. 4. MERVIN not on CPAP. 5. Elevated lactate. 6. Atrial fibrillation by history now with pacemaker. 7. Hypertension. 8. Hypothyroidism. This point her inflammatory markers are trending in the right direction and I hope that will continue. She is cooperating and compliant with all that has been asked of her regarding interventions. She has diminished FIO2 requirements. At this point, we will continue as outlined above. Should she be able to have her FIO2 requirements on CPAP continually lowered then at that point we might discontinue it and follow her from afar. Will proceed as outlined above. Further recommendations will be made in the progress record as new information becomes available.
[2021-01-28] MEDS: PANTOPRAZOLE 40MG VIAL (C9113 PER 1) IV SCH (12:12)
--- NOTE | 2021-01-28 16:41 | IPNPDOC ---
Text Note Date of Service The patient was seen on 01/28/21. NOTE SUBJECTIVE: Patient was seen and examined this morning at bedside. She is laying in bed on her side and states she was able to stay prone most of the night. She states that she is overall feeling well, improved from yesterday. She continues to have a cough and is bringing up some clear sputum. She denies any chest pain or palpitations. Denies any nausea, vomiting, or diarrhea. OBJECTIVE: VITAL SIGNS: See below GENERAL: Alert, comfortable, in no acute distress HEENT: Normocephalic, atraumatic, moist mucous membranes NECK: Supple, trachea midline, no lymphadenopathy CARDIOVASCULAR: Regular rate and rhythm, normal S1 and S2. No murmurs appreciated RESPIRATORY: Lung sounds are somewhat diminished throughout bilateral lung cerda. No adventitious lung sounds appreciated ABDOMEN: Soft, nontender, nondistended, bowel sounds present. EXTREMITIES: Trace bilateral edema. Pulses 2+/4 in bilateral upper and lower extremities NEUROLOGIC: No focal deficits appreciated PSYCHIATRIC: Mood and affect appropriate ASSESSMENT/PLAN: 65-year-old female with past medical history of atrial fibrillation with subsequent sick sinus syndrome, now status post pacemaker placement, MERVIN not on CPAP, GERD, hypertension, hypothyroidism, abnormal uterine bleeding, who was recently admitted to the hospital January 12 for COVID-19 pneumonia who presented to the emergency room due to worsening shortness of breath, admitted for acute hypoxic respiratory failure due to progression of COVID-19 pneumonia #Acute hypoxic respiratory failure secondary to COVID-19 pneumonia Continue on 14-day course of baricitinib 4 mg p.o. daily Continue on Decadron 10 mg twice daily Continue on 10-day course of remdesivir Awake proning and incentive spirometer as tolerated Albuterol inhaler as needed for shortness of breath/wheezing Monitor oxygen saturation, supplemental oxygen as needed. Has made some progress saturating on Vapotherm, now on 40 L/min FiO2 85 % and on CPAP overnight. Pulmonology consulted, appreciate recommendations # Possible superimposed bacterial pneumonia Procalcitonin elevated at 0.30 on admission, trended down Sputum culture ordered but patient has been unable to produce sputum Blood cultures x2 from admission and are negative. Repeat blood cultures negative at 24 hours Patient initially treated with 6 days of ceftriaxone and doxycycline. Patient continues on IV antibiotics with vancomycin and Zosyn day #4 (total antibiotic treatment day #10) # Sepsis 2/2 COVID-19 pneumonia vs superimposed bacterial PNA Met 3/4 SIRS criteria on admission with leukocytosis, tachycardia, and hypoxia on admission Has had worsening of leukocytosis and lactic acidosis, leading to broadening antibiotic coverage and repeat blood cultures Blood cultures x2 on admission negative after 5 days. Sputum culture negative. Repeat blood cultures x2 from 01/25/2021 negative at 72 hours. Antibiotic treatment as above #Atrial fibrillation with subsequent sick sinus syndrome, status post pacemaker Continue home metoprolol and Eliquis #MERVIN not on CPAP follow up outpatient for sleep study and CPAP titration #GERD Patient is not on medication at home currently, will continue once daily PPI while she is on steroids #Hypertension Continue home spironolactone and metoprolol #Abnormal uterine bleeding Continue Provera #Hypothyroidism Continue home levothyroxine #Anxiety Continue home venlafaxine DVT prophylaxis: Continue home Eliquis full anticoagulation CODE STATUS: Full code Disposition: Pending clinical improvement Attending Attestation: I saw and evaluated the patient. I agree with the finding and the plan of care a s documented in the residents note. VS,Fishbone, I+O VS, Fishbone, I+O Laboratory Tests 01/28/21 03:52 Vital Signs Date Time Temp Pulse Resp B/P (MAP) Pulse Ox O2 Delivery O2 Flow Rate FiO2 01/28/21 14:00 69 94 HVNI-Vapotherm 40.0 85 01/28/21 12:12 97.3 20 131/64 (86) I&O- Last 24 Hours up to 6 AM 01/28/21 06:00 Intake Total 4030 ml Output Total 1450 ml Balance 2580 ml ELSA BERNAL D.O. Jan 28, 2021 16:41 TITA QUEZADA MD Jan 29, 2021 06:23
[2021-01-28] MEDS: REMDESIVIR 100 MG in NS 250 ML IV SCH (17:22)
[2021-01-28] MEDS: SODIUM CHLORIDE 0.9% INJ 10 ML SYR IV SCH (18:16)
[2021-01-28] MEDS: zolPIDEM TARTRATE 5 MG TAB PO SCH (20:31)
[2021-01-29] VITALS (9 sets, daily range): BP systolic 129–161; BP diastolic 67–85; O2SAT 89–94
[2021-01-29] MEDS: PIPERACILLIN/TAZOBACTAM SOD 3.375 GM in D5W MINI-BAG PLUS 50 ML IV SCH ×4 (01:16→20:24)
[2021-01-29] MEDS: NS 1,000 ML IV SCH (01:16)
[2021-01-29] MEDS: ALBUTEROL 90 MCG/ACT 8GM HFA INHALER INH SCH ×4 (01:54→20:24)
[2021-01-29] MEDS: VANCOMYCIN HCL 1,000 MG, VIAL MATE ADAPTER 1 EACH in NS 250 ML IV SCH (02:07)
[2021-01-29 04:12] LABS: BASO % 0.2 % (0.0-1.0); HEMATOCRIT 41.2 % (36.0-47.0); HEMOGLOBIN 13.6 g/dl (12.0-15.5); LYMPH # 0.3 10^3/uL (1.5-5.0); LYMPH % 1.8 % (24.0-44.0); MEAN CORPUSCULAR VOLUME 93.8 fl (80.0-96.0); MONO # 0.9 10^3/uL (0.0-0.8); MONO % 4.8 % (2.0-8.0); NEUTROPHILS # 16.3 10^3/uL (1.5-8.5); NEUTROPHILS % 91.2 % (36.0-66.0); RED BLOOD COUNT 4.39 10^6/uL (4.00-5.40); WHITE BLOOD COUNT 17.9 10^3/uL (4.0-10.0)
[2021-01-29 04:18] LABS: PLATELET COUNT, AUTOMATED 71 10^3/uL (150-450)
[2021-01-29 04:44] LABS: ALBUMIN 1.6 GM/DL (3.2-5.2); ALT/SGPT 40 U/L (12-78); BILIRUBIN,DIRECT 0.3 MG/DL (0.0-0.2); BILIRUBIN,TOTAL 0.9 MG/DL (0.2-1.0); BLOOD UREA NITROGEN 24 MG/DL (7-18); C REACTIVE PROTEIN QUANTITATIV 2.44 MG/DL (0.00-0.30); CALCIUM LEVEL 7.4 MG/DL (8.8-10.2); CARBON DIOXIDE LEVEL 23 MEQ/L (21-32); CHLORIDE LEVEL 108 MEQ/L (98-107); CREATININE FOR GFR 0.77 MG/DL (0.55-1.30); FERRITIN 1103 NG/ML (8-252); GLOMERULAR FILTRATION RATE > 60.0 (>45); GLUCOSE, FASTING 247 MG/DL (70-100); MAGNESIUM LEVEL 1.9 MG/DL (1.8-2.4); POTASSIUM SERUM 4.4 MEQ/L (3.5-5.1); SODIUM LEVEL 137 MEQ/L (136-145); TOTAL PROTEIN 4.8 GM/DL (6.4-8.2)
[2021-01-29] MEDS: LEVOTHYROXINE 88MCG TABLET (0.088 MG) PO SCH (05:14)
[2021-01-29] MEDS: medroxyPROGESTERone 5MG TABLET PO SCH (08:12)
[2021-01-29] MEDS: BARICITINIB 2MG TABLET (OLUMIANT) FOR EUA PO SCH (08:12)
[2021-01-29] MEDS: NYSTATIN 500,000 U/5 ML SUSP UDC SS SCH ×3 (08:12→20:26)
[2021-01-29] MEDS: dexameTHASONE 4 MG/ML 1ML VIAL (J1100 PER 1MG) IV SCH ×2 (08:13→20:26)
[2021-01-29] MEDS: METOPROLOL SUCC (TopROL XL) 100MG *XL* TAB PO SCH ×2 (08:13→20:26)
[2021-01-29] MEDS: VENLAFAXINE **XR** 37.5 MG CAPSULE PO SCH (08:13)
[2021-01-29] MEDS: ENOXAPARIN 100MG/1ML SYRINGE (J1650 PER 10MG) SC SCH ×2 (08:13→20:27)
[2021-01-29] MEDS: FLUTICASONE PROP 0.05% NASAL SPRAY 16 GM (FLONASE) NARES SCH ×2 (08:13→20:27)
[2021-01-29] MEDS: guaiFENesin ER 600 MG TAB PO SCH ×2 (08:13→20:26)
--- NOTE | 2021-01-29 10:11 | IPNPDOC ---
Text Note Date of Service The patient was seen on 01/29/21. NOTE SUBJECTIVE: Patient was seen and examined this morning at bedside. She is sitting up in a chair and appears comfortable. She states she has no concerns today. She continues to have cough and brings up some arroyo phlegm. She states her shortness of breath has been stable. She denies any nausea or vomiting. She denies diarrhea. OBJECTIVE: VITAL SIGNS: See below GENERAL: Alert, comfortable, in no acute distress HEENT: Normocephalic, atraumatic, moist mucous membranes NECK: Supple, trachea midline, no lymphadenopathy CARDIOVASCULAR: Regular rate and rhythm, normal S1 and S2. No murmurs appreciated RESPIRATORY: Lung sounds are somewhat diminished throughout bilateral lung cerda. No adventitious lung sounds appreciated ABDOMEN: Soft, nontender, nondistended, bowel sounds present. EXTREMITIES: Trace bilateral edema. Pulses 2+/4 in bilateral upper and lower extremities NEUROLOGIC: No focal deficits appreciated PSYCHIATRIC: Mood and affect appropriate ASSESSMENT/PLAN: 65-year-old female with past medical history of atrial fibrillation with subsequent sick sinus syndrome, now status post pacemaker placement, MERVIN not on CPAP, GERD, hypertension, hypothyroidism, abnormal uterine bleeding, who was recently admitted to the hospital January 12- for COVID-19 pneumonia who presented to the emergency room due to worsening shortness of breath, admitted for acute hypoxic respiratory failure due to progression of COVID-19 pneumonia #Acute hypoxic respiratory failure secondary to COVID-19 pneumonia Continue on 14-day course of baricitinib 4 mg p.o. daily Continue on Decadron 10 mg twice daily Continue on 10-day course of remdesivir Awake proning and incentive spirometer as tolerated Albuterol inhaler as needed for shortness of breath/wheezing Monitor oxygen saturation, supplemental oxygen as needed. Has made some progress saturating on Vapotherm, now on 40 L/min FiO2 85 % and on CPAP overnight. Pulmonology consulted, appreciate recommendations # Possible superimposed bacterial pneumonia Procalcitonin elevated at 0.30 on admission, trended down Sputum culture shows oropharyngeal contamination Blood cultures x2 from admission and are negative. Repeat blood cultures negative at 72 hours Patient initially treated with 6 days of ceftriaxone and doxycycline. Patient continues on IV antibiotics with vancomycin and Zosyn day #5 (total a ntibiotic treatment day #11) # Sepsis 2/2 COVID-19 pneumonia vs superimposed bacterial PNA Met 3/4 SIRS criteria on admission with leukocytosis, tachycardia, and hypoxia on admission Has had worsening of leukocytosis and lactic acidosis, leading to broadening antibiotic coverage and repeat blood cultures Blood cultures x2 on admission negative after 5 days. Sputum culture negative. Repeat blood cultures x2 from 01/25/2021 negative at 72 hours. Antibiotic treatment as above #Atrial fibrillation with subsequent sick sinus syndrome, status post pacemaker Continue home metoprolol and Eliquis #MERVIN not on CPAP follow up outpatient for sleep study and CPAP titration #GERD Patient is not on medication at home currently, will continue once daily PPI while she is on steroids #Hypertension Continue home spironolactone and metoprolol #Abnormal uterine bleeding Continue Provera #Hypothyroidism Continue home levothyroxine #Anxiety Continue home venlafaxine DVT prophylaxis: Continue home Eliquis full anticoagulation CODE STATUS: Full code Disposition: Pending clinical improvement Attending Attestation: I saw and evaluated the patient. I agree with the finding and the plan of care as documented in the residents note. VS,Fishbone, I+O VS, Fishbone, I+O Laboratory Tests 01/29/21 04:00 Vital Signs Date Time Temp Pulse Resp B/P (MAP) Pulse Ox O2 Delivery O2 Flow Rate FiO2 01/29/21 08:13 73 148/72 01/29/21 07:50 70 01/29/21 04:00 93 NIPPV (BIPAP/CPAP) 01/29/21 04:00 98.2 26 01/28/21 20:00 40.0 I&O- Last 24 Hours up to 6 AM 01/29/21 06:00 Intake Total 3740 ml Output Total 1652 ml Balance 2088 ml ELSA BERNAL D.O. Jan 29, 2021 10:11 TITA QUEZADA MD Jan 30, 2021 06:32
--- NOTE | 2021-01-29 10:57 | IPN ---
PROGRESS NOTE DATE: 01/29/2021 SUBJECTIVE: I again attended Malka Chris here in the Intensive Care Unit. Patient has been examined and chart reviewed. I spoke at length with the nurse at the bedside. She is in a prone position at night, remains on CPAP, during the day generally she is on Vapotherm and meals and with prolonged conversation does require the use of a non-rebreather over that but does more quickly recover than she had. Remains on 70% FIO2 when she is on CPAP of 10. T-max overnight is 98.2, blood pressure is 120 to 160s, heart rate is 60s to 70s, respiratory rate is generally in the 20s. Input and output midnight to midnight: 3880 ml in with 1650 ml out. White blood cell count 17.9, hemoglobin 13.6, platelet count holding at around 71,000, 91% segs, no bands. Sodium is 137, potassium is 4.4, chloride is 108, CO2 is 23, BUN 24, creatinine is 0.77. Ferritin is essentially unchanged at 1103. D-Dimer continues to slowly decline and is down to 2227 today. No new imaging. OBJECTIVE: On exam, she is awake, alert and appropriate, sitting comfortably in the bedside chair. HEENT is otherwise normocephalic, atraumatic. Pupils reactive, sclera clear. Trachea is midline. Mucous membranes are moist. Trachea is in the midline. Chest shows diminished but symmetric expansion. There are some basilar crackles. No focal adventitious breath sounds are identified. Cardiac exam is generally regular. Peripheral pulses are diminished but palpable, trace edema. Abdomen is obese, soft, with active bowel sounds. No convincing organomegaly or masses. Extremities: Without cyanosis or clubbing. Neurologically, she is awake, alert and appropriate. Psych: Normal mood and affect. MEDICATIONS: The medication list has been reviewed. She remains on b.i.d. Decadron, Baricitinib and Remdesivir. Due to concerns over underlying bacterial pneumonia, she remains on Zosyn. She is on full-dose Lovenox at 90 mg sub q. q. 12 hours and remains on Vancomycin as well. IMPRESSION: 1. Hypoxemic respiratory failure, multifactorial. 2. COVID pneumonia, suspected ARDS. 3. Edema versus infiltrate, remains on antibiotics. 4. MERVIN, not on outpatient CPAP. 5. Elevated lactate. Repeat pending. 6. History of atrial fibrillation. 7. Hypertension. 8. Hypothyroidism. RECOMMENDATIONS: At this point, we will repeat her lactate. Her inflammatory markers are slowly trending in the right direction. For now, I would continue her medications as is. If they do continue to trend down, then we should be able to but back a little bit on her steroids. I have just been told that her son was involved in a motor vehicle accident and is on life support at [facility], patient is being made aware of this this morning. At this point, we will proceed as outlined above. She tells me she has not had a bowel movement yet and I will defer that to the primary service. Will proceed as outlined above. Further recommendations were made in the progress record as new information becomes available.
[2021-01-29] MEDS: hydrOXYzine 25 MG TAB PO PRN (12:22)
[2021-01-29] MEDS: PANTOPRAZOLE 40MG VIAL (C9113 PER 1) IV SCH (12:22)
[2021-01-29] MEDS: REMDESIVIR 100 MG in NS 250 ML IV SCH (17:33)
[2021-01-29] MEDS: SODIUM CHLORIDE 0.9% INJ 10 ML SYR IV SCH (18:36)
[2021-01-29] MEDS: zolPIDEM TARTRATE 5 MG TAB PO SCH (20:26)
[2021-01-30] VITALS (10 sets, daily range): BP systolic 131–153; BP diastolic 70–84; O2SAT 90–95
[2021-01-30] MEDS: PIPERACILLIN/TAZOBACTAM SOD 3.375 GM in D5W MINI-BAG PLUS 50 ML IV SCH ×4 (01:06→20:24)
[2021-01-30] MEDS: ALBUTEROL 90 MCG/ACT 8GM HFA INHALER INH SCH ×4 (02:00→19:35)
[2021-01-30 04:28] LABS: BASO % 0.2 % (0.0-1.0); EOS % 0.1 % (0.0-3.0); HEMATOCRIT 40.5 % (36.0-47.0); HEMOGLOBIN 13.7 g/dl (12.0-15.5); LYMPH # 0.3 10^3/uL (1.5-5.0); LYMPH % 1.5 % (24.0-44.0); MEAN CORPUSCULAR HEMOGLOBIN 31.4 pg (27.0-33.0); MEAN CORPUSCULAR HGB CONC 33.8 g/dl (32.0-36.5); MEAN CORPUSCULAR VOLUME 92.9 fl (80.0-96.0); MONO # 0.7 10^3/uL (0.0-0.8); MONO % 4.1 % (2.0-8.0); NEUTROPHILS # 16.5 10^3/uL (1.5-8.5); NEUTROPHILS % 92.7 % (36.0-66.0); RED BLOOD COUNT 4.36 10^6/uL (4.00-5.40); WHITE BLOOD COUNT 17.7 10^3/uL (4.0-10.0)
[2021-01-30 04:34] LABS: PLATELET COUNT, AUTOMATED 71 10^3/uL (150-450)
[2021-01-30 04:56] LABS: ALBUMIN 1.5 GM/DL (3.2-5.2); ALT/SGPT 43 U/L (12-78); BILIRUBIN,DIRECT 0.2 MG/DL (0.0-0.2); BILIRUBIN,TOTAL 0.7 MG/DL (0.2-1.0); BLOOD UREA NITROGEN 26 MG/DL (7-18); C REACTIVE PROTEIN QUANTITATIV 1.94 MG/DL (0.00-0.30); CALCIUM LEVEL 7.6 MG/DL (8.8-10.2); CARBON DIOXIDE LEVEL 24 MEQ/L (21-32); CHLORIDE LEVEL 106 MEQ/L (98-107); FERRITIN 1050 NG/ML (8-252); GLOMERULAR FILTRATION RATE > 60.0 (>45); GLUCOSE, FASTING 241 MG/DL (70-100); MAGNESIUM LEVEL 2.1 MG/DL (1.8-2.4); POTASSIUM SERUM 4.2 MEQ/L (3.5-5.1); SODIUM LEVEL 137 MEQ/L (136-145); TOTAL PROTEIN 5.2 GM/DL (6.4-8.2)
[2021-01-30] MEDS: LEVOTHYROXINE 88MCG TABLET (0.088 MG) PO SCH (05:32)
[2021-01-30] MEDS ORDERED: MOM 30ML SUSPENSION UDC PO PRN (07:50)
[2021-01-30] MEDS: DOCUSATE SODIUM 100MG CAPSULE PO SCH ×2 (09:09→20:27)
[2021-01-30] MEDS: medroxyPROGESTERone 5MG TABLET PO SCH (09:10)
[2021-01-30] MEDS: guaiFENesin ER 600 MG TAB PO SCH ×2 (09:10→20:27)
[2021-01-30] MEDS: VENLAFAXINE **XR** 37.5 MG CAPSULE PO SCH (09:10)
[2021-01-30] MEDS: BARICITINIB 2MG TABLET (OLUMIANT) FOR EUA PO SCH (09:10)
[2021-01-30] MEDS: METOPROLOL SUCC (TopROL XL) 100MG *XL* TAB PO SCH ×2 (09:11→20:26)
[2021-01-30] MEDS: FLUTICASONE PROP 0.05% NASAL SPRAY 16 GM (FLONASE) NARES SCH ×2 (09:11→20:25)
[2021-01-30] MEDS: NYSTATIN 500,000 U/5 ML SUSP UDC SS SCH ×3 (09:11→20:24)
[2021-01-30] MEDS: ENOXAPARIN 100MG/1ML SYRINGE (J1650 PER 10MG) SC SCH ×2 (09:12→20:25)
[2021-01-30] MEDS: ACETAMINOPHEN 500 MG TAB PO PRN (10:23)
[2021-01-30] MEDS: PANTOPRAZOLE 40MG VIAL (C9113 PER 1) IV SCH (12:57)
--- NOTE | 2021-01-30 13:56 | IPNPDOC ---
Text Note Date of Service The patient was seen on 01/30/21. NOTE CRITICAL CARE PROGRESS NOTE: SUBJECTIVE: Patient seen and examined at bedside. There were no overnight events. The patient is not on any drips. The patient is currently on CPAP 8 cm of water and 65% FiO2. When she is moves around she desaturates very easily. She uses CPAP all night. Otherwise she feels okay she still has shortness of breath but she feels the same as yesterday. All other ROS are negative except as mentioned above PHYSICAL EXAMINATION: VITAL SIGNS: Please see below. GENERAL APPEARANCE: On CPAP alert and awake. HEENT: no thyromegaly, trachea midline, PERRLA. normal mucous membranes RESPIRATORY: Crackles bilateral CARDIOVASCULAR: +s1 s2, no murmurs. ABDOMEN: nontender, not distended, +BS EXTREMITIES: no edema or erythema. palpable distal pulses SKIN: no rash, no purpura NEUROLOGICAL: no sensory or motor deficits, orientedx3. PERTINENT LABS/IMAGING: No chest x-ray today. IMPRESSION: 1. Acute hypoxemic respiratory failure, multifactorial. 2. COVID pneumonia, suspected ARDS. Elevated inflammatory markers. 3. Pulmonary edema versus infiltrate, remains on antibiotics. 4. MERVIN, not on outpatient CPAP. 5. Elevated lactate. 6. History of atrial fibrillation on anticoagulation 7. Hypertension. 8. Hypothyroidism. PLAN: * Continue with CPAP eight for now alternating with Vapotherm. Try to maintain an SPO2 of 92 to 96%. And titrate down oxygen as tolerated. * Continue baricitinib to complete the course. Would continue Decadron for now recommend decreasing to 6 mg twice daily followed by a slow prednisone taper. * keep I=O. Can give lasix 40 IV x 1 as significantly positive fluid balance since admission * DVT prophylaxis, patient is on therapeutic anticoagulation with Lovenox. * Pulmonary will signoff please recall as needed if there is any change in her respiratory status VS,Lucille, I+O VS, Lucille, I+O Laboratory Tests 01/30/21 04:00 Vital Signs Date Time Temp Pulse Resp B/P (MAP) Pulse Ox O2 Delivery O2 Flow Rate FiO2 01/30/21 09:11 76 139/71 01/30/21 08:47 85 01/30/21 04:00 91 NIPPV (BIPAP/CPAP) 01/30/21 04:00 96.8 24 65.0 I&O- Last 24 Hours up to 6 AM 01/30/21 06:00 Intake Total 1550 ml Output Total 1950 ml Balance -400 ml CHELSI GARCIA MD Jan 30, 2021 13:56
[2021-01-30] MEDS ORDERED: FUROSEMIDE 40MG/4ML VIAL (J1940) IV ONE (14:00)
--- NOTE | 2021-01-30 14:06 | IPNPDOC ---
Text Note Date of Service The patient was seen on 01/30/21. NOTE SUBJECTIVE: Patient was seen and examined this morning at bedside. She states her breathing continues to feel a little better each day. She states she has not been getting up and moving around much. She reports just having a bowel movement. No new concerns today. She continues to have a cough and is bringing up some phlegm. OBJECTIVE: VITAL SIGNS: See below GENERAL: Alert, comfortable, in no acute distress HEENT: Normocephalic, atraumatic, moist mucous membranes NECK: Supple, trachea midline, no lymphadenopathy CARDIOVASCULAR: Regular rate and rhythm, normal S1 and S2. No murmurs appreciated RESPIRATORY: Lung sounds are somewhat diminished throughout bilateral lung cerda. No adventitious lung sounds appreciated ABDOMEN: Soft, nontender, nondistended, bowel sounds present. EXTREMITIES: Trace bilateral edema. Pulses 2+/4 in bilateral upper and lower extremities NEUROLOGIC: No focal deficits appreciated PSYCHIATRIC: Mood and affect appropriate ASSESSMENT/PLAN: 65-year-old female with past medical history of atrial fibrillation with subsequent sick sinus syndrome, now status post pacemaker placement, MERVIN not on CPAP, GERD, hypertension, hypothyroidism, abnormal uterine bleeding, who was recently admitted to the hospital January 12 for COVID-19 pneumonia who presented to the emergency room due to worsening shortness of breath, admitted for acute hypoxic respiratory failure due to progression of COVID-19 pneumonia #Acute hypoxic respiratory failure secondary to COVID-19 pneumonia Continue on 14-day course of baricitinib 4 mg p.o. daily Continue on Decadron, will decrease from 10 mg twice daily to 6 mg twice daily per pulmonology recommendations. Continue on 10-day course of remdesivir Awake proning and incentive spirometer as tolerated Albuterol inhaler as needed for shortness of breath/wheezing Monitor oxygen saturation, supplemental oxygen as needed. Has made some progress saturating well on Vapotherm, titrating down as marco ated, and on CPAP overnight. Pulmonology consulted, appreciate recommendations # Possible superimposed bacterial pneumonia Procalcitonin elevated at 0.30 on admission, trended down Sputum culture shows oropharyngeal contamination Blood cultures x2 from admission and are negative after 5 days. Repeat blood cultures negative after 5 days. Patient initially treated with 6 days of ceftriaxone and doxycycline. She also completed subsequent 5-day course of vancomycin. Patient continues on IV antibiotics with Zosyn day #6 (total antibiotic treatment day #12), will DC after today # Sepsis 2/2 COVID-19 pneumonia vs superimposed bacterial PNA Met 3/4 SIRS criteria on admission with leukocytosis, tachycardia, and hypoxia on admission Has had worsening of leukocytosis and lactic acidosis, leading to broadening antibiotic coverage and repeat blood cultures Blood cultures x2 on admission negative after 5 days. Sputum culture negative. Repeat blood cultures x2 from 01/25/2021 negative at 72 hours. Antibiotic treatment as above #Atrial fibrillation with subsequent sick sinus syndrome, status post pacemaker Continue home metoprolol and Eliquis #MERVIN not on CPAP follow up outpatient for sleep study and CPAP titration #GERD Patient is not on medication at home currently, will continue once daily PPI while she is on steroids #Hypertension Continue home spironolactone and metoprolol #Abnormal uterine bleeding Continue Provera #Hypothyroidism Continue home levothyroxine #Anxiety Continue home venlafaxine DVT prophylaxis: Continue home Eliquis full anticoagulation CODE STATUS: Full code Disposition: Pending clinical improvement Attending Attestation: I saw and evaluated the patient. I agree with the finding and the plan of care as documented in the residents note. VS,Fishbone, I+O VS, Fishbone, I+O Laboratory Tests 01/30/21 04:00 Vital Signs Date Time Temp Pulse Resp B/P (MAP) Pulse Ox O2 Delivery O2 Flow Rate FiO2 01/30/21 09:11 76 139/71 01/30/21 08:47 85 01/30/21 04:00 91 NIPPV (BIPAP/CPAP) 01/30/21 04:00 96.8 24 65.0 I&O- Last 24 Hours up to 6 AM 01/30/21 06:00 Intake Total 1550 ml Output Total 1950 ml Balance -400 ml ELSA BERNAL D.O. Jan 30, 2021 12:47 TITA QUEZADA MD Jan 31, 2021 06:38
[2021-01-30] MEDS: dexameTHASONE 20MG/5ML VIAL (J1100 PER 1MG) IV SCH (14:23)
[2021-01-30] MEDS: zolPIDEM TARTRATE 5 MG TAB PO SCH (20:27)
[2021-01-31] VITALS (12 sets, daily range): BP systolic 123–145; BP diastolic 70–83; O2SAT 92–95
[2021-01-31] MEDS: ALBUTEROL 90 MCG/ACT 8GM HFA INHALER INH SCH ×4 (02:07→20:42)
[2021-01-31] MEDS: dexameTHASONE 20MG/5ML VIAL (J1100 PER 1MG) IV SCH ×2 (03:00→15:28)
[2021-01-31] MEDS: PIPERACILLIN/TAZOBACTAM SOD 3.375 GM in D5W MINI-BAG PLUS 50 ML IV SCH (03:00)
[2021-01-31 04:13] LABS: BASO % 0.2 % (0.0-1.0); EOS % 0.1 % (0.0-3.0); HEMATOCRIT 40.3 % (36.0-47.0); HEMOGLOBIN 13.5 g/dl (12.0-15.5); LYMPH # 0.4 10^3/uL (1.5-5.0); LYMPH % 2.4 % (24.0-44.0); MEAN CORPUSCULAR HEMOGLOBIN 31.3 pg (27.0-33.0); MEAN CORPUSCULAR HGB CONC 33.5 g/dl (32.0-36.5); MEAN CORPUSCULAR VOLUME 93.5 fl (80.0-96.0); MONO # 0.6 10^3/uL (0.0-0.8); MONO % 3.4 % (2.0-8.0); NEUTROPHILS # 16.8 10^3/uL (1.5-8.5); NEUTROPHILS % 92.8 % (36.0-66.0); RED BLOOD COUNT 4.31 10^6/uL (4.00-5.40); WHITE BLOOD COUNT 18.1 10^3/uL (4.0-10.0)
[2021-01-31 04:14] LABS: PLATELET COUNT, AUTOMATED 63 10^3/uL (150-450)
[2021-01-31 05:18] LABS: ALBUMIN 1.5 GM/DL (3.2-5.2); BILIRUBIN,DIRECT 0.2 MG/DL (0.0-0.2); TOTAL PROTEIN 5.1 GM/DL (6.4-8.2)
[2021-01-31 05:23] LABS: BLOOD UREA NITROGEN 26 MG/DL (7-18); CARBON DIOXIDE LEVEL 25 MEQ/L (21-32); CHLORIDE LEVEL 95 MEQ/L (98-107); CREATININE FOR GFR 0.74 MG/DL (0.55-1.30); FERRITIN 848 NG/ML (8-252); GLOMERULAR FILTRATION RATE > 60.0 (>45); GLUCOSE, FASTING 451 MG/DL (70-100); MAGNESIUM LEVEL 1.8 MG/DL (1.8-2.4); POTASSIUM SERUM 3.6 MEQ/L (3.5-5.1); SODIUM LEVEL 136 MEQ/L (136-145)
[2021-01-31] MEDS ORDERED: GLUCOSE 4GM CHEW TABLET PO PRN (05:30)
[2021-01-31] MEDS ORDERED: DEXTROSE 50% 50 ML SYRINGE IV PRN (05:30)
[2021-01-31] MEDS ORDERED: GLUCAGON INJ 1MG VIAL SC PRN (05:30)
[2021-01-31] MEDS: LEVOTHYROXINE 88MCG TABLET (0.088 MG) PO SCH (06:12)
[2021-01-31] MEDS: HumaLOG INSULIN (NovoLOG) PER UNIT SC SCH ×4 (06:12→20:42)
[2021-01-31] MEDS: BARICITINIB 2MG TABLET (OLUMIANT) FOR EUA PO SCH (08:54)
[2021-01-31] MEDS: NYSTATIN 500,000 U/5 ML SUSP UDC SS SCH ×3 (08:54→21:39)
[2021-01-31] MEDS: DOCUSATE SODIUM 100MG CAPSULE PO SCH ×2 (08:54→21:40)
[2021-01-31] MEDS: medroxyPROGESTERone 5MG TABLET PO SCH (08:54)
[2021-01-31] MEDS: guaiFENesin ER 600 MG TAB PO SCH ×2 (08:55→21:40)
[2021-01-31] MEDS: VENLAFAXINE **XR** 37.5 MG CAPSULE PO SCH (08:56)
[2021-01-31] MEDS: FLUTICASONE PROP 0.05% NASAL SPRAY 16 GM (FLONASE) NARES SCH ×2 (08:59→21:41)
[2021-01-31] MEDS: METOPROLOL SUCC (TopROL XL) 100MG *XL* TAB PO SCH ×2 (08:59→21:41)
[2021-01-31] MEDS: ENOXAPARIN 100MG/1ML SYRINGE (J1650 PER 10MG) SC SCH ×2 (09:00→21:42)
--- NOTE | 2021-01-31 10:19 | IPNPDOC ---
Text Note Date of Service The patient was seen on 01/31/21. NOTE SUBJECTIVE: Patient was seen and examined this morning at bedside. She states she is feeling about the same this morning as she was yesterday. She has no new concerns. She denies any chest pain. She did have some hyperglycemia on her morning blood work. She denies any s ymptoms. OBJECTIVE: VITAL SIGNS: See below GENERAL: Alert, comfortable, in no acute distress HEENT: Normocephalic, atraumatic, moist mucous membranes NECK: Supple, trachea midline, no lymphadenopathy CARDIOVASCULAR: Regular rate and rhythm, normal S1 and S2. No murmurs appreciated RESPIRATORY: Lung sounds are somewhat diminished throughout bilateral lung cerda. No adventitious lung sounds appreciated ABDOMEN: Soft, nontender, nondistended, bowel sounds present. EXTREMITIES: Trace bilateral edema. Pulses 2+/4 in bilateral upper and lower extremities NEUROLOGIC: No focal deficits appreciated PSYCHIATRIC: Mood and affect appropriate ASSESSMENT/PLAN: 65-year-old female with past medical history of atrial fibrillation with subsequent sick sinus syndrome, now status post pacemaker placement, MERVIN not on CPAP, GERD, hypertension, hypothyroidism, abnormal uterine bleeding, who was recently admitted to the hospital January 12 for COVID-19 pneumonia who presented to the emergency room due to worsening shortness of breath, admitted for acute hypoxic respiratory failure due to progression of COVID-19 pneumonia #Acute hypoxic respiratory failure secondary to COVID-19 pneumonia Continue on 14-day course of baricitinib 4 mg p.o. daily Continue IV Decadron 6 mg twice a day. Status post 10-day course of remdesivir Awake proning and incentive spirometer as tolerated Albuterol inhaler as needed for shortness of breath/wheezing Monitor oxygen saturation, supplemental oxygen as needed. Has made some progress saturating well on Vapotherm, titrating down as tolerated, and on CPAP overnight. Appreciate recommendations from pulmonology. They have signed off the case but are available for reconsult if needed for worsening respiratory status. # Possible superimposed bacterial pneumonia Procalcitonin elevated at 0.30 on admission, trended down Sputum culture shows oropharyngeal contamination Blood cultures x2 from admission and are negative after 5 days. Repeat blood cultures negative after 5 days. Patient initially treated with 6 days of ceftriaxone and doxycycline. She also completed subsequent 5-day course of vancomycin and 6-day course of Zosyn. Total IV antibiotic treatment for 12 days. No positive culture results to direct antibiotic treatment. # Sepsis 2/2 COVID-19 pneumonia vs superimposed bacterial PNA Met 3/4 SIRS criteria on admission with leukocytosis, tachycardia, and hypoxia on admission Has had worsening of leukocytosis and lactic acidosis, leading to broadening antibiotic coverage and repeat blood cultures Blood cultures x2 on admission negative after 5 days. Sputum culture negative. Repeat blood cultures x2 from 01/25/2021 negative after 5 days Status post IV antibiotic treatment as above for a total of 12 days #Thrombocytopenia Patient's platelet count slowly trending down since admission Likely related to acute viral illness as above Check peripheral smear Hold dose of Lovenox today #Hyperglycemia related to steriod use vs undiagnosed DM Patient noted to have glucose level of 451 on AM lab work Will check hemoglobin A1c Started on FSBS ACHS with SSI #Atrial fibrillation with subsequent sick sinus syndrome, status post pacemaker Continue home metoprolol #MERVIN not on CPAP follow up outpatient for sleep study and CPAP titration #GERD Patient is not on medication at home currently, will continue once daily PPI while she is on steroids #Hypertension Continue home spironolactone and metoprolol #Abnormal uterine bleeding Continue Provera #Hypothyroidism Continue home levothyroxine #Anxiety Continue home venlafaxine Hydroxyzine as needed DVT prophylaxis: Continue therapeutic lovenox CODE STATUS: Full code Disposition: Pending clinical improvement Attending Attestation: I saw and evaluated the patient. I agree with the finding and the plan of care as documented in the residents note. VS,Fishbone, I+O VS, Fishbone, I+O Laboratory Tests 01/31/21 03:58 Vital Signs Date Time Temp Pulse Resp B/P (MAP) Pulse Ox O2 Delivery O2 Flow Rate FiO2 01/31/21 08:59 73 130/71 01/31/21 08:00 98.0 24 92 NIPPV (BIPAP/CPAP) 65 01/30/21 21:00 40.0 I&O- Last 24 Hours up to 6 AM 01/31/21 06:00 Intake Total 730 ml Output Total 1325 ml Balance -595 ml ELSA BERNAL D.O. Jan 31, 2021 10:19 TITA QUEZADA MD Feb 01, 2021 11:50
[2021-01-31] MEDS: PANTOPRAZOLE 40MG VIAL (C9113 PER 1) IV SCH (13:29)
[2021-01-31 14:27] LABS: HEMOGLOBIN A1c 7.5 %
[2021-01-31 14:39] LABS: BLOOD UREA NITROGEN 28 MG/DL (7-18); CALCIUM LEVEL 7.9 MG/DL (8.8-10.2); CARBON DIOXIDE LEVEL 30 MEQ/L (21-32); CHLORIDE LEVEL 104 MEQ/L (98-107); CREATININE FOR GFR 0.67 MG/DL (0.55-1.30); GLOMERULAR FILTRATION RATE > 60.0 (>45); GLUCOSE, FASTING 155 MG/DL (70-100); SODIUM LEVEL 140 MEQ/L (136-145)
[2021-01-31] MEDS: zolPIDEM TARTRATE 5 MG TAB PO SCH (21:40)
[2021-02-01] VITALS (15 sets, daily range): BP systolic 129–162; BP diastolic 61–95
[2021-02-01] MEDS: ALBUTEROL 90 MCG/ACT 8GM HFA INHALER INH SCH ×4 (02:00→19:47)
[2021-02-01] MEDS: dexameTHASONE 20MG/5ML VIAL (J1100 PER 1MG) IV SCH ×2 (03:30→16:38)
[2021-02-01] MEDS: LEVOTHYROXINE 88MCG TABLET (0.088 MG) PO SCH (05:25)
[2021-02-01 05:31] LABS: BASO % 0.2 % (0.0-1.0); EOS % 0.2 % (0.0-3.0); HEMATOCRIT 45.4 % (36.0-47.0); HEMOGLOBIN 14.9 g/dl (12.0-15.5); LYMPH # 0.4 10^3/uL (1.5-5.0); LYMPH % 1.7 % (24.0-44.0); MEAN CORPUSCULAR HEMOGLOBIN 30.9 pg (27.0-33.0); MEAN CORPUSCULAR HGB CONC 32.8 g/dl (32.0-36.5); MEAN CORPUSCULAR VOLUME 94.2 fl (80.0-96.0); MONO # 0.9 10^3/uL (0.0-0.8); NEUTROPHILS % 92.8 % (36.0-66.0); RED BLOOD COUNT 4.82 10^6/uL (4.00-5.40); WHITE BLOOD COUNT 23.7 10^3/uL (4.0-10.0)
[2021-02-01 05:34] LABS: PLATELET COUNT, AUTOMATED 78 10^3/uL (150-450)
[2021-02-01 05:59] LABS: BLOOD UREA NITROGEN 33 MG/DL (7-18); C REACTIVE PROTEIN QUANTITATIV 0.96 MG/DL (0.00-0.30); CALCIUM LEVEL 8.1 MG/DL (8.8-10.2); CARBON DIOXIDE LEVEL 32 MEQ/L (21-32); CHLORIDE LEVEL 105 MEQ/L (98-107); CREATININE FOR GFR 0.63 MG/DL (0.55-1.30); FERRITIN 1054 NG/ML (8-252); GLOMERULAR FILTRATION RATE > 60.0 (>45); GLUCOSE, FASTING 145 MG/DL (70-100); MAGNESIUM LEVEL 2.2 MG/DL (1.8-2.4); POTASSIUM SERUM 4.2 MEQ/L (3.5-5.1); SODIUM LEVEL 139 MEQ/L (136-145)
[2021-02-01] MEDS: ENOXAPARIN 100MG/1ML SYRINGE (J1650 PER 10MG) SC SCH ×2 (08:20→20:34)
[2021-02-01] MEDS: medroxyPROGESTERone 5MG TABLET PO SCH (08:20)
[2021-02-01] MEDS: BARICITINIB 2MG TABLET (OLUMIANT) FOR EUA PO SCH (08:21)
[2021-02-01] MEDS: DOCUSATE SODIUM 100MG CAPSULE PO SCH ×2 (08:21→20:33)
[2021-02-01] MEDS: VENLAFAXINE **XR** 37.5 MG CAPSULE PO SCH (08:21)
[2021-02-01] MEDS: guaiFENesin ER 600 MG TAB PO SCH ×2 (08:21→20:33)
[2021-02-01] MEDS: METOPROLOL SUCC (TopROL XL) 100MG *XL* TAB PO SCH ×2 (08:21→20:10)
[2021-02-01] MEDS: FLUTICASONE PROP 0.05% NASAL SPRAY 16 GM (FLONASE) NARES SCH ×2 (08:22→20:34)
[2021-02-01] MEDS: NYSTATIN 500,000 U/5 ML SUSP UDC SS SCH (08:22)
[2021-02-01] MEDS: HumaLOG INSULIN (NovoLOG) PER UNIT SC SCH ×4 (08:22→20:34)
--- NOTE | 2021-02-01 09:34 | IPNPDOC ---
Text Note Date of Service The patient was seen on 02/01/21. NOTE Subjective: Patient seen and examined at bedside. No acute overnight events reported. Patient voices no new medical complaints this morning. OBJECTIVE: Vital Signs: reviewed General: NAD, sitting comfortably in chair HEENT: NC/AT, EOMI Neck: supple, no masses Chest: Diminished breath sounds bilaterally Heart: +S1S2, RRR Abd: soft, NT, ND, +BS Ext: no edema Skin: no rashes MSK: full ROM at large joints Neuro: no gross focal deficits Psych: AAOx3 ASSESSMENT/PLAN: 65F with PMHx including afib/SSS/PPM, MERVIN not on CPAP, GERD, HTN, hypothyroidism, abnormal uterine bleeding, who was recently admitted to the hospital January 12- for COVID-19 pneumonia, returned for worsening SOB, admitted for acute hypoxic respiratory failure due to progression of COVID-19 pneumonia #Acute hypoxic respiratory failure secondary to COVID-19 pneumonia - pulmonary recs appreciated Complete 14-day course of baricitinib 4 mg p.o. daily - started 01/20 Continue IV Decadron 6 mg twice a day Status post 10-day course of remdesivir Awake proning and incentive spirometer as tolerated Albuterol inhaler as needed for shortness of breath/wheezing Monitor oxygen saturation, supplemental oxygen as needed. Has made some progress saturating well on Vapotherm, titrating down as marco ated, and on CPAP overnight. Appreciate recommendations from pulmonology. They have signed off the case but are available for reconsult if needed for worsening respiratory status. # Possible superimposed bacterial pneumonia Procalcitonin elevated at 0.30 on admission, trended down Sputum culture shows oropharyngeal contamination BCx negative x 4 Patient initially treated with 6 days of ceftriaxone and doxycycline. She also completed subsequent 5-day course of vancomycin and 6-day course of Zosyn. Total IV antibiotic treatment for 12 days. No positive culture results to direct antibiotic treatment. # Sepsis 2/2 COVID-19 pneumonia vs superimposed bacterial PNA Met 3/4 SIRS criteria on admission with leukocytosis, tachycardia, and hypoxia on admission Has had worsening of leukocytosis and lactic acidosis, leading to broadening antibiotic coverage and repeat blood cultures Blood cultures x2 on admission negative after 5 days. Sputum culture negative. Repeat blood cultures x2 from 01/25/2021 negative after 5 days Status post IV antibiotic treatment as above for a total of 12 days #Thrombocytopenia Patient's platelet count slowly trending down since admission - improved today Likely related to acute viral illness as above Check peripheral smear #Hyperglycemia related to steroid use vs undiagnosed DM A1C 7.5 Started on FSBS ACHS with SSI #Atrial fibrillation with subsequent sick sinus syndrome, status post pacemaker Continue home metoprolol, therapeutic lovenox as above, was on Eliquis at home #MERVIN not on CPAP follow up outpatient for sleep study and CPAP titration #GERD Patient is not on medication at home currently, will continue once daily PPI while she is on steroids #HTN Continue home spironolactone and metoprolol #Abnormal uterine bleeding Continue Provera #Hypothyroidism Continue home levothyroxine #Anxiety Continue home venlafaxine Hydroxyzine as needed DVT prophylaxis: therapeutic lovenox as above Disposition: Pending clinical improvement VS,Lucille, I+O VS, Lucille, I+O Laboratory Tests 01/31/21 13:59 02/01/21 05:20 Vital Signs Date Time Temp Pulse Resp B/P (MAP) Pulse Ox O2 Delivery O2 Flow Rate FiO2 02/01/21 08:21 70 154/87 02/01/21 08:01 80 02/01/21 04:00 98.3 24 92 NIPPV (BIPAP/CPAP) 02/01/21 04:00 40.0 I&O- Last 24 Hours up to 6 AM 02/01/21 05:59 Intake Total 180 ml Output Total 0 ml Balance 180 ml TITA QUEZADA MD Feb 01, 2021 09:34
[2021-02-01] MEDS: PANTOPRAZOLE 40MG VIAL (C9113 PER 1) IV SCH (13:26)
[2021-02-01] MEDS: zolPIDEM TARTRATE 5 MG TAB PO SCH (20:33)
[2021-02-02] VITALS (7 sets, daily range): BP systolic 118–160; BP diastolic 59–83
[2021-02-02] MEDS: ALBUTEROL 90 MCG/ACT 8GM HFA INHALER INH SCH ×4 (02:00→20:25)
[2021-02-02] MEDS: dexameTHASONE 20MG/5ML VIAL (J1100 PER 1MG) IV SCH ×2 (03:58→15:49)
[2021-02-02 04:51] LABS: BASO # 0.1 10^3/uL (0.0-0.2); BASO % 0.2 % (0.0-1.0); EOS # 0.5 10^3/uL (0.0-0.5); EOS % 1.7 % (0.0-3.0); HEMATOCRIT 47.6 % (36.0-47.0); HEMOGLOBIN 15.9 g/dl (12.0-15.5); LYMPH # 0.7 10^3/uL (1.5-5.0); LYMPH % 2.2 % (24.0-44.0); MEAN CORPUSCULAR HEMOGLOBIN 31.2 pg (27.0-33.0); MEAN CORPUSCULAR HGB CONC 33.4 g/dl (32.0-36.5); MEAN CORPUSCULAR VOLUME 93.3 fl (80.0-96.0); MONO # 0.9 10^3/uL (0.0-0.8); NEUTROPHILS # 28.1 10^3/uL (1.5-8.5); NEUTROPHILS % 91.4 % (36.0-66.0)
[2021-02-02 04:53] LABS: PLATELET COUNT, AUTOMATED 70 10^3/uL (150-450); WHITE BLOOD COUNT 30.7 10^3/uL (4.0-10.0)
[2021-02-02 05:07] LABS: BLOOD UREA NITROGEN 30 MG/DL (7-18); C REACTIVE PROTEIN QUANTITATIV 1.09 MG/DL (0.00-0.30); CALCIUM LEVEL 8.1 MG/DL (8.8-10.2); CARBON DIOXIDE LEVEL 28 MEQ/L (21-32); CHLORIDE LEVEL 104 MEQ/L (98-107); CREATININE FOR GFR 0.56 MG/DL (0.55-1.30); FERRITIN 1119 NG/ML (8-252); GLOMERULAR FILTRATION RATE > 60.0 (>45); GLUCOSE, FASTING 95 MG/DL (70-100); MAGNESIUM LEVEL 2.1 MG/DL (1.8-2.4); POTASSIUM SERUM 3.9 MEQ/L (3.5-5.1); SODIUM LEVEL 138 MEQ/L (136-145)
[2021-02-02] MEDS: LEVOTHYROXINE 88MCG TABLET (0.088 MG) PO SCH (06:34)
[2021-02-02] MEDS: FLUTICASONE PROP 0.05% NASAL SPRAY 16 GM (FLONASE) NARES SCH ×2 (09:10→19:56)
[2021-02-02] MEDS: medroxyPROGESTERone 5MG TABLET PO SCH (09:11)
[2021-02-02] MEDS: ENOXAPARIN 100MG/1ML SYRINGE (J1650 PER 10MG) SC SCH ×2 (09:11→19:56)
[2021-02-02] MEDS: VENLAFAXINE **XR** 37.5 MG CAPSULE PO SCH (09:12)
[2021-02-02] MEDS: BARICITINIB 2MG TABLET (OLUMIANT) FOR EUA PO SCH (09:12)
[2021-02-02] MEDS: DOCUSATE SODIUM 100MG CAPSULE PO SCH ×2 (09:13→19:55)
[2021-02-02] MEDS: guaiFENesin ER 600 MG TAB PO SCH ×2 (09:13→19:55)
[2021-02-02] MEDS: HumaLOG INSULIN (NovoLOG) PER UNIT SC SCH ×4 (09:13→21:00)
[2021-02-02] MEDS: METOPROLOL SUCC (TopROL XL) 100MG *XL* TAB PO SCH ×2 (09:14→19:55)
--- NOTE | 2021-02-02 11:08 | IPNPDOC ---
Text Note Date of Service The patient was seen on 02/02/21. NOTE Subjective: Patient seen and examined at bedside. No acute overnight events reported. Patient voices no new medical complaints this morning. OBJECTIVE: Vital Signs: reviewed General: NAD, sitting comfortably in chair HEENT: NC/AT, EOMI Neck: supple, no masses Chest: Diminished breath sounds bilaterally Heart: +S1S2, RRR Abd: soft, NT, ND, +BS Ext: no edema Skin: no rashes Neuro: no gross focal deficits Psych: AAOx3 ASSESSMENT/PLAN: 65F with PMHx including afib/SSS/PPM, MERVIN not on CPAP, GERD, HTN, hypothyroidism, abnormal uterine bleeding, who was recently admitted to the hospital January 12- for COVID-19 pneumonia, returned for worsening SOB, admitted for acute hypoxic respiratory failure due to progression of COVID-19 pneumonia #Acute hypoxic respiratory failure secondary to COVID-19 pneumonia - pulm c/s appreciated - follow as per recs completed 14-day course of baricitinib 4 mg p.o. daily - 01/20 - 02/02 Continue IV Decadron 6 mg twice a day - consider taper if possible Status post 10-day course of remdesivir Awake proning and incentive spirometer as tolerated Albuterol inhaler as needed for shortness of breath/wheezing - mucolytics, acapella, IS continue supplemental O2 via vapotherm, CPAP Appreciate recommendations from pulmonology. # Possible superimposed bacterial pneumonia Procalcitonin elevated at 0.30 on admission, trended down Sputum culture shows oropharyngeal contamination BCx negative x 4 Patient initially treated with 6 days of ceftriaxone and doxycycline. She also completed subsequent 5-day course of vancomycin and 6-day course of Zosyn. Total IV antibiotic treatment for 12 days. No positive culture results to direct antibiotic treatment. # Sepsis 2/2 COVID-19 pneumonia vs superimposed bacterial PNA Met 3/4 SIRS criteria on admission with leukocytosis, tachycardia, and hypoxia on admission Has had worsening of leukocytosis and lactic acidosis, leading to broadening antibiotic coverage and repeat blood cultures Blood cultures x2 on admission negative after 5 days. Sputum culture negative. Repeat blood cultures x2 from 01/25/2021 negative after 5 days Status post IV antibiotic treatment as above for a total of 12 days #Thrombocytopenia Patient's platelet count slowly trending down since admission Likely related to acute viral illness as above Check peripheral smear #Hyperglycemia related to steroid use vs undiagnosed DM A1C 7.5 Started on FSBS ACHS with SSI #Atrial fibrillation with subsequent sick sinus syndrome, status post pacemaker Continue home metoprolol, therapeutic lovenox as above, was on Eliquis at home #MERVIN not on CPAP follow up outpatient for sleep study and CPAP titration #GERD Patient is not on medication at home currently, will continue once daily PPI while she is on steroids #HTN Continue home spironolactone and metoprolol #Abnormal uterine bleeding Continue Provera #Hypothyroidism Continue home levothyroxine #Anxiety Continue home venlafaxine Hydroxyzine as needed DVT prophylaxis: therapeutic lovenox as above Disposition: Pending clinical improvement VS,Lucille, I+O VS, Lucille I+O Laboratory Tests 02/02/21 03:59 02/02/21 04:00 Vital Signs Date Time Temp Pulse Resp B/P (MAP) Pulse Ox O2 Delivery O2 Flow Rate FiO2 02/02/21 08:15 100 02/02/21 04:00 97.6 76 22 129/77 (94) 95 NIPPV (BIPAP/CPAP) 02/01/21 12:00 40.0 I&O- Last 24 Hours up to 6 AM 02/02/21 06:00 Intake Total 270 ml Output Total 0 ml Balance 270 ml TITA QUEZADA MD Feb 02, 2021 11:08
[2021-02-02] MEDS: PANTOPRAZOLE 40MG VIAL (C9113 PER 1) IV SCH (13:03)
[2021-02-02] MEDS: zolPIDEM TARTRATE 5 MG TAB PO SCH (19:55)
[2021-02-03] VITALS: BP 158/79
[2021-02-03] MEDS: ALBUTEROL 90 MCG/ACT 8GM HFA INHALER INH SCH ×4 (01:38→19:35)
[2021-02-03] MEDS: dexameTHASONE 20MG/5ML VIAL (J1100 PER 1MG) IV SCH ×2 (03:09→16:21)
[2021-02-03 04:00] VITALS: BP 144/80
[2021-02-03 04:45] LABS: BASO % 0.1 % (0.0-1.0); EOS % 0.1 % (0.0-3.0); HEMATOCRIT 43.6 % (36.0-47.0); HEMOGLOBIN 14.2 g/dl (12.0-15.5); LYMPH # 0.3 10^3/uL (1.5-5.0); LYMPH % 1.1 % (24.0-44.0); MEAN CORPUSCULAR HEMOGLOBIN 30.9 pg (27.0-33.0); MEAN CORPUSCULAR HGB CONC 32.6 g/dl (32.0-36.5); MONO # 0.7 10^3/uL (0.0-0.8); MONO % 2.8 % (2.0-8.0); NEUTROPHILS # 21.6 10^3/uL (1.5-8.5); NEUTROPHILS % 94.8 % (36.0-66.0); RED BLOOD COUNT 4.59 10^6/uL (4.00-5.40); WHITE BLOOD COUNT 22.9 10^3/uL (4.0-10.0)
[2021-02-03 04:46] LABS: PLATELET COUNT, AUTOMATED 68 10^3/uL (150-450)
[2021-02-03 05:11] LABS: ALBUMIN 1.7 GM/DL (3.2-5.2); ALT/SGPT 53 U/L (12-78); BLOOD UREA NITROGEN 30 MG/DL (7-18); CARBON DIOXIDE LEVEL 32 MEQ/L (21-32); CHLORIDE LEVEL 106 MEQ/L (98-107); CREATININE FOR GFR 0.54 MG/DL (0.55-1.30); GLOMERULAR FILTRATION RATE > 60.0 (>45); GLUCOSE, FASTING 123 MG/DL (70-100); MAGNESIUM LEVEL 2.1 MG/DL (1.8-2.4); POTASSIUM SERUM 4.6 MEQ/L (3.5-5.1); SODIUM LEVEL 141 MEQ/L (136-145); TOTAL PROTEIN 5.2 GM/DL (6.4-8.2)
[2021-02-03] MEDS: LEVOTHYROXINE 88MCG TABLET (0.088 MG) PO SCH (05:22)
[2021-02-03 08:00] VITALS: BP 130/63
[2021-02-03] MEDS: HumaLOG INSULIN (NovoLOG) PER UNIT SC SCH ×4 (08:51→19:57)
[2021-02-03] MEDS: medroxyPROGESTERone 5MG TABLET PO SCH (08:52)
[2021-02-03] MEDS: guaiFENesin ER 600 MG TAB PO SCH ×2 (08:52→19:52)
[2021-02-03] MEDS: VENLAFAXINE **XR** 37.5 MG CAPSULE PO SCH (08:53)
[2021-02-03] MEDS: ENOXAPARIN 100MG/1ML SYRINGE (J1650 PER 10MG) SC SCH ×2 (08:54→19:53)
[2021-02-03] MEDS: METOPROLOL SUCC (TopROL XL) 100MG *XL* TAB PO SCH ×2 (08:54→19:54)
[2021-02-03] MEDS: DOCUSATE SODIUM 100MG CAPSULE PO SCH ×2 (08:54→19:52)
[2021-02-03] MEDS: FLUTICASONE PROP 0.05% NASAL SPRAY 16 GM (FLONASE) NARES SCH ×2 (08:54→19:53)
[2021-02-03] MEDS ORDERED: FUROSEMIDE 40MG/4ML VIAL (J1940) IV ONE (09:30)
[2021-02-03] MEDS ORDERED: RAMELTEON 8 MG TAB (ROZEREM) PO PRN (09:50)
--- NOTE | 2021-02-03 09:51 | IPNPDOC ---
Text Note Date of Service The patient was seen on 02/03/21. NOTE Subjective: Patient is a 65-year-old female with a PMHx of Recent COVID19 PNA (Dx 01/12), A. fib (on Eliquis), SSS s/p PM, HTN, MERVIN (not on CPAP), Hypothyroidism, Abnormal uterine bleeding, GERD who presented to the ER on 01/19 with worsening shortness of breath. Patient was found to be more hypoxic than recent discharge and was admitted again to the hospital service for further evaluation and treatment. Patient has had a recent hospitalization from 01/13 to 01/15 for COVID19 pneumonia; she was discharged with 3 L of supplemental oxygen and prednisone taper; after she was treated with Remdesivir and Dexamethasone. Patient was transferred to the ICU on 01/24 for further evaluation and treatment of her worsening hypoxia. Given that she was maxed out on Vapotherm therapy, she was transitioned to CPAP. Patient was seen and examined at the bedside. Currently patient reports that she is not experiencing any chest pain or palpitations. Does not report any nausea, vomiting, abdominal pain, diarrhea, or urinary discomfort. Still reports a mild cough. Objective: Vitals (See below) General: Patient is laying in bed, appears to be comfortable without any acute distress HEENT: Atraumatic and normocephalic CVS: +S1S2 Lungs: Mild crackles can be appreciated at bases. No rhonchi or wheezing Abdomen: Remains soft without any distention or tenderness Extremities: LE with trace to 1+ pitting edema bilaterally Imaging: CXR 01/19: Abnormal lung field opacities as described above suspicious for developing pneumonia. CTA Chest 01/19: No CT evidence of pulmonary embolism. Diffuse interstitial and alveolar infiltrates are mildly improved compared to the prior study. There is mild stable subcarinal adenopathy 1.3 cm in short axis. CXR 01/23: Increased bilateral infiltrates. CXR 01/24: No significant change CXR 01/25: 1. Mixed interstitial and alveolar airspace disease, COVID related pneumonia not excluded. 2. Cardiomegaly and pulmonary venous hypertension suggesting some element of superimposed congestive heart failure. 3. Pacemaker. 4. No significant change. CXR 01/26: Stable exam. PICC Line 01/27: PICC line insertion into the left brachial vein. The tip is in the superior vena cava. Assessment and plan: Acute hypoxic respiratory failure - likely 2/2 COVID19 pneumonia, less likely 2/2 super-imposed bacterial PNA - The patient remains relatively unchanged - Still on CPAP PRN and Vapotherm therapy at 100% FiO2 - Inflammatory markers with some improvement noted - Imaging noted above - s/p Remdesivir (Completed 10 day course), Baricitinib (Completed 14 day course - c/w Dexamethasone - c/w Mucinex / Acapella / Incentive spirometry / Prone positioning - Will provide single dose of Furosemide 40 IV x 1 dose Sepsis 2/2 COVID-19 pneumonia; possibly superimposed bacterial PNA - Leukocytosis relatively unchanged - Blood cultures - Imaging noted above - Will check Blood cultures / UA - s/p vancomycin and Zosyn (Completed 5 days); s/p ceftriaxone and doxycycline (Completed 7 days) Thrombocytopenia - No evidence of bleeding - Counts have remained relatively stable Hyperglycemia - likely 2/2 new onset DM2 and corticosteroid use - A1c 7.5% - c/w ISS Atrial fibrillation with subsequent sick sinus syndrome - s/p Pacemaker - c/w rate control with metoprolol - c/w Full anticoagulation (s/p Eliquis; c/w Lovenox therapeutic) MERVIN not on CPAP - She was advised that she has obstructive sleep apnea - Patient has never had a sleep study and does not CPAP device at home HTN - BP well controlled - s/p Spironolactone - c/w Metoprolol Abnormal uterine bleeding - Transvaginal US on - c/w Medroxyprogesterone Hypothyroidism - c/w levothyroxine Anxiety - c/w Venlafaxine - c/w Hydroxyzine PRN Insomnia - Will DC Zolpidem - Will start Ramelteon GERD - c/w Protonix; transition to PO dosing DVT prophylaxis - s/p Eliquis - c/w full anticoagulation with Lovenox therapeutic Code Status: - Full Code Disposition: - Pending clinical improvement Lucille NOGUERA, I+O Lucille NOGUERA, I+O Laboratory Tests 02/03/21 04:22 Vital Signs Date Time Temp Pulse Resp B/P (MAP) Pulse Ox O2 Delivery O2 Flow Rate FiO2 02/03/21 08:54 76 130/63 02/03/21 04:00 97.0 18 99 NIPPV (BIPAP/CPAP) 100 02/02/21 16:00 40.0 I&O- Last 24 Hours up to 6 AM 02/03/21 06:00 Intake Total 360 ml Output Total 400 ml Balance -40 ml CHAR AGUILERA MD Feb 03, 2021 09:51
[2021-02-03 12:00] VITALS: BP 128/60
[2021-02-03] MEDS: PANTOPRAZOLE 40MG TAB (PROTONIX) PO SCH (12:35)
[2021-02-03 16:00] VITALS: BP 137/85
[2021-02-03 20:00] VITALS: BP 155/72
[2021-02-04] VITALS (10 sets, daily range): BP systolic 123–169; BP diastolic 60–82
[2021-02-04] MEDS: hydrOXYzine 25 MG TAB PO PRN (00:51)
[2021-02-04] MEDS: ALBUTEROL 90 MCG/ACT 8GM HFA INHALER INH SCH ×4 (01:08→19:25)
[2021-02-04] MEDS: dexameTHASONE 20MG/5ML VIAL (J1100 PER 1MG) IV SCH ×2 (02:30→14:25)
[2021-02-04 04:29] LABS: BASO % 0.1 % (0.0-1.0); EOS % 0.1 % (0.0-3.0); HEMATOCRIT 44.2 % (36.0-47.0); HEMOGLOBIN 14.6 g/dl (12.0-15.5); LYMPH # 0.2 10^3/uL (1.5-5.0); LYMPH % 0.8 % (24.0-44.0); MEAN CORPUSCULAR HEMOGLOBIN 31.4 pg (27.0-33.0); MEAN CORPUSCULAR VOLUME 95.1 fl (80.0-96.0); MONO # 0.6 10^3/uL (0.0-0.8); MONO % 2.5 % (2.0-8.0); NEUTROPHILS # 22.5 10^3/uL (1.5-8.5); NEUTROPHILS % 95.5 % (36.0-66.0); RED BLOOD COUNT 4.65 10^6/uL (4.00-5.40); WHITE BLOOD COUNT 23.6 10^3/uL (4.0-10.0)
[2021-02-04 04:33] LABS: PLATELET COUNT, AUTOMATED 72 10^3/uL (150-450)
[2021-02-04 04:57] LABS: ALBUMIN 1.7 GM/DL (3.2-5.2); ALT/SGPT 49 U/L (12-78); BLOOD UREA NITROGEN 30 MG/DL (7-18); CALCIUM LEVEL 8.2 MG/DL (8.8-10.2); CARBON DIOXIDE LEVEL 31 MEQ/L (21-32); CHLORIDE LEVEL 102 MEQ/L (98-107); CREATININE FOR GFR 0.63 MG/DL (0.55-1.30); GLOMERULAR FILTRATION RATE > 60.0 (>45); GLUCOSE, FASTING 180 MG/DL (70-100); MAGNESIUM LEVEL 2.1 MG/DL (1.8-2.4); POTASSIUM SERUM 4.2 MEQ/L (3.5-5.1); SODIUM LEVEL 140 MEQ/L (136-145); TOTAL PROTEIN 5.5 GM/DL (6.4-8.2)
[2021-02-04 05:00] LABS: C REACTIVE PROTEIN QUANTITATIV 4.76 MG/DL (0.00-0.30)
[2021-02-04] MEDS: LEVOTHYROXINE 88MCG TABLET (0.088 MG) PO SCH (06:52)
[2021-02-04] MEDS: HumaLOG INSULIN (NovoLOG) PER UNIT SC SCH ×4 (09:30→20:46)
[2021-02-04] MEDS: PANTOPRAZOLE 40MG TAB (PROTONIX) PO SCH (09:32)
[2021-02-04] MEDS: guaiFENesin ER 600 MG TAB PO SCH ×2 (09:32→20:47)
[2021-02-04] MEDS: DOCUSATE SODIUM 100MG CAPSULE PO SCH ×2 (09:32→20:46)
[2021-02-04] MEDS: medroxyPROGESTERone 5MG TABLET PO SCH (09:32)
[2021-02-04] MEDS: METOPROLOL SUCC (TopROL XL) 100MG *XL* TAB PO SCH ×2 (09:33→20:47)
[2021-02-04] MEDS: FLUTICASONE PROP 0.05% NASAL SPRAY 16 GM (FLONASE) NARES SCH ×2 (09:34→20:48)
[2021-02-04] MEDS: VENLAFAXINE **XR** 37.5 MG CAPSULE PO SCH (09:34)
[2021-02-04] MEDS: ENOXAPARIN 100MG/1ML SYRINGE (J1650 PER 10MG) SC SCH ×2 (09:34→20:49)
--- NOTE | 2021-02-04 10:28 | IPNPDOC ---
Text Note Date of Service The patient was seen on 02/04/21. NOTE Subjective: Patient is a 65-year-old female with a PMHx of Recent COVID19 PNA (Dx 01/12), A. fib (on Eliquis), SSS s/p PM, HTN, MERVIN (not on CPAP), Hypothyroidism, Abnormal uterine bleeding, GERD who presented to the ER on 01/19 with worsening shortness of breath. Patient was found to be more hypoxic than recent discharge and was admitted again to the hospital service for further evaluation and treatment. Patient has had a recent hospitalization from 01/13 to 01/15 for COVID19 pneumonia; she was discharged with 3 L of supplemental oxygen and prednisone taper; after she was treated with Remdesivir and Dexamethasone. Patient was transferred to the ICU on 01/24 for further evaluation and treatment of her worsening hypoxia. Given that she was maxed out on Vapotherm therapy, she was transitioned to CPAP. Patient was seen and examined at the bedside. Patient was seen this morning coming off BiPAP and being transitioned to Vapotherm and nonrebreather mask. She was sitting at the edge of the bed reported. She has had an uneventful night she didn't sleep well. Denies any chest pain, nausea, vomiting, diarrhea. She does have a Medina catheter in place. Still reports some shortness of breath with mostly a nonproductive cough. Objective: Vitals (See below) General: Sitting up at the edge of the bed, Vapotherm and nonrebreather in place, appears comfortable, no acute distress, awake, alert, oriented 3 HEENT: NC and AT CVS: +S1S2 Lungs: Air entry appears to be fair bilaterally without any auscultated evidence of crackles, wheezing or rhonchi Abdomen: Soft, ND, NT Extremities: Lower extremities do not reveal any significant edema at this morning Imaging: CXR 01/19: Abnormal lung field opacities as described above suspicious for developing pneumonia. CTA Chest 01/19: No CT evidence of pulmonary embolism. Diffuse interstitial and alveolar infiltrates are mildly improved compared to the prior study. There is mild stable subcarinal adenopathy 1.3 cm in short axis. CXR 01/23: Increased bilateral infiltrates. CXR 01/24: No significant change CXR 01/25: 1. Mixed interstitial and alveolar airspace disease, COVID related pneumonia not excluded. 2. Cardiomegaly and pulmonary venous hypertension suggesting some element of superimposed congestive heart failure. 3. Pacemaker. 4. No significant change. CXR 01/26: Stable exam. PICC Line 01/27: PICC line insertion into the left brachial vein. The tip is in the superior vena cava. Assessment and plan: Acute hypoxic respiratory failure - likely 2/2 COVID19 pneumonia, possibly component 2/2 fluid overload, less likely 2/2 super-imposed bacterial PNA - Patient reports that her breathing is still relatively same. Denies any significant cough - c/w Vapotherm therapy at 100% FiO2; CPAP at night - Inflammatory markers with some improvement noted - Imaging noted above - s/p Remdesivir (Completed 10 day course), Baricitinib (Completed 14 day course) - c/w Dexamethasone - c/w Mucinex / Acapella / Incentive spirometry / Prone positioning - s/p Furosemide 40 IV x 1 dose on 02/03; will give small dose of diuretics this morning s/p Sepsis 2/2 COVID-19 pneumonia; possibly superimposed bacterial PNA - Leukocytosis relatively unchanged - Blood cultures 01/25: No growth at 5 days - Blood cultures 01/19: No growth at 5 days - Imaging noted above - s/p vancomycin and Zosyn (Completed 5 days); s/p ceftriaxone and doxycycline (Completed 7 days) Thrombocytopenia - No evidence of bleeding - Counts have remained relatively stable Hyperglycemia - likely 2/2 new onset DM2 and corticosteroid use - A1c 7.5% - c/w ISS Atrial fibrillation with subsequent sick sinus syndrome - s/p Pacemaker - c/w rate control with metoprolol - c/w Full anticoagulation (s/p Eliquis; c/w Lovenox therapeutic) MERVIN not on CPAP - She was advised that she has obstructive sleep apnea - Patient has never had a sleep study and does not CPAP device at home HTN - BP well controlled - s/p Spironolactone - c/w Metoprolol Abnormal uterine bleeding - Transvaginal US on - c/w Medroxyprogesterone Hypothyroidism - c/w levothyroxine Anxiety - c/w Venlafaxine - c/w Hydroxyzine PRN Insomnia - s/p Zolpidem - c/w Ramelteon GERD - c/w Protonix DVT prophylaxis - s/p Eliquis - c/w full anticoagulation with Lovenox therapeutic Code Status: - Full Code Disposition: - Pending clinical improvement VS,Fishbone, I+O VS, Fishbone, I+O Laboratory Tests 02/04/21 04:00 Vital Signs Date Time Temp Pulse Resp B/P (MAP) Pulse Ox O2 Delivery O2 Flow Rate FiO2 02/04/21 09:33 84 123/60 02/04/21 08:00 98.4 20 94 HVNI-Vapotherm 40.0 100 I&O- Last 24 Hours up to 6 AM 02/04/21 06:00 Intake Total 410 ml Output Total 2205 ml Balance -1795 ml CHAR AGUILERA MD Feb 04, 2021 10:28
[2021-02-04 13:24] LABS: ABG BASE EXCESS -0.4 (-2.0-2.0); ABG HCO3 22.1 MEQ/L (22.0-26.0); ABG O2 SATURATION 96.3 % (95.0-99.0); ABG PARTIAL PRESSURE CO2 31.1 mmHg (35.0-45.0); ABG PARTIAL PRESSURE O2 81.3 mmHg (75.0-100.0); ABG STANDARD HCO3 24.1 MEQ/L (22.0-26.0); ABG TOTAL CO2 23.1 MEQ/L (23.0-31.0)
[2021-02-05] VITALS (23 sets, daily range): BP systolic 114–158; BP diastolic 57–84
[2021-02-05] MEDS: ALBUTEROL 90 MCG/ACT 8GM HFA INHALER INH SCH ×4 (01:08→19:18)
[2021-02-05] MEDS: dexameTHASONE 20MG/5ML VIAL (J1100 PER 1MG) IV SCH ×2 (02:00→15:34)
[2021-02-05] MEDS: LEVOTHYROXINE 88MCG TABLET (0.088 MG) PO SCH (05:24)
[2021-02-05 06:02] LABS: BASO % 0.2 % (0.0-1.0); HEMATOCRIT 43.5 % (36.0-47.0); HEMOGLOBIN 14.2 g/dl (12.0-15.5); LYMPH # 0.2 10^3/uL (1.5-5.0); LYMPH % 0.9 % (24.0-44.0); MEAN CORPUSCULAR HEMOGLOBIN 30.9 pg (27.0-33.0); MEAN CORPUSCULAR HGB CONC 32.6 g/dl (32.0-36.5); MEAN CORPUSCULAR VOLUME 94.8 fl (80.0-96.0); MONO # 0.5 10^3/uL (0.0-0.8); MONO % 2.2 % (2.0-8.0); NEUTROPHILS # 19.9 10^3/uL (1.5-8.5); NEUTROPHILS % 95.4 % (36.0-66.0); RED BLOOD COUNT 4.59 10^6/uL (4.00-5.40); WHITE BLOOD COUNT 20.9 10^3/uL (4.0-10.0)
[2021-02-05 06:11] LABS: PLATELET COUNT, AUTOMATED 64 10^3/uL (150-450)
[2021-02-05 06:27] LABS: ALBUMIN 1.8 GM/DL (3.2-5.2); ALT/SGPT 42 U/L (12-78); BILIRUBIN,TOTAL 1.1 MG/DL (0.2-1.0); BLOOD UREA NITROGEN 30 MG/DL (7-18); C REACTIVE PROTEIN QUANTITATIV 4.1 MG/DL (0.00-0.30); CALCIUM LEVEL 8.6 MG/DL (8.8-10.2); CARBON DIOXIDE LEVEL 31 MEQ/L (21-32); CHLORIDE LEVEL 102 MEQ/L (98-107); CREATININE FOR GFR 0.59 MG/DL (0.55-1.30); GLOMERULAR FILTRATION RATE > 60.0 (>45); GLUCOSE, FASTING 183 MG/DL (70-100); MAGNESIUM LEVEL 2.2 MG/DL (1.8-2.4); POTASSIUM SERUM 4.1 MEQ/L (3.5-5.1); SODIUM LEVEL 141 MEQ/L (136-145); TOTAL PROTEIN 5.5 GM/DL (6.4-8.2)
[2021-02-05] MEDS: medroxyPROGESTERone 5MG TABLET PO SCH (08:29)
[2021-02-05] MEDS: ENOXAPARIN 100MG/1ML SYRINGE (J1650 PER 10MG) SC SCH ×2 (08:30→20:20)
[2021-02-05] MEDS: guaiFENesin ER 600 MG TAB PO SCH ×2 (08:30→20:11)
[2021-02-05] MEDS: FLUTICASONE PROP 0.05% NASAL SPRAY 16 GM (FLONASE) NARES SCH ×2 (08:30→20:20)
[2021-02-05] MEDS: METOPROLOL SUCC (TopROL XL) 100MG *XL* TAB PO SCH ×2 (08:30→20:19)
[2021-02-05] MEDS: VENLAFAXINE **XR** 37.5 MG CAPSULE PO SCH (08:30)
[2021-02-05] MEDS: PANTOPRAZOLE 40MG TAB (PROTONIX) PO SCH (08:30)
[2021-02-05] MEDS: DOCUSATE SODIUM 100MG CAPSULE PO SCH ×2 (08:31→20:11)
[2021-02-05] MEDS: HumaLOG INSULIN (NovoLOG) PER UNIT SC SCH ×4 (09:05→20:22)
[2021-02-05 11:55] LABS: CK-MB VALUE MASS 1.2 NG/ML (<3.6); CPK CREATINE PHOSPHOKINASE 46 U/L (26-192); MB/CK RELATIVE INDEX 2.61 (< OR =4); TROPONIN I < 0.02 NG/ML (< 0.10)
--- NOTE | 2021-02-05 12:48 | IPNPDOC ---
Text Note Date of Service The patient was seen on 02/05/21. NOTE Subjective: Patient is a 65-year-old female with a PMHx of Recent COVID19 PNA (Dx 01/12), A. fib (on Eliquis), SSS s/p PM, HTN, MERVIN (not on CPAP), Hypothyroidism, Abnormal uterine bleeding, GERD who presented to the ER on 01/19 with worsening shortness of breath. Patient was found to be more hypoxic than recent discharge and was admitted again to the hospital service for further evaluation and treatment. Patient has had a recent hospitalization from 01/13 to 01/15 for COVID19 pneumonia; she was discharged with 3 L of supplemental oxygen and prednisone taper; after she was treated with Remdesivir and Dexamethasone. Patient was transferred to the ICU on 01/24 for further evaluation and treatment of her worsening hypoxia. Given that she was maxed out on Vapotherm therapy, she was transitioned to CPAP. Patient was seen and examined at the bedside. Currently patient denies any nausea, vomiting, abdominal pain, diarrhea. She has a Medina catheter in place. Denies chest pain or palpitations. Denies any significant cough. Objective: Vitals (See below) General: Patient was sitting up at the edge of the bed about to work with physical therapy, appears comfortable, no acute distress, awake, alert, oriented 3 HEENT: Atraumatic and normocephalic CVS: +S1S2 Lungs: There appears to be fair air entry bilaterally without any auscultated evidence of wheezing, crackles or rhonchi Abdomen: Soft without any distention or tenderness Extremities: No evidence of edema Imaging: CXR 01/19: Abnormal lung field opacities as described above suspicious for developing pneumonia. CTA Chest 01/19: No CT evidence of pulmonary embolism. Diffuse interstitial and alveolar infiltrates are mildly improved compared to the prior study. There is mild stable subcarinal adenopathy 1.3 cm in short axis. CXR 01/23: Increased bilateral infiltrates. CXR 01/24: No significant change CXR 01/25: 1. Mixed interstitial and alveolar airspace disease, COVID related pneumonia not excluded. 2. Cardiomegaly and pulmonary venous hypertension suggesting some element of superimposed congestive heart failure. 3. Pacemaker. 4. No significant change. CXR 01/26: Stable exam. PICC Line 01/27: PICC line insertion into the left brachial vein. The tip is in the superior vena cava. Assessment and plan: Acute hypoxic respiratory failure - likely 2/2 COVID19 pneumonia, possibly component 2/2 fluid overload, less likely 2/2 super-imposed bacterial PNA - Patient reports her breathing is relatively unchanged. She denies any significant cough - No change in oxygenation plan; Vapotherm therapy at 100% FiO2 during the day and CPAP at night - Inflammatory markers again with slight improvement - Imaging noted above - s/p Remdesivir (Completed 10 day course), Baricitinib (Completed 14 day course) - c/w Dexamethasone - c/w Mucinex / Acapella / Incentive spirometry / Prone positioning - Will hold off on additional diuretics at this time s/p Sepsis 2/2 COVID-19 pneumonia; possibly superimposed bacterial PNA - Leukocytosis with slight improvement - Blood cultures 01/25: No growth at 5 days - Blood cultures 01/19: No growth at 5 days - Imaging noted above - s/p vancomycin and Zosyn (Completed 5 days); s/p ceftriaxone and doxycycline (Completed 7 days) Thrombocytopenia - Mild hematuria - Will continue to follow H&H - Counts have remained relatively stable Hyperglycemia - likely 2/2 new onset DM2 and corticosteroid use - A1c 7.5% - c/w ISS Atrial fibrillation with subsequent sick sinus syndrome - s/p Pacemaker - c/w rate control with metoprolol - c/w Full anticoagulation (s/p Eliquis; c/w Lovenox therapeutic) MERVIN not on CPAP - She was advised that she has obstructive sleep apnea - Patient has never had a sleep study and does not CPAP device at home HTN - BP well controlled - s/p Spironolactone - c/w Metoprolol Abnormal uterine bleeding - Transvaginal US on - c/w Medroxyprogesterone Hypothyroidism - c/w levothyroxine Anxiety - c/w Venlafaxine - c/w Hydroxyzine PRN Insomnia - s/p Zolpidem - c/w Ramelteon GERD - c/w Protonix DVT prophylaxis - s/p Eliquis - c/w full anticoagulation with Lovenox therapeutic Code Status: - Full Code Disposition: - Pending clinical improvement CHUCKIE,Lucille, I+O VS, Lucille, I+O Laboratory Tests 02/05/21 05:40 Vital Signs Date Time Temp Pulse Resp B/P (MAP) Pulse Ox O2 Delivery O2 Flow Rate FiO2 02/05/21 11:01 84 134/84 (101) 90 NIPPV (BIPAP/CPAP) 70 02/05/21 10:00 40.0 02/05/21 08:00 96.9 22 I&O- Last 24 Hours up to 6 AM 02/05/21 06:00 Intake Total 580 ml Output Total 574 ml Balance 6 ml CHAR AGUILERA MD Feb 05, 2021 12:48
[2021-02-05 18:26] LABS: ABG BASE EXCESS 6.9 (-2.0-2.0); ABG HCO3 30.7 MEQ/L (22.0-26.0); ABG O2 SATURATION 96.6 % (95.0-99.0); ABG PARTIAL PRESSURE CO2 40.8 mmHg (35.0-45.0); ABG STANDARD HCO3 30.7 MEQ/L (22.0-26.0); ABG pH (ARTERIAL) 7.495 UNITS (7.350-7.450)
--- NOTE | 2021-02-05 19:44 | REPVR ---
PROCEDURE INFORMATION: Exam: CT Head Without Contrast Exam date and time: 02/05/2021 6:55 PM Age: 65 years old Clinical indication: Altered mental status/memory loss; Additional info: Confusion TECHNIQUE: Imaging protocol: Computed tomography of the head without contrast. Radiation optimization: All CT scans at this facility use at least one of these dose optimization techniques: automated exposure control; mA and/or kV adjustment per patient size (includes targeted exams where dose is matched to clinical indication); or iterative reconstruction. COMPARISON: CT MAXILLOFACIAL W/O CONTRAST - OUTSIDE PRIOR 03/21/2017 12:00 AM FINDINGS: Brain: No hemorrhage. Unremarkable white matter. No mass effect. Cerebral ventricles: No ventriculomegaly. Paranasal sinuses: Visualized sinuses are unremarkable. No fluid levels. Mastoid air cells: Visualized mastoid air cells are well aerated. Bones/joints: No acute fracture. Soft tissues: Unremarkable. IMPRESSION: No acute intracranial abnormality. Electronically signed by: Vinod Calvo On 02/05/2021 19:43:50 PM
--- NOTE | 2021-02-05 20:10 | ECGEPIP ---
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
[2021-02-06] VITALS (20 sets, daily range): BP systolic 115–151; BP diastolic 56–98
[2021-02-06] MEDS: ALBUTEROL 90 MCG/ACT 8GM HFA INHALER INH SCH ×4 (00:54→20:15)
[2021-02-06] MEDS: dexameTHASONE 20MG/5ML VIAL (J1100 PER 1MG) IV SCH ×2 (02:19→16:25)
[2021-02-06 04:12] LABS: BASO % 0.1 % (0.0-1.0); HEMATOCRIT 42.6 % (36.0-47.0); HEMOGLOBIN 13.7 g/dl (12.0-15.5); LYMPH # 0.2 10^3/uL (1.5-5.0); LYMPH % 0.8 % (24.0-44.0); MEAN CORPUSCULAR HEMOGLOBIN 31.2 pg (27.0-33.0); MEAN CORPUSCULAR HGB CONC 32.2 g/dl (32.0-36.5); MONO # 0.5 10^3/uL (0.0-0.8); MONO % 2.1 % (2.0-8.0); NEUTROPHILS # 20.1 10^3/uL (1.5-8.5); RED BLOOD COUNT 4.39 10^6/uL (4.00-5.40)
[2021-02-06 04:15] LABS: PLATELET COUNT, AUTOMATED 68 10^3/uL (150-450)
[2021-02-06 05:19] LABS: ALBUMIN 1.6 GM/DL (3.2-5.2); ALT/SGPT 40 U/L (12-78); BLOOD UREA NITROGEN 31 MG/DL (7-18); CALCIUM LEVEL 8.1 MG/DL (8.8-10.2); CARBON DIOXIDE LEVEL 29 MEQ/L (21-32); CHLORIDE LEVEL 106 MEQ/L (98-107); CREATININE FOR GFR 0.59 MG/DL (0.55-1.30); FERRITIN 1304 NG/ML (8-252); GLOMERULAR FILTRATION RATE > 60.0 (>45); GLUCOSE, FASTING 151 MG/DL (70-100); MAGNESIUM LEVEL 2.1 MG/DL (1.8-2.4); POTASSIUM SERUM 4.6 MEQ/L (3.5-5.1); SODIUM LEVEL 143 MEQ/L (136-145); TOTAL PROTEIN 5.3 GM/DL (6.4-8.2)
[2021-02-06] MEDS: LEVOTHYROXINE 88MCG TABLET (0.088 MG) PO SCH (05:24)
[2021-02-06] MEDS: HumaLOG INSULIN (NovoLOG) PER UNIT SC SCH ×4 (07:30→20:39)
[2021-02-06] MEDS: ENOXAPARIN 100MG/1ML SYRINGE (J1650 PER 10MG) SC SCH ×2 (08:23→20:11)
[2021-02-06] MEDS: PANTOPRAZOLE 40MG TAB (PROTONIX) PO SCH ×2 (08:24→09:00)
[2021-02-06] MEDS: guaiFENesin ER 600 MG TAB PO SCH ×3 (08:24→20:11)
[2021-02-06] MEDS: DOCUSATE SODIUM 100MG CAPSULE PO SCH ×3 (08:24→20:10)
[2021-02-06] MEDS: METOPROLOL SUCC (TopROL XL) 100MG *XL* TAB PO SCH ×2 (08:24→20:11)
[2021-02-06] MEDS: VENLAFAXINE **XR** 37.5 MG CAPSULE PO SCH ×2 (08:24→09:00)
[2021-02-06] MEDS: medroxyPROGESTERone 5MG TABLET PO SCH ×2 (08:24→09:00)
[2021-02-06] MEDS: FLUTICASONE PROP 0.05% NASAL SPRAY 16 GM (FLONASE) NARES SCH ×2 (09:00→20:12)
--- NOTE | 2021-02-06 12:46 | IPNPDOC ---
Text Note Date of Service The patient was seen on 02/06/21. NOTE Subjective: Patient is a 65-year-old female with a PMHx of Recent COVID19 PNA (Dx 01/12), A. fib (on Eliquis), SSS s/p PM, HTN, MERVIN (not on CPAP), Hypothyroidism, Abnormal uterine bleeding, GERD who presented to the ER on 01/19 with worsening shortness of breath. Patient was found to be more hypoxic than recent discharge and was admitted again to the hospital service for further evaluation and treatment. Patient has had a recent hospitalization from 01/13 to 01/15 for COVID19 pneumonia; she was discharged with 3 L of supplemental oxygen and prednisone taper; after she was treated with Remdesivir and Dexamethasone. Patient was transferred to the ICU on 01/24 for further evaluation and treatment of her worsening hypoxia. Given that she was maxed out on Vapotherm therapy, she was transitioned to CPAP. Yesterday evening, patient had shown some signs of confusion and a CT scan was ordered stat; results were negative. Patient was seen and examined at the bedside. Currently denies nausea, vomiting, abdominal pain, diarrhea, or urinary discomfort. She still reports some shortness of breath with a mild nonproductive cough. Objective: Vitals (See below) General: Patient is sitting up in bed, appears comfortable without any acute distress. She is oriented to person, place and time HEENT: AT, NC CVS: +S1S2 Lungs: Air entry appears to be fair bilaterally, however, difficult to appreciate. No discernible crackles, wheezing or rhonchi Abdomen: Again, her abdomen remains soft without any distention or tenderness Extremities: Lower extremities are without any significant edema Imaging: CXR 01/19: Abnormal lung field opacities as described above suspicious for developing pneumonia. CTA Chest 01/19: No CT evidence of pulmonary embolism. Diffuse interstitial and alveolar infiltrates are mildly improved compared to the prior study. There is mild stable subcarinal adenopathy 1.3 cm in short axis. CXR 01/23: Increased bilateral infiltrates. CXR 01/24: No significant change CXR 01/25: 1. Mixed interstitial and alveolar airspace disease, COVID related pneumonia not excluded. 2. Cardiomegaly and pulmonary venous hypertension suggesting some element of superimposed congestive heart failure. 3. Pacemaker. 4. No significant change. CXR 01/26: Stable exam. PICC Line 01/27: PICC line insertion into the left brachial vein. The tip is in the superior vena cava. CT head 02/05: No acute intracranial abnormality. Assessment and plan: Acute hypoxic respiratory failure - likely 2/2 COVID19 pneumonia, possibly component 2/2 fluid overload, less likely 2/2 super-imposed bacterial PNA - Patient has not had any significant clinical change in the last several days - She remains on Vapotherm therapy at 100% FiO2 during the day and CPAP at night - Inflammatory markers again with slight improvement - Imaging noted above - s/p Remdesivir (Completed 10 day course), Baricitinib (Completed 14 day course) - c/w Dexamethasone - c/w Mucinex / Acapella / Incentive spirometry / Prone positioning - s/p Diuretics s/p Sepsis 2/2 COVID-19 pneumonia; possibly superimposed bacterial PNA - Leukocytosis remains unchanged / Worsening CRP - Blood cultures 01/25: No growth at 5 days - Blood cultures 01/19: No growth at 5 days - 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 / Yeast like organisms - Imaging noted above - s/p Vancomycin and Zosyn (Completed 5 days); s/p ceftriaxone and doxycycline (Completed 7 days) - Will consult infectious disease given the moderate growth of bacteria in sputum Thrombocytopenia - Mild hematuria - H&H stable - Counts have remained relatively stable Hyperglycemia - likely 2/2 new onset DM2 and corticosteroid use - A1c 7.5% - c/w ISS Atrial fibrillation with subsequent sick sinus syndrome - s/p Pacemaker - c/w rate control with metoprolol - c/w Full anticoagulation (s/p Eliquis; c/w Lovenox therapeutic) MERVIN not on CPAP - She was advised that she has obstructive sleep apnea - Patient has never had a sleep study and does not CPAP device at home HTN - BP well controlled - s/p Spironolactone - c/w Metoprolol Abnormal uterine bleeding - Transvaginal US on - c/w Medroxyprogesterone Hypothyroidism - c/w levothyroxine Anxiety - c/w Venlafaxine - c/w Hydroxyzine PRN Insomnia - s/p Zolpidem - c/w Ramelteon GERD - c/w Protonix DVT prophylaxis - s/p Eliquis - c/w full anticoagulation with Lovenox therapeutic Code Status: - Full Code Disposition: - Pending clinical improvement VS,Lucille, I+O VS, Elroye, I+O Laboratory Tests 02/06/21 03:57 Vital Signs Date Time Temp Pulse Resp B/P (MAP) Pulse Ox O2 Delivery O2 Flow Rate FiO2 02/06/21 11:00 76 18 130/77 (94) 87 NIPPV (BIPAP/CPAP) 85 02/06/21 08:00 97.1 02/05/21 14:00 40.0 I&O- Last 24 Hours up to 6 AM 02/06/21 06:00 Intake Total 300 ml Output Total 510 ml Balance -210 ml CHAR AGUILERA MD Feb 06, 2021 12:46
[2021-02-06 13:32] LABS: ABG BASE EXCESS 3.2 (-2.0-2.0); ABG HCO3 25.9 MEQ/L (22.0-26.0); ABG O2 SATURATION 96.6 % (95.0-99.0); ABG PARTIAL PRESSURE CO2 33.9 mmHg (35.0-45.0); ABG PARTIAL PRESSURE O2 86.8 mmHg (75.0-100.0); ABG STANDARD HCO3 27.3 MEQ/L (22.0-26.0); ABG TOTAL CO2 26.9 MEQ/L (23.0-31.0); ABG pH (ARTERIAL) 7.501 UNITS (7.350-7.450)
[2021-02-06] MEDS ORDERED: MEROPENEM IV SCH (13:45)
--- NOTE | 2021-02-06 14:10 | REP ---
INDICATION: covid. COMPARISON: Multiple the latest 01/26/2021 TECHNIQUE: Port FINDINGS: The technique utilized in obtaining the radiograph has magnified the cardiac silhouette and accentuated the interstitial markings. Cardiomediastinal silhouette and pacemaker device are unchanged. Diffuse bilateral interstitial and airspace opacities appear to have slightly improved. No new opacities have developed. There is no change in the osseous structures. IMPRESSION: Slight improvement is suspected on this portable exam. <Electronically signed by Bo Kelly > 02/06/21 [id number]
[2021-02-06] MEDS: MEROPENEM INJ 2 GM in NS 100 ML IV SCH (16:25)
--- NOTE | 2021-02-06 18:13 | CR ---
CONSULTATION DATE: 02/06/2021 Asked to consult by Dr. 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 The patient was discharged on 3 liters nasal cannula and readmitted for worsening pneumonia. The patient has been in the hospital since January 19, where she was treated with intravenous (IV) remdesivir for a total of 10 days from January 19 to January 29, Decadron 10 mg IV every 12 hours, ceftriaxone, and doxycycline for 7 days. On January 25 due to persistent respiratory failure she was switched to IV vancomycin and Zosyn for 5 days. She had blood cultures that were negative on admission with C-reactive protein (CRP) of 14.9. A sputum culture on January 24 was negative. On January 25 she had again two negative blood cultures, and her CRP was down to 1.7 with a procalcitonin of 0.1. On February 02, patient's white count was up to 30.7, but her procalcitonin was still 0.36. Her FiO2 requirement has increased over the past 5 days. She was requiring VapoTherm, and now she is between 70% and 100% FiO2, depending on her agitation. The nurses have noted that mostly she gets very agitated, at times confused and removing her CPAP mask, trying to get out of bed. When consoled, the patient settled down and states she cannot breathe with the CPAP mask, and she feels like she cannot breathe and is going to . She has not had any fever. The patient also received baricitinib 4 mg daily from January 20 to February 02. She had a dilatation and curettage (D and C) done one month ago, and she has vaginal bleeding. PAST MEDICAL HISTORY: Significant for: 1. Atrial fibrillation with sick sinus syndrome. 2. Obstructive sleep apnea. 3. Gastroesophageal reflux disease (GERD). 4. Hypertension. 5. Abnormal uterine bleeding, status post D and C. 6. Hypothyroidism. 7. Fibromyalgia. PAST SURGICAL HISTORY: 1. Two sections. 2. Pacemaker. 3. Cholecystectomy. SOCIAL HISTORY: She never smoked. She denies alcohol use. 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 She lives at home with her son, and she has not been vaccinated for COVID. FAMILY HISTORY: Colon cancer in her father and mother. ALLERGIES: CODEINE and FENTANYL. MEDICATIONS: - Rozerem 8 mg by mouth every night - pantoprazole 40 mg by mouth daily - insulin sliding scale - Decadron 50 mg IV every 12 hours - Colace 100 mg by mouth twice a day - albuterol as needed, two puffs - Lovenox 90 mg subcutaneous every 12 hours - fluticasone one spray inhaled twice a day - hydroxyzine 25 mg by mouth every 6 as needed - venlafaxine 112.5 mg daily - Provera 10 mg by mouth daily - levothyroxine 88 mcg daily - metoprolol 100 mg by mouth twice a day - Tylenol as needed LABORATORY DATA: White count is 21,000. Her white count on February 02 was 30.7. Hemoglobin 13.7, hematocrit 42.7, platelets 68, which have dropped since January 19. Sodium 143, potassium 4.6, chloride 106, bicarbonate 29, BUN 31, creatinine 0.59, glucose 151, calcium 8.1, magnesium 2.1. Ferritin 1304. Bilirubin 1, AST 49, ALT 40, alkaline phosphatase 140. Total CPK 46. CRP 11.4. On February 01 CRP was 0.96 and has increased to 11.4. Last blood cultures were done on January 25 and were negative. Sputum culture with many white cells, yeast-like organism moderate, and moderate Burkholderia cepacia. Chest x-ray ordered today after I saw the patient showed slight improvement on a portable exam. No new opacities noted. Bilateral interstitial and airspace opacities. Head CT done for confusion on February 05 shows no hemorrhage. Unremarkable white matter. No mass effect. Paranasal sinuses are normal. No acute abnormalities. Peripherally inserted central catheter (PICC) line was placed on January 27, left brachial vein. PHYSICAL EXAMINATION: Anxious female in moderate respiratory discomfort with a CPAP mask, complaining of being claustrophobic and not being able to breathe. Temperature is 97.4, pulse 91, respirations 20, blood pressure 141/73, oxygen saturation 96% on FiO2 100%. NECK: Supple. No jugular venous distention (JVD). No bruits. No adenopathy. HEART: Normal S1, S2, tachycardic. No murmurs appreciated. LUNGS: Diminished breath sounds bilaterally but no wheezes or rhonchi. ABDOMEN: Soft, nontender. No hepatosplenomegaly. BACK: No costovertebral angle (CVA) tenderness. EXTREMITIES: Trace ankle edema bilaterally. Sitting in bed. Able to converse. Moves all extremities. NEUROLOGIC: Seems intact. Was alert and oriented. Recognized me as Dr. Castellanos. Was previously agitated, trying to get out of bed and pulling her CPAP mask when the nurse was not in the room, but she settled down and was not confused when we were there at the bedside. IMPRESSION: This is a 65-year-old female with COVID-19 pneumonia, who has been treated with 10 days of remdesivir, high-dose Decadron for the past 20 days, as well as baricitinib that was discontinued on February 02. Her white count started to increase on February 02, and her respiratory status has declined. A repeat sputum culture had Burkholderia cepacia. This is a pathogen that usually is seen on chronic lung disease, usually cystic fibrosis, but since the patient has been immunocompromised with steroids as well as baricitinib, patient is at risk of opportunistic infection, such as those ones. The patient will be treated with meropenem. Even though her chest x-ray does not show any significant changes, increased white count, worsening hypoxia may indicate superimposed hospital-acquire infection. An arterial blood gas (ABG) was done today, which showed a pH of 7.5, pCO2 of 34, and pO2 of 87%. That does not explain her confusion and delirious episode. I think they are related to anxiety. The patient also could have steroid-induced psychosis. She has been on high-dose steroids for many days. PLAN: Start meropenem 2 grams IV every 8 hours to cover for Burkholderia nosocomial infection. Repeat procalcitonin and CRP in the morning. Consider tapering steroids. Consider consulting pulmonary for any further input. She may benefit from something to help her with anxiety, but I will leave that to the primary team or pulmonary. Consider chest CT if pulmonary symptoms worsen, if her hypoxia worsens to allow any pleural effusion or other possibilities of worsening respiratory failure. Will also repeat blood cultures, as she has had a PICC line with worsening leukocytosis and CRP, and blood cultures have not been repeated for the past 10 days.
[2021-02-06] MEDS ORDERED: hydrOXYzine 25 MG TAB PO PRN (18:40)
[2021-02-06] MEDS ORDERED: NS 1,000 ML IV SCH (19:50)
[2021-02-07] VITALS: BP 163/71
[2021-02-07] MEDS: ALBUTEROL 90 MCG/ACT 8GM HFA INHALER INH SCH ×4 (00:17→19:35)
[2021-02-07] MEDS: MEROPENEM INJ 2 GM in NS 100 ML IV SCH (00:24)
--- NOTE | 2021-02-07 01:08 | IPNPDOC ---
Text Note Date of Service The patient was seen on 02/07/21. NOTE CODE STATUS discussion update Overnight and was asked by Ms Chris's nurse to talk to the patient as patient had indicated she no longer wants medical intervention and only wants to be comfortable and allowed to pass away. I saw Ms Chris at bedside she as alert and oriented 4. She made eye contact and was able to answer all my questions appropriately. She informed me that she no longer wants to receive any further medical intervention she does not want any fluids or antibiotics and does not want any supplemental oxygen of any kind and that she wants to be made comfortable and allowed to pass away peacefully. She adamantly refused wanting to be resuscitated or intubated. She was very clear and outlining her wishes. She feels she's had enough and she's tried and now is her time to go. I told her that there is a very high likelihood that once we transition her to comfort measures only and take the oxygen off she will pass away very quickly most likely tonight she verbalized understanding and asked me to respect her wishes. I tried calling the number in the chart for her son Flavio Chris several times and I was unable to reach him. i told Ms. Chris the Flavio doesn't know this is going to happen tonight and that you might pass tonight and if she preferred to wait until the morning until she is able to speak to him or to give him an opportunity to come visit her the hospital and she declined. ICU nurse Jose offered to find alternative numbers for Flavio on her phone so we can try to reach out and tonight but she refused to unlock her phone for us saying she understands that we will not be reaching him and that she is going to be making this decision for herself without any input from anyone else. We also offered to call Bhumika Briggs to involve her in the decision- making process but Ms Chris firmly declined this offer as well. It is my impression that Ms Chris is making an informed decision and wishes to proceed with comfort measures only with full understanding that she will likely tonight and so I respected her wishes after a long goals of care discussion and signed a MOLST form outlining her wishes on 02/07/21 @ 11:50am. Lucille NOGUERA, I+O Lucille NOGUERA, I+O Laboratory Tests 02/06/21 03:57 Vital Signs Date Time Temp Pulse Resp B/P (MAP) Pulse Ox O2 Delivery O2 Flow Rate FiO2 02/07/21 00:17 90 02/06/21 20:11 91 131/62 02/06/21 20:00 97.0 18 97 NIPPV (BIPAP/CPAP) 02/05/21 14:00 40.0 I&O- Last 24 Hours up to 6 AM 02/07/21 06:00 Intake Total 340 ml Output Total 350 ml Balance -10 ml COLE GLASS MD Feb 07, 2021 01:05
[2021-02-07] MEDS ORDERED: HYOSCYAMINE SULFATE 0.125 MG SUBL TABLET PO PRN (01:10)
[2021-02-07] MEDS ORDERED: SCOPOLAMINE 1MG TRANSDERMAL PATCH TOP PRN ×2 (01:10→11:55)
[2021-02-07] MEDS ORDERED: MORPHINE 2 MG/ML 1ML VIAL (J2270) IV PRN (01:10)
[2021-02-07] MEDS ORDERED: ONDANSETRON 4MG/2ML VIAL IV PRN (01:10)
[2021-02-07] MEDS ORDERED: BISACODYL 10 MG SUPP PR PRN (01:10)
[2021-02-07] MEDS ORDERED: LORazepam 2 MG/ML VIAL IV PRN (01:10)
[2021-02-07] MEDS ORDERED: ATROPINE SULFATE 1% OP SOLN 2 ML BTL SL PRN (01:10)
[2021-02-07] MEDS ORDERED: LORazepam 2 MG/ML VIAL As Ordered ONE ×3 (02:36→19:21)
[2021-02-07] MEDS ORDERED: LEVOTHYROXINE 88MCG TABLET (0.088 MG) PO SCH (06:00)
[2021-02-07 08:00] VITALS: BP 169/82
[2021-02-07] MEDS ORDERED: dexameTHASONE 4 MG/ML 1ML VIAL (J1100 PER 1MG) IV SCH ×2 (09:00)
[2021-02-07] MEDS ORDERED: METOPROLOL SUCC (TopROL XL) 100MG *XL* TAB PO SCH (09:00)
[2021-02-07] MEDS ORDERED: ENOXAPARIN 100MG/1ML SYRINGE (J1650 PER 10MG) SC SCH (09:00)
[2021-02-07] MEDS ORDERED: medroxyPROGESTERone 5MG TABLET PO SCH (09:00)
[2021-02-07] MEDS ORDERED: DEXTROSE 50% 50 ML SYRINGE IV PRN (09:05)
[2021-02-07] MEDS ORDERED: GLUCOSE 4GM CHEW TABLET PO PRN (09:05)
[2021-02-07] MEDS ORDERED: GLUCAGON INJ 1MG VIAL SC PRN (09:05)
--- NOTE | 2021-02-07 09:42 | REP ---
INDICATION: Hypoxia. COMPARISON: 02/06/2021, 01/26/2021, 01/25/2021 TECHNIQUE: AP portable seated FINDINGS: Dual lead pacer again seen with leads in the right atrium and right ventricle. Heart size unchanged. Tortuous aorta again seen. Again noted are bilateral mid and lower lung zone alveolar and interstitial infiltrates which are unchanged compared to yesterday. Somewhat less consolidation compared to 01/25/2021. No gross effusion or joe edema. No other new or significant finding. IMPRESSION: 1. Interstitial and alveolar infiltrates mid and lower lung zones unchanged from yesterday but with the alveolar component slightly reduced since 01/25/2021. No gross effusion, joe edema or other new/acute finding. <Electronically signed by Ace Rios > 02/07/21 [id number]
[2021-02-07 10:00] VITALS: BP 147/67
[2021-02-07] MEDS ORDERED: MEROPENEM INJ 1 GM in IV 1 EA IV SCH ×2 (10:00→10:30)
[2021-02-07] MEDS: DOCUSATE SODIUM 100MG CAPSULE PO SCH ×2 (10:49→19:34)
[2021-02-07] MEDS: guaiFENesin ER 600 MG TAB PO SCH ×2 (10:50→19:34)
[2021-02-07] MEDS: FLUTICASONE PROP 0.05% NASAL SPRAY 16 GM (FLONASE) NARES SCH (10:51)
[2021-02-07] MEDS ORDERED: MEROPENEM INJ 2 GM in NS 100 ML IV SCH (12:00)
[2021-02-07] MEDS ORDERED: HumaLOG INSULIN (NovoLOG) PER UNIT SC SCH (12:00)
[2021-02-07] MEDS: LORazepam 2 MG/ML VIAL IV PRN ×4 (13:22→21:25)
--- NOTE | 2021-02-07 14:40 | IPNPDOC ---
Text Note Date of Service The patient was seen on 02/07/21. NOTE Subjective: Patient is a 65-year-old female with a PMHx of Recent COVID19 PNA (Dx 01/12), A. fib (on Eliquis), SSS s/p PM, HTN, MERVIN (not on CPAP), Hypothyroidism, Abnormal uterine bleeding, GERD who presented to the ER on 01/19 with worsening shortness of breath. Patient was found to be more hypoxic than recent discharge and was admitted again to the hospital service for further evaluation and treatment. Patient has had a recent hospitalization from 01/13 to 01/15 for COVID19 pneumonia; she was discharged with 3 L of supplemental oxygen and prednisone taper; after she was treated with Remdesivir and Dexamethasone. Patient was transferred to the ICU on 01/24 for further evaluation and treatment of her worsening hypoxia. Given that she was maxed out on Vapotherm therapy, she was transitioned to CPAP. Overnight patient asked to become comfort measures. Overnight provider and nursing staff had seen and evaluated patient and she was oriented x4 and had filled out at [facility] form reflecting DNR / DNI / QUALITY CONTROL LAB TECH. Patient was adamant that she did not want to be resuscitated or intubated; it was noted that she was clear about her wishes. She reported that she did not want to contact her family, her healthcare proxy, Flavio Chris and had even refused to unlock her phone to get a contact number. This morning, family member from another unit had walked into the ICU and become very emotional and had reported that she and healthcare proxy wanted to have reversal of QUALITY CONTROL LAB TECH orders. However, on my evaluation of the patient, it does not appear at this point that she has capacity to make decisions this morning; she is not sure of where she is and notes that she will be going to work soon. The family's wishes are different than that of the patient, when she made those decisions in clear mind at 1:00AM. We will continue to respect the patient's wishes and proceed with comfort measures as she has outlined in a [facility] form that she has filled out overnight that has been witnessed by nursing staff. Will proceed with comfort measures alone. I have called and informed the healthcare proxy, Bhumika Duc at [phone]; she has video called the patient, along with nursing staff this afternoon. On the phone, she was joined by a hospice nurse that she is related with. I have f ollowed up with Ms. Xavier after that conversation and they are supportive of the her decision to proceed with QUALITY CONTROL LAB TECH. This afternoon patient was video calling with her Son, Flavio Chris. He is also in agrees with proceeding with QUALITY CONTROL LAB TECH status. 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 CTA Chest 01/19: No CT evidence of pulmonary embolism. Diffuse interstitial and alveolar infiltrates are mildly improved compared to the prior study. There is mild stable subcarinal adenopathy 1.3 cm in short axis. CXR 01/23: Increased bilateral infiltrates. CXR 01/24: No significant change CXR 01/25: 1. Mixed interstitial and alveolar airspace disease, COVID related pneumonia not excluded. 2. Cardiomegaly and pulmonary venous hypertension suggesting some element of superimposed congestive heart failure. 3. Pacemaker. 4. No significant change. CXR 01/26: Stable exam. PICC Line 01/27: PICC line insertion into the left brachial vein. The tip is in the superior vena cava. CT head 02/05: No acute intracranial abnormality. Assessment: Acute hypoxic respiratory failure - likely 2/2 COVID19 pneumonia, possibly component 2/2 fluid overload, less likely 2/2 super-imposed bacterial PNA s/p Sepsis 2/2 COVID-19 pneumonia; possibly superimposed bacterial PNA Thrombocytopenia Hyperglycemia - likely 2/2 new onset DM2 and corticosteroid use Atrial fibrillation with subsequent sick sinus syndrome MERVIN not on CPAP HTN Abnormal uterine bleeding Hypothyroidism Anxiety Insomnia GERD DVT prophylaxis Plan: - Will reinstate with QUALITY CONTROL LAB TECH orders and respect patient's wishes - c/w pain control / anxiety relief / symptomatic control - Will discontinue labs / imaging / vitals - Discussed with HCP and they are supportive of her decision Code Status: - DNR / DNI VS,Fishbone, I+O VS, Fishbone, I+O Vital Signs Date Time Temp Pulse Resp B/P (MAP) Pulse Ox O2 Delivery O2 Flow Rate FiO2 02/07/21 06:00 78 92 NIPPV (BIPAP/CPAP) 02/07/21 04:00 100 02/07/21 02:25 18 02/07/21 00:00 96.8 163/71 (101) 02/05/21 14:00 40.0 I&O- Last 24 Hours up to 6 AM 02/07/21 06:00 Intake Total 340 ml Output Total 435 ml Balance -95 ml CHAR AGUILERA MD Feb 07, 2021 11:49
[2021-02-07] MEDS: MORPHINE 2 MG/ML 1ML VIAL (J2270) IV PRN ×3 (14:52→20:20)
[2021-02-07 17:33] VITALS: BP 147/67
[2021-02-07] MEDS ORDERED: LORazepam 2 MG/ML VIAL IV STA (21:48)
[2021-02-08 00:07] LABS: RSV AMPLIFICATION NEGATIVE (NEGATIVE)
--- NOTE | 2021-02-08 17:17 | DS.PDOC ---
Discharge Summary General Date of Admission Jan 19, 2021 at 16:35 Date of Discharge 02/07/2021 Discharge Summary PROCEDURES PERFORMED DURING STAY: PICC line placement 01/27/2021 ADMITTING DIAGNOSES / DISCHARGE DIAGNOSES: Acute hypoxic respiratory failure - likely 2/2 COVID19 pneumonia, possibly component 2/2 fluid overload, less likely 2/2 super-imposed bacterial PNA s/p Sepsis 2/2 COVID-19 pneumonia; possibly superimposed bacterial PNA Thrombocytopenia Hyperglycemia - likely 2/2 new onset DM2 and corticosteroid use Atrial fibrillation with subsequent sick sinus syndrome MERVIN not on CPAP HTN Abnormal uterine bleeding Hypothyroidism Anxiety Insomnia GERD DVT prophylaxis COMPLICATIONS/CHIEF COMPLAINT: Shortness of breath HISTORY OF PRESENT ILLNESS / HOSPITAL COURSE: Patient is a 65-year-old female with a PMHx of Recent COVID19 PNA (Dx 01/12), A. fib (on Eliquis), SSS s/p PM, HTN, MERVIN (not on CPAP), Hypothyroidism, Abnormal uterine bleeding, GERD who presented to the ER on 01/19 with worsening shortness of breath. Patient was found to be more hypoxic than recent discharge and was admitted again to the hospital service for further evaluation and treatment. Patient has had a recent hospitalization from 01/13 to 01/15 for COVID19 pneumonia; she was discharged with 3 L of supplemental oxygen and prednisone taper; after she was treated with Remdesivir and Dexamethasone. Patient was transferred to the ICU on 01/24 for further evaluation and treatment of her worsening hypoxia. Given that she was maxed out on Vapotherm therapy, she was transitioned to CPAP. On 02/06 evening, patient asked to become comfort measures. Overnight provider and nursing staff had seen and evaluated patient and she was oriented x4 and [facility] reflecting DNR / DNI / ENGINE WIPER. Patient was adamant that she did not want to be resuscitated or intubated; it was noted that she was clear about her wishes. She reported that she did not want to contact her family, her healthcare proxy, Flavio Chris and had even refused to unlock her phone to get a contact number. On 02/07, family member from another unit had walked into the ICU and become very emotional and had reported that she and healthcare proxy wanted to have reversal of ENGINE WIPER orders. However, on my evaluation of the patient, it did not appear at this point that she had capacity to make decisions at that point; she was not sure of where she was and noted that she will be going to work soon. The family's wishes are different than that of the patient, when she made those decisions in clear mind at 1:00AM on 02/07. We will continue to respect the patient's wishes and proceed with comfort measures as she has outlined in a [facility] form that she has filled out overnight that has been witnessed by nursing staff. Healthcare proxies , Bhumika Xavier and Flavio Chris were supportive of the ENGINE WIPER orders after several video calls with the patient. Ultimately she that evening at 10:24PM; family was on video call with her at that time. DISPOSITION: Vital Signs/I&Os Vital Signs Date Time Temp Pulse Resp B/P (MAP) Pulse Ox O2 Delivery O2 Flow Rate FiO2 02/07/21 20:30 16 Non-Rebreather 02/07/21 20:00 107 66 40.0 100 02/07/21 17:33 98.5 147/67 I&O- Last 24 Hours up to 6 AM 02/08/21 06:00 Intake Total 30 ml Output Total 170 ml Balance -140 ml Laboratory Data Labs 24H Laboratory Tests 2 02/07/21 23:00: Coronavirus (COVID-19)(PCR) POSITIVEA, Influenza Type A (RT-PCR) NEGATIVE, Influenza Type B (RT-PCR) NEGATIVE, Respiratory Syncytial Virus (PCR) NEGATIVE Microbiology Microbiology 02/06/21 Blood Culture - Preliminary, Resulted No growth after 24 hours . All specim... 02/02/21 Gram Stain - Final, Complete 02/02/21 Sputum Culture - Final, Complete Yeast Like Organism Burkholderia Cepacia Discharge Medications Scheduled Apixaban (Eliquis) 5 Mg Tab, 5 MG PO BID, (Reported) Cyanocobalamin (Vitamin B-12) (Vitamin B-12) 1,000 Mcg Tablet, 1,000 MCG PO DAILY, (Reported) Dexamethasone (Dexamethasone) 6 Mg Tablet, 6 MG PO DAILY, (Reported) Levothyroxine Sodium (Synthroid) 88 Mcg Tablet, 88 MCG PO DAILY, (Reported) Medroxyprogesterone Acetate (Medroxyprogesterone Acetate) 10 Mg Tablet, 10 MG PO DAILY, (Reported) Metoprolol Succinate (Metoprolol Succinate) 100 Mg Tab, 100 MG PO BID, (Reported) Spironolactone (Spironolactone) 25 Mg Tab, 25 MG PO DAILY, (Reported) Venlafaxine HCl (Effexor Xr) 37.5 Mg Cap, 112.5 MG PO DAILY, (Reported) Zolpidem Tartrate (Zolpidem Tartrate) 5 Mg Tablet, 5 MG PO QHS, (Reported) Scheduled PRN Acetaminophen (Tylenol Extra Strength) 500 Mg Tablet, 500 MG PO Q4H PRN for PAIN / FEVER, (Reported) Albuterol Sulfate (Albuterol Sulfate Hfa) 8.5 Gm Hfa.aer.ad, 2 PUFF INH QID PRN for SOB/WHEEZING, (Reported) Allergies Coded Allergies: codeine (Verified Allergy, Intermediate, hives, 01/02/21) fentanyl (Verified Adverse Reaction, Intermediate, vomiting, 01/02/21) CHAR AGUILERA MD Feb 08, 2021 17:17
== END 2021-02-07 22:24 | disposition expired | DRG 871 ==
LOC: M ED 12:00 → M ED INP 16:35 → ENRESERV 17:41 → M 4MAIN 19:03 → M ICU 01-24 12:31
PROVIDERS: ADMIT Family Medicine; ATTEND Internal Medicine
PROC: 3E0333Z Introduction of Anti-inflammatory into Peripheral Vein, Percutaneous Approach (ICD-10-PCS; 2021-01-19)
PROC: XW033E5 Introduction of Remdesivir Anti-infective into Peripheral Vein, Percutaneous Approach, New Technology Group 5 (ICD-10-PCS; 2021-01-19)
PROC: 02HV33Z Insertion of Infusion Device into Superior Vena Cava, Percutaneous Approach (ICD-10-PCS; principal; 2021-01-27 15:00)
DX: A41.9 Sepsis, unspecified organism (principal); U07.1 COVID-19; J96.01 Acute respiratory failure with hypoxia; J12.82 Pneumonia due to coronavirus disease 2019; J15.9 Unspecified bacterial pneumonia; E87.70 Fluid overload, unspecified; I48.91 Unspecified atrial fibrillation; Z95.0 Presence of cardiac pacemaker; G47.33 Obstructive sleep apnea (adult) (pediatric); K21.9 Gastro-esophageal reflux disease without esophagitis; I10 Essential (primary) hypertension; E03.9 Hypothyroidism, unspecified; M79.7 Fibromyalgia; Z90.49 Acquired absence of other specified parts of digestive tract; Z79.01 Long term (current) use of anticoagulants; Z79.899 Other long term (current) drug therapy; Z88.5 Allergy status to narcotic agent; Z88.8 Allergy status to other drugs, medicaments and biological substances; Z66 Do not resuscitate; F41.9 Anxiety disorder, unspecified; I49.5 Sick sinus syndrome; D69.6 Thrombocytopenia, unspecified; G47.00 Insomnia, unspecified; Z51.5 Encounter for palliative care; Z91.14 Patient's other noncompliance with medication regimen; R73.9 Hyperglycemia, unspecified